=== PATIENT | female | born 1975 | race Caucasian/White ===

== ENCOUNTER → 2020-09-06 11:22 | Outpatient (BNVA) | payer OTHER, SELFPAY | PROVIDERS: PCP Internal Medicine Geriatric Medicine; Referring Provider Internal Medicine Geriatric Medicine; Visit Provider Physician Assistant | DX: K21.9 Gastro-esophageal reflux disease without esophagitis (principal); Z79.899 Other long term (current) drug therapy | CPT/HCPCS: 99213 ==

== ENCOUNTER 2020-09-15 12:21 | Outpatient (REF) | payer OTHER, SELFPAY ==
--- NOTE | 2020-09-15 12:31 | XR_ITS ---
EXAMINATION: XR CERVICAL SPINE CLINICAL INFORMATION: Radiculopathy. COMPARISON: None TECHNIQUE: 3 views of the cervical spine were obtained. FINDINGS: There is mild straightening of cervical lordosis. There are disc prostheses at C5-C6 and C6-C7 disc levels for fusion. In addition there is ventral plate and screws at the C5-C6 disc level. No visible acute fracture or dislocation seen. The prevertebral soft tissues are normal XR/XR cervical spine 4V IMPRESSION: There is cervical fusion C5-C6 and new fusion at C6-C7 disc level. The prevertebral soft tissues are normal.
== END 2020-09-15 12:22 | disposition home or self-care (01) ==
LOC: HO.XRAY 12:21
PROVIDERS: Visit Provider Internal Medicine Geriatric Medicine
DX: M54.12 Radiculopathy, cervical region (principal); Z98.890 Other specified postprocedural states
CPT/HCPCS: 72050

== ENCOUNTER 2020-11-01 12:57 | Outpatient (REF) | payer OTHER, SELFPAY ==
--- NOTE | 2020-11-01 12:59 | MR_ITS ---
MR LUMBAR SPINE WITHOUT IV CONTRAST CLINICAL INFORMATION: Low back pain. Radiculopathy. COMPARISON: None available. TECHNIQUE: MRI of the lumbar spine was obtained using routine sequences without contrast. FINDINGS: There are 5 nonrib-bearing lumbar-type vertebral bodies. Lumbar alignment is normal. The vertebral body heights are maintained. There is moderate disc volume loss and there is partial disc desiccation at L5-S1. There is no bone marrow edema. There are no acute fractures. Conus terminates at T12-L1 level. There are no significant soft tissue findings. There is a partially imaged at least 4 cm left adnexal cyst that can be further assessed with pelvic ultrasound. T11-T12: A left paracentral disc protrusion results in mass effect on the traversing left nerve root within the left subarticular zone. L1-L2: Normal L2-L3: Shallow central disc protrusion and mild bilateral facet arthropathy. No central canal stenosis and no foraminal stenosis. L3-L4: Shallow central disc protrusion eccentric to the right side results in posterior deflection of the traversing right L4 nerve root within the right subarticular zone. Mild narrowing of the central canal. Mild right-sided foraminal encroachment. L4-L5: There is a diffuse annular disc bulge the superimposed shallow left paracentral disc protrusion that contacts the traversing left L5 nerve root within the left subarticular zone. There is also a small left foraminal disc protrusion that results in mild left-sided foraminal encroachment without exiting nerve root compression. L5-S1: There is a shallow central disc protrusion that contacts without compressing the traversing S1 nerve roots within the subarticular zones bilaterally. Mild narrowing of the central canal. No foraminal stenosis. MR/MR lumbar spine wo con IMPRESSION: - At L5-S1, a shallow central disc protrusion that contacts without compressing the traversing S1 nerve roots within the subarticular zones bilaterally. - At L4-L5, a shallow left paracentral disc protrusion that contacts the traversing left L5 nerve root within the left subarticular zone. There is also a small left foraminal disc protrusion that results in mild left-sided foraminal encroachment without exiting nerve root compression. - At L3-L4, a shallow right paracentral disc protrusion results in posterior deflection of the traversing right L4 nerve root within the right subarticular zone. - At T11-T12, a left paracentral disc protrusion results in mass effect on the traversing left nerve root within the left subarticular zone. - There is a partially imaged at least 4 cm left adnexal cyst that can be further assessed with pelvic ultrasound.
== END 2020-11-01 12:58 | disposition home or self-care (01) ==
LOC: HO.MRI 12:57
PROVIDERS: Visit Provider Internal Medicine Geriatric Medicine
DX: M54.10 Radiculopathy, site unspecified (principal); M54.5 Low back pain; G89.29 Other chronic pain
CPT/HCPCS: 72148

== ENCOUNTER → 2020-11-06 12:56 | Outpatient (BNVA) | payer OTHER, SELFPAY | PROVIDERS: PCP Internal Medicine Geriatric Medicine; Visit Provider Surgery | DX: Z01.818 Encounter for other preprocedural examination (principal); R06.02 Shortness of breath; E66.9 Obesity, unspecified; Z68.35 Body mass index [BMI] 35.0-35.9, adult | CPT/HCPCS: Q3014 ==

== ENCOUNTER → 2020-11-23 08:16 | Outpatient (BNVA) | payer OTHER, SELFPAY | PROVIDERS: PCP Internal Medicine Geriatric Medicine; Visit Provider Surgery | DX: E66.9 Obesity, unspecified (principal); R63.5 Abnormal weight gain; Z68.37 Body mass index [BMI] 37.0-37.9, adult; Z98.84 Bariatric surgery status | CPT/HCPCS: Q3014 ==

== ENCOUNTER 2020-12-06 06:58 | Day surgery (SDC) | payer OTHER, SELFPAY ==
--- NOTE | 2020-12-05 10:26 | HO.ANESPROP2 ---
Documented by User: Carolina Turner 12/05/20 10:27 HPI - Anesthesia Eval Consult details Narrative: 45yo F for Upper Endoscopy PMFSH Past Medical History Medical History Anxiety Asthma Chronic back pain Depression GERD (gastroesophageal reflux disease) HTN (hypertension) Infertility Nausea Panic attacks Sleep apnea with use of continuous positive airway pressure (CPAP) Family History Family History Father Diabetes mellitus Hypertension Mother Heart problem Hypertension Sister No problems noted. Brother Dialysis complication Kidney transplant recipient Surgical History Surgical History Gastric bypass status for obesity H/O abdominoplasty History of bilateral breast reduction surgery History of colonoscopy History of endoscopy History of laparoscopy Hx of cervical spine surgery Other plastic surgery for unacceptable cosmetic appearance Social History Social History (Updated 12/06/20 @ 08:05 by Latisha Bertrand) Alcohol intake: current Alcohol intake frequency: holidays/special occasions only Smoking Status: Current some day smoker Smoked in Last 30 Days: Yes Second Hand Smoke Exposure: No Use of substances other than those prescribed or required for medical reasons: No Advance Directives: No Advance Directives Information Provided: No Advance Directives on File: No Meds Allergies Allergy/AdvReac Type Severity Reaction Status Date / Time No Known Allergies Allergy Verified 11/23/20 11:14 none Allergy Unknown Unknown Uncoded 11/23/20 11:14 Home Medications Medication Instructions Recorded Confirmed Type celecoxib 200 mg capsule 200 mg PO DAILY 11/03/20 11/23/20 History clonazepam 2 mg tablet 2 mg PO BID 11/03/20 11/23/20 History cyclobenzaprine 10 mg tablet 10 mg PO TID 11/03/20 11/23/20 History gabapentin 800 mg tablet 800 mg PO TID 11/03/20 11/23/20 History metoprolol succinate 50 mg 50 mg PO BID 11/03/20 11/23/20 History tablet,extended release 24 hr mirtazapine 15 mg tablet 15 mg PO BEDTIME 11/03/20 11/23/20 History oxycodone 5 mg tablet 5 mg PO Q8H PRN 11/03/20 11/23/20 History Exam Exam Date and Time: December 05, 2020 1026 Assessment and Plan Assessment Anesthesia Assessment: Chart Reviewed Documented by User: Latisha Bertrand 12/06/20 08:08 [facility] Past Medical History Medical History Anxiety Asthma Chronic back pain Depression GERD (gastroesophageal reflux disease) HTN (hypertension) Infertility Nausea Panic attacks Sleep apnea with use of continuous positive airway pressure (CPAP) Family History Family History Father Diabetes mellitus Hypertension Mother Heart problem Hypertension Sister No problems noted. Brother Dialysis complication Kidney transplant recipient Family history of problems with anesthesia: No Surgical History Surgical History Gastric bypass status for obesity H/O abdominoplasty History of bilateral breast reduction surgery History of colonoscopy History of endoscopy History of laparoscopy Hx of cervical spine surgery Other plastic surgery for unacceptable cosmetic appearance History of Problems with Anesthesia: No Social History Social History (Updated 12/06/20 @ 08:05 by Latisha Bertrand) Alcohol intake: current Alcohol intake frequency: holidays/special occasions only Smoking Status: Current some day smoker Smoked in Last 30 Days: Yes Second Hand Smoke Exposure: No Use of substances other than those prescribed or required for medical reasons: No Advance Directives: No Advance Directives Information Provided: No Advance Directives on File: No Meds Allergies Allergy/AdvReac Type Severity Reaction Status Date / Time No Known Allergies Allergy Verified 11/23/20 11:14 none Allergy Unknown Unknown Uncoded 11/23/20 11:14 Home Medications Medication Instructions Recorded Confirmed Type celecoxib 200 mg capsule 200 mg PO DAILY 11/03/20 11/23/20 History clonazepam 2 mg tablet 2 mg PO BID 11/03/20 11/23/20 History cyclobenzaprine 10 mg tablet 10 mg PO TID 11/03/20 11/23/20 History gabapentin 800 mg tablet 800 mg PO TID 11/03/20 11/23/20 History metoprolol succinate 50 mg 50 mg PO BID 11/03/20 11/23/20 History tablet,extended release 24 hr mirtazapine 15 mg tablet 15 mg PO BEDTIME 11/03/20 11/23/20 History oxycodone 5 mg tablet 5 mg PO Q8H PRN 11/03/20 11/23/20 History Exam Height,Weight and Vital Signs: Vital Signs Temp Pulse Resp BP Pulse Ox 12/06/20 07:25 97.1 F 86 16 107/74 98 Pertinent Lab Results Pertinent Lab Results: Lab Results 12/06/20 Range/Units 07:10 Urine Test NEGATIVE (NEGATIVE) Airway Mallampati Class: II TM Dist: >3cm Neck ROM: Limited (S/p cervical fusion) Heart: RRR Lungs: CTAB Assessment and Plan Assessment Anesthesia Assessment: Anesthesia Plan Discussed and Chart Reviewed Final Anesthetic Review NPO: Yes ASA Class: III Final Preanesthetic Review: No Changes in Pt Med Stat, Meds/Allgs Chart Reviewed, Consent Obtained/Reviewed and Anes Risks/Benef Reviewed Patient Risk: Intermediate Procedure Risk: Low Assessment/Block/Sedation in SS: Assess/Block/Sedation-SS Anesthetic Plan Anesthetic Plan: MAC: Disposition: Standard PACU
[2020-12-05 11:08] VITALS: BMI 37.0
--- NOTE | 2020-12-05 13:09 | MHC.SHP ---
Pre-Procedural Eval Section B Chief Complaint: bariatric surgery status Allergies: Allergies Allergy/AdvReac Type Severity Reaction Status Date / Time No Known Allergies Allergy Verified 11/23/20 11:14 none Allergy Unknown Unknown Uncoded 11/23/20 11:14 Plan I have reviewed the history and physical and performed a pertinent physical examination on my patient. No changes have occurred unless specified.
[2020-12-06 07:22] LABS: UPreg QC Valid YES; Urine Pregnancy NEGATIVE (NEGATIVE)
[2020-12-06 07:25] VITALS: BP 107/74; PULSE 86; RESP 16; TEMP 36.2; O2SAT 98
[2020-12-06] MEDS: Lactated Ringers 1,000 ML 100 ML IVCONT (07:36)
[2020-12-06 08:42] VITALS: BP 93/56; PULSE 81; RESP 10; TEMP 36.1; O2SAT 100
[2020-12-06 08:57] VITALS: BP 101/61; PULSE 81; RESP 16; TEMP 36.1; O2SAT 100
--- NOTE | 2020-12-06 09:19 | HO.POSTANES ---
Post Anesthesia Evaluation Post Anesthesia Evaluation Vital Signs: Vital Signs Temp Pulse Resp BP Pulse Ox 12/06/20 08:57 97.0 F 81 16 101/61 100 12/06/20 08:42 97.0 F 81 10 L 93/56 L 100 12/06/20 07:25 97.1 F 86 16 107/74 98 Anesthesia: Monitored Mental Status: Awake Pain Control: Satisfactory Nausea/Vomiting: None Hydration: Adequate Anesthesia-Related Issues: No Anes. Related Issues
--- NOTE | 2020-12-06 09:40 | OP_ITS ---
SURGEON: Glendy Baez MD PREOPERATIVE DIAGNOSIS: POSTOPERATIVE DIAGNOSIS: PROCEDURE PERFORMED: Upper endoscopy with enteroscopy to 90 cm from the incisors. ESTIMATED BLOOD LOSS: COMPLICATIONS: None. ANESTHESIA: Total intravenous anesthesia with propofol given by the nurse hotel director. ASSISTANTS: SPECIMENS: PREPROCEDURE DIAGNOSIS: Weight gain after gastric bypass. POSTPROCEDURE DIAGNOSES: Small gastric pouch, widely patent anastomosis, small hiatal hernia. Otherwise, upper endoscopy was normal for normal gastric bypass. CONDITION: Postprocedure, good. DESCRIPTION OF PROCEDURE: The patient was brought into the operating room, placed on stretcher in the left lateral decubitus position. A safety time-out was performed. A bite block was placed between the teeth. The patient was given propofol by the nurse hotel director. Once the patient was adequately sedated, the gastroscope was placed into the posterior oropharynx, passed down the esophagus, evaluating esophageal mucosa which was normal. There was a small sliding hiatal hernia. The GE junction was located at 36 cm from the incisors. The gastric pouch was small for her age. The anastomosis was widely patent and there was a piece of oat food that was visible in the proximal Daylin limb. The anastomosis was located at 38 to 39 cm from the incisors. Gastroscope was easily passed into the Daylin limb down to the 90 cm from the incisors, all of which was normal. All these portions of the upper endoscopy were documented using photo documentation. The gastroscope was retracted back into the stomach. Stomach was desufflated and the gastroscope was removed without difficulty. The patient tolerated the procedure well and was sent to the recovery room in stable condition. Glendy Baez MD UM/MODL / [id number]
--- NOTE | 2020-12-07 16:25 | PM.OP ---
Brief Operative Note Date of Service: 12/06/20 Pre-op diagnosis: Weight gain after gastric bypass Post-op diagnosis: other (Normal gastric bypass) Procedure: Esophagogastrojejunoscopy Implants: None Surgeon: Glendy Baez MD Anesthesia: MAC Estimated blood loss (mL): 0 Pathology: none sent Condition: stable Disposition: PACU
== END 2020-12-06 09:20 | disposition home or self-care (01) ==
PROVIDERS: Nurse Practitioner; PCP Internal Medicine Geriatric Medicine; Visit Provider Surgery
PROC: 0DJ08ZZ Inspection of Upper Intestinal Tract, Via Natural or Artificial Opening Endoscopic (ICD-10-PCS; CPT 43235; principal; 2020-12-06 08:10)
DX: R63.5 Abnormal weight gain (principal); Z98.84 Bariatric surgery status; Z98.0 Intestinal bypass and anastomosis status; K44.9 Diaphragmatic hernia without obstruction or gangrene; K21.9 Gastro-esophageal reflux disease without esophagitis; J45.909 Unspecified asthma, uncomplicated; I10 Essential (primary) hypertension; G47.33 Obstructive sleep apnea (adult) (pediatric); Z99.89 Dependence on other enabling machines and devices; Z79.899 Other long term (current) drug therapy; F17.200 Nicotine dependence, unspecified, uncomplicated
CPT/HCPCS: 44361; 81025

== ENCOUNTER → 2020-12-07 08:08 | Outpatient (BNVA) | payer OTHER, SELFPAY | PROVIDERS: PCP Internal Medicine Geriatric Medicine; Visit Provider Dietitian, Registered | DX: Z76.89 Persons encountering health services in other specified circumstances (principal) ==

== ENCOUNTER 2020-12-14 12:44 | Outpatient (REF) | payer OTHER, SELFPAY ==
[2020-12-16 13:26] LABS: H Pylori Breath Test NOT DETECTED (NOT DETECTED)
== END 2020-12-14 12:45 | disposition home or self-care (01) ==
LOC: HO.LNP 12:44
PROVIDERS: PCP Internal Medicine Geriatric Medicine; Visit Provider Physician Assistant
DX: E66.9 Obesity, unspecified (principal); Z98.84 Bariatric surgery status
CPT/HCPCS: 83013; 99211; 99212

== ENCOUNTER → 2021-01-04 08:23 | Outpatient (BNVA) | payer OTHER, SELFPAY | PROVIDERS: PCP Internal Medicine Geriatric Medicine; Visit Provider Dietitian, Registered ==

== ENCOUNTER → 2021-01-09 08:23 | Outpatient (BNVA) | payer OTHER, SELFPAY | PROVIDERS: PCP Internal Medicine Geriatric Medicine; Visit Provider Dietitian, Registered ==

== ENCOUNTER → 2021-05-24 12:37 | Outpatient (BNVA) | payer OTHER, SELFPAY | PROVIDERS: PCP Internal Medicine Geriatric Medicine; Referring Provider Internal Medicine Geriatric Medicine; Visit Provider Physician Assistant | DX: E66.9 Obesity, unspecified (principal); Z98.84 Bariatric surgery status | CPT/HCPCS: 99212 ==

== ENCOUNTER → 2021-06-26 08:14 | Outpatient (BNVA) | payer OTHER, SELFPAY | PROVIDERS: PCP Internal Medicine Geriatric Medicine; Visit Provider Dietitian, Registered ==

== ENCOUNTER 2021-08-29 11:46 | Outpatient (REF) | payer OTHER, SELFPAY ==
--- NOTE | ~2021-08-29 | US_ITS ---
EXAMINATION: US PELVIS CLINICAL INFORMATION: Pelvic pain; the last menstrual period was on 08/26/2021. COMPARISON: Pelvic ultrasound dated 12/09/2018. TECHNIQUE: Ultrasound of the pelvis is performed using both transabdominal and transvaginal transducers along with Doppler. Transvaginal imaging is performed due to inadequate visualization transabdominally. FINDINGS: Uterus: The uterus is anteverted and retroflexed. The uterus measures 7.1 x 3.6 x 3.9 cm. Nabothian cysts are seen within the cervix. The double wall endometrial thickness is 0.3 mm. The uterus is smooth in contour and has normal myometrial echogenicity. No visible fibroid. Adnexa: Both ovaries are visualized. There is normal color flow to the adnexa. There is no ovarian torsion. There is no pelvic ascites or fluid collection. Right ovary measures 3.4 x 2.4 x 3.2 cm (volume 13.4 mL). The right ovary contains a 2.2 x 1.8 x 2.1 cm heterogeneously hypoechoic mass with calcifications. This shows small central cystic foci. Left ovary measures 2.3 x 1.9 x 1.9 cm (volume 4.3 mL). The left ovary contains a 1.1 x 1.2 x 1.0 cm hemorrhagic cyst with characteristic internal hypoechoic, slightly reticulated contents. US/US pelvic and transvaginal IMPRESSION: 1. The right ovary contains a 2.2 cm and maximal diameter heterogeneous echotexture mass with small calcifications. Again, the possibility of a dermoid tumor is raised. Dimensions are diminished from 12/13/2018, at which time dimension were 2.6 x 2.7 x 2.6 cm. Recommend continued Gynecology evaluation and management. 2. A 1.1 cm hemorrhagic cyst is seen within the left ovary. 3. Nabothian cysts are seen within the cervix.
== END 2021-08-29 11:47 | disposition home or self-care (01) ==
LOC: HO.US 11:46
PROVIDERS: PCP Internal Medicine Geriatric Medicine; Visit Provider Advanced Practice Midwife
DX: R10.2 Pelvic and perineal pain (principal)
CPT/HCPCS: 76830; 76856

== ENCOUNTER 2021-12-20 10:05 | Outpatient (REF) | payer OTHER, SELFPAY ==
--- NOTE | ~2021-12-20 | XR_ITS ---
EXAMINATION: XR HIP, LEFT CLINICAL INFORMATION: Pain COMPARISON: None TECHNIQUE: Two views of the left hip. FINDINGS: Bones and soft tissues are normal. No fracture. Alignment is anatomic. Hip joint space is maintained. XR/XR hip LT min 2V IMPRESSION: No significant osseous changes to explain patient's pain symptoms. No fracture or dislocation.
== END 2021-12-20 10:06 | disposition home or self-care (01) ==
LOC: HO.XRAY 10:05
PROVIDERS: PCP Internal Medicine Geriatric Medicine; Visit Provider Internal Medicine Geriatric Medicine
DX: M25.552 Pain in left hip (principal)
CPT/HCPCS: 73502

== ENCOUNTER 2022-01-05 08:20 | Outpatient (REF) | payer OTHER, SELFPAY ==
--- NOTE | ~2022-01-05 | XR_ITS ---
EXAMINATION: XR LUMBOSACRAL SPINE WITH OBLIQUES CLINICAL INFORMATION: Low back pain COMPARISON: Previous x-ray February 2017 TECHNIQUE: AP, both oblique, and lateral views of the lumbar spine. Lateral view of the lumbosacral junction. FINDINGS: There is mild curvature of the lumbar spine to the right. Bone alignment is otherwise normal. No fracture or dislocation is seen. There may be mild disc space narrowing at L5-S1. There is lower lumbar spine facet arthritis. There are postsurgical changes with surgical staple line seen in the left upper and mid abdomen. XR/XR lumbar spine 4V min IMPRESSION: Mild curvature of the lumbar spine to the right. Mild degenerative changes of the lower lumbar spine.
== END 2022-01-05 08:21 | disposition home or self-care (01) ==
LOC: HO.XRAY 08:20
PROVIDERS: Absent Provider Internal Medicine Geriatric Medicine; PCP Internal Medicine Geriatric Medicine; Visit Provider Internal Medicine
DX: M54.50 Low back pain, unspecified (principal)
CPT/HCPCS: 72110

== ENCOUNTER 2022-01-22 09:13 | Outpatient (REF) | payer OTHER, SELFPAY ==
--- NOTE | ~2022-01-22 | XR_ITS ---
EXAMINATION: XR HAND, RIGHT CLINICAL INFORMATION: Pain COMPARISON: None TECHNIQUE: PA, lateral, and oblique views of the right hand. FINDINGS: The bones and soft tissues are normal. No fracture. Alignment is anatomic. Joint spaces are maintained. No erosions or soft tissue calcifications. XR/XR hand RT min 3V IMPRESSION: No significant osseous changes to explain patient's pain symptoms.
--- NOTE | ~2022-01-22 | CT_ITS ---
EXAMINATION: CT HIP WITHOUT CONTRAST, LEFT CLINICAL INFORMATION: Left hip pain. COMPARISON: Left hip radiographs dated 12/20/2021. TECHNIQUE: Contiguous axial CT imaging of the left hip was obtained without contrast. Multiplanar reformats were provided and reviewed. This CT examination was performed using dose optimization techniques as appropriate, variously including the following: Automated exposure control. Adjustment of mA and/or kV according to patient size (this includes techniques or standardized protocols for targeted exams where dose is matched to indication/reason for exam; i.e. extremities or head). Use of iterative reconstruction technique. DLP: 270 mGy-cm FINDINGS: Mild posterior left hip joint space narrowing with tiny acetabular marginal osteophytes. Minimal degenerative cystic change at the anterior aspect of the femoral head/neck junction. No acute fracture or dislocation. No evidence of avascular necrosis. No concerning lytic or blastic osseous lesion. No periosteal reaction or osseous erosion. No significant joint effusion. No abnormal soft tissue mass or fluid collection. The visualized muscles and tendons are grossly intact, however, evaluation is limited on CT examination. The visualized intrapelvic structures are unremarkable. CT/CT hip LT wo con IMPRESSION: 1. Mild left hip osteoarthritis. 2. No fracture, dislocation, or avascular necrosis.
== END 2022-01-22 09:14 | disposition home or self-care (01) ==
LOC: HO.CT 09:13
PROVIDERS: Absent Provider Internal Medicine Geriatric Medicine; PCP Internal Medicine Geriatric Medicine; Visit Provider Internal Medicine
DX: M25.552 Pain in left hip (principal); M79.641 Pain in right hand
CPT/HCPCS: 73130; 73700

== ENCOUNTER 2022-09-04 13:24 | Outpatient (REF) | payer OTHER, SELFPAY ==
--- NOTE | ~2022-09-04 | XR_ITS ---
EXAMINATION: XR FOOT, RIGHT CLINICAL INFORMATION: Pain COMPARISON: None TECHNIQUE: AP, lateral, and oblique views of the right foot. FINDINGS: The bones and soft tissues are normal. No fracture. Alignment is anatomic. Joint spaces are maintained. There is a small calcaneal heel and retrocalcaneal enthesophytes. XR/XR foot RT min 3V IMPRESSION: Small calcaneal heel and retrocalcaneal enthesophytes. Otherwise the right foot appears unremarkable.
== END 2022-09-04 13:25 | disposition home or self-care (01) ==
LOC: HO.XRAY 13:24
PROVIDERS: PCP Internal Medicine Geriatric Medicine; Visit Provider Internal Medicine Geriatric Medicine
DX: M79.671 Pain in right foot (principal)
CPT/HCPCS: 73630

== ENCOUNTER → 2022-10-31 13:16 | Outpatient (BNVA) | payer OTHER, SELFPAY | PROVIDERS: PCP Internal Medicine Geriatric Medicine; Referring Provider Internal Medicine Geriatric Medicine; Visit Provider Physician Assistant | DX: A04.8 Other specified bacterial intestinal infections (principal); K21.9 Gastro-esophageal reflux disease without esophagitis; R10.13 Epigastric pain; Z79.891 Long term (current) use of opiate analgesic; Z79.899 Other long term (current) drug therapy | CPT/HCPCS: 99212 ==

== ENCOUNTER 2022-11-22 08:58 | Outpatient (REF) | payer OTHER, SELFPAY ==
[2022-11-23 14:57] LABS: H Pylori Breath Test Negative (Negative)
== END 2022-11-22 08:59 | disposition home or self-care (01) ==
LOC: CF 08:58
PROVIDERS: PCP Internal Medicine Geriatric Medicine; Visit Provider Physician Assistant
DX: A04.8 Other specified bacterial intestinal infections (principal)
CPT/HCPCS: 36415; 83013

== ENCOUNTER 2022-12-17 13:02 | Outpatient (REF) | payer OTHER, SELFPAY ==
--- NOTE | ~2022-12-17 | MM_ITS ---
EXAMINATION: MM SCREENING DIGITAL BREAST TOMOSYNTHESIS, BILATERAL CLINICAL INFORMATION: Screening. Asymptomatic. Right implant. Prior explantation on left. The lifetime risk of breast cancer based on the Tyrer-Cuzick Model is 12%. COMPARISON: Outside mammography: 06/07/2015 ([facility]) TECHNIQUE: Digital mammography is performed in craniocaudal and mediolateral oblique views along with computer-aided detection (CAD). Digital breast tomosynthesis is performed in implant-displaced craniocaudal and implant-displaced mediolateral oblique views along with computer-aided detection (CAD). Synthesized 2D images are generated from the tomosynthesis. Additional left implant displaced MLO view with nipple in profile provided. FINDINGS: There are scattered areas of fibroglandular density (ACR BI-RADS breast composition Category b). Patient has had implants since prior outside mammography 2014 and explantation on the left. The right implant shows smooth contours. There is minor scarring related to the prior surgery. Breast tissue composition borders on predominantly fatty. Background stromal and fibroglandular tissue is unremarkable. There is no significant mass or architectural abnormality or abnormal calcifications. The axilla are unremarkable. MM/MM tomosynthesis screen imp BI IMPRESSION: No mammographic evidence of malignancy. ASSESSMENT: BI-RADS 2: Benign RECOMMENDATION: Routine annual mammography screening. This patient's information was entered into a reminder system with a target due date for their next mammogram.
== END 2022-12-17 13:03 | disposition home or self-care (01) ==
LOC: HO.MAMMO 13:02
PROVIDERS: PCP Internal Medicine Geriatric Medicine; Visit Provider Internal Medicine Geriatric Medicine
DX: Z12.31 Encounter for screening mammogram for malignant neoplasm of breast (principal)
CPT/HCPCS: 77063; 77067

== ENCOUNTER 2023-07-02 15:32 | Outpatient (REF) | payer OTHER, SELFPAY ==
[2023-07-04 16:28] LABS: TS Negative Control Passed; TS Panel A 0; TS Panel B 0; TS Positive Control Passed; TSpotTB Negative (Negative)
== END 2023-07-02 15:33 | disposition home or self-care (01) ==
LOC: HO.HHCL 15:32
PROVIDERS: Visit Provider Internal Medicine Geriatric Medicine
DX: Z11.1 Encounter for screening for respiratory tuberculosis (principal)
CPT/HCPCS: 36415; 86481

== ENCOUNTER 2023-07-24 17:16 | Outpatient (REF) | payer OTHER, SELFPAY ==
[2023-07-25 12:09] LABS: BV Int Neg Control Negative (Negative); BV Int Pos Control Positive (Positive)
== END 2023-07-24 17:17 | disposition home or self-care (01) ==
LOC: HO.HHCLNP 17:16
PROVIDERS: Visit Provider Advanced Practice Midwife
DX: N89.8 Other specified noninflammatory disorders of vagina (principal); R35.0 Frequency of micturition
CPT/HCPCS: 87086; 87088; 87186; 87480; 87510; 87660

== ENCOUNTER 2023-10-21 14:54 | Outpatient (REF) | payer OTHER, SELFPAY ==
[2023-10-21 18:17] LABS: Anion Gap 10 (12-20); Blood Urea Nitrogen 11 mg/dL (9-16); Calcium 9.2 mg/dL (8.4-10.2); Carbon Dioxide 29 mmol/L (22-29); Chloride 106 mmol/L (96-108); Estimated Glomerular Filt Rate > 60; Glucose Random 72 mg/dL (60-115); Potassium 3.8 mmol/L (3.3-5.1); Sodium 141 mmol/L (135-145)
== END 2023-10-21 14:55 | disposition home or self-care (01) ==
LOC: HO.HHCL 14:54
PROVIDERS: Visit Provider Internal Medicine Geriatric Medicine
DX: M79.89 Other specified soft tissue disorders (principal)
CPT/HCPCS: 36415; 80048

== ENCOUNTER 2024-02-10 14:25 | Outpatient (REF) | payer OTHER, SELFPAY ==
--- NOTE | ~2024-02-10 | XR_ITS ---
EXAMINATION: XR LUMBOSACRAL SPINE CLINICAL INFORMATION: She fell last year, back pain COMPARISON: None available. TECHNIQUE: Three views of the lumbosacral spine. FINDINGS: The vertebral bodies and posterior elements are normal. The disc spaces are preserved and the vertebral alignment is normal. The paraspinal soft tissues are normal. There is mild degenerative disc changes T11-T12, T10-T11 disc levels with mild ventral spondylosis there are postsurgical changes in the left epigastric region from previous intervention. XR/XR lumbar spine 2-3V IMPRESSION: 1. No acute fracture or dislocation. 2. Mild degenerative disc changes T11-T12, T10-T11 disc levels with ventral spondylosis.
== END 2024-02-10 14:26 | disposition home or self-care (01) ==
LOC: HO.HHCX 14:25
PROVIDERS: Visit Provider Internal Medicine
DX: M54.50 Low back pain, unspecified (principal); G89.29 Other chronic pain
CPT/HCPCS: 72100

== ENCOUNTER 2024-03-16 | Outpatient (REF) | payer OTHER, SELFPAY | END 2024-03-16 00:01 | disposition home or self-care (01) | LOC: HO.HHCLNP | PROVIDERS: Visit Provider Internal Medicine Geriatric Medicine | DX: Z13.89 Encounter for screening for other disorder (principal) ==

== ENCOUNTER 2024-05-10 10:09 | Outpatient (REF) | payer OTHER, SELFPAY ==
[2024-05-10 11:23] LABS: MANUAL DIFF FLAG NO
[2024-05-10 11:30] LABS: Basophils Percent Auto 0.5 % (0-2); Eosinophils Absolute Auto 0.2 X10*3/uL (0.0-0.4); Eosinophils Percent Auto 3.7 % (0-4); Hematocrit 35.4 % (37.0-47.0); Hemoglobin 11.2 g/dl (12.0-16.0); Imm Gran Abs Auto 0.03 X10*3/uL (0.00-0.03); Imm Gran Pct Auto 0.5 % (0.0-0.4); Lymphocytes Absolute Auto 1.7 X10*3/uL (1.2-4.9); Lymphocytes Percent Auto 28.1 % (20-40); Mean Corpuscular HGB Conc 31.6 g/dl (31.0-35.0); Mean Corpuscular Hemoglobin 28.3 pg (27.0-33.0); Mean Corpuscular Volume 89.4 fL (80.0-98.0); Monocytes Absolute Auto 0.4 X10*3/uL (0.1-1.2); Neutrophils Absolute Auto 3.6 x10*3/uL (2.0-8.3); Neutrophils Percent Auto 60.2 % (45-73); Platelet Count 331 X10*3/uL (160-400); Red Blood Count 3.96 X10*6/uL (4.20-5.50); Red Cell Distribution Width 13.7 % (11.0-16.0)
[2024-05-10 11:54] LABS: Alanine Aminotransferase 14 U/L (0-31); Albumin Level 4.1 g/dL (3.5-5.0); Alkaline Phosphatase 77 U/L (39-117); Anion Gap 10 (12-20); Aspartate Amino Transferase 16 U/L (5-31); Bilirubin Total 0.2 mg/dL (0.0-1.0); Blood Urea Nitrogen 10 mg/dL (9-16); Calcium 9.1 mg/dL (8.4-10.2); Carbon Dioxide 25 mmol/L (22-29); Chloride 110 mmol/L (96-108); Cholesterol 174 mg/dL (<200); Estimated Glomerular Filt Rate > 60; Glucose Random 88 mg/dL (60-115); HDL Cholesterol 58 mg/dL (>40); LDL Cholesterol Calculated 103 mg/dL (<100); Lipase 16 U/L (8-78); Potassium 3.9 mmol/L (3.3-5.1); Sodium 141 mmol/L (135-145); Total Protein 7.6 g/dL (6.5-8.0); Triglycerides 67 mg/dL (<150)
[2024-05-11 03:48] LABS: CT PCR NOT DETECTED (Not Detect.); NG PCR NOT DETECTED (Not Detect.)
[2024-05-11 03:53] LABS: HIV AB/AG Nonreactive (Nonreactive); HIV Num 1 0.07 S/CO (0.00-0.99); ~HepC Num1 0.14 S/CO (0.00-0.79); ~Hepatitis C Antibody Nonreactive (Nonreactive)
[2024-05-11 11:03] LABS: RPR Rapid Plasma Reagin NON-REACTIVE (NON-REACTIVE)
[2024-05-11 17:52] LABS: Herpes Simplex Type 2 IgG 4.63 index; Mumps Virus IgG Antibody <9.00 AU/mL; Rubella IgG Antibody 1.07 Index; Rubeola IgG (Measles) >300.00 AU/mL
== END 2024-05-10 10:10 | disposition home or self-care (01) ==
LOC: HO.HHCL 10:09
PROVIDERS: Visit Provider Nurse Practitioner Family
DX: Z00.00 Encounter for general adult medical examination without abnormal findings (principal); Z20.2 Contact with and (suspected) exposure to infections with a predominantly sexual mode of transmission; Z23 Encounter for immunization; R53.83 Other fatigue; R10.84 Generalized abdominal pain
CPT/HCPCS: 0353U; 36415; 80053; 80061; 83690; 85025; 86592; 86695; 86696; 86735; 86762; 86765; 86803; 87389

== ENCOUNTER 2024-06-10 13:51 | Outpatient (REF) | payer OTHER, SELFPAY ==
--- NOTE | ~2024-06-10 | XR_ITS ---
EXAMINATION: XR FOOT, RIGHT CLINICAL INFORMATION: Pain COMPARISON: 09/04/2022 TECHNIQUE: 3 views of the right foot. FINDINGS: Bones have normal alignment. No acute fracture or subluxation. No focal soft tissue swelling. 11 degrees of metatarsus primus varus and 20 degrees of hallux valgus. Metatarsophalangeal joint spaces are maintained. Also, the interphalangeal spaces are well-preserved. No erosions or periostitis. Again noted are small calcaneal enthesophytes at sites of attachment of the Achilles tendon and plantar aponeurosis. No radiopaque foreign body. XR/XR foot RT min 3V IMPRESSION: * No acute osseous injury in the right foot. * No radiographic evidence of any significant degenerative or inflammatory arthropathy in the foot. * Mild hallux valgus deformity.
== END 2024-06-10 13:52 | disposition home or self-care (01) ==
LOC: HO.HHCX 13:51
PROVIDERS: Visit Provider Internal Medicine Geriatric Medicine
DX: M79.671 Pain in right foot (principal)
CPT/HCPCS: 73630

== ENCOUNTER 2024-08-31 13:08 | Outpatient (REF) | payer OTHER, SELFPAY ==
[2024-09-03 09:14] LABS: Fentanyl, Ur NEGATIVE; Norfentanyl, Ur NEGATIVE
== END 2024-08-31 13:09 | disposition home or self-care (01) ==
LOC: HO.HHCLNP 13:08
PROVIDERS: Internal Medicine Geriatric Medicine; Visit Provider Registered Nurse
DX: Z79.891 Long term (current) use of opiate analgesic (principal)
CPT/HCPCS: 80354

== ENCOUNTER 2025-04-13 14:43 | Outpatient (REF) | payer OTHER, SELFPAY ==
--- NOTE | ~2025-04-13 | XR_ITS ---
EXAMINATION: XR CHEST 2 VIEWS HISTORY: pre op evaluation, requested by surgeon COMPARISON: There are no prior studies for comparison. FINDINGS: PA and lateral views of the chest are submitted. The lungs are expanded and clear. There is no pleural effusion, pneumothorax, or pulmonary vascular congestion. The heart is normal in size. The bones are intact. A fusion plate is seen in the lower cervical spine. XR/XR chest 2V IMPRESSION: No acute cardiopulmonary abnormality. Electronically signed by: Dominic Vu MD 04/13/2025 03:23 PM EDT
--- OUTSIDE RECORDS SUMMARY | 2025-04-13 14:50 | XMS_ITS | Encounter Summary ---
Author Organization [employer] Address [address] [place] [address] Care Team Providers Care [employer] Operator Name Role Phone Name, Yazan PEARCE Primary Care Provider [phone] Reason for Visit * Reason Comments Med Refill Encounter Details Date Type Department Care Team ([facility] Contact Info) Description 08/04/2023 Refill [facility] [address] [place], [place] [id number] Name, MD Yazan [address] [place] [phone] Chronic neck pain Social History Tobacco Use Types Packs/Day Years Used Date Smoking Tobacco: Former Passive Smoke Exposure: Never Smokeless Tobacco: Never Alcohol Use Standard Drinks/Week Comments Yes 1 (1 standard drink = 0.6 oz pur e alcohol) Ocassionally Depression Answer Date Recorded Patient Health Questionnaire-9 Score 6 11/12/2022 Depression Answer Date Recorded Patient Health Questionnaire-2 Score 1 11/12/2022 Comments No Sex and Gender Information Value Date Recorded Sex Assigned at Female 09/23/2022 10:29 AM EDT Legal Sex Female 10:29 AM EDT Gender Identity Female 09/23/2022 10:29 AM EDT Sexual Orientation Straight 09/23/2022 10 :29 AM EDT documented as of this encounter Plan of Treatment Upcoming Encounters Date Type Department Care Team ([facility] Contact Info) Description 04/19/2025 11:00 AM EDT Office Visit [facility] [address] [place] [address] [phone] 07/08/2025 10:30 AM EDT Office Visit [address] [address] Name, MD Yazan [address] [place] [address] documented as of this encounter Visit Diagnoses Diagnosis Chronic neck pain Cervicalgia documented in this encounter Additional Health Concerns Assessment Noted Time PHQ-9 Depression Total Score: 6 11/12/20 22 11:11 AM EST documented as of this encounter Care Teams [employer] Operator Relationship Specialty Start Date End Date Name, MD Yazan [address] [place] [address] PCP - General Family Medicine 12/25/15 documented as of this encounter
--- OUTSIDE RECORDS SUMMARY | 2025-04-13 14:50 | XMS_ITS | Encounter Summary ---
Author Organization [employer] Address [address] [facility] 7t [place] [address] Care Team Providers Care Soil Checker Name Role Phone Name, Yazan PEARCE Primary Care Provider [phone] Reason for Visit * Reason Comments Med Refill Encounter Details Date Type Department Care Team ([facility] st Contact Info) Description 10/07/2023 Refill [facility] MEDICINE [address] [place], [place] [phone] Jen Tate, KARINA [address] [place] [address] Social History Tobacco Use Types Packs/Day Years Used Date Smoking Tobacco: Former Passive Smoke Exposure: Never Smokeless Tobacco: Never Alcohol Use Standard Drinks/Week Comments Yes 1 (1 standard drink = 0.6 oz pur e alcohol) Ocassionally Depression Answer Date Recorded Patient Health Questionnaire-9 Score 6 11/12/2022 Housing Stability Answer Date Recorded What is your housing situation today? I have ole garcia 09/15/[address] you li ve. Do you have problems with any of the following? None of the above 09/15/2023 Food Insecurity Answer Date Recorded Within the past 12 months, y ou worried that your food would run out before you got money to buy more: Never True 09/15/2023 Within the past 12 months,th e food you bought just didn't last and you didn't have enough money to get more: Never True Transportation Answer Date Recorded In the past 12 months, has l ack of transportation kept you from medical appts, meetings, work or from getting things needed for daily living? No 09/15/2023 Utilities Answer Date Recorded In the past 12 months, has t he electric, gas, oil or water company threatened to shut off services in your home? No 09/15/2023 Depression Answer Date Recorded Patient Health Questionnaire-2 Score 1 11/12/2022 Comments No Sex and Gender Information Value Date Recorded Sex Assigned at Female 09/23/2022 10:29 AM EDT Legal Sex Female 10:29 AM EDT Gender Identity Female 09/23/2022 10:29 AM EDT Sexual Orientation Straight 09/23/2022 10 :29 AM EDT documented as of this encounter Plan of Treatment Upcoming Encounters Date Type Department Care Team (Late st Contact Info) Description 04/19/2025 11:00 AM EDT Office Visit [facility] MEDICINE [address] [place] [phone] 07/08/2025 10:30 AM EDT Office Visit [address] [address] Name, MD Yazan [address] [place] [phone] documented as of this encounter Visit Diagnoses Not on filedocumented in this encounter Additional Health Concerns Assessment Noted Time PHQ-9 Depression Total Score: 6 11/12/20 22 11:11 AM EST documented as of this encounter Care Teams Soil Checker Relationship Specialty Start Date End Date NameYazan MD [address] [place] [phone] PCP - General Family Medicine 12/25/15 documented as of this encounter
--- OUTSIDE RECORDS SUMMARY | 2025-04-13 14:50 | XMS_ITS | Encounter Summary ---
Author Organization [employer] Address [address] [facility] [address] 7[address] [place] [address] Care Team Providers Care Information Technology Auditor Name Role Phone Name, Yazan PEARCE Primary Care Provider [phone] Encounter Details Date Type Department Care Team ([facility] Contact Info) Description 10/25/2022 Orders Only [facility] [address] [place], [place] [phone] Name, MD Yazan [address] [place] [address] Social History Tobacco Use Types Packs/Day Years Used Date Smoking Tobacco: Some Days Cigarettes Smokeless Tobacco: Never Alcohol Use Standard Drinks/Week Comments Yes 1 (1 standard drink = 0.6 oz pur e alcohol) Ocassionally Comments Unknown Sex and Gender Information Value Date Recorded Sex Assigned at Female 09/23/2022 10:29 AM EDT Legal Sex Female 10:29 AM EDT Gender Identity Female 09/23/2022 10:29 AM EDT Sexual Orientation Straight 09/23/2022 10 :29 AM EDT COVID-19 Exposure Response Date Recorded In the last 10 days, have yo u been in contact with someone who was confirmed or suspected to have Coronavirus/COVID-19? No / Unsure 10/25/2022 2:11 PM EST documented as of this encounter Plan of Treatment Upcoming Encounters Date Type Department Care Team ([facility] Contact Info) Description 04/19/2025 11:00 AM EDT Office Visit [address] [phone] 07/08/2025 10:30 AM EDT Office Visit [address] [address] Name, MD Yazan [address] [place] [address] documented as of this encounter Procedures Procedure Name Priority Date/Time Associated Diagnosis Comments HELICOBACTER PYLORI, UREA BREATH TEST Routine 11/22/2022 9:39 AM EST documented in this encounter Results * Helicobacter pylori, Urea Breath Test (11/22/2022 9:39 AM EST) H. pylori Breath Test Negative Negative [facility] Comment:Antimicrobials, prot on pump inhibitors and bismuthpreparations are known to suppress H. pylori. Ingestingthese medications within two weeks prior to performing thebreath test may produce negative test results. A positiveresult is still clinically valid. 11/22/2022 9:39 AM EST 11/22/2022 4:20 PM EST [facility] External Provider LAB BLO OD ORDERABLES Final Result [facility] [address] [place] [address] [phone] documented in this encounter Visit Diagnoses Not on filedocumented in this encounter Care Teams Information Technology Auditor Relationship Specialty Start Date End Date Name, MD Yazan [address] [place] [address] PCP - General Family Medicine 12/25/15 documented as of this encounter
--- OUTSIDE RECORDS SUMMARY | 2025-04-13 14:50 | XMS_ITS | Encounter Summary ---
Author Organization [employer] Address [address] [facility] 7t [place] [address] Care Team Providers Care Chief Reservoir Engineering Name Role Phone Name, Yazan PEARCE Primary Care Provider [phone] Reason for Visit * Reason Comments Med Refill Encounter Details Date Type Department Care Team ([facility] Contact Info) Description 07/08/2023 Refill [facility] MED & PEDS [address] [place], [place] [phone] Name, MD Yazan [address] [place] [address] Chronic neck pain Social History Tobacco Use Types Packs/Day Years Used Date Smoking Tobacco: Former Cigarettes Q uit: 10/24/2022 Passive Smoke Exposure: Never Smokeless Tobacco: Never [...] Upcoming Encounters Date Type Department Care Team ([facility] Contact Info) Description 04/19/2025 11:00 AM EDT Office Visit [facility] MEDICINE [address] [place] [address] [phone] 07/08/2025 10:30 AM EDT Office Visit [facility] MEDICINE [address] [place] [address] Name, MD Yazan [address] [place] [address] documented as of this encounter Visit Diagnoses Diagnosis Chronic neck pain Cervicalgia documented in this encounter Additional Health Concerns Assessment Noted Time PHQ-9 Depression Total Score: 6 11/12/20 22 11:11 AM EST documented as of this encounter Care Teams Chief Reservoir Engineering Relationship Specialty Start Date End Date Name, [place] [address] PCP - General Family Medicine 12/25/15 documented as of this encounter
--- OUTSIDE RECORDS SUMMARY | 2025-04-13 14:50 | XMS_ITS | Encounter Summary ---
Author Organization [facility] Address [address] [facility] 7t [place] [address] Care Team Providers Care Barrel Filler Name Role Phone Name, Yazan PEARCE Primary Care Provider [phone] Reason for Visit * Reason Comments Med Refill Encounter Details Date Type Department Care Team ([facility] Contact Info) Description 05/11/2023 Refill [facility] MEDICINE [address] [place], [place] [phone] Name, MD Yazan [address] [place] [address] History of gastric bypass; Depressive disorder Social History Tobacco Use Types Packs/Day Years [...] suspected to have Coronavirus/COVID-19? No / Unsure 05/08/2023 11:13 AM EDT documented as of this encounter Plan of Treatment Upcoming Encounters Date Type Department Care Team (Late Contact Info) Description 04/19/2025 11:00 AM EDT Office Visit [facility] MEDICINE [address] [place] [address] 07/08/2025 10:30 AM EDT Office Visit [facility] MEDICINE [address] [place] [phone] Name, MD Yazan [address] [place] [address] documented as of this encounter Visit Diagnoses Diagnosis History of gastric bypass Depressive disorder Depressive disorder, not elsewhere classified documented in this encounter Additional Health Concerns Assessment Noted Time PHQ-9 Depression Total Score: 6 11/12/20 22 11:11 AM EST documented as of this encounter Care Teams Barrel Filler Relationship Specialty Start Date End Date Name, MD Yazan [address] [place] [phone] PCP - General Family Medicine 12/25/15 documented as of this encounter
--- OUTSIDE RECORDS SUMMARY | 2025-04-13 14:50 | XMS_ITS | Encounter Summary ---
Author Organization [employer] Address [address] [facility] 7t [place] [address] Care Team Providers Care Geothermal Operations Manager Name Role Phone Name, Yazan PEARCE Primary Care Provider [phone] Reason for Visit * Reason Onset Date Comments Appointment Request 03/24/2023 Encounter Details Date Type Department Care Team ([facility] st Contact Info) Description 03/24/2023 Telephone [facility] MEDICINE [address] [place] [address] Name, MD Yazan [address] [place] [address] Appointment Request Social History Tobacco Use Types Packs/Day Years Used Date Smoking Tobacco: Former Cigarettes Q uit: 10/24/2022 Smokeless Tobacco: Never Alcohol Use Standard Drinks/Week Comments Never 1 (1 standard drink = 0.6 oz [...] suspected to have Coronavirus/COVID-19? No / Unsure 03/03/2023 2:14 PM EDT documented as of this encounter Miscellaneous Notes * Telephone Encounter - Anastacia Santos - 03/24/2023 9:16 AM EDT Tc from pt canceled today appt with randa due to not feeling well and would like to r/s . documented in this encounter Plan of Treatment Upcoming Encounters Date Type Department Care Team (Late st Contact Info) Description 04/19/2025 11:00 AM EDT Office Visit [facility] MEDICINE [address] [place] [phone] 07/08/2025 10:30 AM EDT Office Visit [address] [address] Name, MD Yazan [address] [place] [address] documented as of this encounter Visit Diagnoses Not on filedocumented in this encounter Additional Health Concerns Assessment Noted Time PHQ-9 Depression Total Score: 6 11/12/20 22 11:11 AM EST documented as of this encounter Care Teams Geothermal Operations Manager Relationship Specialty Start Date End Date Name, MD Yazan [address] [place] [phone] PCP - General Family Medicine 12/25/15 documented as of this encounter
--- OUTSIDE RECORDS SUMMARY | 2025-04-13 14:50 | XMS_ITS | Encounter Summary ---
Author Organization [employer] Address [address] [facility] 7t [place] [address] Care Team Providers Care Knee Bolter Name Role Phone Name, Yazan PEARCE Primary Care Provider [phone] Reason for Visit * Reason Comments Med Refill Encounter Details Date Type Department Care Team (Late Contact Info) Description 04/17/2023 Refill [facility] [address] [place] [phone] Isaias Hardwick, VERA LUQ pain Social History Tobacco Use Types Packs/Day [...] suspected to have Coronavirus/COVID-19? No / Unsure 04/15/2023 6:13 PM EDT documented as of this encounter Plan of Treatment Upcoming Encounters Date Type Department Care Team ([facility] Contact Info) Description 04/19/2025 11:00 AM EDT Office Visit [facility] MEDICINE [address] [place] [address] [place] [address] 07/08/2025 10:30 AM EDT Office Visit [facility] MEDICINE [address] [place] [address] Name, [place] [address] documented as of this encounter Visit Diagnoses Diagnosis LUQ pain Abdominal pain, left upper quadrant documented in this encounter Additional Health Concerns Assessment Noted Time PHQ-9 Depression Total Score: 6 11/12/20 22 11:11 AM EST documented as of this encounter Care Teams Knee Bolter Relationship Specialty Start Date End Date Name, [place] [address] PCP - General Family Medicine 12/25/15 documented as of this encounter
--- OUTSIDE RECORDS SUMMARY | 2025-04-13 14:50 | XMS_ITS | Encounter Summary ---
Author Organization [employer] Address [address] [facility] 7t [place] [address] Care Team Providers Care Hand Stoner Name Role Phone Name, Yazan PEARCE Primary Care Provider [phone] Reason for Visit * Reason Comments Med Refill Encounter Details Date Type Department Care Team ([facility] Contact Info) Description 08/12/2023 Refill [facility] MED & PEDS [address] [place], [place] [phone] Name, MD Yazan [address] [place] [address] Chronic neck pain Social History Tobacco Use [...] Upcoming Encounters Date Type Department Care Team ([facility] Contact Info) Description 04/19/2025 11:00 AM EDT Office Visit [facility] MEDICINE [address] [place] [phone] 07/08/2025 10:30 AM EDT Office Visit [address] [address] Name, MD Yazan [address] [place] [address] documented as of this encounter Visit Diagnoses Diagnosis Chronic neck pain Cervicalgia documented in this encounter Additional Health Concerns Assessment Noted Time PHQ-9 Depression Total Score: 6 11/12/20 22 11:11 AM EST documented as of this encounter Care Teams Hand Stoner Relationship Specialty Start Date End Date Name, MD Yazan [address] [place] [address] PCP - General Family Medicine 12/25/15 documented as of this encounter
--- OUTSIDE RECORDS SUMMARY | 2025-04-13 14:50 | XMS_ITS | Data Portability ---
Author Organization [facility], [place] in - Formerly [facility] Address [address] [place] [id number] Care Team Providers Care Spiral Weaver Name Role Phone [facility] Referring Provider [facility] OTHER Assessment Encounter Date Assessment Date Assessment LastModified by Organization Details LastModified Time 02/20/2023 02/20/2023 I provided real -time medical direction via phone for this encounter, and was available for additional phone based assistance as needed. I have reviewed and agree with the Assessment and Plan as documented by the Staffing Director. Patient calls as she had checked her blood glucose and it was greater than 300. She has a headache, blurred vision, chest pain all that started within the past several hours. She states she does have a history of diabetes but is on no medication or diet. [facility] records to note no history of diabetes. Assessment by laundry or dry cleaners counter clerk revealed hypertension and a blood glucose that that was 95. EKG shows normal sinus rhythm. She also has a history of a TIA x2 in the past. The patient was referred to [facility] ED for an evaluation for TIA and hyperglycemia. ED notified with expect call. [email or web address] Not available 02/20/2023 20:35:25 Plan of Treatment Reminders Order Date Submit Date Provider Last Modified By Organization Details Last Modified Time Details Appointments None recorded. Lab glucose, fingerstick , blood 2022 023 [facility], [address] [place] [address], [id number] 3 08:52:01 cmp, whole blood + danny 2022 023 [facility], [address] [place] [address], [id number] 3 09:08:18 Referral None recorded. Procedures None recorded. Surgeries None recorded. Imaging None recorded. Medication Orders erythromyci n 5 mg/gram (0.5 %) eye ointment 2023 024 [id number], [address], [place], [place], [id number], 17:04:59 Patient TargetsNo targets recorded. Patient InstructionsNo instructions recorded. Reason for Referral None Reported. Results Created Date Observation Date Name Description Value Unit Range Abnormal Flag Note LastModifiedBy Organization Detail LastModifiedTime Result Notes None recorded. Medical Equipment None Reported. Medications Name Sig Start Date Stop Date Status Note LastModified by Organization Details LastModified Time cyclobenzapr ine 10 mg tablet TAKE 1 TABLET BY MOUTH THREE TIMES DAILY FOR 10 DAYS active Not Available Not Available Not Available amoxicillin 500 mg capsule active Not Available Not Available Not Available furosemide 40 mg tablet active Not Available Not Available Not Available nicotine 14 mg/[address] 1 PATCH ON THE SKIN ONE TIME EACH DAY AT THE SAME TIME active Not Available Not Available No t Available ketoconazole 2 % shampoo APPLY TWICE WEEKLY AT LEAST 3 DAYS IN BETWEEN EACH SHAMPOO active Not Available Not Available No t Available albuterol sulfate 2.5 mg/3 mL (0.083 %) solution for nebulization INHALE 3ML BY NEBULIZATIO N EVERY 6 HOURS NEEDED FOR WHEEZING SHORTNESS OF BREATH active Not Available Not Available No t Available Vitamin C 500 mg tablet active Not Available Not Available Not Available loperamide 2 mg capsule active Not Available Not Available N ot Available ofloxacin 0.3 % eye drops INSTILL 2 DROPS IN BOTH EYES EVERY 6 HOURS active Not Available Not Available No t Available valacyclovir 1 gram tablet TAKE 1 TABLET BY MOUTH EVERY DAY active Not Available Not Available No t Available sucralfate 100 mg/mL oral suspension SHAKE LIQUID AND TAKE 10 ML BY MOUTH FOUR TIMES DAILY active Not Available Not Available No t Available sucralfate 1 gram tablet active Not Available Not Available Not Available sumatriptan 25 mg tablet TAKE 1 TABLET BY MOUTH AT ONSET OF MIGRAINE. MAY REPEAT AFTER 2 HOURS. IF HEADACHE RETURNS -. NOT TO EXCEED 100 MG IN 24 HOURS VIAL active Not Available Not Available N ot Available metronidazol e 0.75 % (37.5 mg/5 gram) vaginal gel USE 10 GRAMS VAGINALLY AT BEDTIME active Not Available Not Available N ot Available ondansetron HCl 4 mg tablet active Not Available Not Available Not Available prednisone 20 mg tablet active Not Available Not Available Not Available clonazepam 1 mg tablet TAKE 1 TABLET BY MOUTH TWICE A DAY NEEDED active Not Available Not Available No t Available cyanocobalam in (vit B-12) 1,000 mcg tablet active Not Available Not Available N ot Available acetaminophe n 300 mg-codeine 30 mg tablet TAKE 1 TABLET BY MOUTH EVERY 4 HOURS FOR UP TO 7 DAYS NEEDED FOR PAIN active Not Available Not Available No t Available fexofenadine 180 mg tablet active Not Available Not Available Not Available omeprazole 40 mg capsule,charlette yed release active Not Available Not Available Not Available acetaminophe n 500 mg tablet active Not Available Not Available Not Available ketorolac 30 mg/mL (1 mL) injection solution INJECT 1 ML INTRAMUSCUL CHRISTINA ONCE active Not Available Not Available No t Available oxycodone-ac etaminophen 5 mg-325 mg tablet TAKE 1 TABLET BY MOUTH EVERY 8 HOURS NEEDED active Not Available Not Available No t Available hydrocortiso ne 2.5 % topical cream with perineal applicator APPLY TOPICALLY TO THE AFFECTED AREA TWICE DAILY FOR 1 WEEK active Not Available Not Available No t Available famotidine 20 mg tablet active Not Available Not Available Not Available amitriptylin e 25 mg tablet active Not Available Not Available Not Available gabapentin 800 mg tablet active Not Available Not Available Not Available amitriptylin e 10 mg tablet TAKE 1 TABLET BY MOUTH EVERY NIGHT AT BEDTIME active Not Available Not Available No t Available baclofen 10 mg tablet active Not Available Not Available No t Available pantoprazole 40 mg tablet,delay ed release active Not Available Not Available N ot Available erythromycin 5 mg/gram (0.5 %) eye ointment APPLY 1 CM RIBBON INTO THE LOWER CONJUNCTIVA L SAC(S) IN THE AFFECTED EYE(S) BY OPHTHALMIC ROUTE 3 TIMES PER DAY active Not Available Not Available No t Available venlafaxine 37.5 mg tablet active Not Available Not Available Not Available polymyxin B sulfate 10,000 unit-trimeth oprim 1 mg/mL eye drops active Not Available Not Available Not Available calcium 200 mg (as calcium carbonate 500 mg) chewable tablet active Not Available Not Available Not Available docusate sodium 100 mg capsule active Not Available Not Available N ot Available omeprazole 20 mg capsule,charlette yed release TAKE 1 CAPSULE BY MOUTH DAILY active Not Available Not Available Not Available budesonide 0.5 mg/2 mL suspension for nebulization active Not Available Not Available Not Available montelukast 10 mg tablet active Not Available Not Available Not Available ibuprofen 600 mg tablet TAKE 1 TABLET BY MOUTH FOUR TIMES DAILY NEEDED FOR PAIN active Not Available Not Available No t Available oxycodone-ac etaminophen 7.5 mg-325 mg tablet TAKE 1 TABLET BY MOUTH EVERY 6 HOURS NEEDED FOR SEVERE PAIN active Not Available Not Available Not Available estradiol 0.01% (0.1 mg/gram) vaginal cream APPLY 1 GRAM VAGINALLY DAILY FOR 2 WEEKS THEN DECREASE TO 3 TIMES A WEEK active Not Available Not Available No t Available zolpidem 10 mg tablet TAKE 1 TABLET BY MOUTH EVERY DAY AT BEDTIME NEEDED active Not Available Not Available No t Available albuterol sulfate HFA 90 mcg/actuatio n aerosol inhaler active Not Available Not Available Not Available ondansetron 4 mg disintegrati ng tablet DISSOLVE 1 TABLET ON THE TONGUE EVERY 8 HOURS active Not Available Not Available No t Available fluticasone propionate 50 mcg/actuatio n nasal spray,suspen debora active Not Available Not Available Not Available medroxyproge sterone 150 mg/mL intramuscula r suspension ADMINISTER 1 ML IN THE MUSCLE EVERY 84 DAYS active Not Available Not Available No t Available naproxen 500 mg tablet TAKE 1 TABLET BY MOUTH TWICE A DAY NEEDED FOR HEADACHES active Not Available Not Available No t Available amoxicillin 875 mg-potassium clavulanate 125 mg tablet TAKE 1 TABLET BY MOUTH TWICE DAILY FOR 10 DAYS active Not Available Not Available No t Available tobramycin 0.3 %-dexamethas one 0.1 % eye drops,suspen debora INSTILL 1 DROP INTO BOTH EYES THREE TIMES DAILY active Not Available Not Available No t Available oxycodone 5 mg tablet TAKE 1 TABLET BY MOUTH EVERY 6 HOURS NEEDED FOR SEVERE PAIN SCALE 7-10 active Not Available Not Available N ot Available Arthritis Pain Reliever 650 mg tablet,exten ded release TAKE 1 TABLET BY MOUTH EVERY 8 HOURS NEEDED. active Not Available Not Available No t Available cyclobenzapr ine 5 mg tablet TAKE 1 TO 2 TABLETS BY MOUTH THREE TIMES DAILY NEEDED FOR MUSCLE SPASM active Not Available Not Available No t Available metoprolol tartrate 25 mg tablet TAKE 1 TABLET BY MOUTH TWICE DAILY active Not Available Not Available No t Available duloxetine 30 mg capsule,charlette yed release TAKE 1 CAPSULE BY MOUTH EVERY DAY IN THE MORNING active Not Available Not Available No t Available pregabalin 75 mg capsule active Not Available Not Available Not Available cholecalcife rol (vitamin D3) 25 mcg (1,000 unit) tablet active Not Available Not Available Not Available ferrous sulfate 324 mg (65 mg iron) tablet,delay ed release TAKE 1 TABLET BY MOUTH DAILY active Not Available Not Available Not Available FeroSul 325 mg (65 mg iron) tablet active Not Available Not Available Not Available Antacid Extra Strength 300 mg (as calcium carb 750 mg) chewable tablet CHEW AND SWALLOW 1 TABLET BY MOUTH EVERY 4 TO 6 HOURS FOR 2 WEEKS NEEDED FOR INDIGESTION active Not Available Not Available Not Available diclofenac 1 % topical gel active Not Available Not Available Not Available Mimvey 1 mg-0.5 mg tablet TAKE 1 TABLET BY MOUTH DAILY active Not Available Not Available Not Available naloxone 4 mg/actuation nasal spray active Not Available Not Available Not Available Wixela Inhub 500 mcg-50 mcg/dose powder for inhalation active Not Available Not Available N ot Available Vitals Date Recorded Body temperature Heart rate Body weight Respiratory rate Oxygen saturation Oxygen saturation in Arterial blood by Pulse oximetry Systolic blood pressure Diastolic blood pressure Provider Name and Address Organization Details Last Updated DateTime 4 98.2 [degF] 94 /min 60993.7 6 g 16 /min 99 % 99 % 120 mm[Hg] 88 mm[Hg] Not Available [facility] 4 17:03:04 Date Recorded Heart rate Oxygen saturation Oxygen saturation in Arterial blood by Pulse oximetry Body temperature Respiratory rate Systolic blood pressure Diastolic blood pressure Provider Name and Address Organization Details Last Updated DateTime 3 84 /min 99 % 99 % 98.9 [degF] 18 /min 173 mm[Hg] 74 mm[Hg] Not Available [facility] 3 20:32:53 Social History None recorded. Functional Status None recorded. Mental Status None recorded. Family History Nothing Reported. Medical History No medical history recorded. Gynecological HistoryNo gynecological history recorded. Obstetrics History GPAL:G 0 P 0 0 0 0 Past Encounters Encounter ID Performer Location Encounter Start Date Encounter Closed Date Diagnosis/Indication Diagnosis SNOMED-CT Code Diagnosis ICD10 Code Diagnosis Note [id number] Sheila Hernández MD [facility] - [facility] [address] [place] [address] 02/20/2023 20:32:44 02/24/2023 12:01:25 [facility] [id number] R73.9 [id number] Kiran Michelle MD Main - [facility] [address] [place] [phone] 08/05/2024 17:02:59 08/05/2024 21:32:32 Conjunctivitis 6014944 H10.9 Conjunctiv itis. Will tx with erythrmyci n. Discussed red flag symptoms for which to seek higher level of care. Health Concerns Section Related Observation LastModified by Organization Detai ls LastModified Time None Recorded Concern Status LastModified by Organization Details LastModified Time None Recorded Advance Directives Directive None Recorded Payers Insurance Date Sequence Insurance Name Policy Number Policy Christie Covered Member ID Christie Member ID Guarantor Name 01/18/[address] [facility] - DOS PRIOR TO 2023 - DUAL ELIGIBLE (MEDICARE REPLACEMENT/ADV ANTAGE - HMO) Sugeil Reyes [id number] Sugeil Reyes 08/05/[address] [facility] - DOS ON OR AFTER 2023 - DUAL ELIGIBLE - RESIDENTIAL OPTIONS AND ONE CARE (MEDICARE REPLACEMENT/ADV ANTAGE - HMO) Sugeil Reyes [id number] Sugeil Reyes Notes Date Note Type Note Provider Name and Address Organization Details Recorded Time 02/20/2023 text/html HPI: reports having headache and blurred vision. Per pt had a protein shake and dry cereal. Per pt checked BS and 335mg/dL . Pt denies any nausea or vomiting. Pt having dry mouth. Pt does not have dx of DM in our chart. Not on any DM meds. Pt offered to come into our walk in. No transportation. Agrees to [facility] referral for recheck of BS and assessment of headache. ..................... ..................... ..................... ..................... ..................... ..................... ............... CRC Nursing Assessment: Comments: No additional information required by CRC RN ..................... ..................... ..................... ..................... ..................... ..................... ............... Staffing Director Note From Heather Talley: Sent to evaluate pt c/o hyperglycemia along with STRICKLAND and blurred vision. Upon arrival, found pt in the shower. Pt is awake and alert, airway open and patent, breathing regular. Upon exiting the shower, pt appears pale, reports in full sentences that she was showering because she felt unwell and was hoping it would help. Pt states that last night she gradually developed STRICKLAND, blurred vision, nausea. STRICKLAND 9/10. Took 1gms of tylenol with no effect. Pt reports hx of DM2 but states she is not on any medication for it/has had no follow up since diagnosis and is not sure of management. Pt also reports hx of TIA x2. Pt took BGL via her father's glucometer today and had reading of 335. Pt developed L sided substernal CP with associated nausea a few hours ago. CP 6/10 but she reports it's currently improving. Pt denies vomiting/diarrhea, sob, or abd pain. +cp, +strickland, +slight dizziness, +blurred/burning vision, -light sensitivity. Smile is equal, no droop. No slurred speech. Equal racing board marker with no drift, tongue is straight, +able to shrug shoulders equally, +steady gait. BGL 95. Retook to confirm, 94. 12 lead NSR, no ectopy or ST changes. Uploaded image to [facility]. Pt agrees to eval at [facility] ER for further workup. Consulted [facility] who agreed with pt to be sent to [facility]. 324mg of ASA administered PO. EMS activated and care transferred to [facility] to transport pt to [facility] ER. ..................... ..................... ..................... ..................... ..................... ..................... ............... Disposition: Fulfilled Sheila Hernández MD [address] [place] [address],[address] [facility], [place], [phone] [employer] 02/20/2023 20:36:04 08/05/2024 text/html HPI: Triage call for left eye irritation redness swelling and tearing. No itching no fever. ..................... ..................... ..................... ..................... ..................... ..................... ............... CRC Nurse Triage Notes (Carolina Tyler): Chief Complaints: ENT PMH: Heart Disease, Hypertension Comments: Reviewed HPI, evaluate/assessment for left eye redness/swellingDenie s itching or feverEliza Meier.................... ..................... ..................... ..................... ..................... ..................... ............... Staffing Director Note From Joshua Berger: Pt co redness itching and discharge from left eye for one week. Denies pain, NVD CP sob. Photo of eye uploaded. Baseline vitals assessed, eye appears red and watery. Pt sts has had pink eye before and feels the same . C contacted and azithromycin ointment called in to RX. Pt advised to used 3x per day. Pt education on signs indicating the ER. Pt advised to follow up with pcp if does not get relief after antibiotics course. Pt signs electronic consent before eval. ..................... ..................... ..................... ..................... ..................... ..................... ............... Disposition: Fulfilled Kiran Michelle MD [address] [facility],[address], [place], [address], [employer] 08/05/2024 19:32:47 OBGyn Episode No OBEpisode recorded.
--- OUTSIDE RECORDS SUMMARY | 2025-04-13 14:50 | XMS_ITS | Encounter Summary ---
Author Organization [facility] Address [address] [facility] [address] [place] [address] Care Team Providers Care Nursing Unit Coordinator Name Role Phone Name, Yazan PEARCE Primary Care Provider [phone] Reason for Visit * Reason Comments Med Refill Encounter Details Date Type Department Care Team ([facility] Contact Info) Description 05/02/2023 Refill [facility] [address] [place], [place] [phone] Name, MD Yazan [address] [place] [address] Exacerbation of chronic back pain Social History Tobacco Use Types Packs/Day [...] Description 04/19/2025 11:00 AM EDT Office Visit [facility] [address] [place] [phone] 07/08/2025 10:30 AM EDT Office Visit [facility] [address] [place] [address] Name, MD Yazan [address] [place] [phone] documented as of this encounter Visit Diagnoses Diagnosis Exacerbation of chronic back pain documented in this encounter Additional Health Concerns Assessment Noted Time PHQ-9 Depression Total Score: 6 11/12/20 22 11:11 AM EST documented as of this encounter Care Teams Nursing Unit Coordinator Relationship Specialty Start Date End Date Name, MD Yazan [address] [place] [phone] PCP - General Family Medicine 12/25/15 documented as of this encounter
--- OUTSIDE RECORDS SUMMARY | 2025-04-13 14:50 | XMS_ITS | Encounter Summary ---
Author Organization [employer] [facility] Address [address] [facility] 7t [place] [address] Care Team Providers Care Business Planning Analyst Name Role Phone Name, Yazan PEARCE Primary Care Provider [phone] Reason for Visit * Reason Comments Med Refill Encounter Details Date Type Department Care Team ([facility] Contact Info) Description 01/21/2023 Refill [facility] [address] [place] [phone] Name, MD Yazan [address] [place] [phone] Essential hypertension Social History Tobacco Use Types Packs/Day Years [...] Upcoming Encounters Date Type Department Care Team ([facility] Contact Info) Description 04/19/2025 11:00 AM EDT Office Visit [facility] [address] [place] [phone] 07/08/2025 10:30 AM EDT Office Visit [facility] [address] [place] [phone] Name, MD Yazan [address] [place] [address] documented as of this encounter Visit Diagnoses Diagnosis Essential hypertension Unspecified essential hypertension documented in this encounter Additional Health Concerns Assessment Noted Time PHQ-9 Depression Total Score: 6 11/12/20 22 11:11 AM EST documented as of this encounter Care Teams Business Planning Analyst Relationship Specialty Start Date End Date Name, MD Yazan [address] [place] [address] PCP - General Family Medicine 12/25/15 documented as of this encounter
--- OUTSIDE RECORDS SUMMARY | 2025-04-13 14:50 | XMS_ITS | Encounter Summary ---
Author Organization [employer] Address [address] [facility] 7t [place] [address] Care Team Providers Care Tyre Retreader Name Role Phone Name, Yazan PEARCE Primary Care Provider [phone] Reason for Visit * Reason Comments Med Refill Encounter Details Date Type Department Care Team ([facility] Contact Info) Description 05/31/2023 Refill [facility] [address] [place], [place] [phone] Name, MD Yazan [address] [place] [address] Headache disorder Social History Tobacco Use Types Packs/Day [...] suspected to have Coronavirus/COVID-19? No / Unsure 05/29/2023 10:51 AM EDT documented as of this encounter Plan of Treatment Upcoming Encounters Date Type Department Care Team (Late Contact Info) Description 04/19/2025 11:00 AM EDT Office Visit [facility] [address] [place] [phone] 07/08/2025 10:30 AM EDT Office Visit [facility] [address] [place] [phone] Name, MD Yazan [address] [place] [phone] documented as of this encounter Visit Diagnoses Diagnosis Headache disorder Headache documented in this encounter Additional Health Concerns Assessment Noted Time PHQ-9 Depression Total Score: 6 11/12/20 22 11:11 AM EST documented as of this encounter Care Teams Tyre Retreader Relationship Specialty Start Date End Date NameYazan MD [address] [place] [phone] PCP - General Family Medicine 12/25/15 documented as of this encounter
--- OUTSIDE RECORDS SUMMARY | 2025-04-13 14:50 | XMS_ITS | Encounter Summary ---
Author Organization [employer] Address [address] [facility] 7t [place] [address] Care Team Providers Care Crystal Attacher Name Role Phone Name, Yazan PEARCE Primary Care Provider [phone] Reason for Visit * Reason Comments Med Refill Encounter Details Date Type Department Care Team ([facility] Contact Info) Description 02/06/2023 Refill [facility] [address] [place], [place] [phone] Name, MD Yazan [address] [place] [address] Depressive disorder Social History Tobacco Use Types [...] suspected to have Coronavirus/COVID-19? No / Unsure 02/05/2023 11:40 AM EDT documented as of this encounter Plan of Treatment Upcoming Encounters Date Type Department Care Team ([facility] Contact Info) Description 04/19/2025 11:00 AM EDT Office Visit [facility] [place] [address] 07/08/2025 10:30 AM EDT Office Visit [facility] [place] [address] Name, [place] [address] documented as of this encounter Visit Diagnoses Diagnosis Depressive disorder Depressive disorder, not elsewhere classified documented in this encounter Additional Health Concerns Assessment Noted Time PHQ-9 Depression Total Score: 6 11/12/20 22 11:11 AM EST documented as of this encounter Care Teams Crystal Attacher Relationship Specialty Start Date End Date [place] [address] PCP - General Family Medicine 12/25/15 documented as of this encounter
--- OUTSIDE RECORDS SUMMARY | 2025-04-13 14:50 | XMS_ITS | Encounter Summary ---
Author Organization [employer] Address [address] [facility] [address] [place] [address] Care Team Providers Care Extension Service Supervisor Name Role Phone Name, Yazan PEARCE Primary Care Provider [phone] Reason for Visit * Reason Onset Date Comments Referral 12/17/2022 Encounter Details Date Type Department Care Team ([facility] st Contact Info) Description 12/17/2022 Telephone [facility] [address] [place], [place] [phone] Name, MD Yazan [address] [place] [address] Referral Social History Tobacco Use Types Packs/Day Years [...] suspected to have Coronavirus/COVID-19? No / Unsure 12/04/2022 11:29 AM EST documented as of this encounter Miscellaneous Notes * Telephone Encounter - Anastacia Santos - 12/17/2022 10:10 AM EST Tc from pt requesting to renew referral Location: [facility] Address: [address] [place] [id number] Specialty : Physical therapy DX: Back pain Date &time : N/A documented in this encounter Plan of Treatment Upcoming Encounters Date Type Department Care Team (Late st Contact Info) Description 04/19/2025 11:00 AM EDT Office Visit [facility] [address] [place] [address] 07/08/2025 10:30 AM EDT Office Visit [address] [address] Name, MD Yazan [address] [place] [address] documented as of this encounter Visit Diagnoses Diagnosis Chronic bilateral low back pain, unspecified whether sciatica present- Primary documented in this encounter Additional Health Concerns Assessment Noted Time PHQ-9 Depression Total Score: 6 11/12/20 22 11:11 AM EST documented as of this encounter Care Teams Extension Service Supervisor Relationship Specialty Start Date End Date Name, MD Yazan [address] [place] [phone] PCP - General Family Medicine 12/25/15 documented as of this encounter
--- OUTSIDE RECORDS SUMMARY | 2025-04-13 14:50 | XMS_ITS | Encounter Summary ---
Author Organization [employer] Address [address] [facility] 7[address] [place] [address] Care Team Providers Care Metal Hanger Name Role Phone Name, Yazan PEARCE Primary Care Provider [phone] Reason for Visit * Reason Comments Med Refill Encounter Details Date Type Department Care Team ([facility] Contact Info) Description 08/13/2023 Refill [facility] [address] [place], [place] [phone] Name, MD Yazan [address] [place] [phone] Chronic neck pain Social History Tobacco Use [...] 04/19/2025 11:00 AM EDT Office Visit [facility] [address] [place] [address] [phone] 07/08/2025 10:30 AM EDT Office Visit [address] [address] Name, MD Yazan [address] [place] [address] documented as of this encounter Visit Diagnoses Diagnosis Chronic neck pain Cervicalgia documented in this encounter Additional Health Concerns Assessment Noted Time PHQ-9 Depression Total Score: 6 11/12/20 22 11:11 AM EST documented as of this encounter Care Teams Metal Hanger Relationship Specialty Start Date End Date Name, MD Yazan [address] [place] [address] PCP - General Family Medicine 12/25/15 documented as of this encounter
--- OUTSIDE RECORDS SUMMARY | 2025-04-13 14:50 | XMS_ITS | Encounter Summary ---
Author Organization [employer] Address [address] [facility] [address] [place] [address] Care Team Providers Care Shield Runner Name Role Phone Name, Yazan PEARCE Primary Care Provider [phone] Reason for Visit * Reason Comments Med Refill Encounter Details Date Type Department Care Team ([facility] Contact Info) Description 07/14/2023 Refill [facility] [address] [place], [place] [phone] Name, MD Yazan [address] [place] [address] Chronic neck pain Social History Tobacco Use [...] Upcoming Encounters Date Type Department Care Team ([facility] Contact Info) Description 04/19/2025 11:00 AM EDT Office Visit [facility] [address] [place] [phone] 07/08/2025 10:30 AM EDT Office Visit [facility] [address] [place] [address] Name, MD Yazan [address] [place] [address] documented as of this encounter Visit Diagnoses Diagnosis Chronic neck pain Cervicalgia documented in this encounter Additional Health Concerns Assessment Noted Time PHQ-9 Depression Total Score: 6 11/12/20 22 11:11 AM EST documented as of this encounter Care Teams Shield Runner Relationship Specialty Start Date End Date Name, [place] [address] PCP - General Family Medicine 12/25/15 documented as of this encounter
--- OUTSIDE RECORDS SUMMARY | 2025-04-13 14:50 | XMS_ITS | Encounter Summary ---
Author Organization [employer] Address [address] [place] [address] 7t [place] [address] Care Team Providers Care Lead Net Software Developer Name Role Phone Name, Yazan PEARCE Primary Care Provider [phone] Encounter Details Date Type Department Care Team (Late Contact Info) Description 11/29/2022 [facility] [address] [place] [address] Name, MD Yazan [address] [place] [address] Social History Tobacco Use Types Packs/Day Years Used Date Smoking Tobacco: Every Day Cigarettes Smokeless Tobacco: Never Alcohol Use Standard [...] suspected to have Coronavirus/COVID-19? No / Unsure 11/12/2022 10:59 AM EST documented as of this encounter Plan of Treatment Upcoming Encounters Date Type Department Care Team (Late Contact Info) Description 04/19/2025 11:00 AM EDT Office Visit [facility] [address] 07/08/2025 10:30 AM EDT Office Visit [facility] [address] Name, [place] [address] documented as of this encounter Procedures Procedure Name Priority Date/Time Associated Diagnosis Comments BI MAMMOGRAM SCREEN W EVELYN W IMPLANTS THERESA Routine 12/17/2022 1:40 PM EST documented in this encounter Results * BI Mammogram Screen w/ Evelyn w/ Implants Theresa (12/17/2022 1:40 PM EST) Anatomical Region Laterality Modality Mammography 12/17/2022 1:40 PM EST Narrative 12/20/2022 4:11 PM EST ? [facility] ? [address] ?[place] [address] ? Mammography Report ? Signed ? Patient: Eric Delgado,Sugeil M ?MR#: ?? [id number] ? : 1975 ?Acct:[id number] ? Age/Sex: 47 / F ?ADM Date: /24/23 ? Loc: HO.MAMMO ? Attending Dr: Yazan Name MD ? Ordering Physician: Name,Yazan MD ?Results: 2Benign Fi ?? ndings ? Date of Service: //23 ?Follow Up: 1 Year From Orig ?? inal Mammogram ? Procedure(s): MM tomosynthesis screen imp BI ?? Accession Number(s): [id number] ? cc: Name,Yazan PEARCE ? EXAMINATION: ?? MM SCREENING DIGITAL BREAST TOMOSYNTHESIS, BILATERAL ? CLINICAL INFORMATION: ? Screening. Asymptomatic. Right implant. Prior explantation on left. ? The lifetime risk of breast cancer based on the Tyrer-Cuzick Model is ?? 12%. ? COMPARISON: ?? Outside mammography: 06/07/2015 ([facility]) ? TECHNIQUE: ?? Digital mammography is performed in craniocaudal and mediolateral ?? oblique views along with computer-aided detection (CAD). Digital breast ?? tomosynthesis is performed in implant-displaced craniocaudal and ?? implant-displaced mediolateral oblique views along with computer-aided ?? detection (CAD). Synthesized 2D images are generated from the ?? tomosynthesis. Additional left implant displaced MLO view with nipple ?? in profile provided. ? FINDINGS: ?? There are scattered areas of fibroglandular density (ACR BI-RADS breast ?? composition Category b). ? Patient has had implants since prior outside mammography 2014 and ?? explantation on the left. The right implant shows smooth contours. ?? There is minor scarring related to the prior surgery. ? Breast tissue composition borders on predominantly fatty. Background ?? stromal and fibroglandular tissue is unremarkable. There is no ?? significant mass or architectural abnormality or abnormal ?? calcifications. The axilla are unremarkable. ? MM/MM tomosynthesis screen imp BI ?? IMPRESSION: ?? No mammographic evidence of malignancy. ? ASSESSMENT: ? BI-RADS 2: Benign ? RECOMMENDATION: ?? Routine annual mammography screening. ? This patient's information was entered into a reminder system with a ?? target due date for their next mammogram. ? Dictated By: ?Judd Acevedo MD ? Signed By: ?<Electronically signed by Judd Acevedo MD in OV> ?//23 1609 ? DD/DT: //23 1340 ? TD/TT: ? Clerical Receptionist: ASCENCIO ? Procedure Note Donotuseinterpreter, Image - 12/20/2022 [facility] [address] [place] [address] Dr. oHoks, BILLY [address] Mammography Report Signed Patient: Madhu Peter MMR#: [id number] : 1975Acct:[id number] Age/Sex: 47 / FADM Date: 12/17/22 Loc: HO.MAMMO Attending Dr: Yazan Pruitt MD Ordering Physician: Yazan Pruitt MDResults: 2Benign Fi ndings Date of Service: 12/17/22Follow Up: 1 Year From Orig inal Mammogram Procedure(s): MM tomosynthesis screen imp BI Accession Number(s): [id number] cc: Yazan Pruitt MD EXAMINATION: MM SCREENING DIGITAL BREAST TOMOSYNTHESIS, BILATERAL CLINICAL INFORMATION: Screening. Asymptomatic. Right implant. Prior explantation on left. The lifetime risk of breast cancer based on the Tyrer-Cuzick Model is 12%. COMPARISON: Outside mammography: 06/07/2015 ([facility]) TECHNIQUE: Digital mammography is performed in craniocaudal and mediolateral oblique views along with computer-aided detection (CAD). Digital breast tomosynthesis is performed in implant-displaced craniocaudal and implant-displaced mediolateral oblique views along with computer-aided detection (CAD). Synthesized 2D images are generated from the tomosynthesis. Additional left implant displaced MLO view with nipple in profile provided. FINDINGS: There are scattered areas of fibroglandular density (ACR BI-RADS breast composition Category b). Patient has had implants since prior outside mammography 2014 and explantation on the left. The right implant shows smooth contours. There is minor scarring related to the prior surgery. Breast tissue composition borders on predominantly fatty. Background stromal and fibroglandular tissue is unremarkable. There is no significant mass or architectural abnormality or abnormal calcifications. The axilla are unremarkable. MM/MM tomosynthesis screen imp BI IMPRESSION: No mammographic evidence of malignancy. ASSESSMENT: BI-RADS 2: Benign RECOMMENDATION: Routine annual mammography screening. This patient's information was entered into a reminder system with a target due date for their next mammogram. Dictated By: Judd Acevedo MD Signed By: <Electronically signed by Judd Acevedo MD in OV> 12/20/22 1609 DD/ 1340 TD/TT: Clerical Receptionist: SILVA [facility] External Provider IMG BI PROCEDURES Final Result documented in this encounter Visit Diagnoses Not on filedocumented in this encounter Additional Health Concerns Assessment Noted Time PHQ-9 Depression Total Score: 6 11/12/20 22 11:11 AM EST documented as of this encounter Care Teams Lead Net Software Developer Relationship Specialty Start Date End Date Name, MD Yazan [address] [place] [address] PCP - General Family Medicine 12/25/15 documented as of this encounter
--- OUTSIDE RECORDS SUMMARY | 2025-04-13 14:50 | XMS_ITS | Clinical Summary ---
Author Organization [address] [place] [address] Address [address] [place] [address] Phone Care Team Providers Care Parts Control Clerk Name Role Phone Name, Tonia PEARCE Primary Care Provider [phone] Allergies No known active allergies Medications albuterol 2.5 mg /3 mL (0.083 %) nebulizer solution Take 1 Vial by nebulization every 6 hours as needed for Wheezing. 04/27/20 13 Active albuterol HFA (PROAIR HFA ; PROVENTIL HFA ; VENTOLIN HFA) 90 mcg/actuation inhaler Inhale 2 Puffs into the lungs 4 times daily as needed for Cough or Wheezing. 02/18/20 14 Active inhalat.spacing dev,large mask (BreatheRite Spacer-Mask,Adult ) spacer for use with mdi 10/06/20 08 Active clonazePAM (KlonoPIN) 0.5 mg tablet 1 po QD prn,given by psych Active ferrous sulfate 325 mg (65 mg iron) EC tablet Take 1 Tablet by mouth daily. 08/15/20 23 Active fluticasone propionate (FLONASE) 50 mcg/actuation nasal spray 2 Sprays by Each Nare route daily. 05/26/20 14 Active fluticasone propion-salmetero L (ADVAIR DISKUS) 500-50 mcg/dose diskus inhaler Inhale 1 Puff into the lungs every 12 hours. 02/18/20 14 Active ketoconazole (NIZORAL) 2 % shampoo APPLY TO THE AFFECTED AREA TWICE A WEEK FOR UP TO 8 WEEKS WITH AT LEAST 3 DAYS BETWEEN EACH SHAMPOO 03/27/20 15 Active METOPROLOL SUCCINATE ORAL Take by mouth. Active medical supply, miscellaneous (MISCELLANEOUS MEDICAL SUPPLY MISC) Misc. Devices (RUBBER BATH MAT) MISC 1 Each by Does not apply route daily. NON SLIP BATH MAT 10/28/20 12 Active montelukast (SINGULAIR) 10 mg tablet Take 1 Tab by mouth at bedtime. 02/18/20 14 Active oxyCODONE-acetami nophen (PERCOCET) 5-325 mg per tablet Take 1 tablet by mouth every 6 hours as needed. Active zolpidem (AMBIEN) 10 mg tablet 1 TABLET AT BEDTIME NEEDED Active famotidine (Pepcid) 20 mg tablet Take 1 tablet (20 mg total) by mouth 2 (two) times a day. 60 each 10/15/20 24 025 Active sucralfate (CARAFATE) 100 mg/mL suspension Take 10 mL (1 g total) by mouth 4 (four) times a day (with meals and nightly). Take 1 hour before meals and at bedtime 1200 mL 10/15/20 24 025 Active amitriptyline (ELAVIL) 25 mg tablet Take 1 tablet (25 mg total) by mouth at bedtime. 02/12/20 24 Active budesonide (PULMICORT) 0.5 mg/2 mL nebulizer solution Take 2 mL (0.5 mg total) by nebulization 1 (one) time each day. 09/23/20 24 Active cyclobenzaprine (FLEXERIL) 10 mg tablet Take 1 tablet (10 mg total) by mouth 3 (three) times a day if needed for muscle spasms. 02/12/20 24 Active fexofenadine (JERICA) 180 mg tablet Take 1 tablet (180 mg total) by mouth 1 (one) time each day. 05/13/20 24 Active SUMAtriptan (IMITREX) 25 mg tablet Take 1 tablet (25 mg total) by mouth if needed for migraine. 02/12/20 24 Active acetaminophen (TYLENOL) 500 mg tablet TAKE ONE TABLET BY MOUTH EVERY 7-8 HOURS NEEDED. DO NOT EXCEED 8 TABLETS PER 24 HOURS. (VIAL) 09/23/20 24 Active Vitamin C 500 mg tablet 11/15/20 24 Active calcium carbonate (TUMS) 500 mg (200 mg elemental calcium) chewable tablet 03/30/20 24 Active cholecalciferol (VITAMIN D-3) 25 mcg (1,000 unit) tablet TAKE ONE TABLET BY MOUTH EVERY DAY ^1R1 01/26/20 25 Active cyanocobalamin (VITAMIN B-12) 1,000 mcg tablet Take 1 tablet (1,000 mcg total) by mouth 1 (one) time each day. 01/26/20 25 Active diclofenac (VOLTAREN) 1 % topical gel Apply 2 g topically 2 times daily as needed. 04/20/20 24 Active docusate sodium (COLACE) 100 mg capsule TAKE ONE CAPSULE BY MOUTH TWICE A DAY ^1R1,1R4 02/20/20 22 Active DULoxetine (CYMBALTA) [address] capsule 12/15/19 25 Active estradioL (ESTRACE) 0.01 % (0.1 mg/gram) vaginal cream APPLY 1 GRAM VAGINALLY DAILY FOR 2 WEEKS THEN DECREASE TO 3 TIMES A WEEK Active metoprolol tartrate (LOPRESSOR) 25 mg tablet Take 1 tablet (25 mg total) by mouth 2 times daily. 02/12/20 24 Active naloxone (NARCAN) 4 mg/0.1 mL nasal spray Administer 1 each (4 mg total) into affected nostril(s). 08/26/20 23 Active ondansetron (ZOFRAN) 4 mg tablet TAKE ONE TABLET BY MOUTH TWICE A DAY (VIAL) 06/25/20 24 Active oxyCODONE (ROXICODONE) 5 mg immediate release tablet Take one TAB q4h PRN severe postop pain, scale 7-10. 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 Reyes pointing out that it may be the foraminal stenosis on the right at C3-4 and C4-5 causing the electric shocks over to her right shoulder. For this, she was given a new referral slip to resume physical therapy to include cervical traction. Would not expect the upper cervical foraminal stenosis to cause hand weakness. She seems to believe the weakness is new but the nerve roots that fit the distribution are from her previously fused levels and nothing there would have changed recently. The numbness and clumsiness of her hand could be carpal tunnel syndrome so I recommended a right upper extremity EMG/NCV with which she is agreeable. Herniated disc, cervical 02/25/2012 Overview (09/06/2024): S/p surgery on 01/2012 at [facility] Dr Quinteros Chronic back pain 12/30/2011 Anxiety 12/14/2009 Depression 06/12/2009 Overview (09/06/2024): Patient is followed by Dr. Croft Migraine 01/04/2009 BERT (obstructive sleep apnea) 09/12/2008 Meralgia paresthetica 09/01/2008 GERD (gastroesophageal reflux disease) 8 Snoring 04/20/2008 Overview (09/06/2024): 11/2020 Home Sleep Study did not reveal sleep apnea or nocturnal hypoxia. Asthma 04/13/2008 Overview (09/06/2024): Severe. Is on preventive meds but she still has weezing Obesity 04/13/2008 Overview (09/06/2024): S/p gastric bypass Encounters Date Type Department Care Team Description 02/22/2025 Telephone [facility] [place] [address] [place] [address] Eugene Margaret BILLY 02/18/2025 12:30 PM EDT Office Visit [facility] [place] [address] [place] [address] Malinda Soto MD Cervical spondylosis with radiculopathy (Primary Dx); Herniated disc, cervical from Last 3 Months Immunizations Name Administration Dates Next Due H1N1 Inj Preservative Free 12/04/2009 Hepatitis B (Jrgfnqi-A-Ehuco , Recombivax HB-Adult) 19yo and older 09/15/2013,04/14/2013,03/10/2013,2008,10/06/2008,08/15/2008 Influenza trivalent, 0.5mL, preservative free (Fluarix; FluLaval; Fluzone) ages 6mo and older (Afluria) 3 years and older 09/08/2015,09/09/2014,08/03/2013,2011,03/02/2012,08/29/2011,08/09/2010,0 08/03/2009,08/11/2008 Tdap Tetanus diptheria acell ular pertussis (Boostrix; Adacel) 7yo and older 06/12/2010 Surgical History Surgery Date Site/Laterality Comments ESOPHAGOGASTRODUODENOSCOPY 11/13/10 PROCEDURE: TX ESOPHAGOGASTRODUODENOSCOPY TRANSORAL DIAGNOSTIC; COMMENT: normal roue en Y gastric bypass OTHER SURGICAL HISTORY PROCEDURE: TX UNLISTED PX ABDOMEN MUSCULOSKELETAL SYSTEM; COMMENT: Abdominoplasty OTHER SURGICAL HISTORY PROCEDURE: HISTORY OTHER; COMMENT: hist neck surgery on 01/2012 ESOPHAGOGASTRODUODENOSCOPY 12/17/2017 PROCEDURE: TX ESOPHAGOGASTRODUODENOSCOPY TRANSORAL DIAGNOSTIC ESOPHAGOGASTRODUODENOSCOPY 11/04/2017 PROCEDURE: TX ESOPHAGOGASTRODUODENOSCOPY TRANSORAL DIAGNOSTIC OTHER SURGICAL HISTORY PROCEDURE: HISTORY OTHER; COMMENT: Gastric Bypass OTHER SURGICAL HISTORY 11/04/2017 PROCEDURE: HISTORY OTHER; COMMENT: Diagnostic laparoscopy TUBAL LIGATION Bilateral CERVICAL FUSION GASTRIC BYPASS Medical History Medical History Date Comments Esophageal reflux DX:Esophageal reflux Depression DX:Depression BERT (obstructive sleep apnea) DX :BERT (obstructive sleep apnea) Historical Medical DX 01/21/2013 DX:Abnorma l Pap smear; COMMENT: The patient had biopsy on December [address] Thomson at [facility] Allergic rhinitis 04/27/2013 DX:Allergic rh initis Anemia 04/28/2015 DX:Anemia Anxiety 12/14/2009 DX:Anxiety Asthma 04/13/2008 DX:Asthma; COMME NT: Severe. 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 ([facility] V24) 11/16/2014 DX: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 (HCC) Meralgia paresthetica 09/01/2008 DX:Meralgi a paresthetica Migraine 01/04/2009 DX:Migraine Neck pain 10/12/2012 DX:Neck pain Diabetes mellitus ([facility] V 24, [facility] V28) 04/22/2019 DX:Diabetes mellitus (HCC) Gastric pain DX:Gastric pain History of Helicobacter pylori infection DX:History of Helicobacter pylori infection Migraine Depression Family History Medical History Relation Name Comments Autoimmune disease Neg Hx Blindness Neg Hx Breast cancer Neg Hx Cataracts Neg Hx Colon cancer Neg Hx Coronary artery disease Neg Hx Diabetes Neg Hx Glaucoma Neg Hx Heart attack Neg Hx Heart failure Neg Hx Hyperlipidemia Neg Hx Hypertension Neg Hx Macular degeneration Neg Hx Mental illness Neg Hx Prostate cancer Neg Hx Sleep apnea Neg Hx Strabismus Neg Hx Thyroid disease Neg Hx Relation Name Status Comments Brother Alive htn, CRI, Asthm a, Obesity, thyroid disease Father Alive HTN, cholestero l, DM Mother HTN, DM Sister Alive Social History Tobacco Use Types Packs/Day Years Used Date Smoking Tobacco: Former Cigarettes Q uit: 09/05/2008 Smokeless Tobacco: Never Alcohol Use Standard Drinks/Week Comments Yes 0 (1 standard drink = 0.6 oz pur e alcohol) Interpersonal Safety Answer Date Record ed Physical Abuse 10/20/2024 Verbal Abuse 10/20/2024 Comments No Sex and Gender Information Value Date Recorded Sex Assigned at Not on file Legal Sex Female 4:38 AM EST Gender Identity Not on file Sexual Orientation Not on file Obstetrics History Last Filed Vital Signs Vital Sign Reading Time Taken Comments Blood Pressure 126/77 10/25/2024 1:59 PM EST Pulse 83 10/25/2024 1:59 PM EST Temperature 36.7 ??C (98 ??F) 10/25/2024 1:59 PM EST Respiratory Rate 18 10/20/2024 3:30 PM EST Oxygen Saturation 98% 10/20/2024 3:30 PM EST Inhaled Oxygen Concentration - - Weight 72.1 kg (159 lb) 10/25/2024 1:59 PM EST Height 160 cm (5' 3 ) 10/25/2024 1:59 PM EST Body Mass Index 28.17 10/25/2024 1:59 PM EST Plan of Treatment Upcoming Encounters Date Type Department Care Team (Late st Contact Info) Description 04/26/2025 11:00 AM EDT Office Visit Bariatric Surgery - [place] [address] [facility] [address] [place] [phone] Chapo Catalan MD [address] [place] [address] Health Maintenance Due Date Last Done Comments Diabetes: Annual Foot Exam 1987 Diabetes: Annual Retina Eye Exam 1987 Cervical Cancer Screening: Pap Smear 1998 Colorectal Cancer Screening: Colonoscopy 10/27/2022 Medicare Annual Wellness Visit 10/27/2022 Social Influencers of Health Screening 10/27/2022 Diabetes: Annual Urine Albumin-Creatinine Ratio (uACR) 11/08/2022 Diabetes: Annual GFR (Glomerular Filtration Rate) 08/14/2024 08/14/2023 Hypertension/CHF/CAD Annual BMP Blood Test 10/15/2024 08/14/2023 Diabetes: Blood Sugar Control Test (HGBA1C) 06/15/2025 12/16/2024, 05/10/2024, 08/02/2021 Depression Screening 12/15/2025 12/15/2024 Breast Cancer Screening 01/09/2026 01/09/2024 Cholesterol Screening (Lipid Panel) 05/10/2029 05/10/2024, 08/02/2021 DTaP,Tdap,and Td Vaccines (5 - Td or Tdap) 06/02/2030 06/02/2020, 04/26/2018, 01/18/2015, Additional history exists Hepatitis B Vaccines Completed 08/09/2021, 09/15/2013, 04/14/2013, Additional history exists HIV Screening Completed 05/10/2024 Hepatitis C Screening Completed 05/10/2024, 014 Influenza Vaccine Completed 08/26/2024, , 08/27/2022, Additional history exists Pneumococcal Vaccine: Pediatrics (0 to 5 Years) and At-Risk Patients (6 to 64 Years) Completed 08/26/2024, 02/04/2018, 09/11/2010 COVID-19 Vaccine Completed 09/27/2024, 01/2023, 08/27/2022, Additional history exists HIB Vaccines Aged Out No longer eligi ble based on patient's age to complete this topic HPV Vaccines Aged Out No longer eligi ble based on patient's age to complete this topic Hepatitis A Vaccines Aged Out No long er eligible based on patient's age to complete this topic IPV Vaccines Aged Out No longer eligi ble based on patient's age to complete this topic MMR Vaccines Aged Out No longer eligi ble based on patient's age to complete this topic Meningococcal ACWY Vaccine Aged Out N o longer eligible based on patient's age to complete this topic Meningococcal B Vaccine Aged Out No l onger eligible based on patient's age to complete this topic RSV Immunization Patients Under 20 months Aged Out No longer eligible based on patient's age to complete this topic Varicella Vaccines Aged Out No longer eligible based on patient's age to complete this topic Procedures Procedure Name Priority Date/Time Associated Diagnosis Comments [facility] SCREENING DIGITAL Routine 01/09/2024 12:12 PM EST Encounter for screening mammogram for malignant neoplasm of breast ANNUAL BMP BLOOD TEST Routine 08/14/2023 HEMOGLOBIN A1C Routine 08/02/2021 LIPID PANEL Routine 08/02/2021 HEPATITIS C SCREENING Routine 02/17/2014 from Last 3 Months or Most Recently Relevant to Health Maintenance Results * [facility] SCREENING DIGITAL (01/09/2024 12:12 PM EST) Anatomical Region Laterality Modality Mammography 01/07/2024 10:2 9 AM EST Narrative 01/09/2024 12:12 PM EST [facility] Diagnostic Imaging Department [address] [place] [address] Patient: ??MADHU REYES ?/Age/Sex: 1975 - 48 - F Unit#: ??[id number] ? Location/Status: ??SPDIMAM/REG CLI ? Mnemonic/Ordering Site: ??DIGSC/SPMAM Ordering Physician: ??NAME,TONIA PEARCE [facility] Screening Digital - 01/07/24 - 1110 Report Status:Signed EXAM: [facility] Screening Digital EXAM DATE AND TIME: 01/07/2024 11:11 AM HISTORY: ??Screening. Bilateral reduction mammoplasty in 2017. Right breast implant placed at that time. Left implant removed same year due to infection. The patient underwent gastric bypass surgery in 2010 and has lost 100 pounds since that time. COMPARISON: ??06/07/15, 05/02/14, 01/15/13 TECHNIQUE: Bilateral digital breast tomosynthesis was performed in the CC and MLO projections. Implant displaced views of the right breast were obtained. Computer aided detection with [employer] 3D 3.1 was employed. TISSUE DENSITY: b. There are scattered areas of fibroglandular density. FINDINGS: Fatty reduction mammoplasty sequelae are now seen. No suspicious masses or grouped microcalcifications are identified. Few coarse, benign calcifications are noted. A subpectoral implant is identified on the right. The skin and vascularity are unremarkable. IMPRESSION: No mammographic evidence of malignancy is seen. A negative mammogram in the presence of a clinically suspicious palpable abnormality does not preclude the possibility of malignancy or alter the indica tions for biopsy. BI-RADS: ??Category 2: Benign RECOMMENDATION(S): 1: Routine screening mammogram BILATERAL in 1 year. Dictating Physician: ??IZABELLA GONZALEZ MD Electronically Signed by: ??IZABELLA GONZALEZ MD Dic Date/Time: ??01/09/24 1153 Sign date/Time: ??01/09/24 1212 Procedure Note Izabella Gonzalez MD - 07/12/2024 [facility] Diagnostic Imaging Department [address] [place] [address] Patient: LEVONMADHU D.O.B./Age/Sex: 1975 - 48 - F Unit#: [id number] Location/Status: [facility] Mnemonic/Ordering Site: [facility] Ordering Physician: NAME,TONIA PEARCE [facility] Screening Digital - 01/07/24 - 1110 Report Status:Signed EXAM: [facility] Screening Digital EXAM DATE AND TIME: 01/07/2024 11:11 AM HISTORY: Screening. Bilateral reduction mammoplasty in 2017. Rightbreast implant placed at that time. Left implant removed same year due toinfection. The patient underwent gastric bypass surgery in 2010 and has lost 100pounds since that time. COMPARISON: 06/07/15, 05/02/14, 01/15/13 TECHNIQUE: Bilateral digital breast tomosynthesis was performed in the CCand MLO projections. Implant displaced views of the right breast wereobtained. Computer aided detection with [employer] 3D 3.1 was employed. TISSUE DENSITY: b. There are scattered areas of fibroglandular density. FINDINGS: Fatty reduction mammoplasty sequelae are now seen. No suspicious massesor grouped microcalcifications are identified. Few coarse, benigncalcifications are noted. A subpectoral implant is identified on the right. The skin and vascularityare unremarkable. IMPRESSION: No mammographic evidence of malignancy is seen. A negative mammogram in the presence of a clinically suspicious palpable abnormality does not preclude the possibility of malignancy or alter theindica tions for biopsy. BI-RADS: Category 2: Benign RECOMMENDATION(S): 1: Routine screening mammogram BILATERAL in 1 year. Dictating Physician: IZABELLA GONZALEZ MD Electronically Signed by: IZABELLA GONZALEZ MD Dic Date/Time: 01/09/24 1153 Sign date/Time: 01/09/24 1212 Result [facility] Tonia Pruitt MD [facility] BI PROCEDURES Final Result * Annual BMP Blood Test (08/14/2023) Pathologist [facility] Annual BMP Blood Test Abstracted Historical Provider HEALTH MAINTENANCE Final Result * Hemoglobin A1c (08/02/2021) Pathologist [facility] Hemoglobin A1C 6.5 <=6.5 % Blood Venous blood specimen / Unknown Historical Provider LAB BLOOD ORDERABLES Toshia l Result * Lipid panel (08/02/2021) Pathologist [facility] LDL/HDL Ratio 3 0 - 4 Triglycerides 118 0 - 150 mg/dL Cholesterol 176 0 - 200 mg/dL HDL 56 >=40 mg/dL LDL Cholesterol 97 0 - 100 mg/dL Blood Venous blood specimen / Unknown us Historical Provider LAB BLOOD ORDERABLES Toshia l Result * Hepatitis C Screening (02/17/2014) Hepatitis C Screening Abstracted us Historical Provider HEALTH MAINTENANCE Final Result from Last 3 Months or Most Recently Relevant to Health Maintenance Insurance [facility] Member Subscriber Plan / Payer (Ef fective 2018-Present) Name:Madhu Reyes Relation to Subscriber:Self Name:Madhu Reyes Payer ID:[id number] Group ID:[id number] Type:Not on file Address: [place] [address] [place] [place] [id number] Care Teams Parts Control Clerk Relationship Specialty Start Date End Date Name, MD Tonia [address] [place], [place] PCP - General Internal Medicine 04/22/19
--- OUTSIDE RECORDS SUMMARY | 2025-04-13 14:50 | XMS_ITS | Encounter Summary ---
Author Organization [employer] Address [address] [facility] [address] [place] [address] Care Team Providers Care Fly Maker Name Role Phone Name, Yazan PEARCE Primary Care Provider [phone] Reason for Visit * Reason Onset Date Comments Nurse Triage 10/06/2023 Encounter Details Date Type Department Care Team ([facility] st Contact Info) Description 10/06/2023 Telephone [facility] MEDICINE [address] [place] [address] Name, MD aYzan [address] [place] [address] Nurse Triage Social History Tobacco Use Types Packs/Day Years [...] AM EDT documented as of this encounter Miscellaneous Notes * Telephone Encounter - Lucina Albarado RN - 10/06/2023 10:17 AM EST Call to Madhu Reyes, reports having St, cough, chest pain and diarrhea. Per pt had negative COVID-19 test kit yesterday. Per pt sx onset of ST on Friday. Since yesterday having diarrhea, chills. Pt used Tylenol. Pt had taken Imodium for diarrhea. Per pt last night diarrhea was also black. Pt staes was also having abdominal cramping. Weakness and having watery black stools even with just fluids. Per pt had > 10 episodes in last 24 hours. Pt advised of disposition, [facility] ER nowfor exam to ensure no GI bleed as cause of black diarrhea. Sent to team for ER status check PRN. Protocol Used: Diarrhea (Adult) Protocol-Based Disposition: Go to ED Now Positive Triage Question: * Bloody, black, or tarry bowel movements (Exception: Chronic-unchanged black- andre bowel movements and is taking iron pills or Pepto-Bismol.) * All higher-acuity triage questions were negative Care Advice Discussed: * Reasons To Call Back - You become worse * Telephone Encounter - Sandra Bruno - 10/06/2023 9:56 AM EST Symptoms: Sore Throat, Chest Pain - Adult, Diarrhea Outcome: Schedule an urgent appointment (within 1 hour) or talk to a nurse or provider soon Reason: Caller denied all higher acuity questions The caller accepted this outcome Surinamese Speaker documented in this encounter Plan of Treatment Upcoming Encounters Date Type Department Care Team (Late st Contact Info) Description 04/19/2025 11:00 AM EDT Office Visit [address] [address] 07/08/2025 10:30 AM EDT Office Visit [address] [address] Name, MD Yazan [address] [place] [address] documented as of this encounter Visit Diagnoses Not on filedocumented in this encounter Additional Health Concerns Assessment Noted Time PHQ-9 Depression Total Score: 6 11/12/20 22 11:11 AM EST documented as of this encounter Care Teams Fly Maker Relationship Specialty Start Date End Date Yazan Pruitt MD [address] [place] [phone] PCP - General Family Medicine 12/25/15 documented as of this encounter
--- OUTSIDE RECORDS SUMMARY | 2025-04-13 14:50 | XMS_ITS | Encounter Summary ---
Author Organization [employer] Address [address] [facility] [address] [place] [address] Care Team Providers Care General Farmer Name Role Phone Name, Yazan PEARCE Primary Care Provider [phone] Reason for Visit * Reason Comments Med Refill Encounter Details Date Type Department Care Team ([facility] Contact Info) Description 07/15/2023 Refill [facility] MED & PEDS [address] [place], [place] [phone] Name, MD Yazan [address] [place] [address] Chronic neck pain Social History Tobacco Use [...] Upcoming Encounters Date Type Department Care Team ([facility] Contact Info) Description 04/19/2025 11:00 AM EDT Office Visit [facility] MEDICINE [address] [place] [phone] 07/08/2025 10:30 AM EDT Office Visit [facility] MEDICINE [address] [place] [address] Name, MD Yazan [address] [place] [address] documented as of this encounter Visit Diagnoses Diagnosis Chronic neck pain Cervicalgia documented in this encounter Additional Health Concerns Assessment Noted Time PHQ-9 Depression Total Score: 6 11/12/20 22 11:11 AM EST documented as of this encounter Care Teams General Farmer Relationship Specialty Start Date End Date Name, [place] [address] PCP - General Family Medicine 12/25/15 documented as of this encounter
--- OUTSIDE RECORDS SUMMARY | 2025-04-13 14:51 | XMS_ITS | Encounter Summary ---
Author Organization [employer] Address [address] [facility] [address] [place] [address] Care Team Providers Care Commercial Loan Coordinator Name Role Phone Name, Yazan PEARCE Primary Care Provider Reason for Visit * Reason Comments Med Refill Encounter Details Date Type Department Care Team ([facility] st Contact Info) Description 03/31/2024 Refill [facility] MED[facility]INE [address], [place] [phone] Name, MD Yazan [address] [place] [address] Chronic neck pain Social History Tobacco Use Types Packs/Day Years Used Date Smoking Tobacco: Former Passive Smoke Exposure: Never Smokeless Tobacco: Never Alcohol Use Standard Drinks/Week Comments Yes 1 (1 standard drink = 0.6 oz pur e alcohol) Ocassionally Alcohol Answer Date Recorded Frequency of Alcohol Consumption Not on file 11/14/2023 Average Number of Drinks Not on file 023 Frequency of Binge Drinking Not on file 10/25 Score 0 11/14/2023 Depression Answer Date Recorded Patient Health Questionnaire-9 Score 6 11/12/2022 Housing Stability Answer Date Recorded What is your housing situation today? I have ole garcia 03/16/[address] you li ve. Do you have problems with any of the following? None of the above 03/16/2024 Food Insecurity Answer Date Recorded Within the past 12 months, y ou worried that your food would run out before you got money to buy more: Never True 03/16/2024 Within the past 12 months,th e food you bought just didn't last and you didn't have enough money to get more: Never True Transportation Answer Date Recorded In the past 12 months, has l ack of transportation kept you from medical appts, meetings, work or from getting things needed for daily living? No 03/16/2024 Utilities Answer Date Recorded In the past 12 months, has t he electric, gas, oil or water company threatened to shut off services in your home? No 03/16/2024 Depression Answer Date Recorded Patient Health Questionnaire-2 Score 0 11/14/2023 Comments No Sex and Gender Information Value [...] Description 04/19/2025 11:00 AM EDT Office Visit [address] [address] 07/08/2025 10:30 AM EDT Office Visit [address] [address] Name, MD Yazan [address] [place] [phone] documented as of this encounter Visit Diagnoses Diagnosis Chronic neck pain Cervicalgia documented in this encounter Additional Health Concerns Assessment Noted Time PHQ-9 Depression Total Score: 6 11/12/20 22 11:11 AM EST documented as of this encounter Care Teams Commercial Loan Coordinator Relationship Specialty Start Date End Date NameYazan MD [address] [place] [id number] PCP - General Family Medicine 12/25/15 documented as of this encounter
--- OUTSIDE RECORDS SUMMARY | 2025-04-13 14:51 | XMS_ITS | Encounter Summary ---
Author Organization [email or web address] Address [address] [facility] [place] [address] Care Team Providers Care Web Solutions Architect Name Role Phone Name, Yazan PEARCE Primary Care Provider Reason for Visit * Reason Comments Med Refill Encounter Details Date Type Department Care Team (Late st Contact Info) Description 01/19/2024 Refill [facility] [address] [place], [place] [phone] Name, MD Yazan [address] [place] [address] Chronic neck pain Social History Tobacco Use [...] your housing situation today? I have ole jose 09/15/[address] you li [...] Description 04/19/2025 11:00 AM EDT Office Visit [address] [address] 07/08/2025 10:30 AM EDT Office Visit [address] [address] Name, MD Yazan [address] [place] [phone] documented as of this encounter Visit Diagnoses Diagnosis Chronic neck pain Cervicalgia documented in this encounter Additional Health Concerns Assessment Noted Time PHQ-9 Depression Total Score: 6 11/12/20 22 11:11 AM EST documented as of this encounter Care Teams Web Solutions Architect Relationship Specialty Start Date End Date Name, MD Yazan [address] [place] [phone] PCP - General Family Medicine 12/25/15 documented as of this encounter
--- OUTSIDE RECORDS SUMMARY | 2025-04-13 14:51 | XMS_ITS | Clinical Summary ---
Author Organization [employer] Address [address] [place] [address] Care Team Providers Care Furnishings Conservator Name Role Phone Name, Yazan PEARCE Primary Care Provider [phone] Allergies No known active allergies Medications nicotine (Nicoderm CQ) 14 MG/24HR patchIndication s:Tobacco use Place 1 patch on the skin 1 (one) time each day at the same time. 30 patch 2 022 Active clonazePAM (KlonoPIN) 1 MG tablet Take 1 mg by mouth if needed in the morning, at noon, and at bedtime. 023 Active estradiol (Estrace) 0.1 MG/GM vaginal creamIndication s:Perimenopause Apply 1 gram vaginally daily x 2 weeks, then decrease to 3 times a week 42.5 g 12 023 Active naloxone (Narcan) 4 mg/0.1 mL nasal sprayIndication s:Chronic neck pain Administer 1 spray (4 mg) into affected nostril(s) if needed for opioid reversal. 2 each 2 023 Active sucralfate (Carafate) 1 GM/10ML suspension 023 Active zolpidem (Ambien) 10 MG tablet 023 Active pregabalin (Lyrica) 75 MG capsule Take 1 capsule (75 mg) by mouth 3 times daily. 90 capsule 023 Active albuterol (2.5 MG/3ML) 0.083% nebulizer solution Take 3 mL (2.5 mg) by nebulization every 6 (six) hours if needed for wheezing or shortness of breath. 75 mL 1 023 Active hydrocortisone (Anusol-HC) 2.5 % rectal cream Apply to affected area twice daily for one week. 28 g 024 Active lidocaine (Lidoderm) 5 % patch Apply 1 patch topically Once per day. Remove & discard patch within 12 hours or as directed by MD. 15 patch 2 024 Active Diclofenac Sodium 1 % gel Apply 2 g topically if needed in the morning and at bedtime (pain). 150 g 3 024 Active ondansetron (Zofran) 4 MG tabletIndicatio ns:Chronic neck pain TAKE ONE TABLET BY MOUTH TWICE A DAY (VIAL) 60 tablet 11 024 Active lidocaine (Xylocaine) 5 % ointmentIndicat ions:Acute right-sided low back pain with right-sided sciatica Apply topically if needed for mild pain. 50 g 1 024 2024 Active valACYclovir (Valtrex) 1 g tabletIndicatio ns:Herpes simplex type 2 infection TAKE 1 TABLET BY MOUTH EVERY DAY 30 tablet 024 Active Acetaminophen Extra Strength 500 MG tabletIndicatio ns:Asthma, unspecified asthma severity, unspecified whether complicated, unspecified whether persistent TAKE ONE TABLET BY MOUTH EVERY 7-8 HOURS NEEDED. DO NOT EXCEED 8 TABLETS PER 24 HOURS. (VIAL) 90 tablet 11 024 Active budesonide (Pulmicort) 0.5 MG/2ML nebulizer solutionIndicat ions:Asthma, unspecified asthma severity, unspecified whether complicated, unspecified whether persistent INHALE THE CONTENTS OF 1 VIAL VIA NEBULIZER ONCE DAILY (BULK) 60 mL 11 024 Active albuterol 108 (90 Base) MCG/ACT inhalerIndicati ons:Asthma, unspecified asthma severity, unspecified whether complicated, unspecified whether persistent INHALE 2 PUFFS BY MOUTH EVERY 4 HOURS NEEDED FOR WHEEZING/COUGH (BULK) 8.5 g 12 024 Active montelukast (Singulair) 10 MG tabletIndicatio ns:Asthma, unspecified asthma severity, unspecified whether complicated, unspecified whether persistent TAKE ONE TABLET BY MOUTH AT BEDTIME^1R4 90 tablet 3 025 Active SUMAtriptan (Imitrex) 25 MG tabletIndicatio ns:Asthma, unspecified asthma severity, unspecified whether complicated, unspecified whether persistent TAKE 1 TABLET BY MOUTH AFTER ONSET OF MIGRAINE.MAY REPEAT AFTER 2 HOURS IF HEADACHE RETURNS. DO NOT EXCEED 4 TABLETS IN 24 HOURS (VIAL) 10 tablet 025 Active ketoconazole (NIZOral) 2 % shampooIndicati ons:Seborrheic dermatitis APPLY TWICE WEEKLY AT LEAST 3 DAYS IN BETWEEN EACH SHAMPOO. 120 mL 1 025 Active venlafaxine (Effexor) 37.5 MG tabletIndicatio ns:Perimenopaus e TAKE ONE TABLET BY MOUTH EVERY DAY WITH FOOD (VIAL) 30 tablet 025 Active cholecalciferol (Vitamin D3) 25 MCG (1000 UT) tabletIndicatio ns:History of gastric bypass TAKE ONE TABLET BY MOUTH EVERY DAY ^1R1 30 tablet 025 Active Ascorbic Acid (vitamin C) 500 MG tabletIndicatio ns:History of gastric bypass TAKE ONE TABLET BY MOUTH EVERY DAY ^1R1 28 tablet 025 Active cyanocobalamin (Vitamin B-12) 1000 MCG tabletIndicatio ns:History of gastric bypass TAKE ONE TABLET BY MOUTH EVERY DAY 28 tablet 025 Active docusate sodium (Colace) 100 MG capsule TAKE ONE CAPSULE BY MOUTH TWICE A DAY ^1R1,1R4 60 capsule 025 Active FeroSul 325 (65 Fe) MG tablet TAKE ONE TABLET BY MOUTH EVERY DAY ^1R1 30 tablet 025 Active fexofenadine (Brittney) 180 MG tablet TAKE ONE TABLET BY MOUTH EVERY DAY (VIAL) 30 tablet 025 Active oxyCODONE-aceta minophen (Percocet) 7.5-325 MG tabletIndicatio ns:Chronic pain syndrome Take 1 tablet by mouth every 6 (six) hours if needed for severe pain for up to 28 days. 112 tablet 025 2024 Active cyclobenzaprine (Flexeril) 10 MG tabletIndicatio ns:Acute right-sided low back pain with right-sided sciatica TAKE 1 TABLET BY MOUTH NEEDED UP TO THREE TIMES A DAY 60 tablet 025 Active amitriptyline (Elavil) 25 MG tabletIndicatio ns:Female pelvic pain TAKE 1 TABLET(25 MG) BY MOUTH AT BEDTIME 30 tablet 025 Active metoprolol tartrate (Lopressor) 25 MG tabletIndicatio ns:Essential hypertension TAKE 1 TABLET(25 MG) BY MOUTH TWICE DAILY 60 tablet 5 025 Active fluticasone (Flonase) 50 MCG/ACT nasal sprayIndication s:Chronic neck pain INSTILL 1 SPRAY IN EACH NOSTRIL ONCE DAILY (BULK) 16 g 3 025 Active Fluticasone-Sami meterol 500-50 MCG/ACT aerosol powder INHALE ONE PUFF BY MOUTH TWICE A DAY ( EVERY MORNING AND EVERY EVENING ) APPROXIMATELY 12 HOURS APART (BULK) 60 each 11 Active omeprazole (PriLOSEC) [address] capsule TAKE TWO CAPSULES BY MOUTH EVERY DAY BEFORE MEALS (VIAL) 60 capsule 11 Active omeprazole (PriLOSEC) [address] capsule TAKE TWO CAPSULES BY MOUTH EVERY DAY BEFORE MEALS 60 capsule 11 024 2024 Discontinued(R eorder (will not trigger notification to Pharmacy)) Wixela Inhub 500-50 MCG/ACT aerosol powder INHALE ONE PUFF BY MOUTH TWICE A DAY ( EVERY MORNING AND EVERY EVENING ) APPROXIMATELY 12 HOURS APART (BULK) 60 each 11 024 2024 Discontinued(R eorder (will not trigger notification to Pharmacy)) fexofenadine (Brittney) 180 MG tablet TAKE ONE TABLET BY MOUTH EVERY DAY ^1R1 30 tablet 11 024 2024 Discontinued fluticasone (Flonase) 50 MCG/ACT nasal sprayIndication s:Chronic neck pain INSTILL 1 SPRAY IN EACH NOSTRIL ONCE DAILY (BULK) 16 g 3 024 2024 Discontinued(R eorder (will not trigger notification to Pharmacy)) oxyCODONE-aceta minophen (Percocet) 7.5-325 MG tabletIndicatio ns:Chronic pain syndrome Take 1 tablet by mouth every 6 (six) hours if needed for severe pain for up to 28 days. Do not start before February 20, 2025. 112 tablet 025 2024 Discontinued(R eorder (will not trigger notification to Pharmacy)) cyclobenzaprine (Flexeril) 10 MG tabletIndicatio ns:Acute right-sided low back pain with right-sided sciatica TAKE 1 TABLET BY MOUTH NEEDED UP TO THREE TIMES A DAY 60 tablet 025 2024 Discontinued(R eorder (will not trigger notification to Pharmacy)) amitriptyline (Elavil) 25 MG tabletIndicatio ns:Female pelvic pain TAKE 1 TABLET(25 MG) BY MOUTH AT BEDTIME 30 tablet 025 2024 Discontinued(R eorder (will not trigger notification to Pharmacy)) metoprolol tartrate (Lopressor) 25 MG tabletIndicatio ns:Essential hypertension TAKE 1 TABLET(25 MG) BY MOUTH TWICE DAILY 60 tablet 5 025 2024 Discontinued(R eorder (will not trigger notification to Pharmacy)) Active Problems Problem Noted Date Diagnosed Date Long-term current use of opiate analgesic 2023 Overview (10/05/2024): Medication: Percocet 7.5-325mg Q6H PRN Indication: herniation of cervical disc, chronic neck pain Last 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 Agreement: 08/31/24 Additional considerations/risk factors: clonazepam Assessment & Plan (01/23/2025 8:38 PM EST): Timeline: - 01/18/25: Group visit, utox/pill count as expected Assessment & Plan (10/05/2024 5:10 PM EST): -Good engagement and participation with Group Medical Visit model -Encouraged multifactorial approach to pain control including pharm and non- pharm modalities -UTOX and Pill count as expected Endometriosis 05/10/2024 Assessment & Plan (05/10/2024 6:03 PM EDT): Stable currently Heart disease 05/10/2024 Family history of early CAD 05/10/2024 Other fatigue 05/10/2024 Possible exposure to STI 05/10/2024 Assessment & Plan (05/10/2024 6:03 PM EDT): Labs as ordered below Routine general medical exam ination at a health care facility 05/09/2024 Assessment & Plan (05/10/2024 6:03 PM EDT): Pap due 2025, outside telemetry tech , utd on mammogram, labs as ordered below History of left oophorectomy 05/06/2024 Status post bilateral salpingectomy 05/06/2024 Primary female infertility 03/16/2024 Uses Kosovan as primary spoken language 03/16/20 24 Right ovarian cyst 03/16/2024 Chronic pain 03/16/2024 S/P left oophorectomy 03/16/2024 Tubal ligation status 03/16/2024 Chronic bilateral low back pain 02/10/2024 Assessment & Plan (04/23/2024 6:50 AM EDT): Patient participated in chronic pain group visit Utox as expected, pill count two below expected Encouraged patient to speak to Name/leave a message about submitting PA for lidocaine patches Diclofenac prescription sent per pt's request Followup in 1-2 months for next chronic pain group Acute right-sided low back pain with right-sided sciatica 06/20/2023 Assessment & Plan (06/20/2023 2:12 PM EDT): Apply heat on affected area F/u with pain management/PCP Hypertension 10/24/2022 Assessment & Plan (05/10/2024 6:02 PM EDT): At goal , continue metoprolol Assessment & Plan (08/26/2023 1:28 PM EDT): Initial reading was elevated 136/105 MA rechecked and BP improved to 120/96 Pt asymptomatic Educated pt to monitor for vision changes, chest pain, SOB, severe headache, unilateral weakness, facial droop, slurred speech. If occur, go to ED F/u PRN with PCP Herpes simplex type 2 infection 10/24/2022 Diabetes mellitus 04/22/2019 Headache disorder 03/16/2019 Assessment & Plan (05/10/2024 6:01 PM EDT): Stable on amitryptiline Cyst of ovary 11/10/2017 Constipation 08/04/2017 Chronic low back pain 12/25/2015 Chronic neck pain 12/25/2015 Overview (01/20/2024): Current Percocet dose: 7.5-325 mg every 6 hours PRN for pain Continues Lyrica 75mg TID Assessment & Plan (01/20/2024 2:44 PM EST): -Continues with Percocet 7.5-325mg Q6H PRN. Reviewed med safety and SE. -UTOX and Pill count as expected -Good engagement and participation with Group Medical Visit model - today was first visit. -Encouraged multifactorial approach to pain control including pharm and non- pharm modalities Assessment & Plan (08/26/2023 1:26 PM EDT): Gave pt Toradol injection in clinic Discussed percocet with PCP. We agreed that increasing Percocet dose would not benefit pt condition and only have increased risk Provider called pt with interpretation by Libia VILLAGOMEZ and notified her of the plan to continue medication as listed. she is enocuraged to keep her appt with neurosurgeon for evaluation but I saw the MRI report and most of the findings are chronic. I told her I do not think she will need another CS surgery. Anemia 04/28/2015 Hyperparathyroidism due to intestinal malabsorpt ion 11/16/2014 Allergic rhinitis 04/27/2013 Atypical squamous cells of u ndetermined significance (ASCUS) on Papanicolaou smear of cervix 01/21/2013 Overview (06/30/2023): The patient had biopsy on December [address] [facility] Unspecified abnormal cytolog ical findings in specimens from cervix uteri 01/21/2013 Overview (04/11/2025): The patient had biopsy on December [address] Thomson at [facility] Neck pain 10/12/2012 Cervical spondylosis with radiculopathy 10/12/20 12 Herniated disc, cervical 02/25/2012 Overview (01/23/2025): S/p surgery [place] [facility] [place] Assessment & Plan (01/23/2025 8:38 PM EST): -Continues with Percocet 7.5-325mg Q6H PRN. -UTOX and Pill count as expected -Good engagement and participation with Group Medical Visit model -Encouraged multifactorial approach to pain control including pharm and non- pharm modalities Assessment & Plan (06/01/2024 4:59 PM EDT): -Continues with Percocet 7.5-325mg Q6H PRN. -UTOX and Pill count as expected -Good engagement and participation with Group Medical Visit model -Encouraged multifactorial approach to pain control including pharm and non- pharm modalities Chronic back pain 12/30/2011 Hypertrophy of breast 10/10/2010 Anxiety 12/14/2009 Depression 06/12/2009 Overview (05/08/2023): Patient is followed by Dr. Croft Migraine 01/04/2009 BERT (obstructive sleep apnea) 09/12/2008 Meralgia paresthetica 09/01/2008 Gastroesophageal reflux disease 06/28/2008 Assessment & Plan (05/10/2024 6:02 PM EDT): In care with GI, utd on colonoscopy and endoscopy Snoring 04/20/2008 Overview (04/11/2025): 11/2020 Home Sleep Study did not reveal sleep apnea or nocturnal hypoxia. Asthma 04/13/2008 Overview (05/08/2023): Severe. Is on preventive meds but she still has weezing Obesity 04/13/2008 Overview (05/08/2023): S/p gastric bypass Resolved Problems Problem Noted Date Diagnosed Date Resolved Date Acute left-sided low back pa in without sciatica 05/29/2023 09/26/2023 Assessment & Plan (05/29/2023 11:15 AM EDT): Apply heat on affected area Continue to follow with PCP and specialists Arthropathy of pelvis 05/08/20232022 Positive serological test result 05/08/2023 05/08/2023 Overview (05/08/2023): Never had outbreak, found to be positive after STI screening, takes valcyclovir Never had outbreak, found to be positive after STI screening, takes valcyclovir COVID-19 10/24/2022 11/12/2022 Menopausal flushing 10/24/2022 11/12/20 22 Transient visual loss 10/24/20222021 Weight gain 10/24/2022 11/12/2022 Diabetes mellitus 04/22/2019 07/02/2023 Cellulitis of lower limb 05/05/2018 Second degree burn of lower limb 05/05/2018 11/12/2022 Pain in female pelvis 11/10/20172021 Generalized abdominal pain 08/29/2017 0 05/08/2023 Assessment & Plan (10/27/2022 4:01 PM EST): -Reports imaging unremarkable at [facility] ED, request records -Called [facility] - pt scheduled appt for Oct 31 -Repeat H. Pylori testing -ED/urgent care precautions reviewed Idiopathic acute pancreatitis 08/04/2017 11/12/2022 Urinary tract infectious disease 07/18/2017 11/12/2022 Acute low back pain 06/10/2017 11/12/20 22 Pain in upper limb 06/10/2017 2 Recurrent major depression i n partial remission 01/23/2017 11/12/2022 Epigastric pain 08/26/2016 05/08/2023 Nausea and vomiting 08/26/2016 11/12/20 22 Chronic back pain 12/30/2011 09/26/2023 Panniculitis 10/10/2010 09/26/2023 Postconcussion syndrome 01/04/200904/24 Meralgia paresthetica 09/01/20082022 Snoring 04/20/2008 09/26/2023 Overview (05/08/2023): 11/2020 Home Sleep Study did not reveal sleep apnea or nocturnal hypoxia. Encounters Date Type Department Care Team Description 04/13/2025 2:00 PM EDT Office Visit [facility] [address] [place] [address] Madan Kelley CNP Pre-op evaluation (Primary Dx); Screening mammogram, encounter for; Primary hypertension; Moderate persistent asthma, unspecified whether complicated 04/13/2025 Travel 04/13/2025 Telephone [facility] [address] [place] [address] Yazan Pruitt MD 04/13/2025 Telephone [facility] [address] [place] [address] Yazan Pruitt MD 04/12/2025 1:45 PM EDT Office Visit [facility] [address] [place] [address] Yazan Pruitt MD Acute exacerbation of chronic low back pain (Primary Dx) 04/12/2025 Travel 04/11/2025 Telephone [facility] [address] [place] [address] Ariadna Schroeder MA Chart Prep 04/11/2025 Telephone [facility] [address] [place] [address] Yazan Pruitt MD Nurse Triage 03/31/2025 Telephone [facility] [address] [place] [address] Yazan Pruitt MD Nurse Triage 03/25/2025 Refill [facility] [address] [place], [place] [id number] Yazan Pruitt MD Chronic neck pain 03/25/2025 Refill [facility] [address] [place] [address] Yazan Pruitt MD Essential hypertension 03/24/2025 Refill [facility] [address] [place] [address] Name, MD Yazan Acute right-sided low back pain with right-sided sciatica; Female pelvic pain 03/21/2025 Refill [facility] [address] [place] [address] NameYazan MD Chronic pain syndrome 03/16/2025 Refill [facility] [address] [place] [address] NameYazan MD 03/01/2025 Refill [facility] [address] [place] [address] Name, MD Yazan Acute right-sided low back pain with right-sided sciatica; Female pelvic pain; Essential hypertension 02/17/2025 Refill [facility] [address] [place] [address] NameYazan MD Chronic neck pain 02/17/2025 Refill [facility] [address] [place] [phone] Name, MD Yazan Chronic pain syndrome 02/11/2025 11:00 AM EDT Telemedicine [facility] [address] [place] [phone] Name, MD Yazan Neural foraminal stenosis of cervical spine (Primary Dx); Cervical radiculopathy; Numbness and tingling in right hand; Abnormal MRI, cervical spine 02/11/2025 Travel 02/04/2025 Telephone [facility] [address] [place] [phone] NameYazan MD Call Back Request 02/02/2025 Refill [facility] [address] [place] [address] NameYazan MD Acute right-sided low back pain with right-sided sciatica 02/01/2025 Refill [facility] [address] [place] [phone] NameYazan MD Female pelvic pain 01/25/2025 Refill [facility] [address] [place] [address] NameYazan MD Perimenopause; History of gastric bypass 01/21/2025 Refill [facility] [address] [place] [address] Yazan Pruitt MD Chronic pain syndrome 01/19/2025 Refill [facility] [address] [facility] [place] [address] Yazan Pruitt MD Seborrheic dermatitis 01/19/2025 Refill [facility] [address] [place] [address] Yazan Pruitt MD Chronic pain syndrome 01/18/2025 11:00 AM EST Office Visit [facility] [address] [place] [address] Nicole Gomez, SHOPPING INVESTIGATOR Herniated disc, cervical (Primary Dx); Long-term current use of opiate analgesic 01/18/[address] [place] [address] Yazan Pruitt MD Referral (Patient walked in stating the specialist neurologist office is requesting pictures of the MRI in order for the patient to get an appointment.) 01/18/2025 Travel 01/17/2025 Refill [facility] [address] [facility] [place] [address] Yazan Pruitt MD Acute right-sided low back pain with right-sided sciatica from Last 3 Months Immunizations Immunization Administration Dates Next Due Hep B, Unspecified 04/10/2009,10/06/2008, 008 Hep B, adult 08/09/2021, 3,04/14/2013,03/10,04/10/2009,10/06/2008,08/15/2008 Influenza injectable quadriv alent IIV4 with preservative 09/01/2019,08/12/2018,12/03/2017,08/13,12/25/2015,09/08/2015 Influenza injectable quadriv alent preservative free 09/26/2023,08/27/2022,08/09/2021,10/18 Influenza, IIV3, injectable 10/18/2020,0 08/12/2017,09/08/2015,09/09,08/03/2013,10/12/2012,03/02/2012 ,08/29/2011,09/11/2010,08/09/2010,07/25,08/11/2008 Influenza, seasonal, injecta ble, preservative free 08/26/2024 Moderna Covid-19 Vaccine 12+ 10/25/2021,03/14/20 21,02/14/2021 Novel [id number], preservative-free 12/04/2009 Pfizer Covid-19 Vaccine 12+ 09/27/2024, Pfizer Covid-19 Vaccine 12+ Bivalent 08/27/2022 Pneumococcal Conjugate PCV 20 08/26/2024 Pneumococcal Polysaccharide PPSV23 02/04/2018, TD (adult), 2 Lf tetanus tox oid, preservative free, adsorbed 06/02/2020 Td (adult), 5 Lf tetanus tox oid, preservative free, adsorbed 01/18/2015 Tdap 04/26/2018,06/12/2010 Family History Medical History Relation Name Comments Diabetes type II Father Heart disease Mother Relation Name Status Comments Father Mother Social History Tobacco Use Types Packs/Day Years Used Date Smoking Tobacco: Former Passive Smoke Exposure: Past Smokeless Tobacco: Former Tobacco Cessation:Counseling Given: Not Answered Alcohol Use Standard Drinks/Week Comments Yes 1 (1 standard drink = 0.6 oz pur e alcohol) Ocassionally Alcohol Answer Date Recorded Frequency of Alcohol Consumption Not on file 11/14/2023 Average Number of Drinks Not on file 023 Frequency of Binge Drinking Not on file 10/25 Score 0 11/14/2023 Depression Answer Date Recorded Patient Health Questionnaire-9 Score 8 12/15/2024 Patient Health Questionnaire-9 Score 8 12/15/2024 Last PHQ-9: Questionnaire Data Not on file 0 12/15/2024 Housing Stability Answer Date Recorded What is your housing situation today? I have ole garcia 04/12/[address] you li ve. Do you have problems with any of the following? None of the above 04/12/2025 Food Insecurity Answer Date Recorded Within the past 12 months, y ou worried that your food would run out before you got money to buy more: Never True 04/12/2025 Within the past 12 months,th e food you bought just didn't last and you didn't have enough money to get more: Never True Transportation Answer Date Recorded In the past 12 months, has l ack of transportation kept you from medical appts, meetings, work or from getting things needed for daily living? No 04/12/2025 Utilities Answer Date Recorded In the past 12 months, has t he electric, gas, oil or water company threatened to shut off services in your home? No 04/12/2025 Depression Answer Date Recorded Patient Health Questionnaire-2 Score 2 12/15/2024 Internet Access Answer Date Recorded Internet Access Q1 Yes 04/12/2025 Internet Access Q2 Not on file 04/12/2025 Comments No Sex and Gender Information Value Date Recorded Sex Assigned at Female 09/23/2022 10:29 AM EDT Legal Sex Female 10:29 AM EDT Gender Identity Female 09/23/2022 10:29 AM EDT Sexual Orientation Straight 09/23/2022 10 :29 AM EDT Last Filed Vital Signs Vital Sign Reading Time Taken Comments Blood Pressure 123/85 04/13/2025 2:02 PM EDT Pulse 75 04/13/2025 2:02 PM EDT Temperature 36.6 ??C (97.8 ??F) 04/13/2025 2:02 PM ED T Respiratory Rate 16 04/13/2025 2:02 PM EDT Oxygen Saturation 99% 04/12/2025 1:45 PM EDT Inhaled Oxygen Concentration - - Weight 76.9 kg (169 lb 9.6 oz) 04/13/2025 2:02 P M EDT Height 160 cm (5' 3 ) 04/13/2025 2:02 PM EDT Body Mass Index 30.04 04/13/2025 2:02 PM EDT Plan of Treatment Upcoming Encounters Date Type Department Care Team (Late st Contact Info) Description 04/19/2025 11:00 AM EDT Office Visit [facility] [address] [place] [phone] 07/08/2025 10:30 AM EDT Office Visit [facility] [address] [place] [phone] Name, MD Yazan [address] [place] [phone] Health Maintenance Due Date Last Done Comments CT Colonography 1977 Colonoscopy 1977 Colorectal Cancer Screening 1977 FIT DNA/Cologuard 1977 FIT 1977 FOBT 1977 Sigmoidoscopy 1977 Eye Exam 1987 Family Planning (PISQ) 1992 Diabetes: Urine Protein Screening 1996 Pap Smear 02/18/2024 02/17/2021, 02/16/2021 Lipid Panel 05/10/2025 05/10/2024, 03/14/2023 Diabetes: Foot Exam 06/07/2025 06/07/2024, Diabetes: Hemoglobin A1C 10/14/2025 025, 12/16/2024, 05/10/2024, Additional history exists Alcohol/Substance Use Screening 12/15/2025 12/15/2024 Depression Screening 12/15/2025 12/15/2024, 12/15/19 25 Mammogram 01/07/2026 01/07/2024, 11/25, 12/17/2022 Cervical Cancer Screening 02/16/2026 HPV/Cotest 02/16/2026 02/16/2021 Disability Screening 04/12/2026 04/12/2025 SDOH Screening 04/12/2026 04/12/2025 Tobacco Screening 04/13/2026 04/13/2025 Zoster Vaccines (1 of 2) 2027 DTaP/Tdap/Td Vaccines (5 - Td or Tdap) 06/02/2030 06/02/2020, 04/26/2018, 01/18/2015, Additional history exists RSV Patients and Patients Aged 60 years or older (1 - 1-dose 75+ series) 2052 Hepatitis B Vaccines Completed 08/09/2021, 09/15/2013, 04/14/2013, Additional history exists HIV Screening Completed 05/10/2024, 03/14/2021 Hepatitis C Screening Completed 05/10/2024, 021 Influenza Vaccine Completed 08/26/2024, , 08/27/2022, Additional history exists Pneumococcal Vaccine: Pediatrics (0 to 5 Years) and At-Risk Patients (6 to 49) Years) Completed 08/26/2024, 02/04/2018, 09/11/2010 COVID-19 Vaccine [...] patient's age to complete this topic Meningococcal Vaccine Aged Out No can camilo eligible based on patient's age to complete this topic RSV under 20 months Aged Out No longe r eligible based on patient's age to complete this topic Rotavirus Vaccines Aged Out No longer eligible based on patient's age to complete this topic Procedures Procedure Name Priority Date/Time Associated Diagnosis Comments POCT GLYCATED HEMOGLOBIN, TOTAL Routine 04/13/2025 2:24 PM EDT Pre-op evaluation POCT GLUCOSE Routine 04/13/2025 2:23 PM EDT Pre-op evaluation AMB REFERRAL TO NEUROSURGERY Routine 02/18/2025 Neural foraminal stenosis of cervical spine Cervical radiculopathy Numbness and tingling in right hand Abnormal MRI, cervical spine AMB REFERRAL TO NEUROSURGERY Routine 02/14/2025 Neural foraminal stenosis of cervical spine Cervical radiculopathy Numbness and tingling in right hand Right hand weakness POCT LUDA-14 URINE DRUG SCREEN Routine 01/18/2025 1:14 PM EST Long-term current use of opiate analgesic HEPATITIS C AB W/REFL TO HCV RNA, QN, PCR Routine 05/10/2024 10:10 AM EDT Possible exposure to STI HIV 1/2 ANTIGEN/ANTIBODY, FOURTH GENERATION W/RFL Routine 05/10/2024 10:10 AM EDT Possible exposure to STI LIPID PANEL, STANDARD Routine 05/10/2024 10:10 AM EDT Routine general medical examination at a health care facility MAMMOGRAPHY Routine 12/17/2022 PAP/HPV Routine 02/17/2021 HPV GENOTYPES 16,18/45 Routine 02/16/2021 4:47 PM EDT from Last 3 Months or Most Recently Relevant to Health Maintenance Results * POCT HGB A1C (04/13/2025 2:24 PM EDT) Hemoglobin A1C 5.4 4.0 - 6.0 % QC Media Lot # [id number] Lot# Expiration Date Blood 04/13/2025 2:24 PM EDT Result [facility] POINT OF CARE TEST ENTER/ EDIT ORDERABLES Final Result * POCT Glucose (04/13/2025 2:23 PM EDT) Glucose Blood, POC 72 60 - 200 mg/dL [facility] Lot # [id number] Lot# Expiration Date Blood Capillary blood specimen / Unknown 04/13/2025 2:23 PM EDT Result [facility] POINT OF CARE TEST ENTER/ EDIT ORDERABLES Final Result * Referral to Neurosurgery (02/18/2025) Only the most recent of2 resultswithin the time period is included. Yazan Pruitt MD OUTPATIENT REFERRAL ORDERABLES F inal Result * POCT LUDA-14 Urine Drug Screen (01/18/2025 1:14 PM EST) TCA, Urine Positive Oxycodone Screen, Urine Positive Urine Urine specimen obtained by clean catch procedure / Unknown 01/18/2025 1:14 PM EST Narrative Virgen Kat, RN - 01/18/2025 1:14 PM EST .[employer] cup Lot#[id number] Exp. 07/13/26 Internal Pass Control ike Gomez SHOPPING INVESTIGATOR POINT OF CARE TEST ENTER/EDIT ORDERABLES Final Result * Hepatitis C Antibody with Reflex to HCV, RNA, Quantitative, Real-Time PCR (05/10/2024 10:10 AM EDT) Hepatitis C Antibody Nonreactive Nonreactive [facility] Comment:Antibodies to HCV no t detected; does not exclude early acuteHCV infection. Blood Venous blood specimen / Unknown 05/10/2024 10:10 AM EDT 05/10/2024 11:19 AM EDT Rafaela Perez CREDIT CONTROL OFFICER LAB BLOOD ORDERABLES Final Resul t [facility] [address] [place] [phone] * HIV-1/2 Antigen and Antibodies, Fourth Generation, with Reflexes (05/10/2024 10:10 AM EDT) Pathologist [facility] HIV AB/AG Nonreactive Nonreactive [facility] Comment:HIV-1 p24 Ag and/or HIV-1/HIV-2 Ab not detected.A test result that is nonreactive does not exclude thepossibility of exposure to or infection with HIV-1 and/orHIV-2. Nonreactive results in this assay for individualswith prior exposure to HIV-1 and/or HIV-2 may be due toantigen and antibody levels that are below the limit ofdetection of this assay.The [employer] HIV Ag/Ab Combo assay result andsupplemental assay results should be interpreted inconjunction with the patient's clinical presentation,history and other laboratory results. If the results areinconsistent with clinical evidence, additional testing issuggested to confirm the result. Blood Venous blood specimen / Unknown 05/10/2024 10:10 AM EDT 05/10/2024 11:19 AM EDT us Rafaela Perez CREDIT CONTROL OFFICER LAB BLOOD ORDERABLES Final Resul t Performing Organization Address [facility] Co de Phone Number [facility] [address] [place] [address] [phone] * (ABNORMAL) Lipid Panel, Standard (05/10/2024 10:10 AM EDT) Pathologist [facility] Triglycerides 67 <150 mg/dL [facility] Comment:Desirable Triglyceri de: less than 150 mg/dLBorderline High Triglyceride 150-199 mg/dLHigh Triglyceride: 200-499 mg/dLVery High Triglyceride: greater than or equal to 5OO mg/dL Cholesterol 174 <200 mg/dL [facility] Comment:Desirable Cholestero l: less than 200 mg/dLBorderline High Cholesterol: 200-239 mg/dLHigh Cholesterol: greater than 239 mg/dL LDL Cholesterol Calculated 103(H) <100 mg/dL [facility] Comment:Desirable LDL: less than 100 mg/dLNear Optimal/Above Optimal LDL: 110- 129 mg/dLBorderline High LDL: 130-159 mg/dLHigh LDL: 160-189 mg/dLVery High LDL: greater than or equal to 190 mg/dL HDL Cholesterol 58 >40 mg/dL [facility] Comment:Desirable HDL: great er than 40 mg/dL Note: This HDL assay may give artificially low results in patients with liver disease. Blood Venous blood specimen / Unknown 05/10/2024 10:10 AM EDT 05/10/2024 11:19 AM EDT us Rafaela Perez CREDIT CONTROL OFFICER LAB BLOOD ORDERABLES Final Resul t Performing Organization Address [facility]/ZIP Co de Phone Number [facility] [address] [place] [address] [phone] * Mammography (12/17/2022) Pathologist [facility] Mammogram performed Anatomical Region Laterality Modality Other us Historical Provider HEALTH MAINTENANCE Final Result * Pap Smear (02/17/2021) Pathologist [facility] Pap smear PAP, liquid based Comment:Negative (NIL) HPV- Historical Provider MD HEALTH MAINTENANCE Final Result * HPV GENOTYPES 16,18/45 (02/16/2021 4:47 PM EDT) Pathologist [facility] HPV 16 RNA NOT DETECTED NOT DETECTED [facility] HPV 18/45 RNA NOT DETECTED NOT DETECTED [facility] Comment: Methodology: Lay Out Drafter Mediated Amplification The analytical performance characteristics of this assay have been determined by [employer]. The modifications have not been cleared or approved by the FDA. This assay has been validated pursuant to the CLIA regulations and is used for clinical purposes. 02/16/2021 4:47 PM EDT Abigail Pastrana NP LAB CYTOLOGY ORDERABLES Final R esult [facility] [address] from Last 3 Months or Most Recently Relevant to Health Maintenance Insurance [facility] < 65 [place]A JOSE [id number] Care Teams Furnishings Conservator Relationship Specialty Start Date End Date Name, MD Yazan [address] [place] [phone] PCP - General Family Medicine 12/25/15
--- OUTSIDE RECORDS SUMMARY | 2025-04-13 14:51 | XMS_ITS | Encounter Summary ---
Author Organization [employer] Address [address] [facility] 7t [place] [address] Care Team Providers Care Glass Bulb Silverer Name Role Phone Name, Yazan PEARCE Primary Care Provider [phone] Reason for Visit * Reason Comments Med Refill Encounter Details Date Type Department Care Team ([facility] st Contact Info) Description 03/30/2024 Refill [facility] MEDICINE [address] [place], [place] [phone] Name, MD Yazan [address] [place] [address] Social History Tobacco Use Types Packs/Day Years [...] Description 04/19/2025 11:00 AM EDT Office Visit [address] [address] 07/08/2025 10:30 AM EDT Office Visit [address] [address] Name, MD Yazan [address] [place] [address] documented as of this encounter Visit Diagnoses Not on filedocumented in this encounter Additional Health Concerns Assessment Noted Time PHQ-9 Depression Total Score: 6 11/12/20 22 11:11 AM EST documented as of this encounter Care Teams Glass Bulb Silverer Relationship Specialty Start Date End Date Name, MD Yazan [address] [place] [address] PCP - General Family Medicine 12/25/15 documented as of this encounter
--- OUTSIDE RECORDS SUMMARY | 2025-04-13 14:51 | XMS_ITS | Encounter Summary ---
Author Organization [employer] Address [address] 7t [place] [address] Care Team Providers Care Chip Separator Name Role Phone Name, Yazan PEARCE Primary Care Provider [phone] Reason for Visit * Reason Comments Med Refill Encounter Details Date Type Department Care Team ([facility] st Contact Info) Description 11/10/2023 Refill [facility] & PEDS [address] [place], [place] [phone] Name, MD Yazan [address] [place] [address] Chronic neck pain Social History Tobacco Use [...] Description 04/19/2025 11:00 AM EDT Office Visit [address] [address] 07/08/2025 10:30 AM EDT Office Visit [address] [address] Name, MD Yazan [address] [place] [address] documented as of this encounter Visit Diagnoses Diagnosis Chronic neck pain Cervicalgia documented in this encounter Additional Health Concerns Assessment Noted Time PHQ-9 Depression Total Score: 6 11/12/20 22 11:11 AM EST documented as of this encounter Care Teams Chip Separator Relationship Specialty Start Date End Date Name, MD Yazan [address] [place] [address] PCP - General Family Medicine 12/25/15 documented as of this encounter
--- OUTSIDE RECORDS SUMMARY | 2025-04-13 14:51 | XMS_ITS | Encounter Summary ---
Author Organization [employer] Address [address] [facility] 7t [place] [address] Care Team Providers Care Peer Specialist Name Role Phone Name, Yazan PEARCE Primary Care Provider [phone] Reason for Visit * Reason Comments Med Refill Encounter Details Date Type Department Care Team (Late st Contact Info) Description 02/24/2024 Refill [facility] CHC MED & PEDS [address] [place], [place] [phone] Name, MD Yazan [address] [place] [address] Chronic neck pain Social History Tobacco Use [...] Description 04/19/2025 11:00 AM EDT Office Visit [address] [address] 07/08/2025 10:30 AM EDT Office Visit [address] [address] Name, MD Yazan [address] [place] [address] documented as of this encounter Visit Diagnoses Diagnosis Chronic neck pain Cervicalgia documented in this encounter Additional Health Concerns Assessment Noted Time PHQ-9 Depression Total Score: 6 11/12/20 22 11:11 AM EST documented as of this encounter Care Teams Peer Specialist Relationship Specialty Start Date End Date Name, MD Yazan [address] [place] [address] PCP - General Family Medicine 12/25/15 documented as of this encounter
--- OUTSIDE RECORDS SUMMARY | 2025-04-13 14:51 | XMS_ITS | Encounter Summary ---
Author Organization [employer] Address [address] 7t [place] [address] Care Team Providers Care Lumber Sticker Name Role Phone Name, Yazan PEARCE Primary Care Provider [phone] Encounter Details Date Type Department Care Team ([facility] st Contact Info) Description 04/13/2025 Telephone [facility] MEDICINE [address] [place], [place] [phone] Name, MD Yazan [address] [place] [address] Social History Tobacco Use Types Packs/Day Years Used Date Smoking Tobacco: Former Passive Smoke Exposure: Past Smokeless Tobacco: Former Alcohol Use Standard Drinks/Week Comments Yes 1 [...] encounter Miscellaneous Notes * Telephone Encounter - Elena Morrell RN - 04/13/2025 10:08 AM EDT Form received today from medical records requesting medical clearance for surgery scheduled 04/25/2025 with Xiomara Vazquez MD. From from [facility] [facility] [facility] [employer] or [phone] [place] [address]. Breast lift implant gel, +BBL+Jplasma HD+ Arm lipo. Form requesting CBC, CMP, HCG (quantitative), HIV, PT, INR, PTT, Urinlaysis, A1c, Hepatitic panel, T3,T4, Tsh, EKG, meidcal clearance, mammogram, H & P, CXR and clearance from owner oral surgeon. No pre-ops available in this time frame. Will consult with scheduling. states to offer appt today at 2p with blue team provider. T/C to pt via [employer] #[id number]. Pt agrees to pre-op today. Form given to provider. documented in this encounter Plan of Treatment Upcoming Encounters Date Type Department Care Team (Late st Contact Info) Description 04/19/2025 11:00 AM EDT Office Visit [address] [address] 07/08/2025 10:30 AM EDT Office Visit [address] [address] Name, MD Yazan [address] [place] [address] documented as of this encounter Visit Diagnoses Not on filedocumented in this encounter Additional Health Concerns Assessment Noted Time PHQ-9 Depression Total Score: 8 12/15/19 25 4:05 PM EST documented as of this encounter Care Teams Lumber Sticker Relationship Specialty Start Date End Date Name, MD Yazan [address] [place] [address] PCP - General Family Medicine 12/25/15 documented as of this encounter
--- OUTSIDE RECORDS SUMMARY | 2025-04-13 14:51 | XMS_ITS | Encounter Summary ---
Author Organization [employer] Address [address] [place] [address] Care Team Providers Care Health Therapist Name Role Phone Name, Yazan PEARCE Primary Care Provider [phone] Encounter Details Date Type Department Care Team ([facility] st Contact Info) Description 11/10/2024 Telephone [facility] MEDICINE [address] [place], [place] [phone] Name, MD Yazan [address] [place] [address] Social History Tobacco Use Types Packs/Day Years [...] Description 04/19/2025 11:00 AM EDT Office Visit [address] [address] 07/08/2025 10:30 AM EDT Office Visit [address] [address] Name, MD Yazan [address] [place] [address] documented as of this encounter Visit Diagnoses Not on filedocumented in this encounter Additional Health Concerns Assessment Noted Time PHQ-9 Depression Total Score: 6 11/12/20 22 11:11 AM EST documented as of this encounter Care Teams Health Therapist Relationship Specialty Start Date End Date NameYazan MD [address] [place] [address] PCP - General Family Medicine 12/25/15 documented as of this encounter
--- OUTSIDE RECORDS SUMMARY | 2025-04-13 14:51 | XMS_ITS | Encounter Summary ---
Author Organization [employer] Address [address] [facility] 7t [place] [address] Care Team Providers Care Rotary Cutter Feeder Name Role Phone Name, Yazan PEARCE Primary Care Provider [phone] Encounter Details Date Type Department Care Team (Latest Contact Info) Description 04/13/2025 Travel Social History Tobacco Use Types Packs/Day Years [...] Description 04/19/2025 11:00 AM EDT Office Visit [address] [address] 07/08/2025 10:30 AM EDT Office Visit [address] [address] Name, MD Yazan [address] [place] [address] documented as of this encounter Visit Diagnoses Not on filedocumented in this encounter Additional Health Concerns Assessment Noted Time PHQ-9 Depression Total Score: 8 12/15/19 25 4:05 PM EST documented as of this encounter Care Teams Rotary Cutter Feeder Relationship Specialty Start Date End Date NameYazan MD [address] [place] [address] PCP - General Family Medicine 12/25/15 documented as of this encounter
--- OUTSIDE RECORDS SUMMARY | 2025-04-13 14:51 | XMS_ITS | Encounter Summary ---
Author Organization [employer] [facility] Address [address] [place] [address] 7 [place] [address] Care Team Providers Care Steam Station Supervisor Name Role Phone Name, Yazan PEARCE Primary Care Provider [phone] Reason for Referral * Consultation (Urgent) - Pending Review Specialty Diagnoses / Procedures Referred By Rashaun noguera Referred To Contact Cardiology Diagnoses Pre-op evaluation Madan Kelley CNP [address] [place] [address] Phone: tel: fax: Referral ID Status Reason Start Date Expiration Date Visits Requested Visits Authorized [id number] Pending Review Specialty Services Required 04/13/2025 04/13/2026 1 1 * Imaging (Routine) - Pending Review Specialty Diagnoses / Procedures Referred By Rashaun noguera Referred To Contact Radiology Diagnoses Screening mammogram, encounter for Pre-op evaluation Procedures BI Mammogram Screening Tomosynthesis Bilateral Madan Kelley CNP [address] [place] [address] Phone: tel: fax: Referral ID Status Reason Start Date Expiration Date V isits Requested Visits Authorized [id number] Pending Review 04/13/2025 04/13/2026 1 1 Encounter Details Date Type Department Care Team (Late st Contact Info) Description 04/13/2025 2:00 PM EDT Office Visit [facility] MEDICINE [address] [place] [address] Madan Kelley CNP [address] [place] [address] Pre-op evaluation (Primary Dx); Screening mammogram, encounter for; Primary hypertension; Moderate persistent asthma, unspecified whether complicated Social History Tobacco Use Types Packs/Day Years [...] AM EDT documented as of this encounter Last Filed Vital Signs Vital Sign Reading Time Taken Comments Blood Pressure 123/85 04/13/2025 2:02 PM EDT Pulse 75 04/13/2025 2:02 PM EDT Temperature 36.6 ??C (97.8 ??F) 04/13/2025 2:02 PM ED T Respiratory Rate 16 04/13/2025 2:02 PM EDT Oxygen Saturation - - Inhaled Oxygen Concentration - - Weight 76.9 kg (169 lb 9.6 oz) 04/13/2025 2:02 P M EDT Height 160 cm (5' 3 ) 04/13/2025 2:02 PM EDT Body Mass Index 30.04 04/13/2025 2:02 PM EDT documented in this encounter Plan of Treatment Upcoming Encounters Date Type Department Care Team (Late st Contact Info) Description 04/19/2025 11:00 AM EDT Office Visit [facility] [address] [place] [address] 07/08/2025 10:30 AM EDT Office Visit [facility] [address] [place] [address] Name, MD Yazan [address] [place] [address] Pending Results Name Type Priority Associated Diagnoses Date /Time ECG 12 lead ECG Routine Pre-op evaluation 04/13/2025 2:45 PM EDT Scheduled Orders Name Type Priority Associated Diagnoses Orde r Schedule BI Mammogram Screening Tomosynthesis Bilateral Imaging Routine Screening mammogram, encounter for Pre-op evaluation Expected: 04/13/2025, Expires: 06/13/2026 CBC auto differential Lab Routine Pre-op evaluation Expected: 04/13/2025 (Approximate), Expires: 04/13/2026 Comprehensive Metabolic Panel Lab Routine Pre-op evaluation Expected: 04/13/2025 (Approximate), Expires: 04/13/2026 HIV-1/2 Antigen and Antibodies, Fourth Generation, with Reflexes Lab Routine Pre-op evaluation Expected: 04/13/2025 (Approximate), Expires: 04/13/2026 Prothrombin Time-INR Lab Routine Pre-op evaluation Expected: 04/13/2025, Expires: 04/13/2026 Urinalysis Complete Lab Routine Pre-op evaluation Expected: 04/13/2025, Expires: 04/13/2026 Hemoglobin A1c Lab Routine Pre-op evaluation Expected: 04/13/2025 (Approximate), Expires: 04/13/2026 Hepatitis A,B,C Profile Lab Routine Pre-op evaluation Expected: 04/13/2025, Expires: 04/13/2026 TSH W/Reflex to FT4 Lab Routine Pre-op evaluation Expected: 04/13/2025 (Approximate), Expires: 04/13/2026 T4 (Thyroxine), Total Lab Routine Pre-op evaluation Expected: 04/13/2025 (Approximate), Expires: 04/13/2026 T3, Total Lab Routine Pre-op evaluation Expected: 04/13/2025 (Approximate), Expires: 04/13/2026 hCG, Total, Quantitative Lab Routine Pre-op evaluation Expected: 04/13/2025 (Approximate), Expires: 04/13/2026 XR Chest 2 Views Imaging Urgent Pre-op evaluation Expected: 04/13/2025, Expires: 04/13/2026 Albumin, Random Urine W/Creatinine Lab Routine Pre-op evaluation Expected: 04/13/2025 (Approximate), Expires: 04/13/2026 Scheduled Referrals Name Type Priority Associated Diagnoses Order Schedule Referral to Cardiology Outpatient Referral Urgent Pre-op evaluation Expected: 04/13/2025 (Approximate), Expires: 04/13/2026 documented as of this encounter Procedures Procedure Name Priority Date/Time Associated Diagnosis Comments POCT GLYCATED HEMOGLOBIN, TOTAL Routine 04/13/2025 2:24 PM EDT Pre-op evaluation POCT GLUCOSE Routine 04/13/2025 2:23 PM EDT Pre-op evaluation documented in this encounter Results * POCT HGB A1C (04/13/2025 2:24 PM EDT) Hemoglobin A1C 5.4 4.0 - 6.0 % QC Media Lot # [id number] Lot# Expiration Date [id number] Blood 04/13/2025 2:24 PM EDT [facility] POINT OF CARE TEST ENTER/ EDIT ORDERABLES Final Result * POCT Glucose (04/13/2025 2:23 PM EDT) Glucose Blood, POC 72 60 - 200 mg/dL [employer] Media Lot # [id number] Lot# Expiration Date 014 Blood Capillary blood specimen / Unknown 04/13/2025 2:23 PM EDT [facility] POINT OF CARE TEST ENTER/ EDIT ORDERABLES Final Result documented in this encounter Visit Diagnoses Diagnosis Pre-op evaluation- Primary Screening mammogram, encounter for Primary hypertension Unspecified essential hypertension Moderate persistent asthma, unspecified whether complicated documented in this encounter Additional Health Concerns Assessment Noted Time PHQ-9 Depression Total Score: 8 12/15/19 25 4:05 PM EST documented as of this encounter Care Teams Steam Station Supervisor Relationship Specialty Start Date End Date Name, MD Yazan [address] [place] [address] PCP - General Family Medicine 12/25/15 documented as of this encounter
--- OUTSIDE RECORDS SUMMARY | 2025-04-13 14:51 | XMS_ITS | Encounter Summary ---
Author Organization [employer] Address [address]t [place] [address] Care Team Providers Care Canoe Maker Name Role Phone Name, Yazan PEARCE Primary Care Provider [phone] Reason for Visit * Reason Comments Med Refill Encounter Details Date Type Department Care Team (Late st Contact Info) Description 02/06/2024 Refill [facility] CHC MED & PEDS [address] [place], [place] [phone] Name, MD Yazan [address] [place] [address] Chronic neck pain Social History Tobacco Use [...] Description 04/19/2025 11:00 AM EDT Office Visit [address] [address] 07/08/2025 10:30 AM EDT Office Visit [address] [address] Name, MD Yazan [address] [place] [address] documented as of this encounter Visit Diagnoses Diagnosis Chronic neck pain Cervicalgia documented in this encounter Additional Health Concerns Assessment Noted Time PHQ-9 Depression Total Score: 6 11/12/20 22 11:11 AM EST documented as of this encounter Care Teams Canoe Maker Relationship Specialty Start Date End Date Name, MD Yazan [address] [place] [address] PCP - General Family Medicine 12/25/15 documented as of this encounter
--- OUTSIDE RECORDS SUMMARY | 2025-04-13 14:51 | XMS_ITS | Encounter Summary ---
Author Organization [employer] Address [address] [place] [address] Care Team Providers Care Food Processing Scientist Name Role Phone Yazan Pruitt MD Primary Care Provider [phone] Reason for Referral * Consultation (Routine) - Closed Specialty Diagnoses / Procedures Referred By Contmora t Referred To Contact Physical Therapy Diagnoses Acute exacerbation of chronic low back pain NameYazan MD [address] [place] [address] Phone: tel: fax: [facility] [address] Phone: tel: fax: Referral ID Status Reason Start Date Expiration Date V isits Requested Visits Authorized [id number] Closed Specialty Services Required 04/12/2025 04/12/2026 1 1 Reason for Visit * Reason Comments Back Pain Encounter Details Date Type Department Care Team (Late st Contact Info) Description 04/12/2025 1:45 PM EDT Office Visit [facility] MEDICINE [address] [place] [address] [phone] Yazan Pruitt MD [address] [place], [place] [phone] Acute exacerbation of chronic low back pain (Primary Dx) Social History Tobacco Use Types Packs/Day Years Used Date Smoking Tobacco: Former Passive Smoke Exposure: Never Smokeless Tobacco: Never Tobacco Cessation:Counseling Given: Not Answered Alcohol Use [...] Sign Reading Time Taken Comments Blood Pressure 107/71 04/12/2025 1:45 PM EDT Pulse 70 04/12/2025 1:45 PM EDT Temperature 36.6 ??C (97.8 ??F) 04/12/2025 1:45 PM ED T Respiratory Rate 18 04/12/2025 1:45 PM EDT Oxygen Saturation 99% 04/12/2025 1:45 PM EDT Inhaled Oxygen Concentration - - Weight 76.9 kg (169 lb 9.6 oz) 04/12/2025 1:45 P M EDT Height 160 cm (5' 3 ) 04/12/2025 1:45 PM EDT Body Mass Index 30.04 04/12/2025 1:45 PM EDT documented in this encounter Progress Notes * Yazan Pruitt MD - 04/12/2025 1:45 PM EDT Subjective Patient ID: Madhu Delgado is a 49 y.o. female who presents for Back Pain. Patient comes for a sick visit. She complains of 2-3 months exacerbation of chronic low back pain. She has H/O DJD of LS Her symptoms are worse with bending at the low back and lifting from the floor. No radiculopathy, no weakness No h/o trauma No associated urinary complaints Review of Systems Constitutional: Negative for chills and fever. HENT: Negative for sore throat. Respiratory: Negative for cough, shortness of breath and wheezing. Cardiovascular: Negative for chest pain, palpitations and leg swelling. Gastrointestinal: Negative for abdominal pain. Musculoskeletal: Positive for back pain. Visit Vitals BP 107/71 (BP Location: Left arm, Patient Position: Sitting, BP Cuff Size: Adult) Pulse 70 Temp 97.8 ??F (36.6 ??C) (Temporal) Resp 18 Ht 5' 3 (1.6 m) Wt 169 lb 9.6 oz (76.9 kg) SpO2 99% BMI 30.04 kg/m?? OB Status Having periods Smoking Status Former BSA 1.85 m?? Objective Physical Exam Constitutional: Appearance: Normal appearance. Cardiovascular: Rate and Rhythm: Normal rate and regular rhythm. Heart sounds: No murmur heard. No gallop. Pulmonary: Effort: Pulmonary effort is normal. No respiratory distress. Breath sounds: Normal breath sounds. No wheezing. Musculoskeletal: Lumbar back: Spasms and tenderness present. No bony tenderness. Right lower leg: No edema. Left lower leg: No edema. Neurological: General: No focal deficit present. Mental Status: She is alert. Motor: No weakness. Assessment/Plan Diagnoses and all orders for this visit: Acute exacerbation of chronic low back pain Comments: I recommend referral to physical therapy. Continue acetaminophen as needed. I suggested using a heating pad on the low back PRN Orders: - Referral to Physical Therapy; Future documented in this encounter Plan of Treatment Upcoming Encounters Date Type Department Care Team (Late st Contact Info) Description 04/19/2025 11:00 AM EDT Office Visit [address] [address] 07/08/2025 10:30 AM EDT Office Visit [address] [address] NameYazan MD [address] [place] [address] Scheduled Referrals Name Type Priority Associated Diagnoses Orde r Schedule Referral to Physical Therapy Outpatient Referral Routine Acute exacerbation of chronic low back pain Expected: 04/12/2025 (Approximate), Expires: 04/12/2026 documented as of this encounter Visit Diagnoses Diagnosis Acute exacerbation of chronic low back pain- Primary documented in this encounter Additional Health Concerns Assessment Noted Time PHQ-9 Depression Total Score: 8 12/15/19 25 4:05 PM EST documented as of this encounter Care Teams Food Processing Scientist Relationship Specialty Start Date End Date Yazan Pruitt MD [address] [place] [address] PCP - General Family Medicine 12/25/15 documented as of this encounter
--- OUTSIDE RECORDS SUMMARY | 2025-04-13 14:51 | XMS_ITS | Encounter Summary ---
Author Organization [employer] Address [address] [facility] [address] 7t [place] [address] Care Team Providers Care Coroner Technician Name Role Phone Name, Yazan PEARCE Primary Care Provider [phone] Reason for Visit * Reason Comments Med Refill Encounter Details Date Type Department Care Team (Late st Contact Info) Description 06/14/2024 Refill [facility] CHC MED & PEDS [address] [place], [place] [phone] Name, MD Yazan 230 [place] [address] Chronic neck pain Social History Tobacco Use [...] housing situation today? I have ole jose 03/16/[address] you li [...] 04/19/2025 11:00 AM EDT Office Visit [address] [address] 07/08/2025 10:30 AM EDT Office Visit [address] [address] Name, MD Yazan [address] [place] [address] documented as of this encounter Visit Diagnoses Diagnosis Chronic neck pain Cervicalgia documented in this encounter Additional Health Concerns Assessment Noted Time PHQ-9 Depression Total Score: 6 11/12/20 22 11:11 AM EST documented as of this encounter Care Teams Coroner Technician Relationship Specialty Start Date End Date Name, MD Yazan [address] [place] [address] PCP - General Family Medicine 12/25/15 documented as of this encounter
--- OUTSIDE RECORDS SUMMARY | 2025-04-13 14:51 | XMS_ITS | Encounter Summary ---
Author Organization [employer] Address 75 [facility] 7t [place] [address] Care Team Providers Care Business Risk Analyst Name Role Phone Name, Yazan PEARCE Primary Care Provider [phone] Reason for Visit * Reason Onset Date Comments Referral 12/08/2024 Encounter Details Date Type Department Care Team ([facility] st Contact Info) Description 12/08/2024 Telephone [facility] MEDICINE 230 [place] [address] Name, MD Yazan [address] [place] [address] Referral Social History Tobacco Use Types Packs/Day [...] encounter Miscellaneous Notes * Telephone Encounter - Elva Hall - 12/08/2024 10:15 AM EST Patient needs a new PT referral due to previous one in 30 days. Please add patients preferred location of PSYCHIATRIC PHYSICAL THERAPY [address] [place] [address] Tel. [phone] . * Telephone Encounter - Jose Olmos - 12/08/2024 9:43 AM EST Tc from pt calling in regards to PT referral requesting for location to be changed to PSYCHIATRIC physical therapy [address] [facility]. If any questions you can contact pt at [phone]. (Cameroonian Speaker) documented in this encounter Plan of Treatment Upcoming Encounters Date Type Department Care Team ([facility] st Contact Info) Description 04/19/2025 11:00 AM EDT Office Visit [facility] MEDICINE [address] [place] [address] 07/08/2025 10:30 AM EDT Office Visit [facility] MEDICINE [address] [place] [address] Name, MD Yazan [address] [place] [address] documented as of this encounter Visit Diagnoses Not on filedocumented in this encounter Additional Health Concerns Assessment Noted Time PHQ-9 Depression Total Score: 6 11/12/20 22 11:11 AM EST documented as of this encounter Care Teams Business Risk Analyst Relationship Specialty Start Date End Date Name, MD Yazan [address] [place] [address] PCP - General Family Medicine 12/25/15 documented as of this encounter
--- OUTSIDE RECORDS SUMMARY | 2025-04-13 14:51 | XMS_ITS | Encounter Summary ---
Author Organization [employer] Address [address] [facility] [address] 7t [place] [address] Care Team Providers Care Double Head Machine Operator Name Role Phone Name, Yazan PEARCE Primary Care Provider [phone] Reason for Visit * Reason Comments Med Refill Encounter Details Date Type Department Care Team (Late st Contact Info) Description 02/05/2024 Refill [facility] CHC MED & PEDS [address] [place], [place] [phone] Name, MD Yazan 230 [place] [address] Chronic neck pain Social History Tobacco Use [...] Description 04/19/2025 11:00 AM EDT Office Visit [address] [address] 07/08/2025 10:30 AM EDT Office Visit [address] [address] Name, MD Yazan [address] [place] [address] documented as of this encounter Visit Diagnoses Diagnosis Chronic neck pain Cervicalgia documented in this encounter Additional Health Concerns Assessment Noted Time PHQ-9 Depression Total Score: 6 11/12/20 22 11:11 AM EST documented as of this encounter Care Teams Double Head Machine Operator Relationship Specialty Start Date End Date Name, MD Yazan [address] [place] [address] PCP - General Family Medicine 12/25/15 documented as of this encounter
--- OUTSIDE RECORDS SUMMARY | 2025-04-13 14:51 | XMS_ITS | Encounter Summary ---
Author Organization [employer] Address 75 [facility] 7t [place] [address] Care Team Providers Care Hybrid Technologist Name Role Phone Name, Yazan PEARCE Primary Care Provider [phone] Reason for Visit * Reason Comments Med Refill Encounter Details Date Type Department Care Team ([facility] Contact Info) Description 04/08/2023 Refill [facility] CHC MED & PEDS [address] [place], [place] [phone] Name, MD Yazan [address] [place] [address] Chronic neck pain Social History Tobacco Use [...] suspected to have Coronavirus/COVID-19? No / Unsure 04/08/2023 10:37 AM EDT documented as of this encounter Plan of Treatment Upcoming Encounters Date Type Department Care Team (Late Contact Info) Description 04/19/2025 11:00 AM EDT Office Visit [facility] MEDICINE 230 [place] [address] 07/08/2025 10:30 AM EDT Office Visit [facility] MEDICINE [address] [place] [address] Name, [place] [address] documented as of this encounter Visit Diagnoses Diagnosis Chronic neck pain Cervicalgia documented in this encounter Additional Health Concerns Assessment Noted Time PHQ-9 Depression Total Score: 6 11/12/20 22 11:11 AM EST documented as of this encounter Care Teams Hybrid Technologist Relationship Specialty Start Date End Date NameYazan MD [address] [place] [address] PCP - General Family Medicine 12/25/15 documented as of this encounter
--- OUTSIDE RECORDS SUMMARY | 2025-04-13 14:51 | XMS_ITS | Encounter Summary ---
Author Organization [employer] Address 75 [facility] 7t [place] [address] Care Team Providers Care Assistant Store Director Name Role Phone Name, Yazan PEARCE Primary Care Provider [phone] Reason for Visit * Reason Onset Date Comments Triage 04/15/2023 Encounter Details Date Type Department Care Team ([facility] st Contact Info) Description 04/15/2023 Telephone [facility] MEDICINE 230 [place], [place] [phone] Name, MD Yazan 230 [place] [address] Triage Social History Tobacco Use Types Packs/Day [...] encounter Miscellaneous Notes * Telephone Encounter - Nae Briseno RN - 04/15/2023 12:54 PM EDT Triage call with [employer] Room Attendant [place] [id number] Pt reports upper /epigastric pain since 04/14. Pt did vomit yesterday x1 but, not this morning. Pt continues to have nausea , neg for fever. Pt does take omeprazole for this but, it hasn't helped. Pt does also report having had Hpylori which comes back and is concerned that this could be causing this pain. Pt didn't eat last night just drank a protein shake which was tolerated well. Pt is drinkingliquids. Pt is advised to come to [facility] to be seen and Pt agrees with this disposition and home care reviewed. Protocol Used: Abdominal Pain - Upper (Adult) Protocol-Based Disposition: See in Office or Video Visit Today or Tomorrow Video visit not offered Positive Triage Question: * Mild to Moderate pain that comes and goes (cramps) lasts > 24 hours * All higher-acuity triage questions were negative Care Advice Discussed: * Reassurance and Education - Stomach Pain * Drink Clear Fluids * Diet * Antacid Medicine * Avoid Aspirin and NSAIDs * Food Recommendations to Reduce Reflux * Expected Course - Abdominal Pain * Reasons To Call Back - Abdomen pain is constant and present for more than 2 hours. - You become worse * Telephone Encounter - Elva Yun - 04/15/2023 11:52 AM EDT Symptom: Vomiting (04/14/23) and nausea and stomach pain Outcome: Schedule a same-day appointment or talk to a nurse or provider today Reason: Caller denied all higher acuity questions The caller accepted this outcome Patient speaks turks and ca[place] islander documented in this encounter Plan of Treatment Upcoming Encounters Date Type Department Care Team (Late st Contact Info) Description 04/19/2025 11:00 AM EDT Office Visit [address] [address] 07/08/2025 10:30 AM EDT Office Visit [address] [address] Name, MD Yazan [address] [place] [address] documented as of this encounter Visit Diagnoses Not on filedocumented in this encounter Additional Health Concerns Assessment Noted Time PHQ-9 Depression Total Score: 6 11/12/20 22 11:11 AM EST documented as of this encounter Care Teams Assistant Store Director Relationship Specialty Start Date End Date Name, MD Yazan [address] [place] [address] PCP - General Family Medicine 12/25/15 documented as of this encounter
--- OUTSIDE RECORDS SUMMARY | 2025-04-13 14:51 | XMS_ITS | Encounter Summary ---
Author Organization [employer] Address 75 [facility] 7t [place] [address] Care Team Providers Care Physical Therapist Name Role Phone Name, Yazan PEARCE Primary Care Provider [phone] Reason for Visit * Reason Onset Date Comments Call Back Request 02/04/2025 Encounter Details Date Type Department Care Team ([facility] Contact Info) Description 02/04/2025 Telephone [facility] MEDICINE 230 [place] [address] Name, MD Yazan [address] [place] [address] Call Back Request Social History Tobacco Use Types Packs/Day [...] Recorded Patient Health Questionnaire-2 Score 2 12/15/2024 Comments No Sex and Gender Information Value Date Recorded Sex Assigned at Female 09/23/2022 10:29 AM EDT Legal Sex Female 10:29 AM EDT Gender Identity Female 09/23/2022 10:29 AM EDT Sexual Orientation Straight 09/23/2022 10 :29 AM EDT documented as of this encounter Miscellaneous Notes * Telephone Encounter - Letitia Gardner RN - 02/04/2025 1:57 PM EDT TC placed to pt via [employer] senior examiner ([place]an ID#[id number]) regarding request for call back. Pt statesarnav went to see the neurosurgeon at [facility] and the surgeon was in surgery so she spoke with another woman. Pt did not agree with what the woman said and states she was supposed to meet with the surgeon but didn't. Pt requesting a referral to [facility] for a second opinion as she does not agree with what was said by the woman at [facility]. Message forwarded to PCP to review and advise. * Telephone Encounter - Mike Pineda - 02/04/2025 1:44 PM EDT Tc from pt requesting a callback to Discuss referral for Neurology with Nurse of PCP. Contact pt at [phone] documented in this encounter Plan of Treatment Upcoming Encounters Date Type Department Care Team (Late st Contact Info) Description 04/19/2025 11:00 AM EDT Office Visit [facility] [place] [address] 07/08/2025 10:30 AM EDT Office Visit [facility] MEDICINE [facility] [place] [address] Name, [place] [address] documented as of this encounter Visit Diagnoses Not on filedocumented in this encounter Additional Health Concerns Assessment Noted Time PHQ-9 Depression Total Score: 8 12/15/19 25 4:05 PM EST documented as of this encounter Care Teams Physical Therapist Relationship Specialty Start Date End Date Name, MD Yazan [facility] [place] [place] [address] PCP - General Family Medicine 12/25/15 documented as of this encounter
--- OUTSIDE RECORDS SUMMARY | 2025-04-13 14:51 | XMS_ITS | Encounter Summary ---
Author Organization [employer] Address 75 [facility] 7t [place] [address] Care Team Providers Care Assistant Mechanic Name Role Phone Name, Yazan PEARCE Primary Care Provider [phone] Reason for Visit * Reason Onset Date Comments Chart Prep 04/11/2025 Encounter Details Date Type Department Care Team ([facility] st Contact Info) Description 04/11/2025 Telephone [facility] MEDICINE 230 [place], [place] [phone] Ariadna Schroeder MA Chart Prep Social History Tobacco Use Types Packs/Day Years [...] encounter Miscellaneous Notes * Telephone Encounter - Ariadna Schroeder MA - 04/11/2025 1:37 PM EDT Chart Prep Labs: done Images: not done Referrals: Neurosurgery Patient kept appt with Dr. Ha on 02/18/25 Notes in chart. Vaccines due: not applicable Screenings: colonoscopy, eye exam, and Urine protein Overdue care gaps: Glucose, SDOH, Disability screen, and Tobacco documented in this encounter Plan of Treatment Upcoming Encounters Date Type Department Care Team (Late st Contact Info) Description 04/19/2025 11:00 AM EDT Office Visit [facility] MEDICINE [address] [place] [address] 07/08/2025 10:30 AM EDT Office Visit [facility] MEDICINE [address] [place] [address] Name, MD Yazan [address] [place] [address] documented as of this encounter Visit Diagnoses Not on filedocumented in this encounter Additional Health Concerns Assessment Noted Time PHQ-9 Depression Total Score: 8 12/15/19 4:05 PM EST documented as of this encounter Care Teams Assistant Mechanic Relationship Specialty Start Date End Date Name, MD Yazan [address] [place] [address] PCP - General Family Medicine 12/25/15 documented as of this encounter
--- OUTSIDE RECORDS SUMMARY | 2025-04-13 14:51 | XMS_ITS | Encounter Summary ---
Author Organization [employer] Address [address] [facility] [address] 7[address] [place] [address] Care Team Providers Care Histotechnologist Name Role Phone Name, Yazan PEARCE Primary Care Provider [phone] Reason for Visit * Reason Comments Med Refill Encounter Details Date Type Department Care Team (Late st Contact Info) Description 12/29/2023 Refill [facility] CHC MED & PEDS [address] [place], [place] [phone] Name, MD Yazan 230 [place] [address] Chronic neck pain Social History Tobacco Use [...] Description 04/19/2025 11:00 AM EDT Office Visit [address] [address] 07/08/2025 10:30 AM EDT Office Visit [address] [address] Name, MD Yazan [address] [place] [address] documented as of this encounter Visit Diagnoses Diagnosis Chronic neck pain Cervicalgia documented in this encounter Additional Health Concerns Assessment Noted Time PHQ-9 Depression Total Score: 6 11/12/20 22 11:11 AM EST documented as of this encounter Care Teams Histotechnologist Relationship Specialty Start Date End Date Name, MD Yazan [address] [place] [address] PCP - General Family Medicine 12/25/15 documented as of this encounter
--- OUTSIDE RECORDS SUMMARY | 2025-04-13 14:51 | XMS_ITS | Encounter Summary ---
Author Organization [employer] Address [address] [facility] [address] 7[address] [place] [address] Care Team Providers Care Etiquette Coach Name Role Phone Name, Yazan PEARCE Primary Care Provider [phone] Reason for Visit * Reason Comments Med Refill Encounter Details Date Type Department Care Team (Late st Contact Info) Description 11/09/2023 Refill [facility] MED & PEDS [address] [place], [place] [phone] Name, MD Yazan 230 [place] [address] Chronic neck pain Social History Tobacco Use [...] Description 04/19/2025 11:00 AM EDT Office Visit [facility] MEDICINE [address] [place] [address] 07/08/2025 10:30 AM EDT Office Visit [address] [address] Name, MD Yazan [address] [place] [address] documented as of this encounter Visit Diagnoses Diagnosis Chronic neck pain Cervicalgia documented in this encounter Additional Health Concerns Assessment Noted Time PHQ-9 Depression Total Score: 6 11/12/20 22 11:11 AM EST documented as of this encounter Care Teams Etiquette Coach Relationship Specialty Start Date End Date Yazan Pruitt MD [address] [place] [address] PCP - General Family Medicine 12/25/15 documented as of this encounter
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
--- OUTSIDE RECORDS SUMMARY | 2025-04-13 14:51 | XMS_ITS | Encounter Summary ---
Author Organization [employer] Address [address] [facility] 7t [place] [address] Care Team Providers Care Continuous Improvement Manager Name Role Phone Name, Yazan PEARCE Primary Care Provider [phone] Reason for Visit * Reason Comments Med Refill Encounter Details Date Type Department Care Team ([facility] st Contact Info) Description 03/26/2024 Refill [facility] 230 [place], [place] [phone] Name, MD Yazan 230 [place] [address] Chronic neck pain Social History Tobacco Use [...] Description 04/19/2025 11:00 AM EDT Office Visit [address] [address] 07/08/2025 10:30 AM EDT Office Visit [address] [address] Name, MD Yazan [address] [place] [address] documented as of this encounter Visit Diagnoses Diagnosis Chronic neck pain Cervicalgia documented in this encounter Additional Health Concerns Assessment Noted Time PHQ-9 Depression Total Score: 6 11/12/20 22 11:11 AM EST documented as of this encounter Care Teams Continuous Improvement Manager Relationship Specialty Start Date End Date NameYazan MD [address] [place] [address] PCP - General Family Medicine 12/25/15 documented as of this encounter
--- OUTSIDE RECORDS SUMMARY | 2025-04-13 14:51 | XMS_ITS | Encounter Summary ---
Author Organization [employer] Address [address] [facility] 7t [place] [address] Care Team Providers Care Gemologist Name Role Phone Name, Yazan PEARCE Primary Care Provider [phone] Reason for Visit * Reason Onset Date Comments Referral 05/28/2024 Encounter Details Date Type Department Care Team ([facility] st Contact Info) Description 05/28/2024 Telephone [facility] 230 [place] [address] Name, MD Yazan 230 [place] [address] Referral Social History Tobacco Use Types Packs/Day [...] encounter Miscellaneous Notes * Telephone Encounter - Hilda Parra RN - 05/28/2024 2:21 PM EDT Pt. Scheduled for apt. With Dr. Pruitt on 06/07/2024. * Telephone Encounter - Jose Olmos - 05/28/2024 1:39 PM EDT Tc from pt requesting referral for podiatry due to some worsening concerns. If any questions please contact pt at [phone]. Peruvian Speaker. documented in this encounter Plan of Treatment Upcoming Encounters Date Type Department Care Team (Late st Contact Info) Description 04/19/2025 11:00 AM EDT Office Visit [facility] [address] [place] [address] 07/08/2025 10:30 AM EDT Office Visit [facility] [address] [place] [address] Name, MD Yazan [address] [place] [address] documented as of this encounter Visit Diagnoses Not on filedocumented in this encounter Additional Health Concerns Assessment Noted Time PHQ-9 Depression Total Score: 6 11/12/20 22 11:11 AM EST documented as of this encounter Care Teams Gemologist Relationship Specialty Start Date End Date Name, MD Yazan 230 [place] [address] PCP - General Family Medicine 12/25/15 documented as of this encounter
--- OUTSIDE RECORDS SUMMARY | 2025-04-13 14:51 | XMS_ITS | Encounter Summary ---
Author Organization [employer] Address [address] [facility] [address] 7[address] [place] [address] Care Team Providers Care Partition Assembler Name Role Phone Name, Yazan PEARCE Primary Care Provider [phone] Encounter Details Date Type Department Care Team ([facility] st Contact Info) Description 04/13/2025 Telephone [facility] 230 [place], [place] [phone] Name, MD Yazan 230 [place] [address] Social History Tobacco Use Types Packs/Day Years [...] encounter Miscellaneous Notes * Telephone Encounter - Aliyah Olivera - 04/13/2025 12:57 PM EDT DME RX for heating pad generated and sent to provider for signature via [employer]. Once signed, willscan into media and notify [facility] animal care supervisor for processing. * Telephone Encounter - Aliyah Olivera - 04/13/2025 12:57 PM EDT ----- Message from Yazan Pruitt MD sent at 04/12/2025 4:57 PM EDT ----- Hi. Can we get this patient a heating pad? documented in this encounter Plan of Treatment Upcoming Encounters Date Type Department Care Team (Late st Contact Info) Description 04/19/2025 11:00 AM EDT Office Visit [facility] [address] [place] [address] 07/08/2025 10:30 AM EDT Office Visit [facility] [address] [place] [address] Name, MD Yazan 230 [place] [address] documented as of this encounter Visit Diagnoses Not on filedocumented in this encounter Additional Health Concerns Assessment Noted Time PHQ-9 Depression Total Score: 8 12/15/19 25 4:05 PM EST documented as of this encounter Care Teams Partition Assembler Relationship Specialty Start Date End Date Name, MD Yazan 230 [place] [address] PCP - General Family Medicine 12/25/15 documented as of this encounter
--- OUTSIDE RECORDS SUMMARY | 2025-04-13 14:51 | XMS_ITS | Encounter Summary ---
Author Organization [employer] Address [address] [facility] 7t [place] [address] Care Team Providers Care Hospitality Ambassador Name Role Phone Name, Yazan PEARCE Primary Care Provider [phone] Reason for Visit * Reason Onset Date Comments Nurse Triage 04/11/2025 Encounter Details Date Type Department Care Team ([facility] st Contact Info) Description 04/11/2025 Telephone [facility] 230 [place], [place] [phone] Name, MD Yazan 230 [place] [address] Nurse Triage Social History Tobacco Use Types [...] Miscellaneous Notes * Telephone Encounter - Lucina Albraado RN - 04/11/2025 11:09 AM EDT No creative services designer needed as this sports 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 Call returned to Madhu Delgado to triage below. Reports having mid to lower back pain x months. Per pt this pain is different from chronic low back pain . Constant. No N/V or fever. Pt states called last week but only wants to see PCP. Agrees to sick on site with Pcp tomorrow. Reviewed home care advise, ER precautions and reasons to call back. Protocol Used: Back Pain (Adult) Protocol-Based Disposition: See in Office or Video Visit within 3 Days Future Appointments Date Time Provider Department Center 04/12/2025 1:45 PM Yazan Pruitt MD [facility] 04/19/2025 11:00 AM [facility] 07/08/2025 10:30 AM Yazan Pruitt MD [facility] Insurance verified as active per Real Time Eligibility in [facility]. Video visit offer not recorded Positive Triage Question: * Moderate back pain (e.g., interferes with normal activities) and present > 3 days * All higher-acuity triage questions were negative Care Advice Discussed: * Reassurance and Education - Back Pain * Cold or Heat * Pain Medicines * Reasons To Call Back - Fever occurs - Numbness or weakness occurs - Pain begins to shoot into the leg - You become worse * Telephone Encounter - Pilo Strauss - 04/11/2025 10:56 AM EDT Symptom: Back Pain - Not From Injury Outcome: Transfer to a nurse or provider NOW! Reason: Age over 30: sudden AND severe upper back pain documented in this encounter Plan of Treatment Upcoming Encounters Date Type Department Care Team (Late st Contact Info) Description 04/19/2025 11:00 AM EDT Office Visit [address] [address] 07/08/2025 10:30 AM EDT Office Visit [address] [address] Name, MD Yazan [address] [place] [address] documented as of this encounter Visit Diagnoses Not on filedocumented in this encounter Additional Health Concerns Assessment Noted Time PHQ-9 Depression Total Score: 8 12/15/19 25 4:05 PM EST documented as of this encounter Care Teams Hospitality Ambassador Relationship Specialty Start Date End Date NameYazan MD [address] [place] [address] PCP - General Family Medicine 12/25/15 documented as of this encounter
--- OUTSIDE RECORDS SUMMARY | 2025-04-13 14:51 | XMS_ITS | Encounter Summary ---
Author Organization [employer] Address [address] [facility] 7t [place] [address] Care Team Providers Care Regulatory Internship Name Role Phone Name, Yazan PEARCE Primary Care Provider [phone] Reason for Visit * Reason Comments Med Refill Encounter Details Date Type Department Care Team ([facility] st Contact Info) Description 02/17/2025 Refill [facility]INE 230 [place], [place] [phone] Name, MD Yazan 230 [place] [address] Chronic neck pain Social History Tobacco Use [...] Description 04/19/2025 11:00 AM EDT Office Visit [facility] [address] [place] [address] 07/08/2025 10:30 AM EDT Office Visit [address] [address] NameYazan MD [address] [place] [address] documented as of this encounter Visit Diagnoses Diagnosis Chronic neck pain Cervicalgia documented in this encounter Additional Health Concerns Assessment Noted Time PHQ-9 Depression Total Score: 8 12/15/19 25 4:05 PM EST documented as of this encounter Care Teams Regulatory Internship Relationship Specialty Start Date End Date NameYazan MD [address] [place] [address] PCP - General Family Medicine 12/25/15 documented as of this encounter
--- OUTSIDE RECORDS SUMMARY | 2025-04-13 14:51 | XMS_ITS | Encounter Summary ---
Author Organization [employer] Address 75 [facility] 7t [place] [address] Care Team Providers Care Candy Waffle Assembler Name Role Phone Name, Yazan PEARCE Primary Care Provider [phone] Encounter Details Date Type Department Care Team (Latest Contact Info) Description 04/12/2025 Travel Social History Tobacco Use Types Packs/Day [...] Description 04/19/2025 11:00 AM EDT Office Visit [address] [address] 07/08/2025 10:30 AM EDT Office Visit [address] [address] Name, MD Yazan [address] [place] [address] documented as of this encounter Visit Diagnoses Not on filedocumented in this encounter Additional Health Concerns Assessment Noted Time PHQ-9 Depression Total Score: 8 12/15/19 25 4:05 PM EST documented as of this encounter Care Teams Candy Waffle Assembler Relationship Specialty Start Date End Date NameYazan MD [address] [place] [address] PCP - General Family Medicine 12/25/15 documented as of this encounter
--- OUTSIDE RECORDS SUMMARY | 2025-04-13 14:52 | XMS_ITS ---
Author Name [facility] Organization Unknown Encounters Encounter Type Encounter Reason Primary Diagnosis Location Date Ambulatory [facility] 09/03/2024 Care Team Organization Name Specialty Phone Email Start Date End Da te [facility] 2024
--- OUTSIDE RECORDS SUMMARY | 2025-04-13 14:52 | XMS_ITS | Encounter Summary ---
Author Organization [employer] Address [address] [facility] [address] 7t [place] [address] Care Team Providers Care Geriatric Nursing Assistant Name Role Phone Name, Yazan PEARCE Primary Care Provider [phone] Reason for Visit * Reason Comments Med Refill Encounter Details Date Type Department Care Team (Late st Contact Info) Description 12/25/2023 Refill [facility] PEDS [address] [place], [place] [phone] Name, MD Yazan 230 [place] [address] Chronic neck pain Social History Tobacco Use [...] Description 04/19/2025 11:00 AM EDT Office Visit [address] [address] 07/08/2025 10:30 AM EDT Office Visit [address] [address] Name, MD Yazan [address] [place] [address] documented as of this encounter Visit Diagnoses Diagnosis Chronic neck pain Cervicalgia documented in this encounter Additional Health Concerns Assessment Noted Time PHQ-9 Depression Total Score: 6 11/12/20 22 11:11 AM EST documented as of this encounter Care Teams Geriatric Nursing Assistant Relationship Specialty Start Date End Date Name, MD Yazan [address] [place] [address] PCP - General Family Medicine 12/25/15 documented as of this encounter
--- OUTSIDE RECORDS SUMMARY | 2025-04-13 14:52 | XMS_ITS | Encounter Summary ---
Author Organization [employer] Address [address] [facility] [address] 7t [place] [address] Care Team Providers Care Internet Sales Associate Name Role Phone Name, Yazan PEARCE Primary Care Provider [phone] Reason for Visit * Reason Comments Med Refill Encounter Details Date Type Department Care Team (Late st Contact Info) Description 12/11/2023 Refill [facility] MED & PEDS [address] [place], [place] [phone] Name, MD Yazan 230 [place] [address] Chronic neck pain Social History Tobacco Use [...] 04/19/2025 11:00 AM EDT Office Visit [address] [address] 07/08/2025 10:30 AM EDT Office Visit [address] [address] Name, MD Yazan [address] [place] [address] documented as of this encounter Visit Diagnoses Diagnosis Chronic neck pain Cervicalgia documented in this encounter Additional Health Concerns Assessment Noted Time PHQ-9 Depression Total Score: 6 11/12/20 22 11:11 AM EST documented as of this encounter Care Teams Internet Sales Associate Relationship Specialty Start Date End Date Name, MD Yazan [address] [place] [address] PCP - General Family Medicine 12/25/15 documented as of this encounter
--- OUTSIDE RECORDS SUMMARY | 2025-04-13 14:52 | XMS_ITS | Encounter Summary ---
Author Organization [employer] Address [address] [facility] [address] 7t [place] [address] Care Team Providers Care Analytical Research Chemist Name Role Phone Name, Yazan PEARCE Primary Care Provider [phone] Reason for Visit * Reason Comments Med Refill Encounter Details Date Type Department Care Team ([facility] st Contact Info) Description 11/20/2023 Refill [facility] PEDS [address] [place], [place] [phone] Name, MD Yazan 230 [place] [address] Chronic neck pain; Asthma, unspecified asthma severity, unspecified whether complicated, unspecified whether persistent Social History Tobacco Use Types Packs/Day Years [...] Description 04/19/2025 11:00 AM EDT Office Visit [address] [address] 07/08/2025 10:30 AM EDT Office Visit [address] [address] NameYazan MD [address] [place] [address] documented as of this encounter Visit Diagnoses Diagnosis Chronic neck pain Cervicalgia Asthma, unspecified asthma severity, unspecified whether complicated, unspecified whether persistent documented in this encounter Additional Health Concerns Assessment Noted Time PHQ-9 Depression Total Score: 6 11/12/20 22 11:11 AM EST documented as of this encounter Care Teams Analytical Research Chemist Relationship Specialty Start Date End Date NameYazan MD [address] [place] [address] PCP - General Family Medicine 12/25/15 documented as of this encounter
--- OUTSIDE RECORDS SUMMARY | 2025-04-13 14:52 | XMS_ITS | Encounter Summary ---
Author Organization [employer] Address 75 [facility] 7t [place] [address] Care Team Providers Care Mobile Sales Technician Name Role Phone Name, Yazan PEARCE Primary Care Provider [phone] Reason for Visit * Reason Comments Med Refill Encounter Details Date Type Department Care Team ([facility] st Contact Info) Description 11/18/2023 Refill [facility] MED[facility]INE 230 [place], [place] [phone] Name, MD Yazan 230 [place] [address] Asthma, unspecified asthma severity, unspecified whether complicated, unspecified whether persistent; Chronic neck pain Social History Tobacco Use [...] Description 04/19/2025 11:00 AM EDT Office Visit [facility] [address] [place] [address] 07/08/2025 10:30 AM EDT Office Visit [address] [address] Name, MD Yazan [address] [place] [address] documented as of this encounter Visit Diagnoses Diagnosis Asthma, unspecified asthma severity, unspecified whether complicated, unspecified whether persistent Chronic neck pain Cervicalgia documented in this encounter Additional Health Concerns Assessment Noted Time PHQ-9 Depression Total Score: 6 11/12/20 22 11:11 AM EST documented as of this encounter Care Teams Mobile Sales Technician Relationship Specialty Start Date End Date Name, MD Yazan [address] [place] [address] PCP - General Family Medicine 12/25/15 documented as of this encounter
--- OUTSIDE RECORDS SUMMARY | 2025-04-13 14:52 | XMS_ITS | Encounter Summary ---
Author Organization [employer] Address [address] [facility] [address] 7t [place] [address] Care Team Providers Care Induction Heating Equipment Setter Name Role Phone Name, Yazan PEARCE Primary Care Provider [phone] Reason for Visit * Reason Comments Med Refill Encounter Details Date Type Department Care Team (Late st Contact Info) Description 07/08/2024 Refill [facility] MED & PEDS [address] [place], [place] [phone] Name, MD Yazan 230 [place] [address] Chronic neck pain Social History Tobacco Use [...] Description 04/19/2025 11:00 AM EDT Office Visit [address] [address] 07/08/2025 10:30 AM EDT Office Visit [address] [address] Name, MD Yazan [address] [place] [address] documented as of this encounter Visit Diagnoses Diagnosis Chronic neck pain Cervicalgia documented in this encounter Additional Health Concerns Assessment Noted Time PHQ-9 Depression Total Score: 6 11/12/20 22 11:11 AM EST documented as of this encounter Care Teams Induction Heating Equipment Setter Relationship Specialty Start Date End Date Name, MD Yazan [address] [place] [address] PCP - General Family Medicine 12/25/15 documented as of this encounter
[2025-04-13 16:27] LABS: MANUAL DIFF FLAG NO
[2025-04-13 16:28] LABS: Appearance Urine Clear; Color Urine Yellow; Glucose Urine UA Negative (Negative); Leukocyte Esterase Urine Negative (Negative); Nitrite Urine Negative (Negative); PH 8.5 (5.0-9.0); Urine Blood Negative (Negative); Urine Ketones Negative (Negative); Urine Protein Negative (Neg-Trace)
[2025-04-13 16:31] LABS: Bacteria Urine None Seen (None Seen); Hyaline Casts Urine 0-2 /LPF (0-2); RBC Urine 0-2 /HPF (0-2); WBC Urine 0-5 /HPF (0-5)
[2025-04-13 16:35] LABS: Basophils Percent Auto 0.4 % (0-2); Eosinophils Absolute Auto 0.2 X10*3/uL (0.0-0.4); Eosinophils Percent Auto 2.1 % (0-4); Hematocrit 38.1 % (37.0-47.0); Hemoglobin 12.2 g/dl (12.0-16.0); Imm Gran Abs Auto 0.03 X10*3/uL (0.00-0.03); Imm Gran Pct Auto 0.4 % (0.0-0.4); Lymphocytes Absolute Auto 2.7 X10*3/uL (1.2-4.9); Lymphocytes Percent Auto 34.5 % (20-40); Mean Corpuscular Hemoglobin 28.6 pg (27.0-33.0); Mean Corpuscular Volume 89.2 fL (80.0-98.0); Mean Platelet Volume 10.5 fL (9.4-12.3); Monocytes Absolute Auto 0.4 X10*3/uL (0.1-1.2); Monocytes Percent Auto 5.5 % (2-11); Neutrophils Absolute Auto 4.5 x10*3/uL (2.0-8.3); Neutrophils Percent Auto 57.1 % (45-73); Platelet Count 350 X10*3/uL (160-400); Red Blood Count 4.27 X10*6/uL (4.20-5.50); Red Cell Distribution Width 13.2 % (11.0-16.0)
[2025-04-13 16:46] LABS: Estimated Average Glucose 120 mg/dL; Hemoglobin A1C 128.0772 umol/L; Hemoglobin A1c % 5.8 % (<6.0); Total Hemoglobin (HGBA1C) 3246.2635 umol/L
[2025-04-13 16:47] LABS: Prothrombin Time 11.7 SEC (10.9-12.4)
[2025-04-13 17:14] LABS: Alanine Aminotransferase 17 U/L (0-31); Albumin Level 4.5 g/dL (3.5-5.0); Alkaline Phosphatase 103 U/L (39-117); Anion Gap 12 (12-20); Aspartate Amino Transferase 24 U/L (5-31); Bilirubin Total 0.3 mg/dL (0.0-1.0); Blood Urea Nitrogen 9 mg/dL (9-16); Calcium 9.6 mg/dL (8.4-10.2); Carbon Dioxide 30 mmol/L (22-29); Chloride 103 mmol/L (96-108); Creatinine Urine 41.81 mg/dL; Estimated Glomerular Filt Rate > 60; Glucose Random 75 mg/dL (60-115); HCG Quantitative < 2 mIU/mL; Microalbumin Urine < 5.0 mg/L; Potassium 3.9 mmol/L (3.3-5.1); Sodium 141 mmol/L (135-145); Total Protein 8.1 g/dL (6.5-8.0)
[2025-04-13 17:34] LABS: T4 Thyroxine 7.4 ug/dL (4.5-12.0)
[2025-04-14 03:48] LABS: Hepatitis A Antibody IgM 0.21 Index (0-0.79); Triiodothyronine T3 Total 78 ng/dL (76-181); ~Hepatitis A Antibody IgM Nonreactive (Nonreactive)
[2025-04-14 04:20] LABS: HBS Num1 20.46 mIU/mL (0-7.99); HBc Num1 0.07 S/CO (0.00-0.79); HBsAGNum1 0.35 S/CO (0.00-0.99); HIV AB/AG Nonreactive (Nonreactive); HIV Num 1 0.07 S/CO (0.00-0.99); Hepatitis B Core Antibody Nonreactive (Nonreactive); Hepatitis B Surface Antigen Negative (Negative); ~HepC Num1 0.17 S/CO (0.00-0.79); ~Hepatitis B Surface Antibody REACTIVE (Nonreactive); ~Hepatitis C Antibody Nonreactive (Nonreactive)
== END 2025-04-13 14:44 | disposition home or self-care (01) ==
LOC: HO.HHCL 14:43
DX: Z01.818 Encounter for other preprocedural examination (principal)
CPT/HCPCS: 36415; 71046; 80053; 81001; 82043; 82570; 83036; 84436; 84443; 84480; 84702; 85025; 85610; 86704; 86706; 86709; 86803; 87340; 87389

== ENCOUNTER → 2025-04-13 14:57 | Outpatient (BNV) | payer OTHER, SELFPAY | PROVIDERS: Visit Provider Radiology Diagnostic Radiology | DX: Z01.818 Encounter for other preprocedural examination (principal) | CPT/HCPCS: 71046 ==

== ENCOUNTER 2025-05-18 11:20 | Outpatient (REF) | payer OTHER, SELFPAY ==
--- OUTSIDE RECORDS SUMMARY | 2025-05-18 11:00 | XMS_ITS | Encounter Summary ---
Author Organization [employer] Address [address] [facility] [address] [place] [address] Care Team Providers Care Dog Bather Name Role Phone Name, Yazan PEAREC Primary Care Provider [phone] Reason for Visit * Reason Comments ER Follow-up Encounter Details Date Type Department Care Team ([facility] st Contact Info) Description 05/18/2025 11:00 AM EDT Office Visit [facility] [address], [place] [phone] Name, MD Yazan [address] [place] [address] Other iron deficiency anemia (Primary Dx); Ankle edema Social History Tobacco Use Types Packs/Day Years [...] Sign Reading Time Taken Comments Blood Pressure 100/68 05/18/2025 10:37 AM EDT Pulse 90 05/18/2025 10:37 AM EDT Temperature 36.6 C (97.8 F) 05/18/2025 10:37 AM EDT Respiratory Rate 20 05/18/2025 10:37 AM EDT Oxygen Saturation 98% 05/18/2025 10:37 AM EDT Inhaled Oxygen Concentration - - Weight 78.5 kg (173 lb) 05/18/2025 10:37 AM EDT Height 160 cm (5' 3 ) 05/18/2025 10:37 AM EDT Body Mass Index 30.65 05/18/2025 10:37 AM EDT documented in this encounter Progress Notes * Yazan Pruitt MD - 05/18/2025 11:00 AM EDT Subjective Patient ID: Madhu Delgado is a 49 y.o. female who presents for ER Follow-up. Patient comes for a post ER follow-up. The patient has a history of having plastic surgery in the beginning of April. The surgery was extensive and included breast implants, buttock surgery and arm liposuction. Surgery was done in [facility]. She had significant blood loss during the surgery. The patient explains to me that she was not transfused blood but she was given an iron infusion and oral supplements. When she returned to the [place] she noted shortness of breath, tachycardia, lower extremity edema. She was evaluated at [facility]. She had ultrasounds of the legs that were negative for DVT and CT angiogram of the chest that was negative for pulmonary embolism or any acute abnormality. Blood work done at [facility] revealed anemia of 7.4. Her hemoglobin was 12 prior to surgery. Her BNP was normal. Today she explains to me she feels a little better. [id number] hemoglobin showed improvement of her hemoglobin to 8.5. She still has some dyspnea on exertion and tachycardia when she exerts herself. She has mild ankle edema. She does not have orthopnea or PND. Her surgical wounds have healed well without any redness or discharge, she does not have any bruising on exam on the surgical sites. Review of Systems Constitutional: Negative for chills and fever. HENT: Negative for sore throat. Respiratory: Positive for shortness of breath. Negative for cough and wheezing. Cardiovascular: Positive for leg swelling. Negative for chest pain and palpitations. Very mild ankle edema Gastrointestinal: Negative for abdominal pain, blood in stool and constipation. Visit Vitals BP 100/68 (BP Location: Left arm, Patient Position: Sitting, BP Cuff Size: Adult) Pulse 90 Temp 97.8 ??F (36.6 ??C) (Oral) Resp 20 Ht 5' 3 (1.6 m) Wt 173 lb (78.5 kg) SpO2 98% BMI 30.65 kg/m?? OB Status Other Smoking Status Former BSA 1.87 m?? Objective Physical Exam Constitutional: Appearance: Normal appearance. Cardiovascular: Rate and Rhythm: Normal rate and regular rhythm. Heart sounds: No murmur heard. No gallop. Pulmonary: Effort: Pulmonary effort is normal. No respiratory distress. Breath sounds: Normal breath sounds. No wheezing. Musculoskeletal: Comments: Trace to 1+ ankle edema Neurological: Mental Status: She is alert. Latest Reference Range & Units 04/13/25 14:46 pH, Urine 5.0 - 9.0 8.5 Glucose 60 - 115 mg/dL 75 Urea Nitrogen (BUN) 9 - 16 mg/dL 9 Creatinine, Serum 0.5 - 1.4 mg/dL 0.74 Sodium 135 - 145 mmol/L 141 Potassium 3.3 - 5.1 mmol/L 3.9 Chloride 96 - 108 mmol/L 103 Carbon Dioxide 22 - 29 mmol/L 30 (H) Calcium 8.4 - 10.2 mg/dL 9.6 Albumin Level 3.5 - 5.0 g/dL 4.5 Bilirubin, Total 0.0 - 1.0 mg/dL 0.3 AST 5 - 31 U/L 24 ALT 0 - 31 U/L 17 Anion Gap 12 - 20 12 Total Protein 6.5 - 8.0 g/dL 8.1 (H) Red Blood Count 4.20 - 5.50 X10*6/uL 4.27 Hemoglobin 12.0 - 16.0 g/dl 12.2 Hematocrit 37.0 - 47.0 % 38.1 Mean Corpuscular Volume 80.0 - 98.0 fL 89.2 Mean Corpuscular Hemoglobin 27.0 - 33.0 pg 28.6 Mean Corpuscular HGB Conc 31.0 - 35.0 g/dl 32.0 Red Cell Distribution Width 11.0 - 16.0 % 13.2 Platelet Count 160 - 400 X10*3/uL 350 Eosinophils Percent Auto 0 - 4 % 2.1 Lymphocytes Absolute Auto 1.2 - 4.9 X10*3/uL 2.7 Basophils Absolute Auto 0.0 - 0.2 X10*3/uL 0.0 Monocytes Absolute Auto 0.1 - 1.2 X10*3/uL 0.4 Neutrophils Absolute Auto 2.0 - 8.3 x10*3/uL 4.5 Neutrophils Percent Auto 45 - 73 % 57.1 Basophils Percent Auto 0 - 2 % 0.4 Eosinophils Absolute Auto 0.0 - 0.4 X10*3/uL 0.2 Lymphocytes Percent Auto 20 - 40 % 34.5 Monocytes Percent Auto 2 - 11 % 5.5 Imm Gran Abs Auto 0.00 - 0.03 X10*3/uL 0.03 Imm Gran Pct Auto 0.0 - 0.4 % 0.4 Prothrombin Time 10.9 - 12.4 SEC 11.7 Hemoglobin A1c <6.0 % 5.8 TSH reflex Free T4 0.32 - 4.0 uIU/mL 1.80 T4 Thyroxine 4.5 - 12.0 ug/dL 7.4 Hepatitis A IgM Nonreactive Nonreactive Hepatitis B Surface Antigen Negative Negative Hepatitis B Core Antibody Nonreactive Nonreactive ~Hepatitis B Surface Antibody Nonreactive REACTIVE Hepatitis C Antibody Nonreactive Nonreactive HIV AB/AG Nonreactive Nonreactive Color Urine Yellow Appearance Urine Clear Specific [place] - Urine 1.005 - 1.025 1.010 Nitrite Urine Negative Negative Leukocyte Esterase Urine Negative Negative RBC Urine 0 - 2 /HPF 0-2 Hyaline Casts, Urine 0 - 2 /LPF 0-2 Microalbumin Urine mg/L <5.0 Alkaline Phosphatase 39 - 117 U/L 103 Creatinine, Urine mg/dL 41.81 ESTIMATED AVERAGE GLUCOSE mg/dL 120 Estimated Glomerular Filt Rate >60 Glucose Urine UA Negative mg/dL Negative HCG Quantitative mIU/mL <2 INTERNATIONAL NORM RATIO 0.9 - 1.1 1.0 Mean Platelet Volume 9.4 - 12.3 fL 10.5 Microalbum Creatinine Ratio Ur <30 ug/mg cr TNP NRBC Abs Auto 0.0 - 0.012 X10*3/uL 0.000 NRBC Pct Auto 0.0 - 0.2 /100WBC 0.0 T3, Total 76 - 181 ng/dL 78 Urine Bacteria None Seen None Seen Urine Blood Negative Negative Urine Ketones Negative mg/dL Negative Urine Protein Neg-Trace mg/dL Negative Urine Squamous Epithelial Cell 0 - 2 /HPF 11-20 Urine WBC 0 - 5 /HPF 0-5 White Blood Count 4.8 - 10.8 X10*3/uL 8.0 (H): Data is abnormally high Contains abnormal data Comprehensive metabolic panel Order: [id number] Component Ref Range & Units 10 d ago Sodium 133 - 145 mmol/L 140 Potassium 3.5 - 5.5 mmol/L 4.5 Chloride 96 - 110 mmol/L 105 CO2 21 - 32 mmol/L 28 Anion Gap 3 - 11 7 Glucose 70 - 100 mg/dL 97 BUN 5 - 25 mg/dL 13 Creatinine 0.50 - 1.10 mg/dL 0.72 eGFR >=60 mL/min/1.73m2 104 Comment: Calculation based on the Chronic Kidney Disease Epidemiology Collaboration (CKD-EPI) equation refit without adjustment for race. BUN/Creatinine Ratio 18.1 Calcium 8.5 - 10.5 mg/dL 8.3 Low AST (SGOT) 10 - 42 unit/L 34 ALT (SGPT) 10 - 60 unit/L 55 Alkaline Phosphatase 42 - 121 unit/L 103 Total Protein 6.0 - 8.0 g/dL 6.2 Albumin 3.2 - 5.0 g/dL 2.7 Low Total Bilirubin 0.0 - 1.4 mg/dL 0.2 CBC auto differential Order: [id number] Component Ref Range & Units 10 d ago WBC 4.8 - 10.8 K/mcL 8.4 RBC 3.80 - 4.80 M/mcL 2.7 Low Hemoglobin 11.5 - 16.0 g/dL 7.4 Low Hematocrit 35.0 - 47.0 % 26.1 Low MCV 79.0 - 98.0 FL 96.3 MCH 27.0 - 32.0 pcg 27.3 MCHC 32.0 - 37.0 g/dL 28.4 Low RDW 11.0 - 15.0 % 14.3 Platelets 130 - 400 K/mcL 676 High MPV 7.0 - 11.0 FL 9.4 NRBC <1.0 % 0 NRBC Absolute <0.10 K/mcL 0 Neutrophils Relative % 67.1 Lymphocytes Relative % 22.6 Monocytes Relative % 4.5 Eosinophils Relative % 4.7 Basophils Relative % 0.6 Immature Granulocytes Relative % 0.5 Neutrophils Absolute 1.50 - 7.00 K/mcL 5.61 Lymphocytes Absolute 1.00 - 5.00 K/mcL 1.89 Monocytes Absolute 0.20 - 1.00 K/mcL 0.38 Eosinophils Absolute 0.00 - 0.50 K/mcL 0.39 Basophils Absolute 0.00 - 0.20 K/mcL 0.05 Immature Granulocytes Absolute 0.00 - 0.03 K/mcL 0.04 High Latest Reference Range & Units 05/18/25 10:57 Hemoglobin 12.0 - 15.0 8.3 ! !: Data is abnormal Assessment/Plan Diagnoses and all orders for this visit: Other iron deficiency anemia Comments: She has iron deficiency anemia secondary to significant blood loss during recent surgery. She has agood diet, no active bleeding and her hemoglobin has improved already. I have started her on iron supplements. I will recheck her CBC and iron levels in a few weeks. Orders: - POCT Hemoglobin - ferrous sulfate 325 (65 Fe) MG EC tablet; Take 1 tablet (325 mg) by mouth every other day. Do notcrush, chew, or split. - CBC auto differential; Future - Iron And Total Iron Binding Capacity; Future - Ferritin; Future Ankle edema Comments: She does not have CHF. No DVT. Ankle edema likely secondary to significant amount of fluid she received after her surgery. She also has hypoalbuminemia most likely secondary to her recent surgery. I will check urine for microalbumin to rule out significant proteinuria. Orders: - Albumin, Random Urine W/Creatinine; Future documented in this encounter Plan of Treatment Upcoming Encounters Date Type Department Care Team (Late st Contact Info) Description 06/14/2025 11:00 AM EDT Office Visit [facility] [address] [place] [phone] 07/08/2025 10:30 AM EDT Office Visit [facility] [address] [place] [phone] Name, MD Yazan [address] [place] [phone] Scheduled Orders Name Type Priority Associated Diagnoses Orde r Schedule Albumin, Random Urine W/Creatinine Lab Routine Ankle edema Expected: 05/18/2025 (Approximate), Expires: 05/18/2026 CBC auto differential Lab Routine Other iron deficiency anemia Expected: 06/17/2025 (Approximate), Expires: 05/18/2026 Iron And Total Iron Binding Capacity Lab Routine Other iron deficiency anemia Expected: 06/17/2025, Expires: 05/18/2026 Ferritin Lab Routine Other iron deficiency anemia Expected: 06/17/2025, Expires: 05/18/2026 documented as of this encounter Procedures Procedure Name Priority Date/Time Associated Diagnosis Comments POCT HEMOGLOBIN Routine 05/18/2025 10:57 AM EDT Other iron deficiency anemia documented in this encounter Results * (ABNORMAL) POCT Hemoglobin (05/18/2025 10:57 AM EDT) Hemoglobin 8.3(A) 12.0 - 15.0 QC Media Lot # [id number] Lot# Expiration Date 083, Blood 05/18/2025 10:5 7 AM EDT Yazan Pruitt MD POINT OF CARE TEST ENTER/EDIT OR DERABLES Final Result documented in this encounter Visit Diagnoses Diagnosis Other iron deficiency anemia- Primary Ankle edema Edema documented in this encounter Additional Health Concerns Assessment Noted Time PHQ-9 Depression Total Score: 8 12/15/19 25 4:05 PM EST documented as of this encounter Care Teams Dog Bather Relationship Specialty Start Date End Date Name, MD Yazan [address] [place] [address] PCP - General Family Medicine 12/25/15 documented as of this encounter
[2025-05-18 14:36] LABS: Creatinine Urine 23.17 mg/dL; Microalbumin Urine < 5.0 mg/L
== END 2025-05-18 11:21 | disposition home or self-care (01) ==
LOC: HO.HHCL 11:20
PROVIDERS: PCP Internal Medicine Geriatric Medicine; Visit Provider Internal Medicine Geriatric Medicine
DX: M25.473 Effusion, unspecified ankle (principal)
CPT/HCPCS: 82043; 82570

== ENCOUNTER 2025-06-08 14:31 | Outpatient (REF) | payer OTHER, SELFPAY ==
--- OUTSIDE RECORDS SUMMARY | 2025-06-08 15:11 | XMS_ITS | Encounter Summary ---
Author Organization [employer] Address [address] [facility] [address] [place] [address] Care Team Providers Care Counseling Director Name Role Phone Name, Yazan PEARCE Primary Care Provider [phone] Reason for Visit * Reason Comments Med Refill Encounter Details Date Type Department Care Team ([facility] st Contact Info) Description 10/07/2023 Refill [facility] [address] [place], [place] [phone] Jen Tate, KARINA [address] [place] [address] Social History Tobacco Use Types Packs/Day Years [...] Description 06/14/2025 11:00 AM EDT Office Visit [facility] [address] [place] [phone] 06/20/2025 9:30 AM EDT Office Visit [address] [address] Daysi Gomez NP [address] [place] [phone] 07/08/2025 10:30 AM EDT Office Visit [address] [address] NameYazan MD [address] [place] [phone] documented as of this encounter Visit Diagnoses Not on filedocumented in this encounter Additional Health Concerns Assessment Noted Time PHQ-9 Depression Total Score: 6 11/12/20 22 11:11 AM EST documented as of this encounter Care Teams Counseling Director Relationship Specialty Start Date End Date Name, MD Yazan [address] [place] [id number] PCP - General Family Medicine 12/25/15 documented as of this encounter
--- OUTSIDE RECORDS SUMMARY | 2025-06-08 15:11 | XMS_ITS | Data Portability ---
Author Organization [employer] [facility], [facility] Address [address] [place] [address] Care Team Providers Care Senior Mainframe Developer Name Role Phone HIM [facility] OTHER [facility] OTHER [phone] Assessment Encounter Date Assessment Date Assessment LastModified by Organization Details LastModified Time 02/20/2023 02/20/2023 I provided real -time medical direction via phone for this encounter, and was available for additional phone based assistance as needed. I have reviewed and agree with the Assessment and Plan as documented by the Bulb Sorter. Patient calls as she had checked her blood glucose and it was greater than 300. She has a headache, blurred vision, chest pain all that started within the past several hours. She states she does have a history of diabetes but is on no medication or diet. [facility] records to note no history of diabetes. Assessment by tube former operator revealed hypertension and a blood glucose that that was 95. EKG shows normal sinus rhythm. She also has a history of a TIA x2 in the past. The patient was referred to [facility] ED for an evaluation for TIA and hyperglycemia. ED notified with expect call. Not available 02/20/2023 20:35:25 05/09/2025 05/09/2025 I provided real -time medical direction via phone for this encounter and was available for additional phone-based assistance as needed. I have reviewed and agree with the Assessment and Plan as documented by the Bulb Sorter. Patient given the opportunity to ask questions. Our service contacted for an assessment of: lower extremity edema [id number] -left As per above, patient recently travel to a foreign country and had liposuction as well as breast implants. She returns to this country off and not being prescribed any antibiotics and has had no DVT prophylaxis. She reports lower extremity edema particularly right greater than left over the past week that she has been at home. She went to a local emergency room and they did a full workup including an ultrasound which ruled out a DVT. Electrolytes were within normal limits. She was told to follow up with PCP that they could not restart or start a diuretic at this time. The patient calls this service for evaluation of a diuretic. She denies any fever chills. She denies any increase in pain or symptoms associated with cellulitis or a DVT. Per tube former operator on the scene, Vital signs stable and patient is afebrile. Please see uploaded pictures for right greater than left lower extremity edema particularly with the ankle and foot. Impression: Right greater than left lower extremity edema after liposuction. Plan: Patient will contact PCP tomorrow and ask for urgent eval. The patient's recent evaluation in the emergency department is reassuring in the sense that there is no evidence on ultrasound of the DVT. She has not DVT prophylaxis in his up and ambulatory and we continued to encourage her to continue with that plan and action course. Additionally the patient does not appear to have any infections as the cause and no antibiotics were prescribed. Patient encouraged to follow-up this week with PCP to possibly start diuretics. Conservative measures such as elevating the right lower extremity as well as wearing tight socks which may help with mobilization of the fluid recommended. Otherwise patient may be candidate for compression stockings. Red flags discussed as when seek a higher level care. Allergies: Reviewed PCP f/u: See above We discussed the diagnostic uncertainty of home visits and the risk associated with this. In this case, the patient and I felt this to be an acceptable and reasonable amount of risk given the benefit of avoiding an ED visit. We discussed the need to seek care urgently/emergentl y in the setting of any new or worsening serious symptoms, particularly fever chills lightheadedness altered mental status Not available 05/09/2025 20:59:33 06/01/2025 06/01/2025 I provided real -time medical direction via phone for this encounter, and was available for additional phone based assistance as needed. I have reviewed and agree with the Assessment and Plan as documented by the Bulb Sorter. We discussed the diagnostic uncertainty of home visits and the risk associated with this. In this case the patient and I felt this to be an acceptable and reasonable amount of risk given the benefit of avoiding an ED visit. The patient given the opportunity to ask questions. Patient reports she had cosmetic breast augmentation surgery performed 04/23 in [place]. She had this surgery in 2016, also in [place] resulting in breast infection with removal of implants. At that time she had drains placed but denied coming home with drains this time. She reports she had f/u with surgeon virtually who encouraged topical incision care. She was seen by her PCP on 05/24 who prescribed a course of antibiotics (she believes Keflex). She has been using a Silvadene type ointment on incision. No drainage, blood or foul smell today. Denies any fevers, chills or malaise. She has been using Percocet for post op discomfort. We reviewed the incisions certainly have delayed wound healing and concerns for no in person f/u with surgeon. She has 4 pills of antibiotics left. Advised to apply Bacitracin to open area of wound and keep c/d/i. Very low threshold for ED eval to have a surgeon examine breasts in person. We reviewed any signs of fever, increase in redness or warmth, worsening pain to be seen at [facility] otherwise f/u with PCP on Friday for guidance, possible outpatient referral to local surgeon however unsure if this would be possible. Message was left with her PCP Dr. Hand Name for f/u jonh. Advised if develops CP/severe SOB/turning blue/uncontrolled n/v/d or black/bloody emesis or stool/ AMS/ syncope/ hi fever unresponsive to APAP to call 911- verbalized understanding of instruction [email or web address] Not available 06/02/2025 07:39:15 Plan of Treatment Reminders Order Date Submit Date Provider Last Modified By Organization Details Last Modified Time Details Appointments None recorded. Lab glucose, fingerstick , blood [address], [address] 3 08:52:01 cmp, whole blood + danny [address], [address] 3 09:08:18 Referral None recorded. Procedures None recorded. Surgeries None recorded. Imaging None recorded. Medication Orders erythromyci n 5 mg/gram (0.5 %) eye ointment 2023 024 [id number], [address] [place], [place], [id number], 4 17:04:59 Patient TargetsNo targets recorded. Patient InstructionsNo instructions recorded. Reason for Referral None Reported. Results Created Date Observation Date Name Description Value Unit Range Abnormal Flag Note LastModifiedBy Organization Detail LastModifiedTime Result Notes None recorded. Medical Equipment None Reported. Allergies No known drug allergies Medications Name Sig Start Date Stop Date [...] Available N ot Available Vitals Date Recorded Heart rate Oxygen saturation Oxygen saturation in Arterial blood by Pulse oximetry Body temperature Respiratory rate Systolic And Diastolic Provider Name and Address Organization Details Last Updated DateTime 3 84 /min 99 % 99 % 98.9 [degF] 18 /min 173/74 mm[Hg] Not Available [facility] 3 20:32:53 Date Recorded Body height Respiratory rate Body temperature Body weight Oxygen saturation Oxygen saturation in Arterial blood by Pulse oximetry Heart rate Systolic And Diastolic Provider Name and Address Organization Details Last Updated DateTime 5 160.02 cm 20 /min 98.1 [degF] 98792.7 2 g 100 % 100 % 111 /min 108/68 mm[Hg] Not Available [employer] 5 20:54:50 Date Recorded Body height Body weight Body temperature Oxygen saturation Oxygen saturation in Arterial blood by Pulse oximetry Heart rate Respiratory rate Systolic And Diastolic Provider Name and Address Organization Details Last Updated DateTime 5 157.48 cm 39716.8 g 98 [degF] 98 % 98 % 110 /min 18 /min 132/88 mm[Hg] Not Available [email or web address] 5 07:09:51 Date Recorded Body temperature Heart rate Body weight Respiratory rate Oxygen saturation Oxygen saturation in Arterial blood by Pulse oximetry Systolic And Diastolic Provider Name and Address Organization Details Last Updated DateTime 4 98.2 [degF] 94 /min 71223.7 6 g 16 /min 99 % 99 % 120/88 mm[Hg] Not Available [employer] 4 17:03:04 Social History None recorded. Functional Status None recorded. Mental Status None recorded. Family History Nothing Reported. Medical History No medical history recorded. Gynecological HistoryNo gynecological history recorded. Obstetrics History GPAL:G 0 P 0 0 0 0 Past Encounters Encounter ID Performer Location Encounter Start Date Encounter Closed Date Diagnosis/Indication Diagnosis SNOMED-CT Code Diagnosis ICD10 Code Diagnosis Note [id number] Sheila Hernández MD [place] [id number] 02/20/2023 20:32:44 02/24/2023 12:01:25 Hyperglycemia 73538960 R73.9 [id number] Kiran Michelle MD [place] [id number] 08/05/2024 17:02:59 08/05/2024 21:32:32 Conjunctivitis 0029549 H10.9 Conjunctiv itis. Will tx with erythrmyci n. Discussed red flag symptoms for which to seek higher level of care. [id number] Sheila Hernández MD [facility] [place] [id number] 05/09/2025 20:54:40 05/09/2025 21:50:14 Edema of lower extremity 800655181 R60.0 [id number] PAULA RAMOS NP, S [facility] [place] [id number] 06/02/2025 07:09:43 06/02/2025 12:13:12 Delayed healing of surgical wound 544904950 T81.89XA Health Concerns Section Related Observation LastModified by Organization Detai ls LastModified Time None Recorded Concern Status LastModified by Organization Details LastModified Time None Recorded Advance Directives Directive None Recorded Payers Insurance Date Sequence Insurance Name Policy Number Policy Christie Covered Member ID Christie Member ID Guarantor Name 01/18/2024 1 [facility] - DOS PRIOR TO 2023 - DUAL ELIGIBLE (MEDICARE REPLACEMENT/ADV ANTAGE - HMO) Madhu Reyes [id number] Madhu Reyes 06/02/2025 1 [facility] - DOS ON OR AFTER 2023 - DUAL ELIGIBLE - LONG TERM OPTIONS AND ONE CARE (MEDICARE REPLACEMENT/ADV ANTAGE - HMO) Madhu Reyes [id number] Madhu Reyes Notes Date Note Type Note Provider [...] ..................... ..................... ..................... ..................... ..................... ..................... ............... Bulb Sorter Note From Heather Talley: Sent to evaluate pt c/o hyperglycemia along with GRIGGS and blurred vision. Upon arrival, found pt in the shower. Pt is awake and alert, airway open and patent, breathing regular. Upon exiting the shower, pt appears pale, reports in full sentences that she was showering because she felt unwell and was hoping it would help. Pt states that last night she gradually developed GRIGGS, blurred vision, nausea. GRIGGS 9/10. Took 1gms of tylenol with no [...] associated nausea a few hours ago. CP 05/03 but she reports it's currently improving. Pt denies vomiting/diarrhea, sob, or abd pain. +cp, +griggs, +slight dizziness, +blurred/burning vision, -light sensitivity. Smile is equal, no droop. No slurred speech. 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 BGL 95. Retook to confirm, 94. 12 lead NSR, no ectopy or ST changes. Uploaded image to [employer]. Pt agrees to eval at [facility] ER for further workup. Consulted [facility] who agreed with pt to be sent to [facility]. 324mg of ASA administered PO. EMS activated and care transferred to [facility] to transport pt to [facility] ER. ..................... ..................... ..................... ..................... ..................... ..................... ............... Disposition: Angus Hernández MD [address] [facility],[address], [place], [address], [facility] 02/20/2023 20:36:04 08/05/2024 text/html HPI: Triage call for left eye irritation redness swelling and tearing. No itching no fever. ..................... ..................... ..................... ..................... ..................... ..................... ............... [facility] Nurse Triage Notes (Carolina Tyler): Chief Complaints: ENT PMH: Heart Disease, Hypertension Comments: Reviewed HPI, evaluate/assessment for left eye redness/swellingDenie s itching or feverEliza LOPEZ ..................... ..................... ..................... ..................... ..................... ..................... ............... Bulb Sorter Note From Joshua Berger: Pt co redness itching and discharge from left eye for one week. Denies pain, NVD CP sob. Photo of eye uploaded. Baseline vitals assessed, eye appears red and watery. Pt sts has had pink eye before and feels the same . [facility] contacted and azithromycin ointment called in to RX. Pt advised to used 3x per day. Pt education on signs indicating the ER. Pt advised to follow up with pcp if does not get relief after antibiotics course. Pt signs electronic consent before eval. ..................... ..................... ..................... ..................... ..................... ..................... ............... Disposition: Fulfilled Kiran Michelle MD [address] [place] [address],[address], [place], [address], [facility] 08/05/2024 19:32:47 05/09/2025 text/html [facility] Nurse Triage Notes (Lauren Andino): Reason For Request: Patient's Feet hurt. Patient Reports: Shortness of Breath; CHF history, increased swelling and edema; Weakness/tachycardia Denies: History of Heart Attack, in the setting of active chest pain Active Chest pain, radiates to neck jaw and or arm Diaphoretic/Sweating Describes as crushing Sudden onset of nausea/Vomiting and shortness of breath. Unable to speak in full sentences without distress Palpitations, feeling dizzy Chest pain, increased fatigue Chief Complaints: Extremity Pain PMH: Hypertension, Coronary Artery Disease, Congestive Heart Failure, Asthma, Chronic Back Pain, Anxiety Disorder, Depression PMH Reviewed at 05/09/2025:45 Allergies Reviewed at 05/09/2025:45 Comments: 49 y.o female Pt calling with analyst. The feet are swollen and painful. She retains fluids. She has had this for week. She went to [facility] yesterday at night, she was told they could not prescribe any Diuretic, she called her PCP and they are not there. She has not been on a diuretic for many years. She has not had any heart attack in the past. She has sob when she is walking , talking in full sentences. She feels her heart rate increases when she walks as well. HR 124/126> When she rests goes down to 92%. she does not wear any home 02. She is also having chest pain right now, but did have chest pain yesterday why she presented to the ER. She had a CT SCAN / exray all negative, stated that she had blood work done as well, but is unsure if they did a cardiac workup. Pt did not want to present to the ER as she was just seen I provided information on the mobile health provider response time and advised the patient and/or caregiver to monitor reported signs and symptoms. I discussed the warning signs of when to seek emergency care. ..................... ..................... ..................... ..................... ..................... ..................... ............... Bulb Sorter Note From Ina Zabala: Pt chief complaint today of lower extremity edema which has been noted for approx 1 week prior to [facility] arrival on scene today. Pt expresses that she has just come back 2 weeks prior from breast enhancement surgery as well as liposuction from [facility]. Pt state that after her time in [facility] she noted her feet to be bilaterally swelling and went to her local emergency department. While there she was given Tylenol for pain management, had a ct scan, Doppler scan and x rays performed, with no conclusive findings. Pt also states that in recent days she has been experiencing some difficulty breathing with exertion, pt today would like to have a full assessment performed as well as possible treatment if needed, pt denies any cp, current sob upon rest, NVD, dizziness or blurred vision, no change in bowel or urinary movements as well. Nonneural, focal exam, afebrile, vitals are WNL for the baseline of the pt. Lungs present as clear bilaterally in all byrd on auscultation. Benign abdominal assessment. Noted lower extremities edema which is not pitting. Pt has positive csm in all extremity. Blood work taken at local facility 1 day to [facility] arrival notes all labs are WNL. Pt is CAOX4 with a GCS of 15. [facility] Sheila Hernández consulted, Pt is informed of findings. Pt is told to contact her pcp at earliest convenience for a follow up as needed, pt is informed of red flag S&S and told to contact emergency services if any present. ..................... ..................... ..................... ..................... ..................... ..................... ............... [facility] Consulted: Sheila Hernández ..................... ..................... ..................... ..................... ..................... ..................... ............... Disposition: Angus Hernández MD [address] [place] [address],[address], [place], [address], [place] 05/09/2025 21:20:23 06/01/2025 text/html HPI: Member transferred to [facility] from [facility] services stating she had a breast augmentation last week. Member went to doctor because felt discomfort and was prescribed oral and topical antibiotics. Member was told she should see improvement every 2 days and yesterday she noticed some bleeding when cleaning her incision. 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 Member denies having redness, drainage, increased pain or fevers. Member states she noticed a small opening to the mid incision line below the right areola. Member is requesting to be seen at home to assure everything looks WNL. Member states her surgeon is aware and was advised to purchase silver cell. Member has followed surgeon recommendations. ..................... ..................... ..................... ..................... ..................... ..................... ............... [facility] Nurse Triage Notes (Dasia Leonard): Reason For Request: Wound Care Chief Complaints: Wound Care PMH: Hypertension, Coronary Artery Disease, Congestive Heart Failure, Asthma, Chronic Back Pain, Anxiety Disorder, Depression PMH Reviewed at 06/01/2025 11:40 Allergies Reviewed at 06/01/2025 11:40 Comments: HPI reviewed. ..................... ..................... ..................... ..................... ..................... ..................... ............... Bulb Sorter Note From Samm Valdez: Patient alert and oriented complains of pain at site of surgical wounds. Patient reports cosmetic breast augmentation surgery performed 04/23 in [place]. Patient reports PCP in [place] prescribed anabiotic times 10 days finishes tomorrow. Patient reports pain in some bleeding. Patient denies discharge swelling, fever, chills, nausea, vomiting, or any other pain or complaints. Patient pink warm dry, secondary exam on remarkable, positive full sentences negative increased work of breathing, abdomen soft nontender extremities, unremarkable. Wounds in pictures some extra heat noted. [facility] recommends bacitracin and to follow up with PCP. Wound care, supportive care, red flags, and patient education discussed. Patient demonstrates understanding of care and plan. ..................... ..................... ..................... ..................... ..................... ..................... ............... [facility] Consulted: Paula Ramos ..................... ..................... ..................... ..................... ..................... ..................... ............... Disposition: Fulfilled PAULA RAMOS NP, S [address] [facility],[address], [place], [phone], [place] 06/02/2025 07:39:23 OBGyn Episode No OBEpisode recorded.
--- OUTSIDE RECORDS SUMMARY | 2025-06-08 15:11 | XMS_ITS ---
Author Name [facility] Organization Unknown Encounters Encounter Type Encounter Reason Primary Diagnosis Location Date Ambulatory Count includes the [facility] 09/03/2024 Care Team Organization Name Specialty Phone Email Start Date End Da te Count includes the [facility] 2024
--- OUTSIDE RECORDS SUMMARY | 2025-06-08 15:11 | XMS_ITS | Clinical Summary ---
Author Organization [address] [place] [address] Address [address] [place] [address] Phone Care Team Providers Care [employer] Player Name Role Phone Unavailable Primary Care Provider Unavailabl e Allergies No known active allergies Medications albuterol 2.5 mg /3 mL (0.083 %) nebulizer solution Take 3 mL (2.5 mg total) by nebulization every 6 (six) hours if needed for wheezing. 04/27/20 13 Active albuterol HFA (PROAIR HFA ; PROVENTIL HFA ; VENTOLIN HFA) 90 mcg/actuation inhaler Inhale 2 puffs by mouth every 6 (six) hours if needed for wheezing (cough). 02/18/20 14 Active clonazePAM (KlonoPIN) 1 mg tablet Take 1 tablet (1 mg total) by mouth 2 (two) times a day. Active ferrous sulfate 325 mg (65 mg iron) EC tablet Take 1 tablet (325 mg total) by mouth 1 (one) time each day. 08/15/20 23 Active fluticasone propionate (FLONASE) 50 mcg/actuation nasal spray Administer 2 sprays into each nostril 1 (one) time each day if needed for allergies. 05/26/20 14 Active fluticasone propion-salmetero L (ADVAIR DISKUS) 500-50 mcg/dose diskus inhaler Inhale 1 puff by mouth 2 (two) times a day if needed (SHORTNESS OF BREATH). 02/18/20 14 Active montelukast (SINGULAIR) 10 mg tablet Take 1 tablet (10 mg total) by mouth 1 (one) time each day if needed (asthma symptoms). 02/18/20 14 Active oxyCODONE-acetami nophen (PERCOCET) 7.5-325 mg per tablet Take 1 tablet by mouth 4 (four) times a day if needed for severe pain. Active zolpidem (AMBIEN) 10 mg tablet Take 1 tablet (10 mg total) by mouth at bedtime as needed for sleep. Active amitriptyline (ELAVIL) 25 mg tablet Take 1 tablet (25 mg total) by mouth at bedtime. 02/12/20 24 Active budesonide (PULMICORT) 0.5 mg/2 mL nebulizer solution Take 2 mL (0.5 mg total) by nebulization 2 (two) times a day if needed (asthma symptoms). 09/23/20 24 Active cyclobenzaprine (FLEXERIL) 10 mg tablet Take 1 tablet (10 mg total) by mouth 3 (three) times a day if needed for muscle spasms. 02/12/20 24 Active SUMAtriptan (IMITREX) 25 mg tablet Take 1 tablet (25 mg total) by mouth if needed for migraine. 02/12/20 24 Active cyanocobalamin (VITAMIN B-12) 1,000 mcg tablet Take 1 tablet (1,000 mcg total) by mouth 1 (one) time each day. 01/26/20 25 Active metoprolol tartrate (LOPRESSOR) 25 mg tablet Take 1 tablet (25 mg total) by mouth 2 times daily. 02/12/20 24 Active ondansetron (ZOFRAN) 4 mg tablet Take 2 tablets (8 mg total) by mouth every 12 (twelve) hours if needed for nausea or vomiting. 06/25/20 24 Active doxycycline (VIBRAMYCIN) 100 mg capsule Take 1 capsule (100 mg total) by mouth 2 (two) times a day for 6 days. Take with at least 8 ounces (large glass) of water, do not lie down for 30 minutes after. Administer 2 hours before or after multivitamins, antacids, or other products containing polyvalent cations (i.e., calcium, iron, magnesium, selenium, zinc). 12 each 06/03/20 25 07/17/2 025 Active acetaminophen (TYLENOL) 500 mg tablet Take 2 tablets (1,000 mg total) by mouth 2 (two) times a day for 5 days. 20 each 06/03/20 Active inhalat.spacing dev,large mask (BreatheRite Spacer-Mask,Adult ) spacer for use with mdi 10/06/20 08 Discontinu ed(Entered in Error) ketoconazole (NIZORAL) 2 % shampoo APPLY TO THE AFFECTED AREA TWICE A WEEK FOR UP TO 8 WEEKS WITH AT LEAST 3 DAYS BETWEEN EACH SHAMPOO 03/27/20 15 Discontinu ed(Entered in Error) METOPROLOL SUCCINATE ORAL Take by mouth. Discontinu ed(Entered in Error) medical supply, miscellaneous (MISCELLANEOUS MEDICAL SUPPLY MISC) Misc. Devices (RUBBER BATH MAT) MISC 1 Each by Does not apply route daily. NON SLIP BATH MAT 10/28/20 12 Discontinu ed(Entered in Error) famotidine (Pepcid) 20 mg tablet Take 1 tablet (20 mg total) by mouth 2 (two) times a day. 60 each 10/15/20 Discontinu ed(Entered in Error) sucralfate (CARAFATE) 100 mg/mL suspension Take 10 mL (1 g total) by mouth 4 (four) times a day (with meals and nightly). Take 1 hour before meals and at bedtime 1200 mL 10/15/20 Discontinu ed(Entered in Error) fexofenadine (JERICA) 180 mg tablet Take 1 tablet (180 mg total) by mouth 1 (one) time each day if needed (ALLERGIES). 05/13/20 Discontinu ed(Entered in Error) acetaminophen (TYLENOL) 500 mg tablet TAKE ONE TABLET BY MOUTH EVERY 7-8 HOURS NEEDED. DO NOT EXCEED 8 TABLETS PER 24 HOURS. (VIAL) 09/23/20 Discontinu ed(Entered in Error) Vitamin C 500 mg tablet Take 1 tablet (500 mg total) by mouth 1 (one) time each day. 11/15/20 Discontinu ed(Entered in Error) calcium carbonate (TUMS) 500 mg (200 mg elemental calcium) chewable tablet 03/30/20 Discontinu ed(Entered in Error) cholecalciferol (VITAMIN D-3) 25 mcg (1,000 unit) tablet Take 1 tablet (1,000 Units total) by mouth 1 (one) time each day. 01/26/20 Discontinu ed(Entered in Error) diclofenac (VOLTAREN) 1 % topical gel Apply 2 g topically 2 times daily as needed (MILD PAIN). 04/20/20 Discontinu ed(Entered in Error) docusate sodium (COLACE) 100 mg capsule Take 1 capsule (100 mg total) by mouth 2 (two) times a day if needed for constipation. 02/20/20 Discontinu ed(Entered in Error) DULoxetine (CYMBALTA) [address] capsule Take 1 capsule (60 mg total) by mouth 1 (one) time each day if needed (DEPRESSION). 12/15/19 025 Discontinu ed(Entered in Error) estradioL (ESTRACE) 0.01 % (0.1 mg/gram) vaginal cream APPLY 1 GRAM VAGINALLY DAILY FOR 2 WEEKS THEN DECREASE TO 3 TIMES A WEEK Discontinu ed(Entered in Error) naloxone (NARCAN) 4 mg/0.1 mL nasal spray Administer 1 each (4 mg total) into affected nostril(s). 08/26/20 Discontinu ed(Entered in Error) oxyCODONE (ROXICODONE) 5 mg immediate release tablet Take one TAB q4h PRN severe postop pain, scale 7-10. 01/14/20 Discontinu ed(Entered in Error) venlafaxine (EFFEXOR) 37.5 mg tablet Take 1 tablet (37.5 mg total) by mouth 1 (one) time each day. 01/26/20 Discontinu ed(Entered in Error) cephalexin (KEFLEX) 500 mg capsule Take 1 capsule (500 mg total) by mouth 3 times daily. Completed treatment 06/30/20 25 07/11/2 025 Discontinu ed(Stop Taking at Discharge) ibuprofen (ADVIL,MOTRIN) 600 mg tablet Take 1 tablet (600 mg total) by mouth every 8 (eight) hours if needed for moderate pain for up to 3 days. 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 Croft Migraine 01/04/2009 BERT (obstructive sleep apnea) 09/12/2008 Meralgia paresthetica 09/01/2008 GERD (gastroesophageal reflux disease) Snoring 04/20/2008 Overview (09/06/2024): 11/2020 Home Sleep Study did not reveal sleep apnea or nocturnal hypoxia. Asthma 04/13/2008 Overview (09/06/2024): Severe. Is on preventive meds but she still has weezing Obesity 04/13/2008 Overview (09/06/2024): S/p gastric bypass Encounters Date Type Department Care Team Description 06/02/2025 12:47 AM EDT - 06/03/2025 1:28 PM EDT Hospital Encounter [facility] [address] [place] [id number] Andrew Gallegos MD Jones, Christopher, MD Flores, Carlos M, MD Japaridze, Anna, MD Breast abscess (Primary Dx) Discharge Disposition: Home or Self Care 05/08/2025 5:22 PM EDT - 05/08/2025 11:[address] [facility] [address] [place] [id number] Darryl Smith MD Millay, Scot A, MD Shortness of breath (Primary Dx); Leg swelling Discharge Disposition: Left Against Medical Advice from Last 3 Months Immunizations Name Administration Dates Next Due H1N1 Inj Preservative Free 12/04/2009 Hepatitis B (Jcutkrt-Z-Mivdx , Recombivax HB-Adult) 19yo and older 09/15/2013,04/14/2013,03/10/2013,2008,10/06/2008,08/15/2008 Influenza trivalent, 0.5mL, preservative free (Fluarix; FluLaval; Fluzone) ages 6mo and older (Afluria) 3 years and older 09/08/2015,09/09/2014,08/03/2013,2011,03/02/2012,08/29/2011,08/09/2010,0 08/03/2009,08/11/2008 Tdap Tetanus diptheria acell ular pertussis (Boostrix; Adacel) 7yo and older 06/12/2010 Surgical History Surgery Date Site/Laterality Comments ESOPHAGOGASTRODUODENOSCOPY 11/13/10 PROCEDURE: ID ESOPHAGOGASTRODUODENOSCOPY TRANSORAL DIAGNOSTIC; COMMENT: normal roue en Y gastric bypass OTHER SURGICAL HISTORY PROCEDURE: ID UNLISTED PX ABDOMEN MUSCULOSKELETAL SYSTEM; COMMENT: Abdominoplasty OTHER SURGICAL HISTORY PROCEDURE: HISTORY OTHER; COMMENT: hist neck surgery on 01/2012 ESOPHAGOGASTRODUODENOSCOPY 12/17/2017 PROCEDURE: ID ESOPHAGOGASTRODUODENOSCOPY TRANSORAL DIAGNOSTIC ESOPHAGOGASTRODUODENOSCOPY 11/04/2017 PROCEDURE: ID ESOPHAGOGASTRODUODENOSCOPY TRANSORAL DIAGNOSTIC OTHER SURGICAL HISTORY PROCEDURE: [...] on December [address] Thomson at [facility] Allergic rhinitis 04/27/2013 DX:Allergic rh initis [...] cervical; COMMENT: S/p surgery on 01/2012 at [facility] 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 ([facility] V24) 11/16/2014 DX: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 (HCC) Meralgia paresthetica 09/01/2008 DX:Meralgi a paresthetica Migraine 01/04/2009 DX:Migraine Neck pain 10/12/2012 DX:Neck pain Diabetes mellitus (CMS/HCC V 24, CMS/HCC V28) 04/22/2019 DX:Diabetes mellitus (HCC) Gastric pain [...] Safety Answer Date Record ed Physical Abuse 06/02/2025 Verbal Abuse 06/02/2025 Comments No Sex and Gender Information Value Date Recorded Sex Assigned at Not on file Legal Sex Female 4:38 AM EST Gender Identity Not on file Sexual Orientation Not on file Obstetrics History Last Filed Vital Signs Vital Sign Reading Time Taken Comments Blood Pressure 114/81 06/03/2025 7:57 AM EDT Pulse 89 06/03/2025 7:57 AM EDT Temperature 36.9 C (98.4 F) 06/03/2025 7:57 AM EDT Respiratory Rate 20 06/03/2025 7:57 AM EDT Oxygen Saturation 98% 06/03/2025 7:57 AM EDT Inhaled Oxygen Concentration - - Weight 74.8 kg (165 lb) 06/01/2025 8:23 PM EDT Height 160 cm (5' 3 ) 06/01/2025 8:23 PM EDT Body Mass Index 29.23 06/01/2025 8:23 PM EDT Plan of Treatment Upcoming Encounters Date Type Department Care Team (Late st Contact Info) Description 06/13/2025 1:30 PM EDT Office Visit [facility] [place] [address] [place] [address] Marciano Murphy PA [address] [place] [address] 06/21/2025 11:00 AM EDT Office Visit Bariatric Surgery - [place] [address] [facility] [address] [place] [phone] Abigail Dangelo PA [address] [facility] [address] [place] [address] Health Maintenance Due Date Last Done Comments Diabetes: Annual Foot Exam 1987 Diabetes: Annual Retina Eye Exam 1987 Cervical Cancer Screening: Pap Smear 1998 Colorectal Cancer Screening: Colonoscopy 10/27/2022 Medicare Annual Wellness Visit 10/27/2022 Social Influencers of Health Screening 10/27/2022 Diabetes: Annual Urine Albumin-Creatinine Ratio (uACR) 11/08/2022 Depression Screening 11/24/2024 Influenza Vaccine (#1) 2025 , 09/26/2023, 08/27/2022, Additional history exists Diabetes: Blood Sugar Control Test (HGBA1C) 10/14/2025 04/13/2025, 04/13/2025, 12/16/2024, Additional history exists Breast Cancer Screening 01/09/2026 01/09/2024 Diabetes: Annual GFR (Glomerular Filtration Rate) 06/03/2026 06/03/2025, 06/01/2025, 05/08/2025, Additional history exists Hypertension/CHF/CAD Annual BMP Blood Test 06/03/2026 06/03/2025, 06/01/2025, 05/08/2025, Additional history exists Cholesterol Screening (Lipid Panel) 05/10/2029 05/10/2024, 08/02/2021 DTaP,Tdap,and Td Vaccines (5 - Td or Tdap) 06/02/2030 06/02/2020, 04/26/2018, 01/18/2015, Additional history exists Hepatitis B Vaccines Completed 08/09/2021, 09/15/2013, 04/14/2013, Additional history exists Hepatitis C Screening Completed 05/10/2024, 014 Pneumococcal Vaccine: Pediatrics (0 to 5 Years) and At-Risk Patients (6 to 49 Years) Completed 08/26/2024, 02/04/2018, 09/11/2010 COVID-19 Vaccine Completed 09/27/2024, 01/2023, 08/27/2022, Additional history exists HIV Screening Completed 04/13/2025, 05/10/2024 HIB Vaccines Aged Out No longer eligi [...] Procedure Name Priority Date/Time Associated Diagnosis Comments FERRITIN Add-On 06/03/2025 6:11 AM EDT CBC WITH AUTO DIFFERENTIAL Routine 06/03/2025 6:11 AM EDT MAGNESIUM Routine 06/03/2025 6:11 AM EDT C-REACTIVE PROTEIN Routine 06/03/2025 6: 11 AM EDT CBC AND DIFFERENTIAL Routine 06/03/2025 6:11 AM EDT BASIC METABOLIC PANEL Routine 06/03/2025 6:11 AM EDT CULTURE WOUND DEEP Routine 06/02/2025 11 :00 AM EDT US GUIDED SOFT TISSUE FLUID DRAIN RIGHT STAT 06/02/2025 10:55 AM EDT MRSA PCR STAT 06/02/2025 6:[address] CHEST W CONTRAST STAT 06/02/2025 1 :55 AM EDT POC , URINE DIAGNOSTIC STAT 06/02/2025 1:37 AM EDT IRON AND TIBC Add-On 06/01/2025 8:44 PM EDT RETICULOCYTE COUNT Add-On 06/01/2025 8: 44 PM EDT C-REACTIVE PROTEIN Add-On 06/01/2025 8: 44 PM EDT CBC WITH AUTO DIFFERENTIAL STAT 06/01/2025 8:44 PM EDT BASIC METABOLIC PANEL STAT 06/01/2025 8:44 PM EDT CBC AND DIFFERENTIAL STAT 06/01/2025 8:44 PM EDT ECG ANNOTATED 05/09/2025 CT ANGIO CHEST WO AND/OR W CONTRAST STAT 05/08/2025 6:58 PM EDT Shortness of breath VAS US DUPLEX LOWER EXT VENOUS BILAT STAT 05/08/2025 6:57 PM EDT Leg swelling POC , URINE DIAGNOSTIC STAT 05/08/2025 6:18 PM EDT XR CHEST 2 VIEWS STAT 05/08/2025 5:43 PM EDT ECG 12-LEAD STAT 05/08/2025 5:03 PM EDT TROPONIN I HIGH SENSITIVITY STAT 05/08/2025 5:00 PM EDT CBC WITH AUTO DIFFERENTIAL STAT 05/08/2025 3:33 PM EDT B-TYPE NATRIURETIC PEPTIDE STAT 05/08/2025 3:33 PM EDT MAGNESIUM STAT 05/08/2025 3:33 PM EDT LIPASE STAT 05/08/2025 3:33 PM EDT COMPREHENSIVE METABOLIC PANEL STAT 05/08/2025 3:33 PM EDT CBC AND DIFFERENTIAL STAT 05/08/2025 3:33 PM EDT TROPONIN I HIGH SENSITIVITY STAT 05/08/2025 3:33 PM EDT ECG 12-LEAD STAT 05/08/2025 3:29 PM EDT SAJI SCREENING DIGITAL Routine 01/09/2024 12:12 PM EST Encounter for screening mammogram for malignant neoplasm of breast HEMOGLOBIN A1C Routine 08/02/2021 LIPID PANEL Routine 08/02/2021 HEPATITIS C SCREENING Routine 02/17/2014 from Last 3 Months or Most Recently Relevant to Health Maintenance Results * (ABNORMAL) CBC auto differential (06/03/2025 6:11 AM EDT) Only the most recent of3 resultswithin the time period is included. WBC 6.4 4.8 - 10.8 K/mcL LAB HEMETOLOGY METHOD 06/03/2025 6:59 AM EDT [facility] RBC 3.60(L) 3.80 - 4.80 M/mcL LAB HEMETOLOGY METHOD 06/03/2025 6:59 AM EDT [facility] Hemoglobin 9.3(L) 11.5 - 16.0 g/dL LAB HEMETOLOGY METHOD 06/03/2025 6:59 AM EDT [facility] Hematocrit 32.3(L) 35.0 - 47.0 % LAB HEMETOLOGY METHOD 06/03/2025 6:59 AM [facility] MCV 91.0 79.0 - 98.0 FL LAB HEMETOLOGY METHOD 06/03/2025 6:59 AM [facility] MCH 26.2(L) 27.0 - 32.0 pcg LAB HEMETOLOGY METHOD 06/03/2025 6:59 AM [facility] MCHC 28.8(L) 32.0 - 37.0 g/dL LAB HEMETOLOGY METHOD 06/03/2025 6:59 AM [facility] RDW 14.2 11.0 - 15.0 % LAB HEMETOLOGY METHOD 06/03/2025 6:59 AM [facility] Platelets 375 130 - 400 K/mcL LAB HEMETOLOGY METHOD 06/03/2025 6:59 AM [facility] MPV 10.8 7.0 - 11.0 FL LAB HEMETOLOGY METHOD 06/03/2025 6:59 AM [facility] NRBC 0.0 <1.0 % LAB HEMETOLOGY METHOD 06/03/2025 6:59 AM [facility] NRBC Absolute 0.00 <0.10 K/mcL LAB HEMETOLOGY METHOD 06/03/2025 6:59 AM [facility] Neutrophils Relative 48.8 % LAB HEMETOLOGY METHOD 06/03/2025 6:59 AM [facility] Lymphocytes Relative 39.0 % LAB HEMETOLOGY METHOD 06/03/2025 6:59 AM [facility] Monocytes Relative 6.7 % LAB HEMETOLOGY METHOD 06/03/2025 6:59 AM [facility] Eosinophils Relative 4.7 % LAB HEMETOLOGY METHOD 06/03/2025 6:59 AM [facility] Basophils Relative 0.6 % LAB HEMETOLOGY METHOD 06/03/2025 6:59 AM EDT [facility] Immature Granulocytes Relative 0.2 % LAB HEMETOLOGY METHOD 06/03/2025 6:59 AM EDT [facility] Neutrophils Absolute 3.11 1.50 - 7.00 K/mcL LAB HEMETOLOGY METHOD 06/03/2025 6:59 AM EDT [facility] Lymphocytes Absolute 2.49 1.00 - 5.00 K/mcL LAB HEMETOLOGY METHOD 06/03/2025 6:59 AM EDT [facility] Monocytes Absolute 0.43 0.20 - 1.00 K/mcL LAB HEMETOLOGY METHOD 06/03/2025 6:59 AM EDT [facility] Eosinophils Absolute 0.30 0.00 - 0.50 K/mcL LAB HEMETOLOGY METHOD 06/03/2025 6:59 AM EDT [facility] Basophils Absolute 0.04 0.00 - 0.20 K/mcL LAB HEMETOLOGY METHOD 06/03/2025 6:59 AM EDT [facility] Immature Granulocytes Absolute 0.01 0.00 - 0.03 K/mcL LAB HEMETOLOGY METHOD 06/03/2025 6:59 AM EDT [facility] Blood Venous blood specimen / Unknown Venipuncture / Unknown 06/03/2025 6:11 AM EDT 06/03/2025 6:38 AM EDT us John Alvarez MD LAB BLOOD ORDERABLES Final Result [facility] [address] [place] [address], * (ABNORMAL) C-reactive protein (06/03/2025 6:11 AM EDT) Only the most recent of2 resultswithin the time period is included. C-Reactive Protein 0.78(H) <=0.50 mg/dL LAB CHEMISTRY METHOD 06/03/2025 7:21 AM EDT [facility] Blood Venous blood specimen / Unknown Venipuncture / Unknown 06/03/2025 6:11 AM EDT 06/03/2025 6:37 AM EDT Abner Altman MD LAB BLOOD ORDERABLES Final Re sult Performing Organization Address [facility] de Phone Number [facility] [address] [place] [address], [place] [phone] * Magnesium (06/03/2025 6:11 AM EDT) Only the most recent of2 resultswithin the time period is included. Magnesium 2.0 1.9 - 2.6 mg/dL LAB CHEMISTRY METHOD 06/03/2025 7:17 AM EDT [facility] Blood Venous blood specimen / Unknown Venipuncture / Unknown 06/03/2025 6:11 AM EDT 06/03/2025 6:37 AM EDT Abner Altman MD LAB BLOOD ORDERABLES Final Re sult Performing Organization Address [facility] de Phone Number [facility] [address] [place] [address], [place] [phone] * Ferritin (06/03/2025 6:11 AM EDT) Ferritin 27 8 - 252 ng/mL LAB CHEMISTRY METHOD 06/03/2025 8:41 AM EDT [facility] Blood Venous blood specimen / Unknown Venipuncture / Unknown 06/03/2025 6:11 AM EDT 06/03/2025 6:37 AM EDT Trish Roman MD LAB BLOOD ORDERABLES Final Res ult Performing Organization Address City/[facility]/ZIP Co de Phone Number [facility] [address] [place] [address], [place] [phone] * Basic metabolic panel (06/03/2025 6:11 AM EDT) Only the most recent of2 resultswithin the time period is included. Sodium 141 133 - 145 mmol/L LAB CHEMISTRY METHOD 06/03/2025 7:17 AM [facility] Potassium 4.3 3.5 - 5.5 mmol/L LAB CHEMISTRY METHOD 06/03/2025 7:17 AM [facility] Chloride 107 96 - 110 mmol/L LAB CHEMISTRY METHOD 06/03/2025 7:17 AM [facility] CO2 29 21 - 32 mmol/L LAB CHEMISTRY METHOD 06/03/2025 7:17 AM [facility] Anion Gap 5 3 - 11 LAB CHEMISTRY METHOD 06/03/2025 7:17 AM [facility] Glucose 74 70 - 100 mg/dL LAB CHEMISTRY METHOD 06/03/2025 7:17 AM [facility] BUN 9 5 - 25 mg/dL LAB CHEMISTRY METHOD 06/03/2025 7:17 AM [facility] Creatinine 0.57 0.50 - 1.10 mg/dL LAB CHEMISTRY METHOD 06/03/2025 7:17 AM [facility] eGFR 113 >=60 mL/min/1. 73m2 LAB CHEMISTRY METHOD 06/03/2025 7:17 AM [facility] Comment:Calculation based on the Chronic Kidney Disease Epidemiology Collaboration (CKD-EPI) equation refit without adjustment for race. BUN/Creatinine Ratio 15.8 LAB CHEMISTRY METHOD 06/03/2025 7:17 AM [facility] Calcium 9.0 8.5 - 10.5 mg/dL LAB CHEMISTRY METHOD 06/03/2025 7:17 AM [facility] Blood Venous blood specimen / Unknown Venipuncture / Unknown 06/03/2025 6:11 AM EDT 06/03/2025 6:37 AM EDT John Alvarez MD LAB BLOOD ORDERABLES Final Result Performing Organization Address [facility]/ZIP Co de Phone Number [facility] [address] [place] [address], [place] [phone] * Culture wound deep (06/02/2025 11:00 AM EDT) Culture, Wound No growth at 3 days 06/05/2025 8:56 AM EDT [facility] Gram Stain Result No polymorphonuclear leukocytes, No epithelial cells, and No organisms noted 06/05/2025 8:56 AM EDT [facility] Aspirate Right breast structure / Unknown Non-blood Collection / Unknown 06/02/2025 11:00 AM EDT 06/02/2025 11:57 AM EDT Mary CANNON LAB MICROBIOLOGY - GENERAL OR DERABLES Final Result Performing Organization Address [facility] Co de Phone Number [facility] [address] [place] [address], [place] [phone] * US Guided Soft Tissue Fluid Drain Right (06/02/2025 10:55 AM EDT) Anatomical Region Laterality Modality Body Right Ultrasound 06/02/2025 11:2 8 AM EDT Impressions 06/02/2025 11:38 AM EDT Aspiration of a tiny fluid collection in the inferior aspect of the right breast incision is most consistent with a liquefied hematoma versus seroma. -------- FINAL REPORT -------- Dictated By: Brenden Diaz Dictated Date: 06/02/2025 11:28 ET Assigned Physician: Brenden Diaz Reviewed and Electronically Signed By: Brenden Diaz Signed Date: 06/02/2025 11:38 ET Workstation ID: [id number] Transcribed By: Self Edit Transcribed Date: 06/02/2025 11:34 ET Narrative 06/02/2025 11:38 AM EDT Ultrasound-guided aspiration, right breast INDICATION: Small superficial collection seen on CT imaging in the right breast. Patient underwent recent breast surgery. Comparison: CT scan same day. Grayscale ultrasound was performed initially demonstrating a small thin anechoic collection centered 2 cm deep to the skin located along the inferior aspect of the right breast along the incision. Patient provided informed consent via regulatory compliance officer for aspiration. The right chest wall was prepped and draped in usual sterile fashion. 5 mL of 1% LIDOCAINE was used for local anesthesia. A 5-Jamaican one-step catheter was advanced under continuous ultrasound guidance into the collection. The needle was removed and a total of 3 mL of serosanguineous fluid was aspirated from the collection. There is total collapse of the collection. The small sample was sent for cell count and culture. The patient tolerated the procedure well. There is no significant bleeding. Hemostasis was achieved. A sterile dressing was applied. Procedure Note Brenden Diaz MD - 06/02/2025 Ultrasound-guided aspiration, right breast INDICATION: Small superficial collection seen on CT imaging in the rightbreast. Patient underwent recent breast surgery. Comparison: CT scan same day. Grayscale ultrasound was performed initially demonstrating a small thinanechoic collection centered 2 cm deep to the skin located along theinferior aspect of the right breast along the incision. Patient provided informed consent via regulatory compliance officer for aspiration.The right chest wall was prepped and draped in usual sterile fashion. 5mL of 1% LIDOCAINE was used for local anesthesia. A 5-Jamaican one-stepcatheter was advanced under continuous ultrasound guidance into thecollection. The needle was removed and a total of 3 mL of serosanguineousfluid was aspirated from the collection. There is total collapse of thecollection. The small sample was sent for cell count and culture. The patient tolerated the procedure well. There is no significantbleeding. Hemostasis was achieved. A sterile dressing was applied. IMPRESSION: Aspiration of a tiny fluid collection in the inferior aspect of the rightbreast incision is most consistent with a liquefied hematoma versusseroma. -------- FINAL REPORT -------- Dictated By: Brenden Diaz Dictated Date: 06/02/2025 11:28 ET Assigned Physician: Brenden Diaz Reviewed and Electronically Signed By: Brenden Diaz Signed Date: 06/02/2025 11:38 ET Workstation ID: [id number] Transcribed By: Self Edit Transcribed Date: 06/02/2025 11:34 ET Abner Altman MD IMG US PROCEDURES Final Resul t * MRSA molecular study (06/02/2025 6:51 AM EDT) MRSA Screen PCR Not Detected Not Detected LAB MICROBIOLOGY METHOD 06/02/2025 8:57 AM EDT [facility] Swab Both anterior nares / Unknown Non-blood Collection / Unknown 06/02/2025 6:51 AM EDT 06/02/2025 7:27 AM EDT John Alvarez MD LAB MICROBIOLOGY - GENERAL ORDERABLES Final Result [facility] [address] [place] [address], [place] [phone] * CT Chest w Contrast (06/02/2025 1:55 AM EDT) Anatomical Region Laterality Modality Body Computed Tomogra phy 06/02/2025 2:30 AM EDT Impressions 06/02/2025 2:30 AM EDT Impression: 1. Bilateral subpectoral breast implants. Small 0.9 x 5.3 x 1.5 cm well-defined fluid collection in the subcutaneous fat along the inferior margin of the right breast implant may represent soft tissue hematoma or abscess. 2. No pneumonia This document has been electronically signed by: Meghan Foster MD on 06/02/2025 02:30:59 Narrative 06/02/2025 2:30 AM EDT INDICATION: ?abscess at implant site Exam: CT Chest with IV contrast. Comparison: 05/08/2025 Clinical history: Abscess at implant site Findings: Bilateral subpectoral breast implants. Small well-defined fluid collection in the subcutaneous fat along the inferior margin of the right breast implant seen on sagittal image 35 and axial series 5, image 175 may represent soft tissue hematoma or abscess. This measures 0.9 x 5.3 x 1.5 cm. No well-defined fluid collection associated with the left breast implant No thoracic aortic aneurysm or dissection. No hilar or mediastinal adenopathy. No pericardial fluid collection. No pneumothorax. No pleural fluid collection. No pneumonia Prior gastric bypass Visualized liver and spleen do not demonstrate any acute process No thoracic spine compression fractures Procedure Note Meghan Foster MD - 06/02/2025 INDICATION: ?abscess at implant site Exam: CT Chest with IV contrast. Comparison: 05/08/2025 Clinical history: Abscess at implant site Findings: Bilateral subpectoral breast implants. Small well-defined fluid collection in the subcutaneous fat along the inferior margin of the right breast implant seen on sagittal image 35and axial series 5, image 175 may represent soft tissue hematoma or abscess. This measures 0.9 x 5.3 x 1.5 cm. No well-defined fluid collection associated with the left breast implant No thoracic aortic aneurysm or dissection. No hilar or mediastinal adenopathy. No pericardial fluid collection. No pneumothorax. No pleural fluid collection. No pneumonia Prior gastric bypass Visualized liver and spleen do not demonstrate any acute process No thoracic spine compression fractures IMPRESSION: Impression: 1. Bilateral subpectoral breast implants. Small 0.9 x 5.3 x 1.5 cm well-defined fluid collection in the subcutaneous fat along the inferior margin of the right breast implant may represent soft tissue hematoma or abscess. 2. No pneumonia This document has been electronically signed by: Meghan Foster MD on 06/02/2025 02:30:59 Andrew Vega MD IMG CT PROCEDURES Fi nal Result * POC , urine manually resulted (06/02/2025 1:37 AM EDT) Only the most recent of2 resultswithin the time period is included. HCG, Ur POC Negative Negative POC hCG Int QC Pass? Yes Yes Urine Urine specimen obtained by clean catch procedure / Unknown 06/02/2025 1:37 AM EDT Andrew Vega MD POINT OF CARE TEST E NTER/EDIT ORDERABLES Final Result * (ABNORMAL) Iron and TIBC (06/01/2025 8:44 PM EDT) Pathologist [facility] Iron 29(L) 40 - 150 mcg/dL LAB CHEMISTRY METHOD 06/02/2025 5:58 AM EDT [facility] TIBC 423 250 - 450 mcg/dL LAB CHEMISTRY METHOD 06/02/2025 5:58 AM EDT [facility] Iron Saturation 7(L) 15 - 50 % LAB CHEMISTRY METHOD 06/02/2025 5:58 AM EDT [facility] Blood Venous blood specimen / Unknown Venipuncture / Unknown 06/01/2025 8:44 PM EDT 06/01/2025 8:51 PM EDT John Alvarez MD LAB BLOOD ORDERABLES Final Result [facility] [address] [place] [address], [place] [phone] * (ABNORMAL) Reticulocyte count (06/01/2025 8:44 PM EDT) [facility] Retic Ct Abs 0.080 0.030 - 0.090 M/mcL LAB HEMETOLOGY METHOD 06/02/2025 5:39 AM EDT [facility] Retic Ct Pct 2.1(H) 0.7 - 1.7 % LAB HEMETOLOGY METHOD 06/02/2025 5:39 AM EDT [facility] Immature Retic Fract 15.8 2.3 - 15.9 % LAB HEMETOLOGY METHOD 06/02/2025 5:39 AM T [facility] Reticulocyte Hemoglobin 27.8(L) >29.0 pcg LAB HEMETOLOGY METHOD 06/02/2025 5:39 AM EDT [facility] Blood Venous blood specimen / Unknown Venipuncture / Unknown 06/01/2025 8:44 PM EDT 06/01/2025 8:51 PM EDT John Alvarez MD LAB BLOOD ORDERABLES Final Result [facility] [address] [place] [address], * ECG-Annotated (05/09/2025) Provider Onbase ECG ORDERABLES Final Result * CT Angio Chest wo and/or w Contrast (05/08/2025 6:58 PM EDT) Anatomical Region Laterality Modality Body Computed Tomogra phy 05/08/2025 10:2 8 PM EDT Impressions 05/08/2025 10:28 PM EDT Impression: 1. No pulmonary emboli. 2. No thoracic aortic aneurysm or dissection 3. No pneumonia 4. Bilateral breast prostheses. Air in the soft tissues of the breasts bilaterally consistent with recent postop status. This document has been electronically signed by: Meghan Foster MD on 05/08/2025 22:28:39 Narrative 05/08/2025 10:28 PM EDT INDICATION: PE suspected, high prob Exam: CTA Chest with IV contrast. Procedure: Contrast was administered. Coronal and sagittal MIP reformats were performed Comparison: None Clinical history: Shortness of breath leg swelling chest pain orthopnea dyspnea on exertion bilateral lower extremity swelling. 2 weeks postop from breast surgery. Findings: Exam limited by suboptimal opacification of the pulmonary arterial tree. No pulmonary emboli No thoracic aortic aneurysm or dissection. No hilar or mediastinal adenopathy. No pericardial fluid collection. No pneumothorax. No pleural fluid collection. No pneumonia Prior gastric bypass Visualized liver and spleen do not demonstrate any acute process Bilateral breast prostheses. Air in the soft tissues of the breasts bilaterally consistent with recent postop status. No thoracic spine compression fractures Procedure Note Meghan Foster MD - 05/09/2025 INDICATION: PE suspected, high prob Exam: CTA Chest with IV contrast. Procedure: Contrast was administered. Coronal and sagittal MIP reformats were performed Comparison: None Clinical history: Shortness of breath leg swelling chest pain orthopnea dyspnea on exertion bilateral lower extremity swelling. 2 weeks postop from breast surgery. Findings: Exam limited by suboptimal opacification of the pulmonary arterial tree. No pulmonary emboli No thoracic aortic aneurysm or dissection. No hilar or mediastinal adenopathy. No pericardial fluid collection. No pneumothorax. No pleural fluid collection. No pneumonia Prior gastric bypass Visualized liver and spleen do not demonstrate any acute process Bilateral breast prostheses. Air in the soft tissues of the breasts bilaterally consistent with recent postop status. No thoracic spine compression fractures IMPRESSION: Impression: 1. No pulmonary emboli. 2. No thoracic aortic aneurysm or dissection 3. No pneumonia 4. Bilateral breast prostheses. Air in the soft tissues of the breasts bilaterally consistent with recent postop status. This document has been electronically signed by: Meghan Foster MD on 05/08/2025 22:28:39 us Darryl Smith MD IMG CT PROCEDURES Final Result * Vascular US Duplex Lower Extremity Venous Bilateral (05/08/2025 6:57 PM EDT) Anatomical Region Laterality Modality Vascular, Abdomen Ultrasound 05/09/2025 12:0 5 AM EDT Impressions 05/09/2025 12:09 AM EDT NO RIGHT OR LEFT LOWER EXTREMITY DEEP VENOUS THROMBOSIS. -------- FINAL REPORT -------- Dictated By: CHRIS CALDERÓN Dictated Date: 05/09/2025 00:05 ET Assigned Physician: CHRIS CALDERÓN Reviewed and Electronically Signed By: CHRIS CALDERÓN Signed Date: 05/09/2025 00:09 ET Workstation ID: [id number] Transcribed By: Self Edit Transcribed Date: 05/09/2025 00:05 ET Narrative 05/09/2025 12:09 AM EDT PROCEDURE: VAS US DUPLEX LOWER EXT VENOUS BILAT INDICATION: Edema TECHNIQUE: 2-D and color Doppler imaging of the lower extremity venous vasculature with compression and augmentation maneuvers. COMPARISON: No priors available. FINDINGS: RIGHT: There is normal flow, compression, and augmentation from the common femoral through the popliteus. Visualized calf veins are patent. 4 cm right Pastrana's cyst. LEFT: There is normal flow, compression, and augmentation from the common femoral through the popliteus. Visualized calf veins are patent. Procedure Note Chris Calderón MD - 05/09/2025 PROCEDURE: VAS US DUPLEX LOWER EXT VENOUS BILAT INDICATION: Edema TECHNIQUE: 2-D and color Doppler imaging of the lower extremity venousvasculature with compression and augmentation maneuvers. COMPARISON: No priors available. FINDINGS: RIGHT: There is normal flow, compression, and augmentation from the commonfemoral through the popliteus. Visualized calf veins are patent. 4 cmright Pastrana's cyst. LEFT: There is normal flow, compression, and augmentation from the commonfemoral through the popliteus. Visualized calf veins are patent. IMPRESSION: NO RIGHT OR LEFT LOWER EXTREMITY DEEP VENOUS THROMBOSIS. -------- FINAL REPORT -------- Dictated By: CHRIS CALDERÓN Dictated Date: 05/09/2025 00:05 ET Assigned Physician: CHRIS CALDERÓN Reviewed and Electronically Signed By: CHRIS CALDERÓN Signed Date: 05/09/2025 00:09 ET Workstation ID: [id number] Transcribed By: Self Edit Transcribed Date: 05/09/2025 00:05 ET us Darryl Smith MD CV VASCULAR PROCEDURES Final Re sult * XR Chest 2 Views (05/08/2025 5:43 PM EDT) Anatomical Region Laterality Modality Body Radiographic Olena ging 05/09/2025 8:54 AM EDT Impressions 05/09/2025 8:55 AM EDT FINDINGS/IMPRESSION: Lungs are clear. No pleural effusion or pneumothorax. Cardiac silhouette is normal in size. Mild degenerative changes seen throughout the bones. Cervical fusion hardware noted. Left breast implant. -------- FINAL REPORT -------- Dictated By: CHRIS CALDERÓN Dictated Date: 05/09/2025 08:54 ET Assigned Physician: CHRIS CALDERÓN Reviewed and Electronically Signed By: CHRIS CALDERÓN Signed Date: 05/09/2025 08:55 ET Workstation ID: [id number] Transcribed By: Self Edit Transcribed Date: 05/09/2025 08:54 ET Narrative 05/09/2025 8:55 AM EDT XR CHEST 2 VIEWS INDICATION: Chest pain TECHNIQUE: XR CHEST 2 VIEWS COMPARISON: 10/06/2023 Procedure Note Chris Calderón MD - 05/09/2025 XR CHEST 2 VIEWS INDICATION: Chest pain TECHNIQUE: XR CHEST 2 VIEWS COMPARISON: 10/06/2023 IMPRESSION: FINDINGS/IMPRESSION: Lungs are clear. No pleural effusion orpneumothorax. Cardiac silhouette is normal in size. Mild degenerativechanges seen throughout the bones. Cervical fusion hardware noted. Leftbreast implant. -------- FINAL REPORT -------- Dictated By: CHRIS CALDERÓN Dictated Date: 05/09/2025 08:54 ET Assigned Physician: CHRIS CALDERÓN Reviewed and Electronically Signed By: CHRIS CALDERÓN Signed Date: 05/09/2025 08:55 ET Workstation ID: [id number] Transcribed By: Self Edit Transcribed Date: 05/09/2025 08:54 ET [facility] Lisa Dejesus MD IMG XR PROCEDURES Final Result * ECG 12 lead (05/08/2025 5:03 PM EDT) Only the most recent of2 resultswithin the time period is included. Ventricular Rate ECG 92 BPM GEMUSE Atrial Rate 92 BPM GEMUSE P-R Interval 150 ms GEMUSE QRS Duration 80 ms GEMUSE Q-T Interval 356 ms GEMUSE QTc 440 ms GEMUSE P Wave [place] 41 degrees GEMUSE R [place] 44 degrees GEMUSE T [place] 34 degrees GEMUSE ECG Interpretation Poor data quality, interpretation may be adversely affected Normal sinus rhythm Normal ECG When compared with ECG of 08-MAY-2025 15:29, No significant change was found Confirmed by MD Randy, John ([id number]) on 05/09/2025 9:33:22 AM GEMUSE 05/08/2025 5:03 PM EDT 05/09/2025 9:33 AM EDT Rommarvel Dejesus MD ECG ORDERABLES Final Result GEMUSE * Troponin I high sensitivity (05/08/2025 5:00 PM EDT) Only the most recent of2 resultswithin the time period is included. Pathologist [facility] High Sensitivity Troponin I 3 <=54 ng/L LAB CHEMISTRY METHOD 05/08/2025 5:43 PM EDT [facility] Blood Venous blood specimen / Unknown Venipuncture / Unknown 05/08/2025 5:00 PM EDT 05/08/2025 5:10 PM EDT Narrative [facility] - 05/08/2025 5:43 PM EDT High levels of biotin in samples may falsely decrease hsTroponin values. Use caution when interpreting hsTroponin results in patients taking biotin who exhibit renal impairment (eGFR <60) or in patients taking more than 20 mg/day of biotin. Rommarvel Dejesus MD LAB BLOOD ORDERABLES Final Resu lt Performing Organization Address [facility] Co de Phone Number [facility] [address] [place] [address], [place] [phone] * B-type natriuretic peptide (05/08/2025 3:33 PM EDT) [facility] BNP 12 <=100 pcg/mL LAB CHEMISTRY METHOD 05/08/2025 4:24 PM EDT [facility] Blood Venous blood specimen / Unknown Venipuncture / Unknown 05/08/2025 3:33 PM EDT 05/08/2025 3:50 PM EDT [facility] Lisa Dejesus MD LAB BLOOD ORDERABLES Final Resu lt Performing Organization Address City/[facility]/ZIP Co de Phone Number [facility] [address] [place] [address], [place] [phone] * Lipase (05/08/2025 3:33 PM EDT) Lipase 15 13 - 75 unit/L LAB CHEMISTRY METHOD 05/08/2025 4:32 PM [facility] Blood Venous blood specimen / Unknown Venipuncture / Unknown 05/08/2025 3:33 PM EDT 05/08/2025 3:50 PM EDT Rom Lisa Dejesus MD LAB BLOOD ORDERABLES Final Resu lt [facility] [address] [place] [address], * (ABNORMAL) Comprehensive metabolic panel (05/08/2025 3:33 PM EDT) [facility] Sodium 140 133 - 145 mmol/L LAB CHEMISTRY METHOD 05/08/2025 4:33 PM [facility] Potassium 4.5 3.5 - 5.5 mmol/L LAB CHEMISTRY METHOD 05/08/2025 4:33 PM [facility] Chloride 105 96 - 110 mmol/L LAB CHEMISTRY METHOD 05/08/2025 4:33 PM [facility] CO2 28 21 - 32 mmol/L LAB CHEMISTRY METHOD 05/08/2025 4:33 PM [facility] Anion Gap 7 3 - 11 LAB CHEMISTRY METHOD 05/08/2025 4:33 PM [facility] Glucose 97 70 - 100 mg/dL LAB CHEMISTRY METHOD 05/08/2025 4:33 PM [facility] BUN 13 5 - 25 mg/dL LAB CHEMISTRY METHOD 05/08/2025 4:33 PM [facility] Creatinine 0.72 0.50 - 1.10 mg/dL LAB CHEMISTRY METHOD 05/08/2025 4:33 PM [facility] eGFR 104 >=60 mL/min/1. 73m2 LAB CHEMISTRY METHOD 05/08/2025 4:33 PM EDT [facility] Comment:Calculation based on the Chronic Kidney Disease Epidemiology Collaboration (CKD-EPI) equation refit without adjustment for race. BUN/Creatinine Ratio 18.1 LAB CHEMISTRY METHOD 05/08/2025 4:33 PM EDT [facility] Calcium 8.3(L) 8.5 - 10.5 mg/dL LAB CHEMISTRY METHOD 05/08/2025 4:33 PM EDT [facility] AST (SGOT) 34 10 - 42 unit/L LAB CHEMISTRY METHOD 05/08/2025 4:33 PM [facility] ALT (SGPT) 55 10 - 60 unit/L LAB CHEMISTRY METHOD 05/08/2025 4:33 PM [facility] Alkaline Phosphatase 103 42 - 121 unit/L LAB CHEMISTRY METHOD 05/08/2025 4:33 PM [facility] Total Protein 6.2 6.0 - 8.0 g/dL LAB CHEMISTRY METHOD 05/08/2025 4:33 PM [facility] Albumin 2.7(L) 3.2 - 5.0 g/dL LAB CHEMISTRY METHOD 05/08/2025 4:33 PM [facility] Total Bilirubin 0.2 0.0 - 1.4 mg/dL LAB CHEMISTRY METHOD 05/08/2025 4:33 PM EDT [facility] Blood Venous blood specimen / Unknown Venipuncture / Unknown 05/08/2025 3:33 PM EDT 05/08/2025 3:50 PM EDT us Rom Dejesus MD LAB BLOOD ORDERABLES Final Resu lt [facility] [address] [place] [address], * SAJI SCREENING DIGITAL (01/09/2024 12:12 PM EST) Anatomical Region Laterality Modality Mammography 01/07/2024 10:2 9 AM EST Narrative 01/09/2024 12:12 PM EST [facility] Diagnostic Imaging Department [address] [place] [id number] Patient: MADHU REYES Monique /Age/Sex: 1975 - 48 - F Unit#: [id number] Location/Status: SPDIMAM/REG CLI Mnemonic/Ordering Site: [facility] Ordering Physician: NAME,TONIA PEARCE [facility] Screening Digital - 01/07/24 - 1110 Report Status:Signed EXAM: [facility] Screening Digital EXAM DATE AND TIME: 01/07/2024 11:11 AM HISTORY: Screening. Bilateral reduction mammoplasty in 2016. Right breast implant placed at that time. Left implant removed same year due to infection. The patient underwent gastric bypass surgery in 2010 and has lost 100 pounds since that time. COMPARISON: 06/07/15, 05/02/14, 01/15/13 TECHNIQUE: Bilateral digital breast tomosynthesis was performed in the CC and MLO projections. Implant displaced views of the right breast were obtained. Computer aided detection with Yummy77 3D 3.1 was employed. TISSUE DENSITY: b. [...] alter the indica tions for biopsy. BI-RADS: Category 2: Benign RECOMMENDATION(S): 1: Routine screening mammogram BILATERAL in 1 year. Dictating Physician: IZABELLA GONZALEZ MD Electronically Signed by: IZABELLA GOZNALEZ MD Dic Date/Time: 01/09/24 1153 Sign date/Time: 01/09/24 1212 Procedure Note Izabella Gonzalez MD - 07/12/2024 [facility] Diagnostic Imaging Department [address] [place] [address] Patient: MADHU REYES D.O.B./Age/Sex: 1975 - 48 - F Unit#: [id number] Location/Status: [facility] Mnemonic/Ordering Site: [facility] Ordering Physician: NAME,TONIA PEARCE [facility] Screening Digital - 01/07/24 - 1110 Report Status:Signed EXAM: [facility] Screening Digital EXAM DATE AND TIME: 01/07/2024 11:11 AM HISTORY: Screening. Bilateral reduction mammoplasty in 2016. Rightbreast implant placed at that time. Left implant removed same year due toinfection. The patient underwent gastric bypass surgery in 2010 and has lost 100pounds since that time. COMPARISON: 06/07/15, 05/02/14, 01/15/13 TECHNIQUE: Bilateral digital breast tomosynthesis was performed in the CCand MLO projections. Implant displaced views of the right breast wereobtained. Computer aided detection with Yummy77 3D 3.1 was employed. TISSUE DENSITY: b. [...] 01/09/24 1153 Sign date/Time: 01/09/24 1212 Result [facility] Tonia Pruitt MD IMG BI PROCEDURES Final Result * Hemoglobin A1c (08/02/2021) Pathologist [facility] Hemoglobin A1C 6.5 <=6.5 % Blood Venous blood specimen / Unknown Result [facility] Provider LAB BLOOD ORDERABLES Toshia l Result * Lipid panel (08/02/2021) Pathologist [facility] LDL/HDL Ratio 3 0 - 4 Triglycerides 118 0 - 150 mg/dL Cholesterol 176 0 - 200 mg/dL HDL 56 >=40 mg/dL LDL Cholesterol 97 0 - 100 mg/dL Blood Venous blood specimen / Unknown Result [facility] Provider LAB BLOOD ORDERABLES Toshia l Result * Hepatitis C Screening (02/17/2014) Pathologist [facility] Hepatitis C Screening Abstracted Result [facility] Historical [employer] Final Result from Last 3 Months or Most Recently Relevant to Health Maintenance Insurance [employer] MED[employer] Member Subscriber Plan / Payer (Ef fective 2018-Present) Name:MADHU REYES Relation to Subscriber:Self Name:Madhu Reyes Payer ID:[id number] Group ID:[id number] Type:Not on file Address: [place] [id number] [address] [place] [phone] Advance Directives * Full Code - Default (Latest Code Status on File) Date Activated Date Inactivated Comments 06/02/2025 5:56 AM 06/03/2025 3:34 PM This is ord er is used when code status has not been discussed with the patient, or code status is otherwise unknown/unconfirmed To update the patient's code status, place a code status order. Do not modify or discontinue any currently active code status orders.
[2025-06-08 16:06] LABS: MANUAL DIFF FLAG NO
[2025-06-08 16:29] LABS: Hematocrit 33.3 % (37.0-47.0); Hemoglobin 10.3 g/dl (12.0-16.0); Imm Gran Abs Auto 0.02 X10*3/uL (0.00-0.03); Imm Gran Pct Auto 0.3 % (0.0-0.4); Lymphocytes Absolute Auto 2.1 X10*3/uL (1.2-4.9); Mean Corpuscular HGB Conc 30.9 g/dl (31.0-35.0); Mean Corpuscular Hemoglobin 26.4 pg (27.0-33.0); Mean Corpuscular Volume 85.4 fL (80.0-98.0); NRBC Abs Auto 0.000 X10*3/uL (0.0-0.012); NRBC Pct Auto 0.0 /100WBC (0.0-0.2); Platelet Count 392 X10*3/uL (160-400); Red Blood Count 3.90 X10*6/uL (4.20-5.50); White Blood Count 7.0 X10*3/uL (4.8-10.8)
[2025-06-08 16:42] LABS: Alanine Aminotransferase 19 U/L (0-31); Albumin Level 4.2 g/dL (3.5-5.0); Alkaline Phosphatase 97 U/L (39-117); Anion Gap 12 (12-20); Aspartate Amino Transferase 46 U/L (5-31); Blood Urea Nitrogen 11 mg/dL (9-16); Calcium 9.2 mg/dL (8.4-10.2); Carbon Dioxide 27 mmol/L (22-29); Chloride 103 mmol/L (96-108); Estimated Glomerular Filt Rate > 60; Iron 68 mcg/dL (30-160); Percent Iron Saturation 20 % (15-50); Potassium 5.0 mmol/L (3.3-5.1); Sodium 137 mmol/L (135-145); Total Iron Binding Capacity 347 mcg/dL (228-428); Total Protein 7.8 g/dL (6.5-8.0); Unsaturated Iron Binding 279 ug/dL
[2025-06-08 16:58] LABS: Ferritin 43 ng/mL (10-250)
== END 2025-06-08 14:32 | disposition home or self-care (01) ==
LOC: HO.HHCL 14:31
PROVIDERS: Nurse Practitioner Family; PCP Internal Medicine Geriatric Medicine; Visit Provider Internal Medicine Geriatric Medicine
DX: Z00.00 Encounter for general adult medical examination without abnormal findings (principal); D50.8 Other iron deficiency anemias; M25.473 Effusion, unspecified ankle
CPT/HCPCS: 36415; 80053; 82728; 83540; 85025

== ENCOUNTER 2025-07-08 11:12 | Outpatient (REF) | payer OTHER, SELFPAY ==
--- OUTSIDE RECORDS SUMMARY | 2025-07-08 11:19 | XMS_ITS | Clinical Summary ---
Author Organization [address] [place] [address] Address [address] [place] [address] Phone Care Team Providers Care Rn Cardiac Name Role Phone Unavailable Primary Care Provider Unavailabl e Allergies No known active allergies Medications albuterol 2.5 mg /3 mL (0.083 %) nebulizer solution Take 3 mL (2.5 mg total) by nebulization every 6 (six) hours if needed for wheezing. 3 Active albuterol HFA (PROAIR HFA ; PROVENTIL HFA ; VENTOLIN HFA) 90 mcg/actuation inhaler Inhale 2 puffs by mouth every 6 (six) hours if needed for wheezing (cough). 4 Active clonazePAM (KlonoPIN) 1 mg tablet Take 1 tablet (1 mg total) by mouth 2 (two) times a day. Active ferrous sulfate 325 mg (65 mg iron) EC tablet Take 1 tablet (325 mg total) by mouth 1 (one) time each day. 3 Active fluticasone propionate (FLONASE) 50 mcg/actuation nasal spray Administer 2 sprays into each nostril 1 (one) time each day if needed for allergies. 4 Active fluticasone propion-salmet Salvador (ADVAIR DISKUS) 500-50 mcg/dose diskus inhaler Inhale 1 puff by mouth 2 (two) times a day if needed (SHORTNESS OF BREATH). 4 Active montelukast (SINGULAIR) 10 mg tablet Take 1 tablet (10 mg total) by mouth 1 (one) time each day if needed (asthma symptoms). 4 Active oxyCODONE-acet aminophen (PERCOCET) 7.5-325 mg per tablet Take 1 tablet by mouth 4 (four) times a day if needed for severe pain. Active zolpidem (AMBIEN) 10 mg tablet Take 1 tablet (10 mg total) by mouth at bedtime as needed for sleep. Active amitriptyline (ELAVIL) 25 mg tablet Take 1 tablet (25 mg total) by mouth at bedtime. 4 Active budesonide (PULMICORT) 0.5 mg/2 mL nebulizer solution Take 2 mL (0.5 mg total) by nebulization 2 (two) times a day if needed (asthma symptoms). 4 Active cyclobenzaprin e (FLEXERIL) 10 mg tablet Take 1 tablet (10 mg total) by mouth 3 (three) times a day if needed for muscle spasms. 4 Active SUMAtriptan (IMITREX) 25 mg tablet Take 1 tablet (25 mg total) by mouth if needed for migraine. 4 Active cyanocobalamin (VITAMIN B-12) 1,000 mcg tablet Take 1 tablet (1,000 mcg total) by mouth 1 (one) time each day. 5 Active metoprolol tartrate (LOPRESSOR) 25 mg tablet Take 1 tablet (25 mg total) by mouth 2 times daily. 4 Active ondansetron (ZOFRAN) 4 mg tablet Take 2 tablets (8 mg total) by mouth every 12 (twelve) hours if needed for nausea or vomiting. 4 Active doxycycline (VIBRAMYCIN) 100 mg capsule Take 1 capsule (100 mg total) by mouth 2 (two) times a day for 6 days. Take with at least 8 ounces (large glass) of water, do not lie down for 30 minutes after. Administer 2 hours before or after multivitamins, antacids, or other products containing polyvalent cations (i.e., calcium, iron, magnesium, selenium, zinc). 12 each 5 06/09/20 25 acetaminophen (TYLENOL) 500 mg tablet Take 2 tablets (1,000 mg total) by mouth 2 (two) times a day for 5 days. 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 Cervical spondylosis with radiculopathy 10/12/20 12 [...] Overview (09/06/2024): S/p surgery on 01/[address] [facility] [place] Quinter[place] Chronic back pain 12/30/2011 Anxiety [...] Encounters Date Type Department Care Team Description 06/13/2025 1:30 PM EDT Consult Plastic & Reconstructive Surgery - [place] [address] [place] [address] Marciano Murphy PA S/P breast augmentation (Primary Dx) 06/02/2025 12:47 AM EDT - 06/03/2025 1:28 PM EDT Hospital Encounter [facility] [address] [place] [phone] Andrew Ojeda MD Jones, Christopher, MD Flores, Carlos M, MD Japaridze, Anna, MD Breast abscess (Primary Dx) Discharge Disposition: Home or Self Care 05/08/2025 5:22 PM EDT - 05/08/2025 11:[address] [facility] [address] [place] [phone] Darryl Smith MD Millay, Scot A, MD Shortness of breath (Primary Dx); Leg swelling Discharge Disposition: Left Against Medical Advice from Last 3 Months Immunizations Name Administration Dates Next Due H1N1 Inj Preservative Free 12/04/2009 Hepatitis B (Ibtazqe-T-Zpopy , Recombivax HB-Adult) 19yo and older 09/15/2013,04/14/2013,03/10/2013,2008,10/06/2008,08/15/2008 Influenza trivalent, 0.5mL, preservative free (Fluarix; FluLaval; Fluzone) ages 6mo and older (Afluria) 3 years and older 09/08/2015,09/09/2014,08/03/2013,2011,03/02/2012,08/29/2011,08/09/2010,0 08/03/2009,08/11/2008 Tdap Tetanus diptheria acell ular pertussis (Boostrix; Adacel) 7yo and older 06/12/2010 Surgical History Surgery Date Site/Laterality Comments ESOPHAGOGASTRODUODENOSCOPY 11/13/10 PROCEDURE: MD ESOPHAGOGASTRODUODENOSCOPY TRANSORAL DIAGNOSTIC; COMMENT: normal roue en Y gastric bypass OTHER SURGICAL HISTORY PROCEDURE: MD UNLISTED PX ABDOMEN MUSCULOSKELETAL SYSTEM; COMMENT: Abdominoplasty OTHER SURGICAL HISTORY PROCEDURE: HISTORY OTHER; COMMENT: hist neck surgery on 01/2012 ESOPHAGOGASTRODUODENOSCOPY 12/17/2017 PROCEDURE: MD ESOPHAGOGASTRODUODENOSCOPY TRANSORAL DIAGNOSTIC ESOPHAGOGASTRODUODENOSCOPY 11/04/2017 PROCEDURE: MD ESOPHAGOGASTRODUODENOSCOPY TRANSORAL DIAGNOSTIC OTHER SURGICAL HISTORY PROCEDURE: [...] December [address] 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 (CMS/HCC V24) 11/16/2014 DX: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 (HCC) Meralgia paresthetica 09/01/2008 DX:Meralgi a paresthetica Migraine 01/04/2009 DX:Migraine Neck pain 10/12/2012 DX:Neck pain Diabetes mellitus ([facility] V 24, [facility] V28) 04/22/2019 DX:Diabetes mellitus (HCC) Gastric pain [...] drink = 0.6 oz pur e alcohol) social Interpersonal Safety Answer Date Record ed Physical Abuse 06/02/2025 Verbal Abuse 06/02/2025 Comments No Sex and Gender Information Value Date Recorded Sex Assigned at Not on file Legal Sex Female 4:38 AM EST Gender Identity Not on file Sexual Orientation Not on file Obstetrics History Last Filed Vital Signs Vital Sign Reading Time Taken Comments Blood Pressure 123/82 06/13/2025 1:34 PM EDT Pulse 91 06/13/2025 1:34 PM EDT Temperature 36.9 C (98.4 F) 06/03/2025 7:57 AM EDT Respiratory Rate 20 06/03/2025 7:57 AM EDT Oxygen Saturation 98% 06/03/2025 7:57 AM EDT Inhaled Oxygen Concentration - - Weight 76.6 kg (168 lb 12.8 oz) 06/13/2025 1:34 PM EDT Height 158.1 cm (5' 2.25 ) 06/13/2025 1:34 PM ED T Body Mass Index 30.63 06/13/2025 1:34 PM EDT Plan of Treatment Upcoming Encounters Date Type Department Care Team (Late st Contact Info) Description 11/02/2025 10:15 AM EST Office Visit Bariatric Surgery - [place] [address] [place] [phone] Abigail Dangelo PA [address] [facility] [address] [address] [place] [address] Health Maintenance Due Date Last Done Comments [...] 01/09/2024 Diabetes: Annual GFR (Glomerular Filtration Rate) 06/08/2026 06/08/2025, 06/03/2025, 06/01/2025, Additional history exists Hypertension/CHF/CAD Annual BMP Blood Test 06/08/2026 06/08/2025, 06/03/2025, 06/01/2025, Additional history exists Cholesterol Screening (Lipid Panel) [...] LAB HEMETOLOGY METHOD 06/03/2025 6:[address] [facility] RBC 3.60(L) 3.80 - 4.80 M/mcL LAB HEMETOLOGY METHOD 06/03/2025 6:[address] [facility] Hemoglobin 9.3(L) 11.5 - 16.0 g/dL LAB HEMETOLOGY METHOD 06/03/2025 6:[address] [facility] Hematocrit 32.3(L) 35.0 - 47.0 % LAB HEMETOLOGY METHOD 06/03/2025 6:[address] [facility] MCV 91.0 79.0 - 98.0 FL LAB HEMETOLOGY METHOD 06/03/2025 6:[address] [facility] MCH 26.2(L) 27.0 - 32.0 pcg LAB HEMETOLOGY METHOD 06/03/2025 6:59 AM [facility] MCHC 28.8(L) 32.0 - 37.0 g/dL LAB HEMETOLOGY METHOD 06/03/2025 6:[address] [facility] RDW 14.2 11.0 - 15.0 % LAB HEMETOLOGY METHOD 06/03/2025 6:59 AM [facility] Platelets 375 130 - 400 K/mcL LAB HEMETOLOGY METHOD 06/03/2025 6:59 AM [facility] MPV 10.8 7.0 - 11.0 FL LAB HEMETOLOGY METHOD 06/03/2025 6:59 AM [facility] NRBC 0.0 <1.0 % LAB HEMETOLOGY METHOD 06/03/2025 6:59 AM [facility] NRBC Absolute 0.00 <0.10 K/mcL LAB HEMETOLOGY METHOD 06/03/2025 6:59 AM [facility] Neutrophils Relative 48.8 % LAB HEMETOLOGY METHOD 06/03/2025 6:59 AM [facility] Lymphocytes Relative 39.0 % LAB HEMETOLOGY METHOD 06/03/2025 6:59 AM [facility] Monocytes Relative 6.7 % LAB HEMETOLOGY METHOD 06/03/2025 6:59 AM [facility] Eosinophils Relative 4.7 % LAB HEMETOLOGY METHOD 06/03/2025 6:59 AM [facility] Basophils Relative 0.6 % LAB HEMETOLOGY METHOD 06/03/2025 6:59 AM [facility] Immature Granulocytes Relative 0.2 % LAB HEMETOLOGY METHOD 06/03/2025 6:[address] [facility] Neutrophils Absolute 3.11 1.50 - 7.00 K/mcL LAB HEMETOLOGY METHOD 06/03/2025 6:[address] [facility] Lymphocytes Absolute 2.49 1.00 - 5.00 K/mcL LAB HEMETOLOGY METHOD 06/03/2025 6:[address] [facility] Monocytes Absolute 0.43 0.20 - 1.00 K/mcL LAB HEMETOLOGY METHOD 06/03/2025 6:[address] [facility] Eosinophils Absolute 0.30 0.00 - 0.50 K/[facility] LAB HEMETOLOGY METHOD 06/03/2025 6:[address] [facility] Basophils Absolute 0.04 0.00 - 0.20 K/mcL LAB HEMETOLOGY METHOD 06/03/2025 6:[address] [facility] Immature Granulocytes Absolute 0.01 0.00 - 0.03 K/[facility] LAB HEMETOLOGY [facility] Blood Venous blood specimen / Unknown Venipuncture / Unknown 06/03/2025 6:11 AM EDT 06/03/2025 6:38 AM EDT John Alvarez MD LAB BLOOD ORDERABLES Final Result [facility] [address] [place] [address], * (ABNORMAL) C-reactive protein (06/03/2025 6:11 AM EDT) Only the most recent of2 resultswithin the time period is included. C-Reactive Protein 0.78(H) <=0.50 mg/dL LAB CHEMISTRY METHOD 06/03/2025 7:[address] [facility] Blood Venous blood specimen / Unknown Venipuncture / Unknown 06/03/2025 6:11 AM EDT 06/03/2025 6:37 AM EDT us Abner Altman MD LAB BLOOD ORDERABLES Final Re sult Performing Organization Address [facility]/ZIP Co de Phone Number [facility] [address] [place] [address], [place] [phone] * Magnesium (06/03/2025 6:11 AM EDT) Only the most recent of2 resultswithin the time period is included. Magnesium 2.0 1.9 - 2.6 mg/dL LAB CHEMISTRY METHOD 06/03/2025 7:[address] [facility] Blood Venous blood specimen / Unknown Venipuncture / Unknown 06/03/2025 6:11 AM EDT 06/03/2025 6:37 AM EDT us Abner Altman MD LAB BLOOD ORDERABLES Final Re sult Performing Organization Address [facility] de Phone Number [facility] [address] [place] [address], [place] [phone] * Ferritin (06/03/2025 6:11 AM EDT) Ferritin 27 8 - 252 ng/mL LAB CHEMISTRY METHOD 06/03/2025 8:[address] [facility] Blood Venous blood specimen / Unknown Venipuncture / Unknown 06/03/2025 6:11 AM EDT 06/03/2025 6:37 AM EDT us Trish Roman MD LAB BLOOD ORDERABLES Final Res ult Performing Organization Address [facility]/ZIP Co de Phone Number [facility] [address] [place] [address], [place] [phone] * Basic metabolic panel (06/03/2025 6:11 AM EDT) Only the most recent of2 resultswithin the time period is included. Sodium 141 133 - 145 mmol/L LAB CHEMISTRY METHOD 06/03/2025 7:17 AM [facility] Potassium 4.3 3.5 - 5.5 mmol/L LAB CHEMISTRY METHOD 06/03/2025 7:17 AM [facility] Chloride 107 96 - 110 mmol/L LAB CHEMISTRY METHOD 06/03/2025 7:17 AM [facility] CO2 29 21 - 32 mmol/L LAB CHEMISTRY METHOD 06/03/2025 7:17 AM [facility] Anion Gap 5 3 - 11 LAB CHEMISTRY METHOD 06/03/2025 7:17 AM [facility] Glucose 74 70 - 100 mg/dL LAB CHEMISTRY METHOD 06/03/2025 7:17 AM [facility] BUN 9 5 - 25 mg/dL LAB CHEMISTRY METHOD 06/03/2025 7:17 AM [facility] Creatinine 0.57 0.50 - 1.10 mg/dL LAB CHEMISTRY METHOD 06/03/2025 7:17 AM [facility] eGFR 113 >=60 mL/min/1. 73m2 LAB CHEMISTRY METHOD 06/03/2025 7:17 AM [facility] Comment:Calculation based on the Chronic Kidney Disease Epidemiology Collaboration (CKD-EPI) equation refit without adjustment for race. BUN/Creatinine Ratio 15.8 LAB CHEMISTRY METHOD 06/03/2025 7:17 AM [facility] Calcium 9.0 8.5 - 10.5 mg/dL LAB CHEMISTRY METHOD 06/03/2025 7:17 AM [facility] Blood Venous blood specimen / Unknown Venipuncture / Unknown 06/03/2025 6:11 AM EDT 06/03/2025 6:37 AM EDT John Alvarez MD LAB BLOOD ORDERABLES Final Result Performing Organization Address [facility] Co de Phone Number [facility] [address] [place] [address], [place] [phone] * Culture wound deep (06/02/2025 11:00 AM EDT) Culture, Wound No growth at 3 days 06/05/2025 8:[address] [facility] Gram Stain Result No polymorphonuclear leukocytes, No epithelial cells, and No organisms noted 06/05/2025 8:[address] [facility] Aspirate Right breast structure / Unknown Non-blood Collection / Unknown 06/02/2025 11:00 AM EDT 06/02/2025 11:57 AM EDT Mary CANNON LAB MICROBIOLOGY - GENERAL OR DERABLES Final Result Performing Organization Address [facility] de Phone Number [facility] [address] [place] [address], [place] [phone] * US Guided Soft Tissue Fluid Drain [...] Signed Date: 06/02/2025 11:38 ET Workstation ID: [id number] Transcribed By: Self Edit Transcribed Date: 06/02/2025 [...] the incision. Patient provided informed consent via ambulance operations supervisor for aspiration. The right chest wall was prepped and draped in usual sterile fashion. 5 mL of 1% LIDOCAINE was used for local anesthesia. A 5-Serbian one-step catheter was advanced under continuous ultrasound [...] the incision. Patient provided informed consent via ambulance operations supervisor for aspiration.The right chest wall was prepped and draped in usual sterile fashion. 5mL of 1% LIDOCAINE was used for local anesthesia. A 5-Serbian one-stepcatheter was advanced under continuous ultrasound guidance [...] Signed Date: 06/02/2025 11:38 ET Workstation ID: [id number] Transcribed By: Self Edit Transcribed Date: 06/02/2025 11:34 ET Abner Altman MD IMG US PROCEDURES Final Resul t * MRSA molecular study (06/02/2025 6:51 AM EDT) MRSA Screen PCR Not Detected Not Detected LAB MICROBIOLOGY METHOD 06/02/2025 8:[address] [facility] Swab Both anterior nares / Unknown Non-blood Collection / Unknown 06/02/2025 6:51 AM EDT 06/02/2025 7:27 AM EDT John Alvarez MD LAB MICROBIOLOGY - GENERAL ORDERABLES Final Result [facility] [address] [place] [address], * CT Chest w Contrast (06/02/2025 1:55 [...] procedure / Unknown 06/02/2025 1:37 AM EDT us Andrew Vega MD POINT OF CARE TEST E NTER/EDIT ORDERABLES Final Result * (ABNORMAL) Iron and TIBC (06/01/2025 8:44 PM EDT) Iron 29(L) 40 - 150 mcg/dL LAB CHEMISTRY METHOD 06/02/2025 5:[address] [facility] TIBC 423 250 - 450 mcg/dL LAB CHEMISTRY METHOD 06/02/2025 5:[address] [facility] Iron Saturation 7(L) 15 - 50 % LAB CHEMISTRY METHOD 06/02/2025 5:[address] [facility] Blood Venous blood specimen / Unknown Venipuncture / Unknown 06/01/2025 8:44 PM EDT 06/01/2025 8:51 PM EDT John Alvarez MD LAB BLOOD ORDERABLES Final Result [facility] [address] [place] [address], * (ABNORMAL) Reticulocyte count (06/01/2025 8:44 PM EDT) Pathologist [facility] Retic Ct Abs 0.080 0.030 - 0.090 M/mcL LAB HEMETOLOGY METHOD 06/02/2025 5:[address] [facility] Retic Ct Pct 2.1(H) 0.7 - 1.7 % LAB HEMETOLOGY METHOD 06/02/2025 5:[address] [facility] Immature Retic Fract 15.8 2.3 - 15.9 % LAB HEMETOLOGY METHOD 06/02/2025 5:[address] [facility] Reticulocyte Hemoglobin 27.8(L) >29.0 pcg LAB HEMETOLOGY METHOD 06/02/2025 5:[address] [facility] Blood Venous blood specimen / Unknown Venipuncture / Unknown 06/01/2025 8:44 PM EDT 06/01/2025 8:51 PM EDT John Alvarez MD LAB BLOOD ORDERABLES Final Result [facility] [address] [place] [address], [place] [phone] * ECG-Annotated (05/09/2025) Provider Onbase MD ECG ORDERABLES Final Result * CT Angio [...] Signed Date: 05/09/2025 00:09 ET Workstation ID: [id number] Transcribed By: Self Edit Transcribed Date: 05/09/2025 [...] Signed Date: 05/09/2025 00:09 ET Workstation ID: [id number] Transcribed By: Self Edit Transcribed Date: 05/09/2025 [...] Signed Date: 05/09/2025 08:55 ET Workstation ID: [id number] Transcribed By: Self Edit Transcribed Date: 05/09/2025 [...] Signed Date: 05/09/2025 08:55 ET Workstation ID: [id number] Transcribed By: Self Edit Transcribed Date: 05/09/2025 08:54 ET Rommarvel Dejesus MD IMG XR PROCEDURES Final Result * ECG 12 lead (05/08/2025 5:03 PM EDT) Only the most recent of2 resultswithin the time period is included. Ventricular Rate ECG 92 BPM GEMUSE Atrial Rate 92 BPM GEMUSE P-R Interval 150 ms GEMUSE QRS Duration 80 ms GEMUSE Q-T Interval 356 ms GEMUSE QTc 440 ms GEMUSE P Wave [place] 41 degrees GEMUSE R [place] 44 degrees GEMUSE T [place] 34 degrees GEMUSE ECG Interpretation Poor data quality, interpretation may be adversely affected Normal sinus rhythm Normal ECG When compared with ECG of 08-MAY-2025 15:29, No significant change was found Confirmed by MD Randy, John ([id number]) on 05/09/2025 9:33:22 AM GEMUSE 05/08/2025 5:03 PM EDT 05/09/2025 9:33 AM EDT Rommarvel Deejsus MD ECG ORDERABLES Final Result GEMUSE * Troponin I high sensitivity (05/08/2025 5:00 PM EDT) Only the most recent of2 resultswithin the time period is included. [facility] High Sensitivity Troponin I 3 <=54 ng/L LAB CHEMISTRY METHOD 05/08/2025 5:[address] [facility] Blood Venous blood specimen / Unknown Venipuncture / Unknown 05/08/2025 5:00 PM EDT 05/08/2025 5:[address] [facility] - 05/08/2025 5:43 PM EDT High levels of biotin in samples may falsely decrease hsTroponin values. Use caution when interpreting hsTroponin results in patients taking biotin who exhibit renal impairment (eGFR <60) or in patients taking more than 20 mg/day of biotin. us Rom Dejesus MD LAB BLOOD ORDERABLES Final Resu lt Performing Organization Address [facility] Co de Phone Number [facility] [address] [place] [address], [place] [phone] * B-type natriuretic peptide (05/08/2025 3:33 PM EDT) [facility] BNP 12 <=100 pcg/mL LAB CHEMISTRY METHOD 05/08/2025 4:[address] [facility] Blood Venous blood specimen / Unknown Venipuncture / Unknown 05/08/2025 3:33 PM EDT 05/08/2025 3:50 PM EDT us Rom Dejesus MD LAB BLOOD ORDERABLES Final Resu lt Performing Organization Address [facility] Co de Phone Number [facility] [address] [place] [address], [place] [phone] * Lipase (05/08/2025 3:33 PM EDT) Lipase 15 13 - 75 unit/L LAB CHEMISTRY METHOD 05/08/2025 4:[address] [facility] Blood Venous blood specimen / Unknown Venipuncture / Unknown 05/08/2025 3:33 PM EDT 05/08/2025 3:50 PM EDT us Rom Lisa Dejesus MD LAB BLOOD ORDERABLES Final Resu lt [facility] [address] [place] [address], [place] [phone] * (ABNORMAL) Comprehensive metabolic panel (05/08/2025 3:33 PM EDT) Pathologist [facility] Sodium 140 133 - 145 mmol/L LAB CHEMISTRY METHOD 05/08/2025 4:33 PM [facility] Potassium 4.5 3.5 - 5.5 mmol/L LAB CHEMISTRY METHOD 05/08/2025 4:33 PM [facility] Chloride 105 96 - 110 mmol/L LAB CHEMISTRY METHOD 05/08/2025 4:33 PM [facility] CO2 28 21 - 32 mmol/L LAB CHEMISTRY METHOD 05/08/2025 4:33 PM [facility] Anion Gap 7 3 - 11 LAB CHEMISTRY METHOD 05/08/2025 4:33 PM [facility] Glucose 97 70 - 100 mg/dL LAB CHEMISTRY METHOD 05/08/2025 4:33 PM [facility] BUN 13 5 - 25 mg/dL LAB CHEMISTRY METHOD 05/08/2025 4:33 PM [facility] Creatinine 0.72 0.50 - 1.10 mg/dL LAB CHEMISTRY METHOD 05/08/2025 4:33 PM [facility] eGFR 104 >=60 mL/min/1. 73m2 LAB CHEMISTRY METHOD 05/08/2025 4:33 PM [facility] Comment:Calculation based on the Chronic Kidney Disease Epidemiology Collaboration (CKD-EPI) equation refit without adjustment for race. BUN/Creatinine Ratio 18.1 LAB CHEMISTRY METHOD 05/08/2025 4:[address] [facility] Calcium 8.3(L) 8.5 - 10.5 mg/dL LAB CHEMISTRY METHOD 05/08[facility]2025 4:[facility] AST (SGOT) 34 10 - 42 unit/L LAB CHEMISTRY METHOD 05/08/2025 4:[address] [facility] ALT (SGPT) 55 10 - 60 unit/L LAB CHEMISTRY METHOD 05/08/2025 4:[address] [facility] Alkaline Phosphatase 103 42 - 121 unit/L LAB CHEMISTRY METHOD 05/08/2025 4:[address] [facility] Total Protein 6.2 6.0 - 8.0 g/dL LAB CHEMISTRY METHOD 05/08/2025 4:[address] [facility] Albumin 2.7(L) 3.2 - 5.0 g/dL LAB CHEMISTRY METHOD 05/08/2025 4:[address] [facility] Total Bilirubin 0.2 0.0 - 1.4 mg/dL LAB CHEMISTRY METHOD 05/08/2025 4:[address] [facility] Blood Venous blood specimen / Unknown Venipuncture / Unknown 05/08/2025 3:33 PM EDT 05/08/2025 3:50 PM EDT us Rom B Oleg PEARCE LAB BLOOD ORDERABLES Final Resu lt [facility] [address] [place] [address], * SAJI SCREENING DIGITAL (01/09/2024 12:12 PM EST) Anatomical Region Laterality Modality Mammography 01/07/2024 10:2 9 AM EST Narrative 01/09/2024 12:12 PM [facility] Diagnostic Imaging Department [address] [place] [id number] Patient: REYESMADHU D.O.B./Age/Sex: 1975 - 48 - F Unit#: [id number] Location/Status: SPDIMA/REG CLI Mnemonic/Ordering Site: [facility] Ordering Physician: TONIA JOHNS MD [facility] Screening Digital - 01/07/24 - 1110 Report Status:Signed EXAM: [facility] Screening Digital EXAM DATE AND TIME: [...] breast were obtained. Computer aided detection with AVIcode 3D 3.1 was employed. TISSUE DENSITY: b. [...] Procedure Note Izabella Gonzalez MD - 07/12/2024 [facility] [place] [facility] Diagnostic Imaging Department [address] [place] [address] Patient: MADHU REYESO.B./Age/Sex: 1975 - 48 - F Unit#: [id number] Location/Status: [facility] CLI Mnemonic/Ordering Site: [facility] Ordering Physician: NAME,TONIA PEARCE [facility] Screening Digital - 01/07/24 - 1110 Report Status:Signed EXAM: [facility] Screening Digital EXAM DATE AND TIME: [...] right breast wereobtained. Computer aided detection with iCAD ProFound AI 3D 3.1 was employed. TISSUE DENSITY: b. [...] 01/09/24 1153 Sign date/Time: 01/09/24 1212 Result [facility] Tonia Johns MD IMG BI PROCEDURES Final Result * Hemoglobin A1c (08/02/2021) Pathologist [facility] Hemoglobin A1C 6.5 <=6.5 % Blood Venous blood specimen / Unknown Result [facility] Provider LAB BLOOD ORDERABLES Toshia l Result * Lipid panel (08/02/2021) Pathologist [facility] LDL/HDL Ratio 3 0 - 4 Triglycerides 118 0 - 150 mg/dL Cholesterol 176 0 - 200 mg/dL HDL 56 >=40 mg/dL LDL Cholesterol 97 0 - 100 mg/dL Blood Venous blood specimen / Unknown Result [facility] Provider LAB BLOOD ORDERABLES Toshia l Result * Hepatitis C Screening (02/17/2014) Pathologist [facility] Hepatitis C Screening Abstracted Result [facility] Historical Provider HEALTH MAINTENANCE Final Result from Last 3 Months or Most Recently Relevant to Health Maintenance Insurance [employer] MEDICARE Member Subscriber Plan / Payer (Ef fective 2018-Present) Name:MADHU REYES Relation to Subscriber:Self Name:Madhu Reyes Payer ID:[id number] Group ID:[id number] Type:Not on file Address: [place] [address] [address] [id number] Advance Directives * Full Code - Default (Latest Code Status on File) Date Activated Date Inactivated Comments 06/02/2025 5:56 AM 06/03/2025 3:34 PM This is orde r is used when code status has not been discussed with the patient, or code status is otherwise unknown/unconfirmed To update the patient's code status, place a code status order. Do not modify or discontinue any currently active code status orders.
--- OUTSIDE RECORDS SUMMARY | 2025-07-08 11:19 | XMS_ITS | Encounter Summary ---
Author Organization [employer] Address [address] [facility] [address] [place] [address] Care Team Providers Care Wax Engraver Name Role Phone Name, Yazan PEARCE Primary Care Provider [phone] Reason for Visit * Reason Comments Med Refill Encounter Details Date Type Department Care Team ([facility] st Contact Info) Description 10/07/2023 Refill [facility] MEDICINE [address] [place], [place] [phone] Jen Tate, KARINA [address] [place] [address] Social History Tobacco Use Types Packs/Day Years [...] Care Team (Late st Contact Info) Description 09/01/2025 11:30 AM EDT Clinical Support [address] [address] Mary Scott RN 10/06/2025 9:45 AM EST Office Visit [address] [address] Name, MD Yazan [address] [place] [phone] documented as of this encounter Visit Diagnoses Not on filedocumented in this encounter Additional Health Concerns Assessment Noted Time PHQ-9 Depression Total Score: 6 11/12/20 22 11:11 AM EST documented as of this encounter Care Teams Wax Engraver Relationship Specialty Start Date End Date Name, MD Yazan [address] [place] [phone] PCP - General Family Medicine 12/25/15 documented as of this encounter
[2025-07-08 13:51] LABS: Anion Gap 15 (12-20); Blood Urea Nitrogen 13 mg/dL (9-16); Calcium 9.7 mg/dL (8.4-10.2); Carbon Dioxide 24 mmol/L (22-29); Chloride 105 mmol/L (96-108); Cholesterol 156 mg/dL (<200); Estimated Glomerular Filt Rate > 60; HDL Cholesterol 57 mg/dL (>40); Potassium 4.7 mmol/L (3.3-5.1); Sodium 139 mmol/L (135-145); Triglycerides 79 mg/dL (<150)
== END 2025-07-08 11:13 | disposition home or self-care (01) ==
LOC: HO.HHCL 11:12
PROVIDERS: Nurse Practitioner Family; PCP Internal Medicine Geriatric Medicine; Visit Provider Internal Medicine Geriatric Medicine
DX: Z00.00 Encounter for general adult medical examination without abnormal findings (principal); Z13.220 Encounter for screening for lipoid disorders
CPT/HCPCS: 36415; 80048; 80061

== ENCOUNTER 2025-09-26 11:37 | Outpatient (REF) | payer OTHER, SELFPAY ==
--- OUTSIDE RECORDS SUMMARY | 2025-09-21 09:30 | XMS_ITS | Encounter Summary ---
Author Organization [employer] Address [address] [facility] [address] 7[address] [place] [address] Care Team Providers Care Prosthetic Lab Technician Name Role Phone Name, Yazan PEARCE Primary Care Provider [phone] Reason for Visit * Reason Comments HISTOLOGICAL ILLUSTRATOR Renewal Encounter Details Date Type Department Care Team (Latest Contact Info) Description 09/21/2025 10:30 AM EDT Clinical Support [facility] [address] [place] [address] Mary Scott RN Long-term current use of opiate analgesic (Primary Dx) Social History Tobacco Use Types [...] AM EDT documented as of this encounter Progress Notes * Mary Scott RN - 09/21/2025 10:30 AM EDT SUBJECTIVE: Madhu Delgado is a 50 y.o. year old female who presents for HISTOLOGICAL ILLUSTRATOR Renewal Preferred language for medical information: Malawian Interpreted needed: Yes Marine Resource Economist service utilized: [place] interpretdarrel Marine Resource Economist name: Katelyn Ramirez #: [id number] Madhu Delgado does report adherence to Percocet 7.5 mg, take 1 tablet every 6 hours PRN, last refilled 09/12/2025. Pt states she takes 4 doses a day, rarely sometimes at night if she can't sleep she will take 1/2-1extra dose. The patient last took Percocet on: 09/21/2025 Medication is: 75% % effective at alleviating pain. 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 Vital Signs Pain Score: 6 Pain Loc: Back Pain Education: Yes Additional pain site: lower back, right foot and left arm. C/O getting headaches as well. Last PCP visit: 07/08/2025 BPI completed on: 09/21/2025 , pain severity score: 9, activity interference score: 8 BPI completed on: 04/19/2025 , pain severity score: 8, activity interference score: 8 Controlled substance agreement signed: Controlled Substance Agreement 09/21/2025 Controlled substance agreement: signed and up to date HISTOLOGICAL ILLUSTRATOR Tier: 2 Current Medications[1] Smoking status: Denies ETOH use: Yes, rare 2 beers Illicit substances: Denies Marijuana use: No Lab Results Component Value Date POCTHC Negative 09/21/2025 POCCOCAINEUR Negative 09/21/2025 POCOPIATEUR Negative 09/21/2025 DOAUR Negative 09/21/2025 POCAMPHETAMI Negative 09/21/2025 POCBENZODIUR Positive (A) 09/21/2025 POCBARBSCRN Negative 09/21/2025 POCMETHADOUR Negative 09/21/2025 POCBUPSCRN Negative 09/21/2025 POCTCAUR Positive (A) 09/21/2025 POCMDMAUR Negative 09/21/2025 POCOXYCODONE Positive (A) 09/21/2025 POCPHENCYCUR Negative 09/21/2025 PROPOXUR Negative 09/21/2025 FENTANYLURIN Negative 09/21/2025 ASSESSMENT: Encounter Diagnosis Name Primary? Long-term current use of opiate analgesic Yes PLAN: Information on pain group given: Yes Information on acupuncture given: Yes Narcan education provided: Yes Narcan prescription: inactive- refill request submitted to provider Will update PCP with BPI scoring and request narcan renewal Controlled substance agreement reviewed and signed. A copy was given to the patient. Madhu Delgado will continue taking medications as prescribed and has verbalized understanding of care plan. Future Appointments Date Time Provider Department Center 10/06/2025 9:45 AM Yazan Pruitt MD MEDICINE [facility] 12/22/2025 10:30 AM Mary Scott, RN MEDICINE [facility] Mary Scott, RN [1] Current Outpatient Medications: naloxone (Narcan) 4 mg/0.1 mL nasal spray, Administer 1 spray (4 mg) into affected nostril(s) if needed for opioid reversal., Disp: 2 each, Rfl: 2 oxyCODONE-acetaminophen (Percocet) 7.5-325 MG tablet, Take 1 tablet by mouth every 6 (six) hours ifneeded for severe pain for up to 28 days., Disp: 112 tablet, Rfl: 0 Acetaminophen Extra Strength 500 MG tablet, TAKE ONE TABLET BY MOUTH EVERY 7 TO 8 HOURS NEEDED .DO NOT EXCEED 8 TABLETS PER 24 HOURS. (VIAL), Disp: 90 tablet, Rfl: 11 albuterol (2.5 MG/3ML) 0.083% nebulizer solution, Take 3 mL (2.5 mg) by nebulization every 6 (six) hours if needed for wheezing or shortness of breath., Disp: 75 mL, Rfl: 1 albuterol 108 (90 Base) MCG/ACT inhaler, INHALE 2 PUFFS BY MOUTH EVERY 4 HOURS NEEDED FOR WHEEZING/COUGH (BULK), Disp: 8.5 g, Rfl: 12 amitriptyline (Elavil) 25 MG tablet, TAKE 1 TABLET(25 MG) BY MOUTH AT BEDTIME, Disp: 30 tablet, Rfl: 0 Ascorbic Acid (vitamin C) 500 MG tablet, TAKE ONE TABLET BY MOUTH EVERY DAY ^1R1, Disp: 28 tablet, Rfl: 11 budesonide (Pulmicort) 0.5 MG/2ML nebulizer solution, INHALE THE CONTENTS OF 1 VIAL VIA NEBULIZER ONCE DAILY (BULK), Disp: 60 mL, Rfl: 11 cholecalciferol (Vitamin D3) 25 MCG (1000 UT) tablet, TAKE ONE TABLET BY MOUTH EVERY DAY ^1R1, Disp: 30 tablet, Rfl: 11 clonazePAM (KlonoPIN) 1 MG tablet, Take 1 mg by mouth if needed in the morning and at bedtime., Disp: , Rfl: cyanocobalamin (Vitamin B-12) 1000 MCG tablet, TAKE ONE TABLET BY MOUTH EVERY DAY, Disp: 28 tablet,Rfl: 11 cyclobenzaprine (Flexeril) 10 MG tablet, TAKE 1 TABLET BY MOUTH UP TO THREE TIMES DAILY NEEDED, Disp: 60 tablet, Rfl: 0 Diclofenac Sodium 1 % gel, Apply 2 g topically if needed in the morning and at bedtime (pain)., Disp: 150 g, Rfl: 3 docusate sodium (Colace) 100 MG capsule, TAKE ONE CAPSULE BY MOUTH TWICE A DAY ^1R1,1R4, Disp: 60 capsule, Rfl: 11 DULoxetine (Cymbalta) [address] capsule, Take 1 capsule by mouth Once per day., Disp: , Rfl: estradiol (Estrace) 0.1 MG/GM vaginal cream, Apply 1 gram vaginally daily x 2 weeks, then decrease to 3 times a week, Disp: 42.5 g, Rfl: 12 famotidine (Pepcid) 20 MG tablet, Take 1 tablet by mouth Once per day., Disp: , Rfl: ferrous sulfate 325 (65 Fe) MG EC tablet, Take 1 tablet (325 mg) by mouth every other day. Do not crush, chew, or split., Disp: 15 tablet, Rfl: 2 fexofenadine (Brittney) 180 MG tablet, TAKE ONE TABLET BY MOUTH EVERY DAY (VIAL), Disp: 30 tablet, Rfl: 11 fluticasone (Flonase) 50 MCG/ACT nasal spray, INSTILL 1 SPRAY IN EACH NOSTRIL ONCE DAILY (BULK), Disp: 16 g, Rfl: 3 Fluticasone-Salmeterol 500-50 MCG/ACT aerosol powder , INHALE ONE PUFF BY MOUTH TWICE A DAY ( EVERYMORNING AND EVERY EVENING ) APPROXIMATELY 12 HOURS APART (BULK), Disp: 60 each, Rfl: 11 ketoconazole (NIZOral) 2 % shampoo, APPLY TWICE WEEKLY AT LEAST 3 DAYS IN BETWEEN EACH SHAMPOO., Disp: 120 mL, Rfl: 1 lidocaine (Xylocaine) 5 % ointment, Apply topically if needed for mild pain., Disp: 50 g, Rfl: 1 metoprolol tartrate (Lopressor) 25 MG tablet, TAKE 1 TABLET(25 MG) BY MOUTH TWICE DAILY, Disp: 60 tablet, Rfl: 5 montelukast (Singulair) 10 MG tablet, TAKE ONE TABLET BY MOUTH AT BEDTIME^1R4, Disp: 90 tablet, Rfl: 3 ondansetron (Zofran) 4 MG tablet, TAKE ONE TABLET BY MOUTH TWICE A DAY (VIAL), Disp: 60 tablet, Rfl: 11 pantoprazole (ProtoNix) 40 MG EC tablet, Take 40 mg by mouth in the morning and 40 mg in the evening. Do not crush, chew, or split., Disp: , Rfl: sucralfate (Carafate) 1 GM/10ML suspension, Take 10 mL by mouth if needed at bedtime., Disp: , Rfl: SUMAtriptan (Imitrex) 25 MG tablet, TAKE 1 TABLET BY MOUTH AFTER ONSET OF MIGRAINE.MAY REPEAT AFTER2 HOURS IF HEADACHE RETURNS. DO NOT EXCEED 4 TABLETS IN 24 HOURS (VIAL), Disp: 10 tablet, Rfl: 12 valACYclovir (Valtrex) 1 g tablet, TAKE 1 TABLET BY MOUTH EVERY DAY, Disp: 30 tablet, Rfl: 0 zolpidem (Ambien) 10 MG tablet, , Disp: , Rfl: documented in this encounter Plan of Treatment Upcoming Encounters Date Type Department Care Team (Late st Contact Info) Description 10/06/2025 9:45 AM EST Office Visit [address] [address] Name, MD Yazan [address] [place] [id number] 12/22/2025 10:30 AM EST Clinical Support [address] [address] Mary Scott RN documented as of this encounter Procedures Procedure Name Priority Date/Time Associated Diagnosis Comments POCT LUDA-14 URINE DRUG SCREEN Routine 09/21/2025 10:41 AM EDT Long-term current use of opiate analgesic documented in this encounter Results * (ABNORMAL) POCT LUDA-14 Urine Drug Screen (09/21/2025 10:41 AM EDT) THC Negative Negative Cocaine Screen, Urine Negative Negative Opiate Screen, Urine Negative Negative Methamphetamine Screen Urine Negative Negative Amphetamine Screen, Urine Negative Negative Benzodiazepines Screen, Urine Positive(A) Negative Comment:Receives from outsnv e provider Barbiturate Screen, Urine Negative Negative Methadone Screen, Urine Negative Negative Buprenophine Screen, Urine Negative Negative TCA, Urine Positive(A) Negative MDMA Urine Negative Negative ng/mL Oxycodone Screen, Urine Positive(A) Negative Comment:HISTOLOGICAL ILLUSTRATOR pt on OXycodone Phencyclidine (PCP), Urine Negative Negative Propoxyphene, Urine Negative Negative Fentanyl, Urine Negative Negative Urine Urine specimen obtained by clean catch procedure / Unknown 09/21/2025 10:41 AM EDT Narrative Mary Scott, RN - 09/21/2025 10:41 AM EDT UTOX cup Lot#[id number] Exp. 08/30/26 Internal Pass Control Yazan Pruitt MD POINT OF CARE TEST ENTER/EDIT OR DERABLES Final Result documented in this encounter Visit Diagnoses Diagnosis Long-term current use of opiate analgesic- Primary Encounter for long-term (current) use of other medications documented in this encounter Additional Health Concerns Assessment Noted Time PHQ-9 Depression Total Score: 8 12/15/19 25 4:05 PM EST documented as of this encounter Care Teams Prosthetic Lab Technician Relationship Specialty Start Date End Date Name, MD Yazan [address] [place] [address] PCP - General Family Medicine 12/25/15 documented as of this encounter
--- OUTSIDE RECORDS SUMMARY | 2025-09-23 09:30 | XMS_ITS | Encounter Summary ---
Author Organization [employer] Address [address] [facility] [address] [place] [address] Care Team Providers Care Belt Cutter Name Role Phone Name, Yazan PEARCE Primary Care Provider [phone] Reason for Visit * Reason Comments Immunizations Encounter Details Date Type Department Care Team ([facility] st Contact Info) Description 09/23/2025 10:30 AM EDT Immunization [facility] MEDICINE [address] [place] [address] Encounter for vaccination; Encounter for immunization Social History Tobacco Use Types Packs/Day Years [...] as of this encounter Progress Notes * Letitia Gardner RN - 09/23/2025 10:30 AM EDT S: Madhu Delgado is here for Immunizations Madhu Delgado denies feeling sick today. Patient has no known allergies. O: Influenza 0.5ml, administered to right deltoid. Covid 0.5ml, administered to left deltoid. Injection was tolerated well. No adverse reaction noted. A copy of the VIS informational sheet was provided. Immunization History Administered Date(s) Administered Hep B, Unspecified 08/15/2008, 10/06/2008, 04/10/2009 Hep B, adult 08/15/2008, 10/06/2008, 04/10/2009, 03/10/2013, 04/14/2013, 09/15/2013, 08/09/2021 Influenza injectable quadrivalent IIV4 with preservative 09/08/2015, 12/25/2015, 08/13/2016, 12/03/2017, 08/12/2018, 09/01/2019 Influenza injectable quadrivalent preservative free 10/18/2020, 08/09/2021, 08/27/2022, 09/26/2023 Influenza, IIV3, injectable 08/11/2008, 08/03/2009, 08/09/2010, 09/11/2010, 08/29/2011, 03/02/2012,10/12/2012, 08/03/2013, 09/09/2014, 09/08/2015, 08/12/2017, 10/18/2020 Influenza, seasonal, injectable, preservative free 08/11/2008, 08/03/2009, 08/09/2010, 08/29/2011, 03/02/2012, 10/12/2012, 08/03/2013, 09/09/2014, 09/08/2015, 08/26/2024, 09/23/2025 Moderna Covid-19 Vaccine 12+ 02/14/2021, 03/14/2021, 10/25/2021 Novel [id number], preservative-free 12/04/2009 Pfizer Covid-19 Vaccine 12+ 09/26/2023, 09/27/2024, 09/23/2025 Pfizer Covid-19 Vaccine 12+ Bivalent 08/27/2022 Pneumococcal Conjugate PCV 20 08/26/2024 Pneumococcal Polysaccharide PPSV23 09/11/2010, 02/04/2018 TD (adult), 2 Lf tetanus toxoid, preservative free, adsorbed 06/02/2020 Td (adult), 5 Lf tetanus toxoid, preservative free, adsorbed 01/18/2015 Tdap 06/12/2010, 04/26/2018 A: Encounter for Immunization P: Madhu Delgado to follow up as needed. Letitia Gardner RN documented in this encounter Plan of Treatment Upcoming Encounters Date Type Department Care Team (Late st Contact Info) Description 10/06/2025 9:45 AM EST Office Visit [address] [address] Name, MD Yazan [address] [place] [id number] 12/22/2025 10:30 AM EST Clinical Support [address] [address] Mary Scott RN documented as of this encounter Visit Diagnoses Diagnosis Encounter for vaccination Encounter for immunization documented in this encounter Additional Health Concerns Assessment Noted Time PHQ-9 Depression Total Score: 8 12/15/19 25 4:05 PM EST documented as of this encounter Care Teams Belt Cutter Relationship Specialty Start Date End Date Name, MD Yazan [address] [place] [address] PCP - General Family Medicine 12/25/15 documented as of this encounter
--- NOTE | ~2025-09-26 | XR_ITS ---
EXAMINATION: XR SHOULDER, LEFT CLINICAL INFORMATION: One week of left shoulder pain with drecreased ROM, no trauma COMPARISON: None available. TECHNIQUE: AP external rotation, Grashey, scapular Y, and axillary views of the left shoulder. FINDINGS: Normal bone mineralization. No fracture, dislocation, or suspicious bone lesion. Normal alignment. The glenohumeral joint is normal. The AC joint is normal. There is a neutral lateral acromion. No undersurface spurring. The subacromial space is preserved. Remainder of the soft tissue and bony structures appear normal. XR/XR shoulder LT min 2V IMPRESSION: Normal left shoulder. Electronically signed by: Dalton Hanna MD 09/26/2025 12:20 PM RANJITH
--- OUTSIDE RECORDS SUMMARY | 2025-09-26 11:00 | XMS_ITS | Encounter Summary ---
Author Organization [employer] Address [address] [place] [address] 7t [place] [address] Care Team Providers Care Clutch Rebuilder Name Role Phone Yazan Pruitt MD Primary Care Provider [phone] Reason for Referral * Consultation (Routine) - Closed Specialty Diagnoses / Procedures Referred By Contac t Referred To Contact Physical Therapy Diagnoses Acute pain of left shoulder Yazan Pruitt MD [address] [place] [phone] Phone: tel: fax: [facility] [address] [place] [address] Phone: tel: fax: Referral ID Status Reason Start Date Expiration Date V isits Requested Visits Authorized [id number] Closed Specialty Services Required 09/26/2025 09/26/2026 1 1 Reason for Visit * Reason Comments left shoulder pain Encounter Details Date Type Department Care Team (Late st Contact Info) Description 09/26/2025 11:00 AM EST Office Visit [facility] MEDICINE [address] [place] [address] [phone] Yazan Pruitt MD [address] [place] [address] Acute pain of left shoulder (Primary Dx); Prediabetes Social History Tobacco Use Types Packs/Day Years [...] Sign Reading Time Taken Comments Blood Pressure 118/68 09/26/2025 11:15 AM EST Pulse 85 09/26/2025 11:15 AM EST Temperature 36.6 C (97.9 F) 09/26/2025 11:15 AM EST Respiratory Rate 16 09/26/2025 11:15 AM EST Oxygen Saturation 98% 09/26/2025 11:15 AM EST Inhaled Oxygen Concentration - - Weight 74.5 kg (164 lb 4 oz) 09/26/2025 11:15 AM EST Height 160 cm (5' 3 ) 09/26/2025 11:15 AM EST Body Mass Index 29.1 09/26/2025 11:15 AM EST documented in this encounter Progress Notes * Yazan Pruitt MD - 09/26/2025 11:00 AM EST Subjective Patient ID: Madhu Delgado is a 50 y.o. female who presents for left shoulder pain. Patient comes for a sick visit. She complains of 1 week of left shoulder pain. She describes decreased range of motion of the left shoulder because of pain. She has difficulties raising the arm abovethe 90 degree angle. She does not have any swelling or redness of the left shoulder. She does not have any history of trauma. She does not recall doing any new exercise or new activity at home. Review of Systems Constitutional: Negative for chills and fever. Musculoskeletal: See HPI Objective Vitals: 09/26/25 1115 BP: 118/68 BP Location: Right arm Patient Position: Sitting BP Cuff Size: Adult Pulse: 85 Resp: 16 Temp: 97.9 ??F (36.6 ??C) TempSrc: Oral SpO2: 98% Weight: 164 lb 4 oz (74.5 kg) Height: 5' 3 (1.6 m) Physical Exam Constitutional: General: She is not in acute distress. Appearance: She is not toxic-appearing. Cardiovascular: Rate and Rhythm: Normal rate and regular rhythm. Pulmonary: Effort: Pulmonary effort is normal. No respiratory distress. Musculoskeletal: Right shoulder: Normal. Left shoulder: Tenderness present. No swelling. Decreased range of motion. Assessment/Plan Diagnoses and all orders for this visit: Acute pain of left shoulder Comments: Patient presented with musculoskeletal left shoulder pain. I suspect some form of rotator cuff tendinopathy. I recommended referral to physical therapy Short course of Celebrex Evaluation with left shoulder x-ray prior to physical therapy evaluation. Further recommendation based on the results and her response to today's recommendations. Orders: - XR Shoulder 2+ Views Left; Future - Referral to Physical Therapy; Future Prediabetes - POCT Glucose - POCT Hgb A1c Other orders - celecoxib (CeleBREX) 200 MG capsule; Take 1 capsule (200 mg) by mouth 2 times daily for 10 days. Future Appointments Date Time Provider Department Center 10/06/2025 9:45 AM Yazan Pruitt MD MEDICINE [facility] 12/22/2025 10:30 AM Mary Scott RN [facility] documented in this encounter Plan of Treatment Upcoming Encounters Date Type Department Care Team (Late st Contact Info) Description 10/06/2025 9:45 AM EST Office Visit [address] [address] Yazan Pruitt MD [address] [place] [address] 12/22/2025 10:30 AM EST Clinical Support [address] [address] Mary Scott RN Scheduled Referrals Name Type Priority Associated Diagnoses Orde r Schedule Referral to Physical Therapy Outpatient Referral Routine Acute pain of left shoulder Expected: 09/26/2025 (Approximate), Expires: 09/26/2026 documented as of this encounter Procedures Procedure Name Priority Date/Time Associated Diagnosis Comments XR SHOULDER 2+ VIEWS LEFT Routine 09/26/2025 11:59 AM EST Acute pain of left shoulder POCT GLYCATED HEMOGLOBIN, TOTAL Routine 09/26/2025 11:19 AM EST Prediabetes POCT GLUCOSE Routine 09/26/2025 11:18 AM EST Prediabetes documented in this encounter Results * XR Shoulder 2+ Views Left (09/26/2025 11:59 AM EST) Anatomical Region Laterality Modality Upper Extremities, Shoulder Left Radi ographic Imaging 09/26/2025 11:5 9 AM EST Narrative 09/26/2025 12:22 PM EST [address] [address] XRay Report Signed Patient: Eric Madhu Delgado MR#: [id number] : 1975 Acct:[id number] Age/Sex: 50 / F ADM Date: 09/26/25 [facility] Att[facility] Dr: Yazan Pruitt MD Ordering Physician: Yazan Pruitt MD Date of Service: 09/26/25 Procedure(s): XR shoulder LT min 2V Accession Number(s): [id number] cc: Yazan Pruitt MD Reason for Exam: One week of left shoulder pain with drecreased ROM, no trauma EXAMINATION: XR SHOULDER, LEFT CLINICAL INFORMATION: One week of left shoulder pain with drecreased ROM, no trauma COMPARISON: None available. TECHNIQUE: AP external rotation, Grashey, scapular Y, and axillary views of the left shoulder. FINDINGS: Normal bone mineralization. No fracture, dislocation, or suspicious bone lesion. Normal alignment. The glenohumeral joint is normal. The AC joint is normal. There is a neutral lateral acromion. No undersurface spurring. The subacromial space is preserved. Remainder of the soft tissue and bony structures appear normal. XR/XR shoulder LT min 2V IMPRESSION: Normal left shoulder. Electronically signed by: Dalton Hanna MD 09/26/2025 12:20 PM [facility] Dictated By: Dalton Hanna MD Signed By: <Electronically signed by Dalton Hanna MD in OV> 09/26/25 1220 DD/ 1159 TD/TT: 09/26/25 1217 Safety Physician: Procedure Note Donotwoodinterpreter, Image - 09/26/[address] [address] XRay Report Signed Patient: Madhu Peter MMR#: [id number] : 1975Acct:[id number] Age/Sex: 50 / FADM Date: 09/26/25 Loc: [facility] Attending Dr: Yazan Pruitt MD Ordering Physician: Yazan Pruitt MD Date of Service: 09/26/25 Procedure(s): XR shoulder LT min 2V Accession Number(s): [id number] cc: Yazan Pruitt MD Reason for Exam: One week of left shoulder pain with drecreased ROM, notrauma EXAMINATION: XR SHOULDER, LEFT CLINICAL INFORMATION: One week of left shoulder pain with drecreased ROM, no trauma COMPARISON: None available. TECHNIQUE: AP external rotation, Grashey, scapular Y, and axillary views of the left shoulder. FINDINGS: Normal bone mineralization. No fracture, dislocation, or suspicious bone lesion. Normal alignment. The glenohumeral joint is normal. The AC joint is normal. There is a neutral lateral acromion. No undersurface spurring. The subacromial space is preserved. Remainder of the soft tissue and bony structures appear normal. XR/XR shoulder LT min 2V IMPRESSION: Normal left shoulder. Electronically signed by: Dalton Hanna MD 09/26/2025 12:20 PM EST RP Dictated By: Dalton Hanna MD Signed By: <Electronically signed by Dalton Hanna MD in OV> 09/26/25 1220 DD/ 1159 TD/TT: 09/26/25 1217 Safety Physician: us Yazan Pruitt MD IMG XR PROCEDURES Edited Result - Final * (ABNORMAL) POCT Hgb A1c (09/26/2025 11:19 AM EST) Hemoglobin A1C 5.9(A) 4.0 - 5.7 % QC Media Lot # [id number] Lot# Expiration Date [id number] Blood 09/26/2025 11:1 9 AM EST us Yazan Pruitt MD POINT OF CARE TEST ENTER/EDIT OR DERABLES Final Result * POCT Glucose (09/26/2025 11:18 AM EST) Glucose Blood, POC 131 60 - 200 mg/dL QC Media Lot # [id number] Lot# Expiration Date [id number] Blood Capillary blood specimen / Unknown 09/26/2025 11:18 AM EST us Yazan Pruitt MD POINT OF CARE TEST ENTER/EDIT OR DERABLES Final Result documented in this encounter Visit Diagnoses Diagnosis Acute pain of left shoulder- Primary Prediabetes Other abnormal glucose documented in this encounter Additional Health Concerns Assessment Noted Time PHQ-9 Depression Total Score: 8 12/15/19 25 4:05 PM EST documented as of this encounter Care Teams Clutch Rebuilder Relationship Specialty Start Date End Date Name, MD Yazan [address] [place] [address] PCP - General Family Medicine 12/25/15 documented as of this encounter
--- OUTSIDE RECORDS SUMMARY | 2025-09-26 14:47 | XMS_ITS | Encounter Summary ---
Author Organization [employer] Address [address] 7t [place] [address] Care Team Providers Care Fire Control Officer Name Role Phone Name, Yazan PEARCE Primary Care Provider [phone] Reason for Visit * Reason Comments Med Refill Encounter Details Date Type Department Care Team ([facility] st Contact Info) Description 05/11/2025 Refill [facility] CHC MED & PEDS [address] [place], [place] [phone] Name, MD Yazan [address] [place] [address] Chronic neck pain Social History Tobacco Use [...] Description 10/06/2025 9:45 AM EST Office Visit [address] [address] Name, MD Yazan [address] [place] [address] 12/22/2025 10:30 AM EST Clinical Support [address] [address] Mary Scott, JOHN documented as of this encounter Visit Diagnoses Diagnosis Chronic neck pain Cervicalgia documented in this encounter Additional Health Concerns Assessment Noted Time PHQ-9 Depression Total Score: 8 12/15/19 25 4:05 PM EST documented as of this encounter Care Teams Fire Control Officer Relationship Specialty Start Date End Date Name, MD Yazan [address] [place] [phone] PCP - General Family Medicine 12/25/15 documented as of this encounter
--- OUTSIDE RECORDS SUMMARY | 2025-09-26 14:47 | XMS_ITS | Encounter Summary ---
Author Organization [employer] Address [address] [facility] 7t [place] [address] Care Team Providers Care Lens Finisher Name Role Phone Name, Yazan PEARCE Primary Care Provider [phone] Reason for Visit * Reason Comments Med Refill Encounter Details Date Type Department Care Team ([facility] Contact Info) Description 07/14/2023 Refill [facility] CHC MED & PEDS [address] [place], [place] [phone] Name, MD Yazan [address] [place] [phone] Chronic neck pain Social History Tobacco Use [...] Upcoming Encounters Date Type Department Care Team ([facility] Contact Info) Description 10/06/2025 9:45 AM EST Office Visit [facility] MEDICINE [address] [place] [address] [phone] Name, MD Yazan [address] [place] [address] 12/22/2025 10:30 AM EST Clinical Support [facility] MEDICINE [address] [place] [address] Mary Scott, JOHN documented as of this encounter Visit Diagnoses Diagnosis Chronic neck pain Cervicalgia documented in this encounter Additional Health Concerns Assessment Noted Time PHQ-9 Depression Total Score: 6 11/12/20 22 11:11 AM EST documented as of this encounter Care Teams Lens Finisher Relationship Specialty Start Date End Date Name, MD Yazan [address] [place] [address] PCP - General Family Medicine 12/25/15 documented as of this encounter
--- OUTSIDE RECORDS SUMMARY | 2025-09-26 14:47 | XMS_ITS | Encounter Summary ---
Author Organization [employer] Address [address] [facility] 7t [place] [address] Care Team Providers Care Heater Helper Forge Name Role Phone Name, Yazan PEARCE Primary Care Provider [phone] Reason for Visit * Reason Comments Med Refill Encounter Details Date Type Department Care Team ([facility] Contact Info) Description 07/15/2023 Refill [facility] CHC MED & PEDS [address] [place], [place] [phone] Name, MD Yazan [address] [place] [phone] Chronic neck pain Social History Tobacco Use [...] ([facility] Contact Info) Description 10/06/2025 9:45 AM EST Office Visit [facility] MEDICINE [address] [place] [address] [phone] Name, MD Yazan [address] [place] [phone] 12/22/2025 10:30 AM EST Clinical Support [facility] MEDICINE [address] [place] [address] Mary Scott, JOHN documented as of this encounter Visit Diagnoses Diagnosis Chronic neck pain Cervicalgia documented in this encounter Additional Health Concerns Assessment Noted Time PHQ-9 Depression Total Score: 6 11/12/20 22 11:11 AM EST documented as of this encounter Care Teams Heater Helper Forge Relationship Specialty Start Date End Date Name, MD Yazan [address] [place] [address] PCP - General Family Medicine 12/25/15 documented as of this encounter
--- OUTSIDE RECORDS SUMMARY | 2025-09-26 14:47 | XMS_ITS | Encounter Summary ---
Author Organization [employer] Address 75 [facility] 7t [place] [address] Care Team Providers Care Laborer Cook House Name Role Phone Name, Yazan PEARCE Primary Care Provider [phone] Encounter Details Date Type Department Care Team (Late Contact Info) Description 10/25/2022 Orders Only [facility] CHC MED & PEDS [address] [place], [place] [phone] Name, MD Yazan [address] [place] [address] [phone] Social History Tobacco Use Types Packs/Day Years [...] Department Care Team (Late Contact Info) Description 10/06/2025 9:45 AM EST Office Visit [facility] MEDICINE [address] [place] [address] [phone] Name, MD Yazan [address] [place] [address] [phone] 12/22/2025 10:30 AM EST Clinical Support [facility]INE [address] [place] [address] Mary Scott RN documented as of this encounter Procedures Procedure Name Priority Date/Time Associated Diagnosis Comments HELICOBACTER PYLORI, UREA BREATH TEST Routine 11/22/2022 9:39 AM EST documented in this encounter Results * Helicobacter pylori, Urea Breath Test (11/22/2022 9:39 AM EST) H. pylori Breath Test Negative Negative [facility] Comment:Antimicrobials, prot on pump inhibitors and bismuthpreparations are known to suppress H. pylori. Ingestingthese medications within two weeks prior to performing thebreath test may produce negative test results. A positiveresult is still clinically valid. 11/22/2022 9:39 AM EST 11/22/2022 4:20 PM EST [facility] Exter nal Provider LAB BODY FLUIDS AND STOOLS ORDERABLES Final Result [facility] [address] [place] [phone] documented in this encounter Visit Diagnoses Not on filedocumented in this encounter Care Teams Laborer Cook House Relationship Specialty Start Date End Date Name, MD Yazan [address] [place] [address] PCP - General Family Medicine 12/25/15 documented as of this encounter
--- OUTSIDE RECORDS SUMMARY | 2025-09-26 14:47 | XMS_ITS | Encounter Summary ---
Author Organization [employer] Address [address] [facility] 7t [place] [address] Care Team Providers Care Labeling Machine Operator Name Role Phone Name, Yazan PEARCE Primary Care Provider [phone] Reason for Visit * Reason Comments Med Refill Encounter Details Date Type Department Care Team ([facility] Contact Info) Description 08/04/2023 Refill [facility] CHC MED & PEDS [address] [place], [place] [phone] Name, MD Yazan [address] [place] [address] Chronic neck pain Social History Tobacco Use [...] Upcoming Encounters Date Type Department Care Team ([facility] Contact Info) Description 10/06/2025 9:45 AM EST Office Visit [facility] MEDICINE [address] [place] [address] [phone] Name, MD Yazan [address] [place] [address] [phone] 12/22/2025 10:30 AM EST Clinical Support [facility] MEDICINE [address] [place] [address] Mary Scott RN documented as of this encounter Visit Diagnoses Diagnosis Chronic neck pain Cervicalgia documented in this encounter Additional Health Concerns Assessment Noted Time PHQ-9 Depression Total Score: 6 11/12/20 22 11:11 AM EST documented as of this encounter Care Teams Labeling Machine Operator Relationship Specialty Start Date End Date Name, MD Yazan [address] [place] [address] PCP - General Family Medicine 12/25/15 documented as of this encounter
--- OUTSIDE RECORDS SUMMARY | 2025-09-26 14:47 | XMS_ITS | Encounter Summary ---
Author Organization [employer] Address [address] [facility] 7t [place] [address] Care Team Providers Care Line Runner Name Role Phone Name, Yazan PEARCE Primary Care Provider [phone] Reason for Visit * Reason Comments Med Refill Encounter Details Date Type Department Care Team ([facility] Contact Info) Description 07/08/2023 Refill [facility] CHC MED & PEDS [address] [place], [place] [phone] Name, MD Yazan [address] [place] [phone] Chronic neck pain Social History Tobacco Use [...] Upcoming Encounters Date Type Department Care Team ([facility] Contact Info) Description 10/06/2025 9:45 AM EST Office Visit [facility] MEDICINE [address] [place] [address] [phone] Name, MD Yazan [address] [place] [address] 12/22/2025 10:30 AM EST Clinical Support [facility] MEDICINE [address] [place] [address] Mary Scott, JOHN documented as of this encounter Visit Diagnoses Diagnosis Chronic neck pain Cervicalgia documented in this encounter Additional Health Concerns Assessment Noted Time PHQ-9 Depression Total Score: 6 11/12/20 22 11:11 AM EST documented as of this encounter Care Teams Line Runner Relationship Specialty Start Date End Date Name, MD Yazan [address] [place] [address] PCP - General Family Medicine 12/25/15 documented as of this encounter
--- OUTSIDE RECORDS SUMMARY | 2025-09-26 14:47 | XMS_ITS | Encounter Summary ---
Author Organization [employer] Address 75 [facility] 7t h Floor [address] Care Team Providers Care Rush Seater Name Role Phone Name, Yazan PEARCE Primary Care Provider [phone] Reason for Visit * Reason Comments Med Refill Encounter Details Date Type Department Care Team ([facility] Contact Info) Description 08/13/2023 Refill [facility] CHC MED & PEDS [address] [place], [place] [phone] Name, MD Yazan [address] [place] [phone] Chronic neck pain Social History Tobacco Use [...] Upcoming Encounters Date Type Department Care Team ([facility] Contact Info) Description 10/06/2025 9:45 AM EST Office Visit [facility] MEDICINE [address] [place] [address] [phone] Name, MD Yazan [address] [place] [address] [phone] 12/22/2025 10:30 AM EST Clinical Support [facility] MEDICINE [address] [place] [address] Mary Scott RN documented as of this encounter Visit Diagnoses Diagnosis Chronic neck pain Cervicalgia documented in this encounter Additional Health Concerns Assessment Noted Time PHQ-9 Depression Total Score: 6 11/12/20 22 11:11 AM EST documented as of this encounter Care Teams Rush Seater Relationship Specialty Start Date End Date Name, MD Yazan [address] [place] [address] PCP - General Family Medicine 12/25/15 documented as of this encounter
--- OUTSIDE RECORDS SUMMARY | 2025-09-26 14:47 | XMS_ITS | Encounter Summary ---
Author Organization [employer] Address 75 [facility] 7t [place] [address] Care Team Providers Care Roll Edge Stitcher Hand Name Role Phone Name, Yazan PEARCE Primary Care Provider [phone] Reason for Visit * Reason Comments Med Refill Encounter Details Date Type Department Care Team ([facility] st Contact Info) Description 10/07/2023 Refill [facility] MEDICINE [address] [place], [place] [phone] Jen Tate, KARINA [address] [place] [address] Social History Tobacco Use Types Packs/Day Years [...] Description 10/06/2025 9:45 AM EST Office Visit [address] [address] Name, MD Yazan [address] [place] [phone] 12/22/2025 10:30 AM EST Clinical Support [address] [address] Mary Scott, JOHN documented as of this encounter Visit Diagnoses Not on filedocumented in this encounter Additional Health Concerns Assessment Noted Time PHQ-9 Depression Total Score: 6 11/12/20 22 11:11 AM EST documented as of this encounter Care Teams Roll Edge Stitcher Hand Relationship Specialty Start Date End Date Yazan Pruitt MD [address] [place] [phone] PCP - General Family Medicine 12/25/15 documented as of this encounter
--- OUTSIDE RECORDS SUMMARY | 2025-09-26 14:47 | XMS_ITS | Clinical Summary ---
Author Organization [address] [place] [address] Address [address] [place] [address] Phone Care Team Providers Care Size Changer Name Role Phone Unavailable Primary Care Provider [...] if needed for allergies. 4 Active fluticasone propion-salmete roL (ADVAIR DISKUS) 500-50 mcg/dose diskus inhaler Inhale 1 puff by mouth 2 (two) times a day if needed (SHORTNESS OF BREATH). 4 Active montelukast (SINGULAIR) 10 mg tablet Take 1 tablet (10 mg total) by mouth 1 (one) time each day if needed (asthma symptoms). 4 Active oxyCODONE-aceta minophen (PERCOCET) 7.5-325 mg per tablet Take 1 [...] day if needed (asthma symptoms). 4 Active cyclobenzaprine (FLEXERIL) 10 mg tablet Take [...] needed for nausea or vomiting. 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 ([facility] V24) 11/16/2014 Allergic rhinitis 04/27/2013 Unspecified abnormal cytolog ical findings in specimens from cervix uteri 01/21/2013 Overview (09/06/2024): The patient had biopsy on December [address] Thomson at [facility] Cervical spondylosis with radiculopathy 10/12/20 12 [...] Overview (09/06/2024): S/p surgery on 01/2012 at [facility] Dr Quinteros Chronic back pain 12/30/2011 Anxiety [...] Encounters Date Type Department Care Team Description 08/25/2025 Telephone Plastic & Reconstructive Surgery - [address] [address] Jalyn Molina MA from Last 3 Months Immunizations Immunization Administration Dates Next Due H1N1 Inj Preservative Free 12/04/2009 Hepatitis B (Xqrlerl-O-Yzoht , Recombivax HB-Adult) 19yo and older 09/15/2013,04/14/2013,03/10/2013,2008,10/06/2008,08/15/2008 Influenza trivalent, 0.5mL, preservative free (Fluarix; FluLaval; Fluzone) ages 6mo and older (Afluria) 3 years and older 09/08/2015,09/09/2014,08/03/2013,2011,03/02/2012,08/29/2011,08/09/2010,0 08/03/2009,08/11/2008 Tdap Tetanus diptheria acell ular pertussis (Boostrix; Adacel) 7yo and older 06/12/2010 Surgical History Surgery Date Site/Laterality Comments ESOPHAGOGASTRODUODENOSCOPY 11/13/10 PROCEDURE: CT ESOPHAGOGASTRODUODENOSCOPY TRANSORAL DIAGNOSTIC; COMMENT: normal roue en Y gastric bypass OTHER SURGICAL HISTORY PROCEDURE: CT UNLISTED PX ABDOMEN MUSCULOSKELETAL SYSTEM; COMMENT: Abdominoplasty OTHER SURGICAL HISTORY PROCEDURE: HISTORY OTHER; COMMENT: hist neck surgery on 01/2012 ESOPHAGOGASTRODUODENOSCOPY 12/17/2017 PROCEDURE: CT ESOPHAGOGASTRODUODENOSCOPY TRANSORAL DIAGNOSTIC ESOPHAGOGASTRODUODENOSCOPY 11/04/2017 PROCEDURE: CT ESOPHAGOGASTRODUODENOSCOPY TRANSORAL DIAGNOSTIC OTHER SURGICAL HISTORY PROCEDURE: [...] on December [address] Thomson at [facility] Allergic rhinitis 04/27/2013 DX:Allergic rh initis [...] cervical; COMMENT: S/p surgery on 01/2012 at [facility] Dr Quinteros 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 ([facility] V24) 11/16/2014 DX: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 (HCC) Meralgia paresthetica 09/01/2008 DX:Meralgi a paresthetica Migraine 01/04/2009 DX:Migraine Neck pain 10/12/2012 DX:Neck pain Diabetes mellitus ([facility] V 24, [facility] V28) 04/22/2019 DX:Diabetes mellitus (HCC) Gastric pain [...] Safety Answer Date Record ed Physical Abuse Unrecognized value 06/02/2025 Verbal Abuse Unrecognized value 06/02/2025 Comments No Sex and Gender Information [...] Care Team (Late st Contact Info) Description 10/07/2025 10:00 AM EST Ancillary Procedure [facility] [address] [place] [address] 11/02/2025 10:15 AM EST Office Visit Bariatric Surgery - [place] [address] [place] [phone] Abigail Dangelo PA [address] [place] [phone] Health Maintenance Due Date Last Done Comments Colorectal Cancer Screening: Colonoscopy 1977 Diabetes: Annual Foot Exam 1987 Diabetes: Annual Retina Eye Exam 1987 Cervical Cancer Screening: Pap Smear 1998 Medicare Annual Wellness Visit 10/27/2022 Social Influencers [...] 06/02/2020, 04/26/2018, 01/18/2015, Additional history exists RSV Immunization Adult Patients (1 - 1-dose 75+ series) 2052 Hepatitis [...] Procedure Name Priority Date/Time Associated Diagnosis Comments BASIC METABOLIC PANEL Routine 06/03/2025 6:11 AM EDT VICKI SCREENING DIGITAL Routine 01/09/2024 12:12 PM EST Encounter for screening mammogram for malignant neoplasm of breast HEMOGLOBIN A1C Routine 08/02/2021 LIPID PANEL Routine 08/02/2021 HEPATITIS C SCREENING Routine 02/17/2014 from Last 3 Months or Most Recently Relevant to Health Maintenance Results * Basic metabolic panel (06/03/2025 6:11 AM EDT) [facility] Sodium 141 133 - 145 mmol/L LAB CHEMISTRY METHOD 06/03/2025 7:17 AM [facility] Potassium 4.3 3.5 - 5.5 mmol/L LAB CHEMISTRY METHOD 06/03/2025 7:17 AM [facility] Chloride 107 96 - 110 mmol/L LAB CHEMISTRY METHOD 06/03/2025 7:17 AM [facility] CO2 29 21 - 32 mmol/L LAB CHEMISTRY METHOD 06/03/2025 7:17 AM [facility] Anion Gap 5 3 - 11 LAB CHEMISTRY METHOD 06/03/2025 7:17 AM [facility] Glucose 74 70 - 100 mg/dL LAB CHEMISTRY METHOD 06/03/2025 7:17 AM [facility] BUN 9 5 - 25 mg/dL LAB CHEMISTRY METHOD 06/03/2025 7:17 AM [facility] Creatinine 0.57 0.50 - 1.10 mg/dL LAB CHEMISTRY METHOD 06/03/2025 7:17 AM [facility] eGFR 113 >=60 mL/min/1. 73m2 LAB CHEMISTRY METHOD 06/03/2025 7:17 AM [facility] Comment:Calculation based on the Chronic Kidney Disease Epidemiology Collaboration (CKD-EPI) equation refit without adjustment for race. BUN/Creatinine Ratio 15.8 LAB CHEMISTRY METHOD 06/03/2025 7:17 AM [facility] Calcium 9.0 8.5 - 10.5 mg/dL LAB CHEMISTRY METHOD 06/03/2025 7:17 AM EDT [facility] Blood Venous blood specimen / Unknown Venipuncture / Unknown 06/03/2025 6:11 AM EDT 06/03/2025 6:37 AM EDT us John Alvarez MD LAB BLOOD ORDERABLES Final Result [facility] [address] [place] [address], * [facility] SCREENING DIGITAL (01/09/2024 12:12 PM EST) Anatomical Region Laterality Modality Mammography 01/07/2024 10:2 9 AM EST Narrative 01/09/2024 12:12 PM EST [facility] Diagnostic Imaging Department [address] [place] [address] Patient: MADHU REYESO.B./Age/Sex: 1975 - 48 - F Unit#: [id number] Location/Status: [facility] CLI Mnemonic/Ordering Site: DIGSC/SPMAM Ordering Physician: NAME,TONIA PEARCE Vicki Screening Digital - 01/07/24 - 1110 Report Status:Signed EXAM: [facility] Screening Digital EXAM DATE AND TIME: 01/07/2024 11:11 AM HISTORY: Screening. Bilateral reduction mammoplasty in 2017. Right breast [...] breast were obtained. Computer aided detection with [employer] 3D 3.1 was employed. TISSUE DENSITY: b. [...] Procedure Note Izabella Gonzalez MD - 07/12/2024 [facility] Diagnostic Imaging Department [address] [place], [place] [id number] Patient: MADHU REYES D.O.B./Age/Sex: 1975 - 48 - F Unit#: [id number] Location/Status: SPDIMA/REG CLI Mnemonic/Ordering Site: [facility] Ordering Physician: NAME,TONIA PEARCE [facility] Screening Digital - 01/07/24 - 1110 Report Status:Signed EXAM: [facility] Screening Digital EXAM DATE AND TIME: 01/07/2024 [...] right breast wereobtained. Computer aided detection with [employer] 3D 3.1 was employed. TISSUE DENSITY: b. [...] Date/Time: 01/09/24 1153 Sign date/Time: 01/09/24 1212 Tonia Name IMG BI PROCEDURES Final Result * Hemoglobin A1c (08/02/2021) Hemoglobin A1C 6.5 <=6.5 % Blood Venous blood specimen / Unknown Historical Provider LAB BLOOD ORDERABLES Toshia l Result * Lipid panel (08/02/2021) LDL/HDL Ratio 3 0 - 4 Triglycerides 118 0 - 150 mg/dL Cholesterol 176 0 - 200 mg/dL HDL 56 >=40 mg/dL LDL Cholesterol 97 0 - 100 mg/dL Blood Venous blood specimen / Unknown Historical Provider LAB BLOOD ORDERABLES Toshia l Result * Hepatitis C Screening (02/17/2014) Hepatitis C Screening Abstracted Historical Provider HEALTH MAINTENANCE Final Result from Last 3 Months or Most Recently Relevant to Health Maintenance Insurance [employer] MED[employer]ARE Member Subscriber Plan / Payer (Ef fective 2018-Present) Name:MADHU REYES Relation to Subscriber:Self Name:Madhu Reyes Payer ID:[id number] Group ID:[id number] Type:Not on file Address: [place] [address] [address] [id number] Advance Directives * Full Code - Default [...]
--- OUTSIDE RECORDS SUMMARY | 2025-09-26 14:47 | XMS_ITS | Encounter Summary ---
Author Organization [employer] Address [address] [place] [address] 7t [place] [address] Care Team Providers Care Certified Phlebotomist Name Role Phone Name, Yazan PEARCE Primary Care Provider [phone] Encounter Details Date Type Department Care Team (Late Contact Info) Description 11/29/2022 [facility] Only [place] [employer] Information Management [address] [place], [place] [phone] Name, MD Yazan [address] [place] [address] Social History Tobacco Use Types Packs/Day Years [...] Description 10/06/2025 9:45 AM EST Office Visit [facility] [address] [place] [address] Yazan Pruitt MD [address] [facility] [place] [address] 12/22/2025 10:30 AM EST Clinical Support [facility] [place] [address] Mary Scott RN documented as of this encounter Procedures Procedure Name Priority Date/Time Associated Diagnosis Comments BI MAMMOGRAM SCREEN W EVELYN W IMPLANTS THERESA Routine 12/17/2022 1:40 PM EST documented in this encounter Results * BI Mammogram Screen w/ Evelyn w/ Implants [place] (12/17/2022 1:40 PM EST) Anatomical Region Laterality Modality Mammography 12/17/2022 1:40 PM EST Narrative 12/20/2022 4:11 PM EST [facility] [address] [place] [address] Mammography Report Signed Patient: Madhu Peter MR#: [id number] : 1975 Acct:[id number] Age/Sex: 47 / F ADM Date: 12/17/22 Loc: HO.MAMMO Attending Dr: Yazan Pruitt MD Ordering Physician: Yazan Pruitt MD Results: 2Benign Fi ndings Date of Service: 12/17/22 Follow Up: 1 Year From Orig inal Mammogram Procedure(s): MM tomosynthesis screen imp BI Accession Number(s): [id number] cc: Yazan Pruitt MD EXAMINATION: MM SCREENING DIGITAL BREAST TOMOSYNTHESIS, BILATERAL CLINICAL INFORMATION: Screening. Asymptomatic. Right implant. Prior explantation on left. The lifetime risk of breast cancer based on the Tyrer-Cuzick Model is 12%. COMPARISON: Outside mammography: 06/07/2015 ([facility]) TECHNIQUE: Digital mammography is performed in craniocaudal [...] in OV> 12/20/22 1609 DD/ 1340 TD/TT: Title I Director: ASCENCIO Procedure Note Donotuseinterpreter, Image - [facility]20/[facility] [address] [place] [address] Mammography Report Signed Patient: Madhu Peter [facility]#: [id number] : 1975Acct:[id number] Age/Sex: 47 / FADM Date: 12/17/22 Loc: HO.MAMMO Attending Dr: Yazan Pruitt MD Ordering Physician: Yazan Pruitt MDResults: 2Benign ndings Date of Service: 12/17/22Follow Up: 1 Year From Orig ina Mammogram Procedure(s): MM tomosynthesis screen imp BI Accession Number(s): [id number] cc: Yazan Pruitt MD EXAMINATION: MM SCREENING DIGITAL BREAST TOMOSYNTHESIS, BILATERAL CLINICAL INFORMATION: Screening. Asymptomatic. Right implant. Prior explantation on left. The lifetime risk of breast cancer based on the Tyrer-Cuzick Model is 12%. COMPARISON: Outside mammography: 06/07/2015 ([facility]) TECHNIQUE: Digital mammography is performed in craniocaudal [...] has had implants since prior outside mammography 2015 and explantation on the left. The right [...] in OV> 12/20/22 1609 DD/ 1340 TD/TT: Title I Director: ASCENCIO [facility] External Provider IMG BI PROCEDURES Final Result documented in this encounter Visit Diagnoses Not on filedocumented in this encounter Additional Health Concerns Assessment Noted Time PHQ-9 Depression Total Score: 6 11/12/20 22 11:11 AM EST documented as of this encounter Care Teams Certified Phlebotomist Relationship Specialty Start Date End Date Name, MD Yazan [address] [place] [address] PCP - General Family Medicine 12/25/15 documented as of this encounter
--- OUTSIDE RECORDS SUMMARY | 2025-09-26 14:47 | XMS_ITS | Encounter Summary ---
Author Organization [employer] Address [address] [facility] 7t [place] [address] Care Team Providers Care Emergency Physician Name Role Phone Name, Yazan PEARCE Primary Care Provider [phone] Reason for Visit * Reason Comments Med Refill Encounter Details Date Type Department Care Team ([facility] Contact Info) Description 08/12/2023 Refill [facility] [address] [place], [place] [phone] Name, MD Yazan [address] [place] [phone] Chronic neck pain Social History Tobacco Use [...] Upcoming Encounters Date Type Department Care Team ([facility] Contact Info) Description 10/06/2025 9:45 AM EST Office Visit [facility] [address] [place] [phone] Name, MD Yazan [address] [place] [phone] 12/22/2025 10:30 AM EST Clinical Support [facility] [address] [place] [address] Mary Scott RN documented as of this encounter Visit Diagnoses Diagnosis Chronic neck pain Cervicalgia documented in this encounter Additional Health Concerns Assessment Noted Time PHQ-9 Depression Total Score: 6 11/12/20 22 11:11 AM EST documented as of this encounter Care Teams Emergency Physician Relationship Specialty Start Date End Date Name, MD Yazan [address] [place] [address] PCP - General Family Medicine 12/25/15 documented as of this encounter
--- OUTSIDE RECORDS SUMMARY | 2025-09-26 14:47 | XMS_ITS | Encounter Summary ---
Author Organization [employer] Address [address] [facility] 7t [place] [address] Care Team Providers Care Log Preparer Name Role Phone Name, Yazan PEARCE Primary Care Provider [phone] Reason for Visit * Reason Onset Date Comments Nurse Triage 10/06/2023 Encounter Details Date Type Department Care Team ([facility] st Contact Info) Description 10/06/2023 Telephone [facility] [address] [place] [address] Name, MD Yazan [address] [place] [address] Nurse Triage Social History Tobacco Use Types [...] hours. Pt advised of disposition, agrees to [facility] ER nowfor exam to ensure no GI [...] acuity questions The caller accepted this outcome Turkish Speaker documented in this encounter Plan of Treatment Upcoming Encounters Date Type Department Care Team (Late st Contact Info) Description 10/06/2025 9:45 AM EST Office Visit [address] [address] Name, MD Yazan [address] [place] [phone] 12/22/2025 10:30 AM EST Clinical Support [address] [address] Mary Scott RN documented as of this encounter Visit Diagnoses Not on filedocumented in this encounter Additional Health Concerns Assessment Noted Time PHQ-9 Depression Total Score: 6 11/12/20 22 11:11 AM EST documented as of this encounter Care Teams Log Preparer Relationship Specialty Start Date End Date Name, MD Yazan [address] [place] [phone] PCP - General Family Medicine 12/25/15 documented as of this encounter
--- OUTSIDE RECORDS SUMMARY | 2025-09-26 14:48 | XMS_ITS | Encounter Summary ---
Author Organization [employer] [facility] Address [address] [place] [address] 7t [place] [address] Care Team Providers Care Optical Instrument Specialist Name Role Phone Name, Yazan PEARCE Primary Care Provider [phone] Reason for Visit * Reason Comments Med Refill Encounter Details Date Type Department Care Team (Late Contact Info) Description 01/21/2023 Refill [facility] MEDICINE [address] [place] [address] Name, MD Yazan [address] [place] [phone] Essential hypertension Social History Tobacco Use Types [...] Description 10/06/2025 9:45 AM EST Office Visit [facility] [address] [place] [address] Name, MD Yazan [address] [place] [phone] 12/22/2025 10:30 AM EST Clinical Support [facility] [address] [place] [address] Mary Scott RN documented as of this encounter Visit Diagnoses Diagnosis Essential hypertension Unspecified essential hypertension documented in this encounter Additional Health Concerns Assessment Noted Time PHQ-9 Depression Total Score: 6 11/12/20 22 11:11 AM EST documented as of this encounter Care Teams Optical Instrument Specialist Relationship Specialty Start Date End Date Name, MD Yazan [address] [place] [address] PCP - General Family Medicine 12/25/15 documented as of this encounter
--- OUTSIDE RECORDS SUMMARY | 2025-09-26 14:48 | XMS_ITS | Encounter Summary ---
Author Organization [employer] Address [address] [facility] 7t [place] [address] Care Team Providers Care Stopping Builder Name Role Phone Name, Yazan PEARCE Primary Care Provider [phone] Reason for Visit * Reason Onset Date Comments Med Refill 09/05/2025 Encounter Details Date Type Department Care Team ([facility] st Contact Info) Description 09/05/[address] [facility]ICINE [address] [place], [place] [phone] Name, MD Yazan [address] [place] [address] Med Refill Social History Tobacco Use Types Packs/Day Years [...] encounter Miscellaneous Notes * Telephone Encounter - Marge Stein LPN - 09/05/2025 2:20 PM EDT Medication pended to PCP. * Telephone Encounter - Jose Olmos - 09/05/2025 2:13 PM EDT TC from pt requesting medication refill. Medications needing refill: amitriptyline (Elavil) 25 MG tablet To be sent to: [id number] [place] [id number] [address] [email or web address] [address] documented in this encounter Plan of Treatment Upcoming Encounters Date Type Department Care Team (Late st Contact Info) Description 10/06/2025 9:45 AM EST Office Visit [facility] MEDICINE [address] [place] [address] Name, MD Yazan [address] [place] [address] 12/22/2025 10:30 AM EST Clinical Support [facility] [address] [place] [address] Mary Scott, RN documented as of this encounter Visit Diagnoses Not on filedocumented in this encounter Additional Health Concerns Assessment Noted Time PHQ-9 Depression Total Score: 8 12/15/19 25 4:05 PM EST documented as of this encounter Care Teams Stopping Builder Relationship Specialty Start Date End Date Name, MD Yazan [address] [place] [phone] PCP - General Family Medicine 12/25/15 documented as of this encounter
--- OUTSIDE RECORDS SUMMARY | 2025-09-26 14:48 | XMS_ITS | Encounter Summary ---
Author Organization [employer] Address [address] [facility] 7t [place] [address] Care Team Providers Care Grab Setter Name Role Phone Name, Yazan PEARCE Primary Care Provider [phone] Reason for Visit * Reason Onset Date Comments Nurse Triage 09/26/2025 Encounter Details Date Type Department Care Team ([facility] st Contact Info) Description 09/26/[address] [facility] MEDICINE [address] [place], [place] [phone] Name, MD Yazan [address] [place] [address] Nurse Triage Social History Tobacco Use Types [...] Miscellaneous Notes * Telephone Encounter - Elena Arreaga RN - 09/26/2025 9:24 AM EST TC to patient to triage. Pt stated she has had left shoulder pain x 3 days, with increased pain in joint area since Friday. She does have +ROM but very painful to move. Pt denies an trauma to the area. Denies numbness or tingling. Stated she has taken Tylenol and Oxycodone (stated prescribed by provider for different alinement) with not much effect. Appointment schedule for today to be seen by provider. Protocol Used: Shoulder Pain (Adult) Protocol-Based Disposition: Go to Office or Video Visit Now Video visit not offered Positive Triage Questions: * Severe pain (e.g., excruciating, unable to do any normal activities) * Unable to use arm at all and because of shoulder pain or stiffness * Patient wants to be seen * Shoulder pain * All higher-acuity triage questions were negative Care Advice Discussed: * Pain Medicines * Pain Medicines - Extra Notes and Warnings * Reasons To Call Back - Severe pain lasts more than 2 hours after pain medicine - Moderate pain (such as interferes with normal activities) lasts over 3 days - Mild pain lasts over 7 days - Chest pain or difficulty breathing occurs - You become worse * Telephone Encounter - Jose Olmos - 09/26/2025 8:55 AM EST Symptoms: Shoulder Pain - Not From Injury, Headache Outcome: Schedule an urgent appointment (within 1 hour) or talk to a nurse or provider soon Reason: Can't use the shoulder normally Please contact pt at [phone]. (Malay Speaker) documented in this encounter Plan of Treatment Upcoming Encounters Date Type Department Care Team (Late st Contact Info) Description 10/06/2025 9:45 AM EST Office Visit [facility] MEDICINE [address] [place] [phone] Name, MD Yazan [address] [place] [address] 12/22/2025 10:30 AM EST Clinical Support [address] [address] Mary Scott RN documented as of this encounter Visit Diagnoses Not on filedocumented in this encounter Additional Health Concerns Assessment Noted Time PHQ-9 Depression Total Score: 8 12/15/19 25 4:05 PM EST documented as of this encounter Care Teams Grab Setter Relationship Specialty Start Date End Date Name, MD Yazan [address] [place] [phone] PCP - General Family Medicine 12/25/15 documented as of this encounter
--- OUTSIDE RECORDS SUMMARY | 2025-09-26 14:48 | XMS_ITS | Encounter Summary ---
Author Organization [employer] Address 75 [facility] 7t [place] [address] Care Team Providers Care Obiee Lead Developer Name Role Phone Name, Yazan PEARCE Primary Care Provider [phone] Reason for Visit * Reason Comments Med Refill Encounter Details Date Type Department Care Team (Late Contact Info) Description 04/08/2023 Refill [facility] [address] [place], [place] [phone] Name, MD Yazan 230 [place] [address] Chronic neck pain Social History Tobacco Use [...] Description 10/06/2025 9:45 AM EST Office Visit [address] [address] Name, [place] [address] 12/22/2025 10:30 AM EST Clinical Support [address] [address] Mary Scott RN documented as of this encounter Visit Diagnoses Diagnosis Chronic neck pain Cervicalgia documented in this encounter Additional Health Concerns Assessment Noted Time PHQ-9 Depression Total Score: 6 11/12/20 22 11:11 AM EST documented as of this encounter Care Teams Obiee Lead Developer Relationship Specialty Start Date End Date Name, [place] [address] PCP - General Family Medicine 12/25/15 documented as of this encounter
--- OUTSIDE RECORDS SUMMARY | 2025-09-26 14:48 | XMS_ITS | Encounter Summary ---
Author Organization [employer] Address 75 [facility] 7t [place] [address] Care Team Providers Care Document Review Attorney Name Role Phone Name, Yazan PEARCE Primary Care Provider [phone] Reason for Visit * Reason Comments Med Refill Encounter Details Date Type Department Care Team ([facility] Contact Info) Description 02/06/2023 Refill [facility] MEDICINE 230 [place], [place] [phone] Name, MD Yazan 230 [place] [address] Depressive disorder Social History Tobacco Use Types [...] Description 10/06/2025 9:45 AM EST Office Visit [address] [address] Name, [place] [address] 12/22/2025 10:30 AM EST Clinical Support [address] [address] Mary Scott RN documented as of this encounter Visit Diagnoses Diagnosis Depressive disorder Depressive disorder, not elsewhere classified documented in this encounter Additional Health Concerns Assessment Noted Time PHQ-9 Depression Total Score: 6 11/12/20 22 11:11 AM EST documented as of this encounter Care Teams Document Review Attorney Relationship Specialty Start Date End Date Name, [place] [address] PCP - General Family Medicine 12/25/15 documented as of this encounter
--- OUTSIDE RECORDS SUMMARY | 2025-09-26 14:48 | XMS_ITS | Encounter Summary ---
Author Organization [employer] Address 75 [facility] 7t [place] [address] Care Team Providers Care Pump Operator Name Role Phone Name, Yazan PEARCE Primary Care Provider [phone] Reason for Visit * Reason Onset Date Comments Referral 12/17/2022 Encounter Details Date Type Department Care Team ([facility] st Contact Info) Description 12/17/[address] [facility] MEDICINE 230 [place], [place] [phone] Name, MD Yazan 230 [place] [address] Referral Social History Tobacco Use Types Packs/Day [...] from pt requesting to renew referral Location: [facility] Address: [address] [place] [address] Specialty : Physical therapy DX: Back pain Date &time : N/A documented in this encounter Plan of Treatment Upcoming Encounters Date Type Department Care Team (Late st Contact Info) Description 10/06/2025 9:45 AM EST Office Visit [address] [address] Name, MD Yazan [address] [place] [address] 12/22/2025 10:30 AM EST Clinical Support [address] [address] Mary Scott RN documented as of this encounter Visit Diagnoses Diagnosis Chronic bilateral low back pain, unspecified whether sciatica present- Primary documented in this encounter Additional Health Concerns Assessment Noted Time PHQ-9 Depression Total Score: 6 11/12/20 22 11:11 AM EST documented as of this encounter Care Teams Pump Operator Relationship Specialty Start Date End Date Name, MD Yazan [address] [place] [address] PCP - General Family Medicine 12/25/15 documented as of this encounter
--- OUTSIDE RECORDS SUMMARY | 2025-09-26 14:48 | XMS_ITS | Encounter Summary ---
Author Organization [employer] Address 75 [facility] 7t [place] [address] Care Team Providers Care Phone Representative Name Role Phone Name, Yazan PEARCE Primary Care Provider [phone] Reason for Visit * Reason Comments Med Refill Encounter Details Date Type Department Care Team (Late Contact Info) Description 04/17/2023 Refill [facility] [address] [place] [address] Isaias Hardwick, VERA LUQ pain Social [...] Description 10/06/2025 9:45 AM EST Office Visit [facility] [address] [place] [address] Name, MD Yazan 230 [place] [address] 12/22/2025 10:30 AM EST Clinical Support [facility] 230 [place] [address] Mary Scott RN documented as of this encounter Visit Diagnoses Diagnosis LUQ pain Abdominal pain, left upper quadrant documented in this encounter Additional Health Concerns Assessment Noted Time PHQ-9 Depression Total Score: 6 11/12/20 22 11:11 AM EST documented as of this encounter Care Teams Phone Representative Relationship Specialty Start Date End Date Name, MD [facility]an Preston [facility] [place] [address] PCP - General Family Medicine 12/25/15 documented as of this encounter
--- OUTSIDE RECORDS SUMMARY | 2025-09-26 14:48 | XMS_ITS | Encounter Summary ---
Author Organization [employer] Address 75 [facility] 7t [place] [address] Care Team Providers Care Admin Assistant Name Role Phone Name, Yazan PEARCE Primary Care Provider [phone] Encounter Details Date Type Department Care Team (Latest Contact Info) Description 09/26/2025 Travel Social History Tobacco Use Types Packs/Day [...] Description 10/06/2025 9:45 AM EST Office Visit [address] [address] Name, MD Yazan [address] [place] [address] 12/22/2025 10:30 AM EST Clinical Support [address] [address] Mary Scott RN documented as of this encounter Visit Diagnoses Not on filedocumented in this encounter Additional Health Concerns Assessment Noted Time PHQ-9 Depression Total Score: 8 12/15/19 25 4:05 PM EST documented as of this encounter Care Teams Admin Assistant Relationship Specialty Start Date End Date NameYazan MD [address] [place] [address] PCP - General Family Medicine 12/25/15 documented as of this encounter
--- OUTSIDE RECORDS SUMMARY | 2025-09-26 14:48 | XMS_ITS | Encounter Summary ---
Author Organization [facility] Address 75 [facility] 7t [place] [address] Care Team Providers Care Clay Digger Name Role Phone Name, Yazan PEARCE Primary Care Provider [phone] Reason for Visit * Reason Comments Med Refill Encounter Details Date Type Department Care Team ([facility] Contact Info) Description 05/11/2023 Refill [facility] 230 [place], [place] [phone] Name, MD Yazan 230 [place] [address] History of gastric bypass; Depressive disorder Social [...] Description 10/06/2025 9:45 AM EST Office Visit [address] [address] Name, [place] [address] 12/22/2025 10:30 AM EST Clinical Support [address] [address] Mary Scott RN documented as of this encounter Visit Diagnoses Diagnosis History of gastric bypass Depressive disorder Depressive disorder, not elsewhere classified documented in this encounter Additional Health Concerns Assessment Noted Time PHQ-9 Depression Total Score: 6 11/12/20 22 11:11 AM EST documented as of this encounter Care Teams Clay Digger Relationship Specialty Start Date End Date Name, [place] [address] PCP - General Family Medicine 12/25/15 documented as of this encounter
--- OUTSIDE RECORDS SUMMARY | 2025-09-26 14:48 | XMS_ITS | Encounter Summary ---
Author Organization [employer] Address 75 [facility] 7t [place] [address] Care Team Providers Care Tractor Engine Mechanic Name Role Phone Name, Yazan PEARCE Primary Care Provider [phone] Reason for Visit * Reason Comments Med Refill Encounter Details Date Type Department Care Team (Late Contact Info) Description 05/31/2023 Refill [facility] [place] MEDICINE 230 [place], [place] [phone] Name, MD Yazan 230 [place] [address] Headache disorder Social History Tobacco Use Types [...] Description 10/06/2025 9:45 AM EST Office Visit [address] [address] Name, [place] [address] 12/22/2025 10:30 AM EST Clinical Support [address] [address] Mary Scott RN documented as of this encounter Visit Diagnoses Diagnosis Headache disorder Headache documented in this encounter Additional Health Concerns Assessment Noted Time PHQ-9 Depression Total Score: 6 11/12/20 22 11:11 AM EST documented as of this encounter Care Teams Tractor Engine Mechanic Relationship Specialty Start Date End Date Name, [place] [address] PCP - General Family Medicine 12/25/15 documented as of this encounter
--- OUTSIDE RECORDS SUMMARY | 2025-09-26 14:48 | XMS_ITS | Encounter Summary ---
Author Organization [employer] Address 75 [facility] 7t [place] [address] Care Team Providers Care Mail Messenger Name Role Phone Name, Yazan PEARCE Primary Care Provider [phone] Reason for Visit * Reason Onset Date Comments Med Refill 09/21/2025 COTTON PICKER OPERATOR Agreement renewed today 09/21/2025 Encounter Details Date Type Department Care Team (Late st Contact Info) Description 09/21/[address] [facility] MEDICINE 230 [place] [address] Mary Scott RN Chronic neck pain Social History Tobacco Use [...] encounter Miscellaneous Notes * Telephone Encounter - Mary Scott RN - 09/21/2025 10:44 AM EDT Pt had COTTON PICKER OPERATOR Renewal appointment today BPI completed on: 09/21/2025 , pain severity score: 9, activity interference score: 8 BPI completed on: 04/19/2025 , pain severity score: 8, activity interference score: 8 documented in this encounter Plan of Treatment Upcoming Encounters Date Type Department Care Team (Late st Contact Info) Description 10/06/2025 9:45 AM EST Office Visit [facility] MEDICINE [address] [place] [address] Name, MD Yazan [address] [place] [address] 12/22/2025 10:30 AM EST Clinical Support [address] [address] Mary Scott, RN documented as of this encounter Visit Diagnoses Diagnosis Chronic neck pain Cervicalgia documented in this encounter Additional Health Concerns Assessment Noted Time PHQ-9 Depression Total Score: 8 12/15/19 25 4:05 PM EST documented as of this encounter Care Teams Mail Messenger Relationship Specialty Start Date End Date Name, MD Yazan 230 [place] [address] PCP - General Family Medicine 12/25/15 documented as of this encounter
--- OUTSIDE RECORDS SUMMARY | 2025-09-26 14:48 | XMS_ITS | Encounter Summary ---
Author Organization [employer] Address 75 [facility] 7t [place] [address] Care Team Providers Care Arbitrator Name Role Phone Name, Yazan PEARCE Primary Care Provider [phone] Reason for Visit * Reason Onset Date Comments Triage 04/15/2023 Encounter Details Date Type Department Care Team ([facility] st Contact Info) Description 04/15/2023 Telephone [facility] MEDICINE 230 [place], [place] [phone] Name, MD Yazan 230 [place] [address] Triage Social History Tobacco Use Types Packs/Day [...] 04/15/2023 12:54 PM EDT Triage call with [place] [id number] Pt reports upper /epigastric pain since 04/14. [...] drinkingliquids. Pt is advised to come to [facility] to be seen and Pt agrees with [...] The caller accepted this outcome Patient speaks micronesian documented in this encounter Plan of Treatment Upcoming Encounters Date Type Department Care Team (Late st Contact Info) Description 10/06/2025 9:45 AM EST Office Visit [facility] MEDICINE [address] [place] [phone] Name, MD Yazan 230 [place] [address] 12/22/2025 10:30 AM EST Clinical Support [facility] MEDICINE 230 [place] [address] Mary Scott RN documented as of this encounter Visit Diagnoses Not on filedocumented in this encounter Additional Health Concerns Assessment Noted Time PHQ-9 Depression Total Score: 6 11/12/20 22 11:11 AM EST documented as of this encounter Care Teams Arbitrator Relationship Specialty Start Date End Date Name, MD Yazan 230 [place] [address] PCP - General Family Medicine 12/25/15 documented as of this encounter
--- OUTSIDE RECORDS SUMMARY | 2025-09-26 14:48 | XMS_ITS | Encounter Summary ---
Author Organization [employer] Address 75 [facility] 7t [place] [address] Care Team Providers Care Account Installer Name Role Phone Name, Yazan PEARCE Primary Care Provider [phone] Reason for Visit * Reason Comments Med Refill Encounter Details Date Type Department Care Team ([facility] st Contact Info) Description 2025 Refill [facility] MEDICINE 230 [place], [place] [phone] Name, MD Yazan 230 [place] [address] Asthma, unspecified asthma severity, unspecified whether complicated, [...] Description 10/06/2025 9:45 AM EST Office Visit [address] [address] NameYazan MD [address] [place] [address] 12/22/2025 10:30 AM EST Clinical Support [address] [address] Mary Scott, RN documented as of this encounter Visit Diagnoses Diagnosis Asthma, unspecified asthma severity, unspecified whether complicated, unspecified whether persistent documented in this encounter Additional Health Concerns Assessment Noted Time PHQ-9 Depression Total Score: 8 12/15/19 25 4:05 PM EST documented as of this encounter Care Teams Account Installer Relationship Specialty Start Date End Date Yazan Pruitt MD [address] [place] [address] PCP - General Family Medicine 12/25/15 documented as of this encounter
--- OUTSIDE RECORDS SUMMARY | 2025-09-26 14:48 | XMS_ITS | Encounter Summary ---
Author Organization [employer] [facility] Address 75 [facility] 7t [place] [address] Care Team Providers Care Dioramist Name Role Phone Name, Yazan PEARCE Primary Care Provider [phone] Reason for Visit * Reason Comments Med Refill Encounter Details Date Type Department Care Team ([facility] Contact Info) Description 05/02/2023 Refill [facility] MEDICINE 230 [place], [place] [phone] Name, MD Yazan 230 [place] [address] Exacerbation of chronic back pain Social History [...] Description 10/06/2025 9:45 AM EST Office Visit [address] [address] Name, [place] [address] 12/22/2025 10:30 AM EST Clinical Support [address] [address] Mary Scott RN documented as of this encounter Visit Diagnoses Diagnosis Exacerbation of chronic back pain documented in this encounter Additional Health Concerns Assessment Noted Time PHQ-9 Depression Total Score: 6 11/12/20 22 11:11 AM EST documented as of this encounter Care Teams Dioramist Relationship Specialty Start Date End Date Name, [place] [address] PCP - General Family Medicine 12/25/15 documented as of this encounter
--- OUTSIDE RECORDS SUMMARY | 2025-09-26 14:48 | XMS_ITS | Encounter Summary ---
Author Organization [employer] Address 75 [facility] 7t [place] [address] Care Team Providers Care Critical Care Nurse Practitioner Name Role Phone Name, Yazan PEARCE Primary Care Provider [phone] Encounter Details Date Type Department Care Team (Latest Contact Info) Description 09/23/2025 Travel Social History Tobacco Use Types Packs/Day [...] Description 10/06/2025 9:45 AM EST Office Visit [address] [address] Name, MD Yazan [address] [place] [address] 12/22/2025 10:30 AM EST Clinical Support [address] [address] Mary Scott RN documented as of this encounter Visit Diagnoses Not on filedocumented in this encounter Additional Health Concerns Assessment Noted Time PHQ-9 Depression Total Score: 8 12/15/19 25 4:05 PM EST documented as of this encounter Care Teams Critical Care Nurse Practitioner Relationship Specialty Start Date End Date NameYazan MD [address] [place] [address] PCP - General Family Medicine 12/25/15 documented as of this encounter
--- OUTSIDE RECORDS SUMMARY | 2025-09-26 14:48 | XMS_ITS | Encounter Summary ---
Author Organization [employer] Address 75 [facility] 7t [place] [address] Care Team Providers Care Armature [employer] Name Role Phone Name, Yazan PEARCE Primary Care Provider [phone] Reason for Visit * Reason Onset Date Comments Call Back Request 02/04/2025 Encounter Details Date Type Department Care Team ([facility] Contact Info) Description 02/04/2025 Telephone [facility] MEDICINE 230 [place] [address] Name, MD Yazan 230 [place] [address] Call Back Request Social History Tobacco Use [...] PM EDT TC placed to pt via [employer] web site designer (Keenan ID#[id number]) regarding request for call back. Pt statesarnav went to see the neurosurgeon at [facility] and the surgeon was in surgery so she spoke with another woman. Pt did not agree with what the woman said and states she was supposed to meet with the surgeon but didn't. Pt requesting a referral to [facility] for a second opinion as she does not agree with what was said by the woman at [facility]. Message forwarded to PCP to review and advise. * Telephone Encounter - Mike Pineda - 02/04/2025 1:44 PM EDT Tc from pt requesting a callback to Discuss referral for Neurology with Nurse of PCP. Contact pt at [phone] documented in this encounter Plan of Treatment Upcoming Encounters Date Type Department Care Team (Late st Contact Info) Description 10/06/2025 9:45 AM EST Office Visit [address] [place] [address] Name, MD Yazan Preston [facility] [place] [address] 12/22/2025 10:30 AM EST Clinical Support [address] [address] Mary Scott RN documented as of this encounter Visit Diagnoses Not on filedocumented in this encounter Additional Health Concerns Assessment Noted Time PHQ-9 Depression Total Score: 8 12/15/19 25 4:05 PM EST documented as of this encounter Care Teams Armature [employer] Relationship Specialty Start Date End Date Name, [place] [address] PCP - General Family Medicine 12/25/15 documented as of this encounter
--- OUTSIDE RECORDS SUMMARY | 2025-09-26 14:48 | XMS_ITS | Encounter Summary ---
Author Organization [employer] Address 75 [facility] 7t [place] [address] Care Team Providers Care Pattern Cutter Name Role Phone Name, Yazan PEARCE Primary Care Provider [phone] Reason for Visit * Reason Comments Med Refill Encounter Details Date Type Department Care Team ([facility] st Contact Info) Description 08/04/2025 Refill [facility] MEDICINE 230 [place], [place] [phone] Name, MD Yazan 230 [place] [address] Asthma, unspecified asthma severity, unspecified whether complicated, [...] Description 10/06/2025 9:45 AM EST Office Visit [address] [address] NameYazan MD [address] [place] [address] 12/22/2025 10:30 AM EST Clinical Support [address] [address] Mary Scott, RN documented as of this encounter Visit Diagnoses Diagnosis Asthma, unspecified asthma severity, unspecified whether complicated, unspecified whether persistent documented in this encounter Additional Health Concerns Assessment Noted Time PHQ-9 Depression Total Score: 8 12/15/19 25 4:05 PM EST documented as of this encounter Care Teams Pattern Cutter Relationship Specialty Start Date End Date Yazan Pruitt MD [address] [place] [address] PCP - General Family Medicine 12/25/15 documented as of this encounter
--- OUTSIDE RECORDS SUMMARY | 2025-09-26 14:48 | XMS_ITS | Encounter Summary ---
Author Organization [employer] Address 75 [facility] 7t [place] [address] Care Team Providers Care Service Liaison Representative Name Role Phone Name, Yazan PEARCE Primary Care Provider [phone] Reason for Visit * Reason Onset Date Comments Appointment Request 03/24/2023 Encounter Details Date Type Department Care Team ([facility] st Contact Info) Description 03/24/2023 Telephone [facility] MEDICINE 230 [place] [address] Name, MD Yazan 230 [place] [address] Appointment Request Social History Tobacco Use Types [...] Description 10/06/2025 9:45 AM EST Office Visit [address] [address] Name, MD Yazan [address] [place] [address] 12/22/2025 10:30 AM EST Clinical Support [address] [address] Mary Scott, RN documented as of this encounter Visit Diagnoses Not on filedocumented in this encounter Additional Health Concerns Assessment Noted Time PHQ-9 Depression Total Score: 6 11/12/20 22 11:11 AM EST documented as of this encounter Care Teams Service Liaison Representative Relationship Specialty Start Date End Date Name, MD Yazan [address] [place] [address] PCP - General Family Medicine 12/25/15 documented as of this encounter
--- OUTSIDE RECORDS SUMMARY | 2025-09-26 14:48 | XMS_ITS | Encounter Summary ---
Author Organization [employer] Address 75 [facility] 7t [place] [address] Care Team Providers Care Quality Control Auditor Name Role Phone Name, Yazan PEARCE Primary Care Provider [phone] Encounter Details Date Type Department Care Team (Latest Contact Info) Description 09/21/2025 Travel Social History Tobacco Use Types Packs/Day [...] Description 10/06/2025 9:45 AM EST Office Visit [address] [address] Name, MD Yazan [address] [place] [address] 12/22/2025 10:30 AM EST Clinical Support [address] [address] Mary Scott RN documented as of this encounter Visit Diagnoses Not on filedocumented in this encounter Additional Health Concerns Assessment Noted Time PHQ-9 Depression Total Score: 8 12/15/19 25 4:05 PM EST documented as of this encounter Care Teams Quality Control Auditor Relationship Specialty Start Date End Date NameYazan MD [address] [place] [address] PCP - General Family Medicine 12/25/15 documented as of this encounter
--- OUTSIDE RECORDS SUMMARY | 2025-09-26 14:48 | XMS_ITS | Data Portability ---
Author Organization [employer] [facility], [facility] Address [address] [place] [address] Care Team Providers Care Customer Support Technician Name Role Phone HIM CCA OTHER Unavailable OTHER Assessment Encounter Date Assessment Date Assessment LastModified by Organization Details LastModified Time 02/20/2023 02/20/2023 I provided real -time medical direction via phone for this encounter, and was available for additional phone based assistance as needed. I have reviewed and agree with the Assessment and Plan as documented by the Gis Physical Scientist. Patient calls as she had checked her blood glucose and it was greater than 300. She has a headache, blurred vision, chest pain all that started within the past several hours. She states she does have a history of diabetes but is on no medication or diet. [facility] records to note no history of diabetes. Assessment by subway conductor revealed hypertension and a blood glucose that that was 95. EKG shows normal sinus rhythm. She also has a history of a TIA x2 in the past. The patient was referred to [facility] ED for an evaluation for TIA and hyperglycemia. ED notified with expect call. Not available 02/20/2023 20:35:25 05/09/2025 05/09/2025 I provided real -time medical direction via phone for this encounter and was available for additional phone-based assistance as needed. I have reviewed and agree with the Assessment and Plan as documented by the Gis Physical Scientist. Patient given the opportunity to ask questions. Our service contacted for an assessment of: lower extremity edema [id number] -left As per above, patient recently travel [...] associated with cellulitis or a DVT. Per subway conductor on the scene, Vital signs stable and [...] Assessment and Plan as documented by the Gis Physical Scientist. We discussed the diagnostic uncertainty of home visits and the risk associated with this. In this case the patient and I felt this to be an acceptable and reasonable amount of risk given the benefit of avoiding an ED visit. The patient given the opportunity to ask questions. Patient reports she had cosmetic breast augmentation surgery performed 04/23 in [place]. She had this surgery in 2016, also in [place] resulting in breast infection with removal of [...] warmth, worsening pain to be seen at [facility] otherwise f/u with PCP on Friday for guidance, possible outpatient referral to local surgeon however unsure if this would be possible. Message was left with her PCP Dr. Hand Name for f/u jonh. Advised if develops CP/severe SOB/turning blue/uncontrolled n/v/d or black/bloody emesis or stool/ AMS/ syncope/ hi fever unresponsive to APAP to call 911- verbalized understanding of instruction [email or web address] Not available 06/02/2025 07:39:15 Plan of Treatment Reminders Order Date Submit Date Provider Last Modified By Organization Details Last Modified Time Details Appointments None recorded. Lab glucose, fingerstick , blood [address], [id number] 3 08:52:01 cmp, whole blood + danny [address], [address] 3 09:08:18 Referral None recorded. Procedures None recorded. Surgeries None recorded. Imaging None recorded. Medication Orders erythromyci n 5 mg/gram (0.5 %) eye ointment 2023 024 [id number], [address] [place], [place], [phone], 4 17:04:59 Patient TargetsNo targets recorded. Patient [...] [degF] 18 /min 173/74 mm[Hg] Not Available [employer] 3 20:32:53 Date Recorded Body height Respiratory rate Body temperature Body weight Oxygen saturation Oxygen saturation in Arterial blood by Pulse oximetry Heart rate Systolic And Diastolic Provider Name and Address Organization Details Last Updated DateTime 5 160.02 cm 20 /min 98.1 [degF] 65397.7 2 g 100 % 100 % 111 /min 108/68 mm[Hg] Not Available [employer] 5 20:54:50 Date Recorded Body height Body weight Body temperature Oxygen saturation Oxygen saturation in Arterial blood by Pulse oximetry Heart rate Respiratory rate Systolic And Diastolic Provider Name and Address Organization Details Last Updated DateTime 5 157.48 cm 66972.8 g 98 [degF] 98 % 98 % 110 /min 18 /min 132/88 mm[Hg] Not Available [employer] 5 07:09:51 Date Recorded Body temperature Heart rate Body weight Respiratory rate Oxygen saturation Oxygen saturation in Arterial blood by Pulse oximetry Systolic And Diastolic Provider Name and Address Organization Details Last Updated DateTime 4 98.2 [degF] 94 /min 09957.7 6 g 16 /min 99 % 99 % 120/88 mm[Hg] Not Available [employer] - production 17:03:04 Social History None recorded. Functional Status None recorded. Mental Status None recorded. Family History Nothing Reported. Medical History No medical history recorded. Gynecological HistoryNo gynecological history recorded. Obstetrics History GPAL:G 0 P 0 0 0 0 Past Encounters Encounter ID Performer Location Encounter Start Date Encounter Closed Date Diagnosis/Indication Diagnosis SNOMED-CT Code Diagnosis ICD10 Code Diagnosis IMO Codes Diagnosis Note [id number] Sheila Hernández MD [facility] [place] [id number] 02/20/2023 20:32:44 02/24/2023 12:01:25 Hyperglycemia 59060858 R73.9 [id number] Kiran Michelle MD [facility] [place] [id number] 08/05/2024 17:02:59 08/05/2024 21:32:32 Conjunctivitis 0177310 H10.9 Conjunctiv itis. Will tx with erythrmyci n. Discussed red flag symptoms for which to seek higher level of care. [id number] Sheila Hernández MD [facility] [place] [id number] 05/09/2025 20:54:40 05/09/2025 21:50:14 Edema of lower extremity 558147422 R60.0 [id number] PAULA RAMOS NP, S [facility] [place] [id number] 06/02/2025 07:09:43 06/02/2025 12:13:12 Delayed healing of surgical wound 786373455 T81.89XA [id number] Health Concerns Section Related Observation LastModified by Organization Detai ls LastModified Time None Recorded Concern Status LastModified by Organization Details LastModified Time None Recorded Advance Directives Directive None Recorded Payers Insurance Date Sequence Insurance Name Policy Number Policy Christie Covered Member ID Christie Member ID Guarantor Name 01/18/2024 1 [facility] - DOS PRIOR TO 2023 - DUAL ELIGIBLE (MEDICARE REPLACEMENT/ADV ANTAGE - HMO) Madhu Reyes [id number] Madhu Reyes 06/02/2025 1 [facility] - DOS ON OR AFTER 2023 - DUAL ELIGIBLE - SENIOR LIVING OPTIONS AND ONE CARE (MEDICARE REPLACEMENT/ADV ANTAGE - HMO) Madhu Reyes [id number] Madhu Reyes Notes Date Note Type Note [...] ..................... ..................... ..................... ..................... ..................... ..................... ............... Gis Physical Scientist Note From Heather Talley: Sent to evaluate [...] equal, no droop. No slurred speech. Equal drawing hand with no drift, tongue is straight, +able to shrug shoulders equally, +steady gait. BGL 95. Retook to confirm, 94. 12 lead NSR, no ectopy or ST changes. Uploaded image to [employer]. Pt agrees to eval at [facility] ER for further workup. Consulted [facility] who agreed with pt to be sent to [facility]. 324mg of ASA administered PO. EMS activated and care transferred to [facility] to transport pt to [facility] ER. ..................... ..................... ..................... ..................... ..................... ..................... ............... Disposition: Angus Hernández MD [address] [facility],[address], [place], [address], [facility] NATALIE TIJERINA 02/20/2023 20:36:04 08/05/2024 text/html ROS as noted in the HPI HPI: Triage call for left eye irritation redness swelling and tearing. No itching no fever. ..................... ..................... ..................... ..................... ..................... ..................... ............... [facility] Nurse Triage Notes (Carolina Tyler): Chief Complaints: ENT PMH: Heart Disease, Hypertension Comments: Reviewed HPI, evaluate/assessment for left eye redness/swellingDenie s itching or feverEliza RN ..................... ..................... ..................... ..................... ..................... ..................... ............... Gis Physical Scientist Note From Joshua Berger: Pt co redness [...] ............... Disposition: Fulfilled Kiran Michelle MD [address] [facility],[address], [place], [address], [employer] 08/05/2024 19:32:47 05/09/2025 text/html [facility] Nurse Triage Notes (Lauren Andino): Reason For Request: Patient's Feet hurt. Patient Reports: Shortness of Breath; CHF history, increased swelling and edema; Weakness/tachycardia Denies: History of Heart Attack, in the setting of active chest pain Active Chest pain, radiates to neck jaw and or arm Diaphoretic/Sweating Describes as c rushing Sudden onset of nausea/Vomiting and shortness of breath. Unable to speak in full sentences without distress Palpitations, feeling dizzy Chest pain, increased fatigue Chief Complaints: Extremity Pain PMH: Hypertension, Coronary Artery Disease, Congestive Heart Failure, Asthma, Chronic Back Pain, Anxiety Disorder, Depression PMH Reviewed at 05/09/2025:45 Allergies Reviewed at 05/09/2025 14:45 Comments: 49 y.o female Pt calling with drawing tender. The feet are swollen and painful. She retains fluids. She has had this for week. She went to [facility] yesterday at night, she was told they [...] ..................... ..................... ..................... ..................... ..................... ..................... ............... Gis Physical Scientist Note From Ina Zabala: Pt chief complaint today of lower extremity edema which has been noted for approx 1 week prior to [facility] arrival on scene today. Pt expresses that [...] taken at local facility 1 day to [facility] arrival notes all labs are WNL. Pt is CAOX4 with a GCS of 15. [facility] Sheila Hernández consulted, Pt is informed of findings. Pt is told to contact her pcp at earliest convenience for a follow up as needed, pt is informed of red flag S&S and told to contact emergency services if any present. ..................... ..................... ..................... ..................... ..................... ..................... ............... [facility] Consulted: Sheila Hernández ..................... ..................... ..................... ..................... ..................... ..................... ............... Disposition: Angus Hernández MD [address] [place] [address],[address], [place], [address], [employer] 05/09/2025 21:20:23 06/01/2025 text/html ROS as noted in the HPI HPI: Member transferred to [facility] from [facility] services stating she had a breast augmentation last week. Member went to doctor because felt discomfort and was prescribed oral and topical antibiotics. Member was told she should see improvement every 2 days and yesterday she noticed some bleeding when cleaning her incision. Member states she fears an infection because back 2015 she had to have a transplant removed [...] ..................... ..................... ............... [facility] Nurse Triage Notes (Dasia Leonard): Reason For Request: Wound Care Chief Complaints: Wound Care PMH: Hypertension, Coronary Artery Disease, Congestive Heart Failure, Asthma, Chronic Back Pain, Anxiety Disorder, Depression PMH Reviewed at 06/01/2025 - 11:40 Allergies Reviewed at 06/01/2025 - 11:40 Comments: HPI reviewed. ..................... ..................... ..................... ..................... ..................... ..................... ............... Gis Physical Scientist Note From Samm Valdez: Patient alert and oriented complains of pain at site of surgical wounds. Patient reports cosmetic breast augmentation surgery performed 04/23 in [place]. Patient reports PCP in [place] prescribed anabiotic times 10 days finishes tomorrow. Patient reports pain in some bleeding. Patient denies discharge swelling, fever, chills, nausea, vomiting, or any other pain or complaints. Patient pink warm dry, secondary exam on remarkable, positive full sentences negative increased work of breathing, abdomen soft nontender extremities, unremarkable. Wounds in pictures some extra heat noted. [facility] recommends bacitracin and to follow up with PCP. Wound care, supportive care, red flags, and patient education discussed. Patient demonstrates understanding of care and plan. ..................... ..................... ..................... ..................... ..................... ..................... ............... [facility] Consulted: Paula Ramos ..................... ..................... ..................... ..................... ..................... ..................... ............... Disposition: Fulfilled PAULA RAMOS NP, S [address] [facility],[address], [place], [address], [place] 06/02/2025 07:39:23 OBGyn Episode No OBEpisode recorded.
--- OUTSIDE RECORDS SUMMARY | 2025-09-26 14:49 | XMS_ITS | Encounter Summary ---
Author Organization [employer] Address [address] [place] [address] Care Team Providers Care Manager Renewable Energy Name Role Phone Name, Yazan PEARCE Primary Care Provider [phone] Reason for Visit * Reason Comments Med Refill Encounter Details Date Type Department Care Team (Late st Contact Info) Description 02/24/2024 Refill [facility] MED & PEDS [address] [place], [place] [phone] Name, MD Yazan [address] [place] [address] Chronic neck pain Social History Tobacco Use [...] Description 10/06/2025 9:45 AM EST Office Visit [address] [address] Name, MD Yazan [address] [place] [address] 12/22/2025 10:30 AM EST Clinical Support [address] [address] Mary Scott, JOHN documented as of this encounter Visit Diagnoses Diagnosis Chronic neck pain Cervicalgia documented in this encounter Additional Health Concerns Assessment Noted Time PHQ-9 Depression Total Score: 6 11/12/20 22 11:11 AM EST documented as of this encounter Care Teams Manager Renewable Energy Relationship Specialty Start Date End Date Yazan Pruitt MD [address] [place] [address] PCP - General Family Medicine 12/25/15 documented as of this encounter
--- OUTSIDE RECORDS SUMMARY | 2025-09-26 14:49 | XMS_ITS | Encounter Summary ---
Author Organization [employer] Address [address] [place] [address] Care Team Providers Care Trust Clerk Name Role Phone Name, Yazan PEARCE Primary Care Provider [phone] Reason for Visit * Reason Comments Med Refill Encounter Details Date Type Department Care Team (Late st Contact Info) Description 06/14/2024 Refill [facility] CH[facility] MED & PEDS [address] [place], [place] [phone] Name, MD Yazan [address] [place] [address] Chronic neck pain Social History Tobacco Use [...] 10/06/2025 9:45 AM EST Office Visit [address] [address] Name, MD Yazan [address] [place] [address] 12/22/2025 10:30 AM EST Clinical Support [address] [address] Mary Scott, JOHN documented as of this encounter Visit Diagnoses Diagnosis Chronic neck pain Cervicalgia documented in this encounter Additional Health Concerns Assessment Noted Time PHQ-9 Depression Total Score: 6 11/12/20 22 11:11 AM EST documented as of this encounter Care Teams Trust Clerk Relationship Specialty Start Date End Date Yzaan Pruitt MD [address] [place] [address] PCP - General Family Medicine 12/25/15 documented as of this encounter
--- OUTSIDE RECORDS SUMMARY | 2025-09-26 14:49 | XMS_ITS | Continuity of Care Document ---
Author Name Evelio Avelar Address [address] [place] [address] Organization Unknown Address [address] [place] [address] Medications No known medications Problems No known problems
--- OUTSIDE RECORDS SUMMARY | 2025-09-26 14:49 | XMS_ITS | Encounter Summary ---
Author Organization [employer] Address [address] [facility] [address] [place] [address] Care Team Providers Care Safety Instructor Name Role Phone Name, Yazan PEARCE Primary Care Provider [phone] Encounter Details Date Type Department Care Team ([facility] st Contact Info) Description 11/10/2024 Telephone [facility] MEDICINE [address] [place], [place] [phone] Name, MD Yazan [address] [place] [address] Social History Tobacco Use Types Packs/Day Years [...] Description 10/06/2025 9:45 AM EST Office Visit [address] [address] Name, MD Yazan [address] [place] [address] 12/22/2025 10:30 AM EST Clinical Support [address] [address] Mary Scott RN documented as of this encounter Visit Diagnoses Not on filedocumented in this encounter Additional Health Concerns Assessment Noted Time PHQ-9 Depression Total Score: 6 11/12/20 22 11:11 AM EST documented as of this encounter Care Teams Safety Instructor Relationship Specialty Start Date End Date NameYazan MD [address] [place] [address] PCP - General Family Medicine 12/25/15 documented as of this encounter
--- OUTSIDE RECORDS SUMMARY | 2025-09-26 14:49 | XMS_ITS | Encounter Summary ---
Author Organization [employer] Address [address] [facility] 7t [place] [address] Care Team Providers Care Piano Professor Name Role Phone Name, Yazan PEARCE Primary Care Provider [phone] Reason for Visit * Reason Onset Date Comments Referral 05/28/2024 Encounter Details Date Type Department Care Team ([facility] st Contact Info) Description 05/28/2024 Telephone [facility] [address] [place] [address] Name, MD Yazan [address] [place] [address] Referral Social History Tobacco Use Types Packs/Day [...] If any questions please contact pt at [phone]. Chinese Speaker. documented in this encounter Plan of Treatment Upcoming Encounters Date Type Department Care Team (Late st Contact Info) Description 10/06/2025 9:45 AM EST Office Visit [address] [address] Name, MD Yazan [address] [place] [address] 12/22/2025 10:30 AM EST Clinical Support [address] [address] Mary Scott, JOHN documented as of this encounter Visit Diagnoses Not on filedocumented in this encounter Additional Health Concerns Assessment Noted Time PHQ-9 Depression Total Score: 6 11/12/20 22 11:11 AM EST documented as of this encounter Care Teams Piano Professor Relationship Specialty Start Date End Date Name, MD Yazan [address] [place] [address] PCP - General Family Medicine 12/25/15 documented as of this encounter
--- OUTSIDE RECORDS SUMMARY | 2025-09-26 14:49 | XMS_ITS | Encounter Summary ---
Author Organization [employer] Address [address] [facility] [address] [place] [address] Care Team Providers Care Skate Shop Attendant Name Role Phone Name, Yazan PEARCE Primary Care Provider [phone] Reason for Visit * Reason Comments Med Refill Encounter Details Date Type Department Care Team ([facility] st Contact Info) Description 11/10/2023 Refill [facility] CHC MED & PEDS [address] [place], [place] [phone] Name, MD Yazan [address] [place] [address] Chronic neck pain Social History Tobacco Use [...] Description 10/06/2025 9:45 AM EST Office Visit [address] [address] Name, MD Yazan [address] [place] [address] 12/22/2025 10:30 AM EST Clinical Support [address] [address] Mary Scott, JOHN documented as of this encounter Visit Diagnoses Diagnosis Chronic neck pain Cervicalgia documented in this encounter Additional Health Concerns Assessment Noted Time PHQ-9 Depression Total Score: 6 11/12/20 22 11:11 AM EST documented as of this encounter Care Teams Skate Shop Attendant Relationship Specialty Start Date End Date Yazan Pruitt MD [address] [place] [address] PCP - General Family Medicine 12/25/15 documented as of this encounter
--- OUTSIDE RECORDS SUMMARY | 2025-09-26 14:49 | XMS_ITS | Encounter Summary ---
Author Organization [employer] Address [address] [facility] 7t [place] [address] Care Team Providers Care Tuyere Fitter Name Role Phone Name, Yazan PEARCE Primary Care Provider [phone] Reason for Visit * Reason Comments Med Refill Encounter Details Date Type Department Care Team ([facility] st Contact Info) Description 03/31/2024 Refill [facility] [address] [place], [place] [phone] Name, MD Yazan [address] [place] [address] Chronic neck pain Social History Tobacco Use [...] Description 10/06/2025 9:45 AM EST Office Visit [address] [address] Name, MD Yazan [address] [place] [address] 12/22/2025 10:30 AM EST Clinical Support [address] [address] Mary Scott, JOHN documented as of this encounter Visit Diagnoses Diagnosis Chronic neck pain Cervicalgia documented in this encounter Additional Health Concerns Assessment Noted Time PHQ-9 Depression Total Score: 6 11/12/20 22 11:11 AM EST documented as of this encounter Care Teams Tuyere Fitter Relationship Specialty Start Date End Date Yazan Pruitt MD [address] [place] [address] PCP - General Family Medicine 12/25/15 documented as of this encounter
--- OUTSIDE RECORDS SUMMARY | 2025-09-26 14:49 | XMS_ITS | Encounter Summary ---
Author Organization [employer] Address [address] [facility] [address] [place] [address] Care Team Providers Care Forest Examiner Name Role Phone Name, Yazan PEARCE Primary Care Provider [phone] Reason for Visit * Reason Comments Med Refill Encounter Details Date Type Department Care Team ([facility] st Contact Info) Description 03/26/2024 Refill [facility] [address] [place], [place] [phone] Name, MD Yazan [address] [place] [address] Chronic neck pain Social History Tobacco Use [...] Description 10/06/2025 9:45 AM EST Office Visit [address] [address] Name, MD Yazan [address] [place] [address] 12/22/2025 10:30 AM EST Clinical Support [address] [address] Mary Scott, JOHN documented as of this encounter Visit Diagnoses Diagnosis Chronic neck pain Cervicalgia documented in this encounter Additional Health Concerns Assessment Noted Time PHQ-9 Depression Total Score: 6 11/12/20 22 11:11 AM EST documented as of this encounter Care Teams Forest Examiner Relationship Specialty Start Date End Date Yazan Pruitt MD [address] [place] [address] PCP - General Family Medicine 12/25/15 documented as of this encounter
--- OUTSIDE RECORDS SUMMARY | 2025-09-26 14:49 | XMS_ITS | Encounter Summary ---
Author Organization [employer] Address [address] 7t [place] [address] Care Team Providers Care Tool Honing Machine Set Up Operator Name Role Phone Name, Yazan PEARCE Primary Care Provider [phone] Reason for Visit * Reason Comments Med Refill Encounter Details Date Type Department Care Team (Late st Contact Info) Description 12/25/2023 Refill [facility] MED & PEDS [address] [place], [place] [phone] Name, MD Yazan [address] [place] [address] Chronic neck pain Social History Tobacco Use [...] Description 10/06/2025 9:45 AM EST Office Visit [address] [address] Name, MD Yazan [address] [place] [address] 12/22/2025 10:30 AM EST Clinical Support [address] [address] Mary Scott, JOHN documented as of this encounter Visit Diagnoses Diagnosis Chronic neck pain Cervicalgia documented in this encounter Additional Health Concerns Assessment Noted Time PHQ-9 Depression Total Score: 6 11/12/20 22 11:11 AM EST documented as of this encounter Care Teams Tool Honing Machine Set Up Operator Relationship Specialty Start Date End Date Yazan Pruitt MD [address] [place] [address] PCP - General Family Medicine 12/25/15 documented as of this encounter
--- OUTSIDE RECORDS SUMMARY | 2025-09-26 14:49 | XMS_ITS | Encounter Summary ---
Author Organization [employer] Address [address] 7t [place] [address] Care Team Providers Care Medical Director Of Hospice Name Role Phone Name, Yazan PEARCE Primary Care Provider [phone] Reason for Visit * Reason Comments Med Refill Encounter Details Date Type Department Care Team (Late st Contact Info) Description 02/05/2024 Refill [facility] CHC MED & PEDS [address] [place], [place] [phone] Name, MD Yazan [address] [place] [address] Chronic neck pain Social History Tobacco Use [...] 10/06/2025 9:45 AM EST Office Visit [address] [address] Name, MD Yazan [address] [place] [address] 12/22/2025 10:30 AM EST Clinical Support [address] [address] Mary Scott, JOHN documented as of this encounter Visit Diagnoses Diagnosis Chronic neck pain Cervicalgia documented in this encounter Additional Health Concerns Assessment Noted Time PHQ-9 Depression Total Score: 6 11/12/20 22 11:11 AM EST documented as of this encounter Care Teams Medical Director Of Hospice Relationship Specialty Start Date End Date Yazan Pruitt MD [address] [place] [address] PCP - General Family Medicine 12/25/15 documented as of this encounter
--- OUTSIDE RECORDS SUMMARY | 2025-09-26 14:49 | XMS_ITS | Encounter Summary ---
Author Organization [employer] Address [address] 7t [place] [address] Care Team Providers Care Inspection Machine Tender Name Role Phone Name, Yazan PEARCE Primary Care Provider [phone] Reason for Visit * Reason Comments Med Refill Encounter Details Date Type Department Care Team (Late st Contact Info) Description 01/19/2024 Refill [facility] CHC MED & PEDS [address] [place], [place] [phone] Name, MD Yazan [address] [place] [address] Chronic neck pain Social History Tobacco Use [...] Description 10/06/2025 9:45 AM EST Office Visit [address] [address] Name, MD Yazan [address] [place] [address] 12/22/2025 10:30 AM EST Clinical Support [address] [address] Mary Scott, JOHN documented as of this encounter Visit Diagnoses Diagnosis Chronic neck pain Cervicalgia documented in this encounter Additional Health Concerns Assessment Noted Time PHQ-9 Depression Total Score: 6 11/12/20 22 11:11 AM EST documented as of this encounter Care Teams Inspection Machine Tender Relationship Specialty Start Date End Date Yazan Pruitt MD [address] [place] [address] PCP - General Family Medicine 12/25/15 documented as of this encounter
--- OUTSIDE RECORDS SUMMARY | 2025-09-26 14:49 | XMS_ITS | Encounter Summary ---
Author Organization [employer] Address [address] 7[address] [place] [address] Care Team Providers Care Clearing Supervisor Name Role Phone Name, Yazan PEARCE Primary Care Provider [phone] Reason for Visit * Reason Comments Med Refill Encounter Details Date Type Department Care Team (Late st Contact Info) Description 02/06/2024 Refill [facility] CHC MED & PEDS [address] [place], [place] [phone] Name, MD Yazan 230 [place] [address] Chronic neck pain Social History Tobacco Use [...] Description 10/06/2025 9:45 AM EST Office Visit [address] [address] Name, MD Yazan [address] [place] [address] 12/22/2025 10:30 AM EST Clinical Support [address] [address] Mary Scott, JOHN documented as of this encounter Visit Diagnoses Diagnosis Chronic neck pain Cervicalgia documented in this encounter Additional Health Concerns Assessment Noted Time PHQ-9 Depression Total Score: 6 11/12/20 22 11:11 AM EST documented as of this encounter Care Teams Clearing Supervisor Relationship Specialty Start Date End Date Yazan Pruitt MD [address] [place] [address] PCP - General Family Medicine 12/25/15 documented as of this encounter
--- OUTSIDE RECORDS SUMMARY | 2025-09-26 14:49 | XMS_ITS | Encounter Summary ---
Author Organization [facility] Address [address] [place] [address] Encounters * CPT with Evelio Avelar at [facility] on 2025-05-10 { reasonForRequest : Patient's Feet hurt. , patientReports : Shortness of Breath; CHF history, increased swelling and edema; Weakness/tachycardia , denies :[ History of Heart Attack, in the setting of active chest pain , Active Chest pain, radiates to neck jaw and or arm , Diaphoretic/Sweating , Describes as crushing , Sudden onset of nausea/Vomiting and shortness of breath. , Unable to speak in full sentences without distress , Palpitations, feeling dizzy , Chest pain, increased fatigue ], chiefComplaints : Extremity Pain , pmh": Hypertension, Coronary Artery Disease, Congestive Heart Failure, Asthma, Chronic Back Pain, Anxiety Disorder, Depression , allergies : No Known Drug Allergies , otherAllergies : , painAssessment : , visitOutcome :& quot; , additionalComments : 49 y.o female \n\nPt calling with science interpreter. \n\n The feet are swollen and painful. She retains fluids. She has had this for week.\Sha went to [facility] yesterday at night, she was told they could not prescribe any Diuretic, she called her PCPand they are not there. \Sha has not been on a diuretic for many years. \Sha has not had any heart attack in the past. She has sob when she is walking , talking in full sentences. She feels her heart rate increases when she walks as well. HR 124/126>When she rests goes down to 92%. she does not wear any home 02. \Sha is also having chest pain right now, but did have chest pain yesterday why she presented to the ER. She had a CT SCAN / exray allnegative, stated that she had blood work done as well, but is unsure if they did a cardiac workup. \n\nPt did not want to present to the ER as she was just seen \nI provided information on the [facility] provider response time and advised the patient and/or caregiver to monitor reported signs and symptoms. I discussed the warning signs of when to seek emergency care. } Pt chief complaint today of lower extremity edema which has been noted for approx 1 week prior to [facility] arrival on scene today. Pt expresses that she has just come back 2 weeks prior from breast enhancement surgery as well as liposuction from [facility]. Pt state that after her time in [facility] she noted her feet to be [...] rest, NVD, dizziness or blurred vision, no changein bowel or urinary movements as well. Nonneural, focal exam, afebrile, vitals are WNL for the baseline of the pt. Lungs present as clear bilaterally in all byrd on auscultation. Benign abdominal assessment. Noted lower extremities edema which is not pitting. Pt has positive csm in all extremity. Blood work taken at local facility 1 day to [facility] arrival notes all labs are WNL. Pt is CAOX4 with a GCS of 15. [facility] Sheila Hernández consulted, Pt is informed of findings. Pt is told to contact her pcp at earliest convenience for a follow up as needed, pt is informed of red flag S&S and told to contact emergency services if any present. IV_(FLUIDS_AND/OR_MEDICATION), MEDICATION_IM, ORAL_MEDICATION, WOUND_CARE, ORTHOSTATIC_VITAL_SIGNS Written by Evelio Avelar on 2025-05-10
--- OUTSIDE RECORDS SUMMARY | 2025-09-26 14:49 | XMS_ITS | Continuity of Care Document ---
Author Name Evelio Avelar Address [address] [place] [id number] Organization Unknown Address [address] [place] [address] Medications No known medications Problems No known problems
--- OUTSIDE RECORDS SUMMARY | 2025-09-26 14:49 | XMS_ITS | Encounter Summary ---
Author Organization [employer] Address [address] 7[address] [place] [address] Care Team Providers Care Steamer Gum Candy Name Role Phone Name, Yazan PEARCE Primary Care Provider [phone] Reason for Visit * Reason Comments Med Refill Encounter Details Date Type Department Care Team (Late st Contact Info) Description 11/09/2023 Refill [facility] CHC MED & PEDS [address] [place], [place] [phone] Name, MD Yazan [address] [place] [address] Chronic neck pain Social History Tobacco Use [...] 10/06/2025 9:45 AM EST Office Visit [address] [address] NameYazan MD [address] [place] [address] 12/22/2025 10:30 AM EST Clinical Support [address] [address] Mary Scott, JOHN documented as of this encounter Visit Diagnoses Diagnosis Chronic neck pain Cervicalgia documented in this encounter Additional Health Concerns Assessment Noted Time PHQ-9 Depression Total Score: 6 11/12/20 22 11:11 AM EST documented as of this encounter Care Teams Steamer Gum Candy Relationship Specialty Start Date End Date NameYazan MD [address] [place] [address] PCP - General Family Medicine 12/25/15 documented as of this encounter
--- OUTSIDE RECORDS SUMMARY | 2025-09-26 14:49 | XMS_ITS | Encounter Summary ---
Author Organization [employer] Address [address] [facility] 7t [place] [address] Care Team Providers Care Decorating Supervisor Name Role Phone Name, Yazan PEARCE Primary Care Provider [phone] Reason for Visit * Reason Comments Med Refill Encounter Details Date Type Department Care Team ([facility] st Contact Info) Description 03/30/2024 Refill [facility] MEDICINE [address] [place], [place] [phone] Name, MD Yazan [address] [place] [address] Social History Tobacco Use Types Packs/Day Years [...] 10/06/2025 9:45 AM EST Office Visit [address] [address] Name, MD Yazan [address] [place] [address] 12/22/2025 10:30 AM EST Clinical Support [address] [address] Mary Scott, JOHN documented as of this encounter Visit Diagnoses Not on filedocumented in this encounter Additional Health Concerns Assessment Noted Time PHQ-9 Depression Total Score: 6 11/12/20 22 11:11 AM EST documented as of this encounter Care Teams Decorating Supervisor Relationship Specialty Start Date End Date Yazan Pruitt MD [address] [place] [address] PCP - General Family Medicine 12/25/15 documented as of this encounter
--- OUTSIDE RECORDS SUMMARY | 2025-09-26 14:49 | XMS_ITS | Encounter Summary ---
Author Organization [employer] Address [address] [facility] 7t [place] [address] Care Team Providers Care Oiler Helper Name Role Phone Name, Yazan PEARCE Primary Care Provider [phone] Reason for Visit * Reason Onset Date Comments Referral 12/08/2024 Encounter Details Date Type Department Care Team ([facility] st Contact Info) Description 12/08/2024 Telephone [facility] [address] [place] [address] Name, MD Yazan [address] [place] [address] Referral Social History Tobacco Use Types Packs/Day [...] days. Please add patients preferred location of [facility] [address] [place] [address] Tel. [phone] . * Telephone Encounter - Jose Olmos - 12/08/2024 9:43 AM EST Tc from pt calling in regards to PT referral requesting for location to be changed to [facility] [address] [facility]. If any questions you can contact pt at [phone]. (Vietnamese Speaker) documented in this encounter Plan of Treatment Upcoming Encounters Date Type Department Care Team (Late st Contact Info) Description 10/06/2025 9:45 AM EST Office Visit [facility] [address] [place] [address] Name, MD Yazan [address] [place] [address] 12/22/2025 10:30 AM EST Clinical Support [facility] [address] [place] [address] Mary Scott RN documented as of this encounter Visit Diagnoses Not on filedocumented in this encounter Additional Health Concerns Assessment Noted Time PHQ-9 Depression Total Score: 6 11/12/20 22 11:11 AM EST documented as of this encounter Care Teams Oiler Helper Relationship Specialty Start Date End Date Name, MD Yazan [address] [place] [address] PCP - General Family Medicine 12/25/15 documented as of this encounter
--- OUTSIDE RECORDS SUMMARY | 2025-09-26 14:49 | XMS_ITS | Encounter Summary ---
Author Organization [employer] Address [address] [facility] 7t [place] [address] Care Team Providers Care Toolroom Clerk Name Role Phone Name, Yazan PEARCE Primary Care Provider [phone] Reason for Visit * Reason Comments Med Refill Encounter Details Date Type Department Care Team ([facility] st Contact Info) Description 02/17/2025 Refill [facility] MEDICINE 230 [place], [place] [phone] Name, MD Yazan 230 [place] [address] Chronic neck pain Social History Tobacco Use [...] Description 10/06/2025 9:45 AM EST Office Visit [address] [address] NameYazan MD [address] [place] [address] 12/22/2025 10:30 AM EST Clinical Support [address] [address] Mary Scott, JOHN documented as of this encounter Visit Diagnoses Diagnosis Chronic neck pain Cervicalgia documented in this encounter Additional Health Concerns Assessment Noted Time PHQ-9 Depression Total Score: 8 12/15/19 25 4:05 PM EST documented as of this encounter Care Teams Toolroom Clerk Relationship Specialty Start Date End Date NameYazan MD [address] [place] [address] PCP - General Family Medicine 12/25/15 documented as of this encounter
--- OUTSIDE RECORDS SUMMARY | 2025-09-26 14:49 | XMS_ITS | Encounter Summary ---
Author Organization [employer] Address [address] 7[address] [place] [address] Care Team Providers Care Holter Technician Name Role Phone Name, Yazan PEARCE Primary Care Provider Reason for Visit * Reason Comments Med Refill Encounter Details Date Type Department Care Team (Late st Contact Info) Description 12/29/2023 Refill [facility] CHC MED & PEDS [address] [place], [place] [phone] Name, MD Yazan [address] [place] [address] Chronic neck pain Social History Tobacco Use [...] Description 10/06/2025 9:45 AM EST Office Visit [address] [address] Name, MD Yazan [address] [place] [address] 12/22/2025 10:30 AM EST Clinical Support [address] [address] Mary Scott, JOHN documented as of this encounter Visit Diagnoses Diagnosis Chronic neck pain Cervicalgia documented in this encounter Additional Health Concerns Assessment Noted Time PHQ-9 Depression Total Score: 6 11/12/20 22 11:11 AM EST documented as of this encounter Care Teams Holter Technician Relationship Specialty Start Date End Date Yazan Pruitt MD [address] [place] [address] PCP - General Family Medicine 12/25/15 documented as of this encounter
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
--- OUTSIDE RECORDS SUMMARY | 2025-09-26 14:49 | XMS_ITS | Encounter Summary ---
Author Organization [employer] Address [address] 7t [place] [address] Care Team Providers Care Mathematics Lecturer Name Role Phone Name, Yazan PEARCE Primary Care Provider [phone] Reason for Visit * Reason Comments Med Refill Encounter Details Date Type Department Care Team (Late st Contact Info) Description 12/11/2023 Refill [facility] CHC MED & PEDS [address] [place], [place] [phone] Name, MD Yazan [address] [place] [address] Chronic neck pain Social History Tobacco Use [...] Description 10/06/2025 9:45 AM EST Office Visit [address] [address] Name, MD Yazan [address] [place] [address] 12/22/2025 10:30 AM EST Clinical Support [address] [address] Mary Scott, JOHN documented as of this encounter Visit Diagnoses Diagnosis Chronic neck pain Cervicalgia documented in this encounter Additional Health Concerns Assessment Noted Time PHQ-9 Depression Total Score: 6 11/12/20 22 11:11 AM EST documented as of this encounter Care Teams Mathematics Lecturer Relationship Specialty Start Date End Date Yazan Pruitt MD [address] [place] [address] PCP - General Family Medicine 12/25/15 documented as of this encounter
--- OUTSIDE RECORDS SUMMARY | 2025-09-26 14:49 | XMS_ITS | Clinical Summary ---
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 results in this assay for individualswith prior exposure to HIV-1 and/or HIV-2 may be due toantigen and antibody levels that are below the limit ofdetection of this assay.[employer] HIV Ag/Ab Combo assay result andsupplemental assay results should be interpreted inconjunction with the patient's clinical presentation,history and other laboratory results. If the results areinconsistent with clinical evidence, additional testing issuggested to confirm the result. Blood Venous blood specimen / Unknown 04/13/2025 2:46 PM EDT 04/13/2025 4:23 PM EDT Madan Kelley PROMOTIONS REPRESENTATIVE LAB BLOOD ORDERABLES Toshia l Result [facility] [address] [place] [phone] * Mammography (12/17/2022) Mammogram performed Anatomical Region Laterality Modality Other Historical Provider MD HEALTH MAINTENANCE Final Result * Pap Smear (02/17/2021) Pap smear PAP, liquid based Comment:Negative (NIL) HPV- Historical Provider MD HEALTH MAINTENANCE Final Result * HPV GENOTYPES 16,18/45 (02/16/2021 4:47 PM EDT) HPV 16 RNA NOT DETECTED NOT DETECTED [facility] HPV 18/45 RNA NOT DETECTED NOT DETECTED [facility] Comment: Methodology: Musical Performer Mediated Amplification The analytical performance characteristics of this assay have been determined by [employer]. The modifications have not been cleared or approved by the FDA. This assay has been validated pursuant to the CLIA regulations and is used for clinical purposes. 02/16/2021 4:47 PM EDT Abigail Pastrana NP LAB CYTOLOGY ORDERABLES Final R esult [facility] [address] from Last 3 Months or Most Recently Relevant to Health Maintenance Insurance [facility] Member Subscriber Plan / Payer (Ef fective 2018-Present) Name:Madhu Peter Relation to Subscriber:Self Name:Eric Madhu Delgado Payer ID:Not on file Group ID:[id number] Type:Not on file Address: [address] ONE CARE < 65 Care Teams Locomotive Crane Engineer Relationship Specialty Start Date End Date Name, MD Yazan [address] [place] [phone] PCP - General Family Medicine 12/25/15
--- OUTSIDE RECORDS SUMMARY | 2025-09-26 14:50 | XMS_ITS | Encounter Summary ---
Author Organization [employer] Address [address] [facility] [address] [place] [address] Care Team Providers Care Electronics Production Supervisor Name Role Phone Name, Yazan PEARCE Primary Care Provider [phone] Reason for Visit * Reason Comments Med Refill Encounter Details Date Type Department Care Team ([facility] st Contact Info) Description 11/18/2023 Refill [facility] MED[facility] [address] [place], [place] [phone] Name, MD Yazan [address] [place] [address] Asthma, unspecified asthma severity, unspecified whether complicated, [...] 10/06/2025 9:45 AM EST Office Visit [address] [address] Name, MD Yazan [address] [place] [address] 12/22/2025 10:30 AM EST Clinical Support [address] [address] Mary Scott, JOHN documented as of this encounter Visit Diagnoses Diagnosis Asthma, unspecified asthma severity, unspecified whether complicated, unspecified whether persistent Chronic neck pain Cervicalgia documented in this encounter Additional Health Concerns Assessment Noted Time PHQ-9 Depression Total Score: 6 11/12/20 22 11:11 AM EST documented as of this encounter Care Teams Electronics Production Supervisor Relationship Specialty Start Date End Date Name, MD Yazan [address] [place] [phone] PCP - General Family Medicine 12/25/15 documented as of this encounter
--- OUTSIDE RECORDS SUMMARY | 2025-09-26 14:50 | XMS_ITS | Encounter Summary ---
Author Organization [employer] Address [address] [facility] [address] [place] [address] Care Team Providers Care Anthropology Professor Name Role Phone Name, Yazan PEARCE Primary Care Provider [phone] Reason for Visit * Reason Comments Med Refill Encounter Details Date Type Department Care Team (Late st Contact Info) Description 07/08/2024 Refill [facility] [address] [place], [place] [phone] Name, MD Yazan [address] [place] [address] Chronic neck pain Social History Tobacco Use [...] 10/06/2025 9:45 AM EST Office Visit [address] [address] Name, MD Yazan [address] [place] [address] 12/22/2025 10:30 AM EST Clinical Support [address] [address] Mary Scott, JOHN documented as of this encounter Visit Diagnoses Diagnosis Chronic neck pain Cervicalgia documented in this encounter Additional Health Concerns Assessment Noted Time PHQ-9 Depression Total Score: 6 11/12/20 22 11:11 AM EST documented as of this encounter Care Teams Anthropology Professor Relationship Specialty Start Date End Date Yazan Pruitt MD [address] [place] [phone] PCP - General Family Medicine 12/25/15 documented as of this encounter
--- OUTSIDE RECORDS SUMMARY | 2025-09-26 14:50 | XMS_ITS | Encounter Summary ---
Author Organization [employer] Address [address] [facility] [address] [place] [address] Care Team Providers Care Export Coordinator Name Role Phone Name, Yazan PEARCE Primary Care Provider [phone] Reason for Visit * Reason Comments Med Refill Encounter Details Date Type Department Care Team ([facility] st Contact Info) Description 07/07/2025 Refill [facility] MEDICINE [address] [place], [place] [phone] Name, MD Yazan [address] [place] [address] Acute right-sided low back pain with right-sided sciatica Social History Tobacco Use Types Packs/Day Years [...] Description 10/06/2025 9:45 AM EST Office Visit [address] [address] NameYazan MD [address] [place] [phone] 12/22/2025 10:30 AM EST Clinical Support [address] [address] Mary Scott, JOHN documented as of this encounter Visit Diagnoses Diagnosis Acute right-sided low back pain with right-sided sciatica documented in this encounter Additional Health Concerns Assessment Noted Time PHQ-9 Depression Total Score: 8 12/15/19 25 4:05 PM EST documented as of this encounter Care Teams Export Coordinator Relationship Specialty Start Date End Date Yazan Pruitt MD [address] [place] [phone] PCP - General Family Medicine 12/25/15 documented as of this encounter
--- OUTSIDE RECORDS SUMMARY | 2025-09-26 14:50 | XMS_ITS | Encounter Summary ---
Author Organization [email or web address] Address [address] [facility] [address] [place] [address] Care Team Providers Care Assistant Professor Of Theater Name Role Phone Name, Yazan PEARCE Primary Care Provider [phone] Reason for Visit * Reason Comments Med Refill Encounter Details Date Type Department Care Team ([facility] st Contact Info) Description 11/20/2023 Refill [facility] [address] [place], [place] [phone] Name, MD Yazan [address] [place] [address] Chronic neck pain; Asthma, unspecified asthma severity, [...] 10/06/2025 9:45 AM EST Office Visit [address] [address] Name, MD Yazan [address] [place] [address] 12/22/2025 10:30 AM EST Clinical Support [address] [address] Mary Scott, JOHN documented as of this encounter Visit Diagnoses Diagnosis Chronic neck pain Cervicalgia Asthma, unspecified asthma severity, unspecified whether complicated, unspecified whether persistent documented in this encounter Additional Health Concerns Assessment Noted Time PHQ-9 Depression Total Score: 6 11/12/20 22 11:11 AM EST documented as of this encounter Care Teams Assistant Professor Of Theater Relationship Specialty Start Date End Date NameYazan MD [address] [place] [phone] PCP - General Family Medicine 12/25/15 documented as of this encounter
== END 2025-09-26 11:38 | disposition home or self-care (01) ==
LOC: HO.HHCX 11:37
PROVIDERS: Visit Provider Internal Medicine Geriatric Medicine
DX: M25.512 Pain in left shoulder (principal)
CPT/HCPCS: 73030

== ENCOUNTER → 2025-09-26 11:38 | Outpatient (BNV) | payer OTHER, SELFPAY | PROVIDERS: Visit Provider Radiology Diagnostic Radiology | DX: M25.512 Pain in left shoulder (principal) | CPT/HCPCS: 73030 ==